=== PATIENT | male | born 1945 | race Caucasian/White ===

== ENCOUNTER 2016-10-22 13:29 | Inpatient (IN) | payer MEDICARE, OTHER ==
[~2016-10-22] VITALS: Ht 185.4 cm; Wt 80.1 kg
[~2016-10-22 13:29] MED LIST: ACETAMINOPHEN325 M1 PO; ADULT LOW DOSE81 MG PO; ADVAIR 250-501 EACH INH; ALBUTEROL2.5 MG/3 M INH; BENADRYL25 MG; BENADRYL25 MG PO; CEPHALEXIN500 MG PO; CHLORHEXIDINE473 ML MM; CLINDAMYCIN HC150 MG PO; DIPHENHYDRAMINE50 M1 PO; DOCUSATE SODIU100 MG PO; DUONEB 0.5 MG-33 ML INH; ERYTHROMYCIN3.5 GM OU; FERROUS SULFAT325 M1 PO; FLOVENT HFA10.6 GM; FLOVENT HFA12 G1 INH; HYDROCODON-ACE1 EA14 PO; INCRUSE ELLI62.5 MCG IH; IPRAT-ALBUT 0.5-3 ML; IPRAT-ALBUT 0.5-3 ML INH; IPRATROPIU0.2 MG/1 M INH; LEVAQUIN500 MG PO; LEVAQUIN750 MG PO; LEVOTHYROXINE150 MCG; LEVOTHYROXINE200 MCG PO; MAG-AL LIQUID30 ML PO; MAG-OXIDE400 MG PO; MILK OF MA400 MG/5 M; MILK OF MA400 MG/5 M PO; MIRALAX17 GM; MULTI-VITAMIN1 EACH PO; NIACIN500 M1 PO; NIACIN500 M2 PO; PREDNISONE20 MG PO; RISPERDAL1 MG; RISPERDAL3 MG PO; SEROQUEL200 MG PO; SEROQUEL400 MG PO; SODIUM CHLORIDE1 GM PO; SPIRIVA18 MCG INH; TAMSULOSIN HCL0.4 MG PO; TYLENOL ARTHRI650 MG PO; ULTRAM50 MG PO; ZOCOR40 MG PO; ZOLOFT100 MG PO; [UNRECOGNIZED DRUG - OTHER]
--- NOTE | 2016-10-22 17:00 | NUR ---
PT ARRIVED TO FLOOR FROM ED. PT FULL ASSIST TRANSFER TO HOSPITAL BED. PT ORIENTED TO SELF ONLY. PT DROWSY BUT RESPONDS TO VOICE. BED ALARM ON. PT ATTENDS HAD BM UPON ARRIVIAL, PT CLEANED THOROUGHLY. TELE #9 SINUS RHTHYM, HR IN 80'S. PT DENIES PAIN, NAUSEA, OR OTHER CONCERNS. MOIST COUGH NOTED. PT SATTING MID 90'S ON 2L NC. SKIN IN GOOD CONDITION, NO BREAKDOWN, BRUISING, OR ABRASIONS NOTED. BED ALARM ON FOR SAFETY.
--- NOTE | 2016-10-22 18:50 | NUR ---
PT IS SITTING IN BED EATING DINNER, VITASL TAKEN. PT DID NOT NEED ANYTHING AT THE MOMENT.
--- NOTE | 2016-10-22 18:50 | NUR ---
PT SITTING UP IN BED EATING DINNER INDEPENDENTLY.
--- NOTE | 2016-10-22 20:44 | NUR ---
PT ASSESSMENT COMPLETE. PT HAS HX MRDD, ORIENTED TO SELF/PLACE/RECOGNIZES PEOPLE AND STAFF HE KNOWS. PT VERY PLEASANT AND COOPERATIVE. IV FLUIDS INFUSING WITHOUT DIFFICULTY. PT DENIES ANY PAIN. PT TOLERATING PO WELL, ATE MOST OF DINNER. PT DROWSY, FALLS ASLEEP EASILY AND AWAKES EASILY. PT ON TELEMETRY, SV RHYTHM, HR 69. CALL LIGHT WITHIN REACH. PT DENIES ANY FURTHER NEEDS AT THIS TIME. CURTAINS OPEN FOR CLOSE MONITORING.
--- NOTE | 2016-10-22 21:16 | NUR ---
CHANGED PT GOWN, PILLOW CASE, DAMP FROM HIS BODY-SWEATY. PT MOSTLY SLEEPY WITH MOIST COUGH, NON-PRODUCTIVE. RETURNED TO SLEEP ONCE TASK COMPLETE.
--- NOTE | 2016-10-23 00:05 | NUR ---
PT SLEEPING, RR EVEN AND UNLABORED. PT APPEARS COMFORTABLE AT THIS TIME. PT ON TELEMETRY, SINUS RHYTHM, HR 65. IV FLUIDS INFUSING WITHOUT DIFFICULTY. PT ON 2 LPM O2 VIA NASAL CANNULA, SATS IN HIGH 90'S. CALL LIGHT WITHIN REACH.
--- NOTE | 2016-10-23 01:30 | NUR ---
PT INCONTINENT OF STOOL AND URINE. GUIAC TEST DONE, WHICH WAS NEGATIVE. NEED 2 MORE STOOLS TESTED. VS COMPLETE. IV FLUIDS INFUSING WITHOUT DIFFICULTY. PT EASILY FALLING BACK TO SLEEP. PT APPEARS COMFORTABLE. CALL LIGHT WITHIN REACH.
--- NOTE | 2016-10-23 04:49 | NUR ---
PT SLEEPING, RR EVEN AND UNLABORED. PT APPEARS COMFORTABLE. IV FLUIDS INFUSING WITHOUT DIFFICULTY. PT ON TELEMETRY, SINUS RHYTHM, HR 71. PT ON 2 LPM O2 VIA NASAL CANNULA. CALL LIGHT WITHIN REACH.
--- NOTE | 2016-10-23 06:10 | NUR ---
UP TO BATHROOM, VOIDED WITHOUT DIFFICULTIES. INCONT MED BLACK/GREEN PASTY THICK CONSISTENCY. REQUIRES CUEING WITH TASKS. MOIST NON PRODUCTIVE COUGH
--- NOTE | 2016-10-23 06:14 | NUR ---
PT UP TO BATHROOM, HAD A BM. GUIAC TEST DONE, NEGATIVE. STILL NEED ONE MORE STOOL TESTED. PT BACK IN BED. IV FLUIDS INFUSING WITHOUT DIFFICULTY. PT A x1 ASSIST WITH FWW. PT NEEDS FREQUENT DIRECTING/REMINDING OF CURRENT TASK. CALL LIGHT WITHIN REACH. BED ALARM IN PLACE FOR SAFETY.
--- NOTE | 2016-10-23 07:11 | EKG ---
[facility] [address] [facility] [place] [address] Signed Sinus tachycardia with 2nd degree AV block with 2:1 AV conduction Right bundle branch block Left anterior fascicular block Bifascicular block Cannot rule out Inferior infarct (masked by fascicular block?) , age undetermined Anteroseptal infarct (cited on or before 04-MAR-2016) T wave abnormality, consider lateral ischemia Abnormal ECG When compared with ECG of 30-MAR-2016 21:45, Sinus rhythm is now with 2nd degree AV block (RBBB and left anterior fascicular block) is now present Questionable change in initial forces of Anterior leads Confirmed by LUZ SABILLON MD ([id number]) on 10/23/2016 7:11:05 AM Electronically Signed By: LUZ SABILLON MD 10/23/16 0711 PATIENT NAME: SAI BASILIO Electrocardiogram DATE OF : 43 PHYSICIAN: LUZ SABILLON MD REPORT #: [id number] REPORT IS CONFIDENTIAL AND NOT TO BE RELEASED WITHOUT AUTHORIZATION
--- NOTE | 2016-10-23 08:28 | NUR ---
PT AWAKE AND TALKATIVE. EATING BREAKFAST. GAVE MILK FOR OATMEAL. PT TOOK MORNING PILL. DENIES CONCERNS.
[2016-10-23] MEDS ORDERED: IPRAT-ALBUT 0.5-3 ML INH (09:45)
--- NOTE | 2016-10-23 09:45 | NUR ---
ASSISTED CUSTOMS HOUSE BROKER WITH GETTING PT READY FOR SHOWER. REMOVED 1\2 IV WNL. COVERED OTHER IV. SL. PLACED TELE UNIT IN BAG. CUSTOMS HOUSE BROKER NOW ASSISTING.
[2016-10-23] MEDS ORDERED: CARVEDILOL3.125 MG PO (09:51)
[2016-10-23] MEDS ORDERED: FINASTERIDE5 MG PO (09:52)
--- NOTE | 2016-10-23 09:55 | NUR ---
MED REC COMPLETE WITH JAJA IDETRICH
--- NOTE | 2016-10-23 10:09 | NUR ---
HELPED PT SHOWER WELL SHAMPOO, MIMA CARE, ORAL CARE, AM CARE, AND LINENS CHANGED. PT IS NOW SITTING UP IN CHAIR WITH CALL LIGHT IN REACH WATCHING TV.
--- NOTE | 2016-10-23 11:29 | NUR ---
PT SITTING UP IN CHAIR. EXPLAINED THAT HE WOULD HAVE TO HAVE SOME MORE AB DUE TO INFECTION, HE VERBALIZED UNDERSTANDING.
--- NOTE | 2016-10-23 12:05 | NUR ---
PT IS LYING IN BED GETTING AN ECHO DONE. DOES NOT NEED ANYTHING AT THIS TIME.
--- NOTE | 2016-10-23 12:17 | NUR ---
PT BACK TO BED AFTER LUNCH. DENIES CONCERNS.
--- NOTE | 2016-10-23 14:00 | NUR ---
HELPED PT TO BATHROOM, PT THEN WALKED TO CHAIR AND IS NOW SITTING WITH FEET UP WATCHING TV. PT ASKED FOR KLEENEXS
--- NOTE | 2016-10-23 14:28 | NUR ---
PT BACK IN CHAIR AFTER GETTING UP TO RESTROOM FOR BM. PT DENIES DIZZINESS OR ANY CONCERNS.
--- NOTE | 2016-10-23 17:01 | NUR ---
PT THREW UP ALL OVER. LUNGS NOW SOUND WHEEZY. CALLED DR TO ALERT, SHE ORDERED AN ALBUTERAL NEB PRN.
--- NOTE | 2016-10-23 17:09 | NUR ---
PT SHOWERED AND SAT IN CHAIR TODAY. HAD ONE BOUT OF EMESIS THIS EVENING. GIVEN PRN NEB. SBA TO THE RESTROOM. LUNGS WERE CLEAR MOST OF DAY, NOW COARSE WITH EXP WHEEZE.
--- NOTE | 2016-10-23 18:22 | NUR ---
PT PULLED OUT IV. AFTER SEVERAL TRIES ASSISTANT CHILD CARE TEACHER GOT ONE IN THE LEFT FOREARM. PT TOLERATED WELL.
--- NOTE | 2016-10-23 18:38 | NUR ---
PT CLEANED UP AND BACK TO BED. STATES HE IS GETTING TIRED. DENIES SOB EVEN THOUGH HE HAS AUDILBE LUNG SOUNDS. 2LNC
--- NOTE | 2016-10-23 20:15 | NUR ---
PT ASSESSMENT COMPLETE. PT DENIES ANY PAIN, N/V, SOB AT THIS TIME. LUNG SOUNDS ARE CLEAR AT THIS TIME. PT ON 2 LPM O2 VIA NASAL CANNULA. PT RESTING IN BED, CRACKERS GIVEN PER PT REQUEST PT DID NOT EAT DINNER. IV SITE SALINE LOCKED, FLUSHES WELL, PATENT AND INTACT. BED ALARM IN PLACE FOR SAFETY. CALL LIGHT WITHIN REACH. PT DENIES ANY FURTHER NEEDS AT THIS TIME.
--- NOTE | 2016-10-23 21:32 | NUR ---
PT ON TELEMTERY, SINUS RHYTHM, HR 76. PT RESTING QUIETLY IN BED WATCHING TV. CALL LIGHT WITHIN REACH.
--- NOTE | 2016-10-23 23:02 | NUR ---
PT UP TO BATHROOM WITH x1 ASSIST USING FWW. PT HAD BM, DID GUAIAC TEST IT WAS ORDERED FOR x3 AND UNKNOWN IF 3RD TEST DONE, TEST IS NEGATIVE. PT BACK IN BED. CALL LIGHT WITHIN REACH. BED ALARM IN PLACE.
--- NOTE | 2016-10-24 04:36 | NUR ---
PT SLEEPING, RR EVEN AND UNLABORED. PT APPEARS COMFORTABLE. IV FLUIDS INFUSING WITHOUT DIFFICULTY. PT ON TELEMETRY, SINUS RHYTHM, HR 82. PT ON 2 LPM O2 VIA NASAL CANNULA. CALL LIGHT WITHIN REACH.
--- NOTE | 2016-10-24 05:41 | NUR ---
PT HAD AN UNEVENTFUL NIGHT. PT UP TO BATHROOM WITH x1 ASSIST USING FWW, INCONTINENT AND ALSO USES URINAL. PT ON 2 LPM O2 VIA NASAL CANNULA, RECEIVED x1 PRN NEB TX THIS SHIFT FOR SOB AFTER EXERTION. PT HAD NO N/V THIS SHIFT. IV SALINE LOCKED. BLOOD CULTURES CAME BACK POSITIVE, RECEIVING IV ROCEPHIN. BED ALARM IN PLACE, PT FORGETFUL WITH CALL LIGHT. PT HAS HX MRDD, NEEDS SIMPLE CUES. PT COOPERATIVE AND PLEASANT. PT ON TELEMETRY #9, SINUS RHYTHM, HR 70'S MOST OF SHIFT.
--- NOTE | 2016-10-24 07:24 | NUR ---
RECIEVED BEDSIDE REPORT FROM RUSLAN WALKER. PT SLEEPING IN BED, BREATHING EVEN AND UNLABORED. O2 ON.
--- NOTE | 2016-10-24 09:59 | NUR ---
PT RESTING IN BED, EASILY WAKES TO VOICE. FACE WASHED, MORING CARES DONE.
--- NOTE | 2016-10-24 10:02 | NUR ---
PT RESTING IN BED, ADJUSTED TELE MONITOR. HR REGULAR, HR 77.
--- NOTE | 2016-10-24 11:50 | NUR ---
PT SITTING UP IN BED. HE WAS STILL EATING BREAKFAST, DECLINED LUNCH AT THIS TIME.
--- NOTE | 2016-10-24 13:58 | NUR ---
PT HAD A SMALL, BLACK AND TARRY, BOWEL MOVEMENT. MD AWARE HE TAKES IRON AT HOME. PT VOIDED FOR 400ML.
--- NOTE | 2016-10-24 15:38 | NUR ---
PT UP TO SHOWER WITH DIRECTOR OF SEARCH ENGINE MARKETING.
--- NOTE | 2016-10-24 16:15 | NUR ---
Patient up in chair after shower.
--- NOTE | 2016-10-24 16:35 | NUR ---
PT UP IN CHAIR AFTER SHOWER. NEW WRISTBAND PLACED. NO PAIN, NAUSEA, OR DISCOMFORT AT THIS TIME.
--- NOTE | 2016-10-24 16:46 | NUR ---
VOLUNTEER IN TO TALK TO PT FOR A FEW MINUTES. PT WAS RECEPTIVE TO TALKING TO HIM. TV ON. RAILS UP. CALL LIGHT WITHIN REACH.
--- NOTE | 2016-10-24 17:03 | NUR ---
PT FINISHED BREAKFAST AT 1200. HE DECLINED LUNCH. PT WAS ABLE TO STAND AT BEDSIDE TO VOID. PT TOLERATED 2L O2, SATS IN MID-90S. ON TELE 9, SINUS RHYTHM AT 79. PT UP TO SHOWER WITH LOCK OPERATOR. ONE SMALL, TARRY, BLACK BM. AWARE, PT TAKES IRON AT HOME. PT UP TO CHAIR. PRN NEB TREATMENTS X1, WHEEZY, COARSE LUNGS SOUNDS.
--- NOTE | 2016-10-24 20:07 | NUR ---
PT ASSESSMENT COMPLETE. PT DENIES ANY PAIN, N/V. PT SITTING IN CHAIR DRINKING HOT CHOCOLATE, IN GOOD SPIRITS THIS EVENING. PT ON 2 LPM O2 VIA NASAL CANNULA, PT DENIES ANY SOB ALTHOUGH VERY COARSE LUNG SOUNDS. IV SALINE LOCKED. PT ON TELEMETRY, SINUS RHYTHM, HR 89. CALL LIGHT WITHIN REACH. CURTAINS OPEN FOR CLOSE MONITORING. PT DENIES ANY FURTHER NEEDS AT THIS TIME.
--- NOTE | 2016-10-25 00:05 | NUR ---
PT SLEEPING, RR EVEN AND UNLABORED. PT APPEARS COMFORTABLE. IV SALINE LOCKED. PT ON TELEMETRY, SINUS RHYTHM, HR 86. PT ON 2 LPM O2 VIA NASAL CANNULA. CALL LIGHT WITHIN REACH.
--- NOTE | 2016-10-25 04:09 | NUR ---
PT UP TO BATHROOM WITH x1 ASSIST USING FWW, VOIDING WELL. PT BACK IN BED. ON 2 LPM O2 N/C. TELEMETRY, SINUS RHYTHM, HR 95. BED ALARM IN PLACE. CALL LIGHT WITHIN REACH.
--- NOTE | 2016-10-25 06:12 | NUR ---
PT HAD AN UNEVENTFUL NIGHT, SLEPT MOST OF NIGHT. PT x1 ASSIST WITH FWW FOR AMBULATION. PT USES URINAL AND IS ALSO INCONTINENT AT TIMES. PT ON 2 LPM O2 VIA NASAL CANNULA, PT DENIED ANY SOB THIS SHIFT. PT TOLERATING PO. PT ON TELEMETRY, SINUS RHYTHM. RECEIVING IV ROCEPHIN, OTHERWISE SALINE LOCKED.
--- NOTE | 2016-10-25 07:51 | NUR ---
BEDSIDE REPORT RECEIVED FROM RUSLAN GIRALDO. PATIENT SITTING UP IN BED. DENIES PAIN. PATIENT ON 2L O2 VIA NC. NO APPARENT DISTRESS NOTED. PATIENT AMBULATES TO CHAIR WITH FWW WITH ONE PERSON ASSIST. WARM BLANKET PROVIDED. IV SITE WNL AND SL.
--- NOTE | 2016-10-25 08:48 | NUR ---
PT SITTING IN CHAIR, WITH BREAKFAST
--- NOTE | 2016-10-25 10:52 | NUR ---
PT UP TO TOILET, VOID 300ML. ATTEND CHANGED. AT SINK FOR AM CARES WITH TELEGRAPH EQUIPMENT MAINTAINER.
--- NOTE | 2016-10-25 11:39 | NUR ---
PT SITTING IN CHAIR, SOMEWHAT ALERT. HE INVITED ME IN, HAD ME SIT DOWN. HE POINTED OUTSIDE AND SAID IT WAS DIFFERENT-MEANING THE FIELD OUTSIDE THE [facility]. "IT IS NOW A LANDFILL" HE STATED. I INQUIRED IF HE HAD SEEN ANY DEER OR [employer]S. HE SAID NO THE LANDFILL TOOK THEM AWAY. HE SAID HE WAS NOT IN PAIN, BUT DID COUGH SEVERAL TIMES WHILE I WAS WITH HIM. HE WOULD ANSWER WHEN SPOKEN TO, SOMETIMES SLOWER TO RESPOND THAN AT OTHER TIMES. EXTENDED A BLESSING, WILL CONTINUE TO FOLLOW
--- NOTE | 2016-10-25 12:40 | NUR ---
RUSLAN WYATT WAS IN TO ROOM FOR PICC LINE PLACEMENT.
--- NOTE | 2016-10-25 13:02 | NUR ---
PICC INSERTION NOTE. ORDERS RECIEVED FROM DR SABILLON TO EVALUATE MR BASILIO FOR POSSIBLE PICC INSERTION. AFTER REVIEWING THE CHART AND INTERVIEWING THE PT, NO ABSOLUTE CONTRAINDICATIONS WERE FOUND. I ALSO DISCUSSED THE PT WITH DR SABILLON AND HAD DR SABILLON SIGN THE CONSENT FOR PICC THE PT CANNOT SIGN FOR HIMSELF AND HAS NO FAMILY HERE TODAY. RISKS AND COMPLICATIONS OF PICC LINES WERE DISCUSSED WITH THE PT AND HE GAVE VERBAL CONSENT PRIOR TO THE START OF THE PROCEDURE. THE RIGHT ARM WAS EVALUATED AND THE RIGHT BASILIC VEIN WAS SEEN TO BE LARGER THAN 8 FR PER SITE RIGHT U/S. THE VESSEL WAS ACCESSED AND THERE WERE NO PROBLEMS ADVANCING THE GUIDE WIRE, INTRODUCER, OR LINE. A CXR WAS TAKEN AND SHOWED THE LINE DEEPER THAN OPTIMAL IN A CENTRAL LOCATION. NO ECTOPY WAS NOTED DURING INSERTION AND THE MAGNET TRACKER WAS USED. THE LINE WAS WITHDRAWN 5 CM AND ANOTHER CXR WAS TAKEN AND A STERILE DRESSING WAS APPLIED. REPORT WAS GIVEN TO THE RN TAKING CARE OF MR BASILIO AND EDUCATION MATERILAS REGARDING THE CARE OF PICC LINES WERE ALSO GIVEN TO THE PT.
--- NOTE | 2016-10-25 13:19 | NUR ---
ASSISTED PT TO TOILET, VOID 500ML. PT RETURNED TO CHAIR WITH CHAIR ALARM ON FOR SAFETY.
== END 2016-10-25 13:14 | disposition swing bed (61) | DRG 871 ==
LOC: ED 13:29 → MS 16:22
PROVIDERS: ADMIT Internal Medicine
PROC: 02HV33Z Insertion of Infusion Device into Superior Vena Cava, Percutaneous Approach (ICD-10-PCS; principal; 2016-10-25 12:30)
DX: A40.9 Streptococcal sepsis, unspecified (principal); J18.9 Pneumonia, unspecified organism; J44.1 Chronic obstructive pulmonary disease with (acute) exacerbation; J44.0 Chronic obstructive pulmonary disease with (acute) lower respiratory infection; E03.9 Hypothyroidism, unspecified; F20.9 Schizophrenia, unspecified; R42 Dizziness and giddiness; E78.5 Hyperlipidemia, unspecified; R53.1 Weakness; F03.90 Unspecified dementia, unspecified severity, without behavioral disturbance, psychotic disturbance, mood disturbance, and anxiety; Z86.14 Personal history of Methicillin resistant Staphylococcus aureus infection; Z87.891 Personal history of nicotine dependence; Z88.8 Allergy status to other drugs, medicaments and biological substances; Z79.82 Long term (current) use of aspirin; Z79.2 Long term (current) use of antibiotics; Z79.51 Long term (current) use of inhaled steroids; Z79.891 Long term (current) use of opiate analgesic; Z79.899 Other long term (current) drug therapy
CPT/HCPCS: 36415; 36556; 71010; 80048; 80053; 81001; 83605; 84132; 85025; 85651; 87040; 87077; 87088; 87186; 93005; 93010; 93306; 94640; 94760; 94762; C1751; J0696; J2930; J7030

== ENCOUNTER 2016-10-25 13:20 | Inpatient (IN) | payer MEDICARE, OTHER ==
[~2016-10-25] VITALS: Ht 185.4 cm; Wt 83.5 kg
[~2016-10-25 13:20] MED LIST changes: +CARVEDILOL3.125 MG PO; +FINASTERIDE5 MG PO
--- NOTE | 2016-10-25 13:43 | NUR ---
MED REC COMPLETE-SWING BED
--- NOTE | 2016-10-25 14:32 | NUR ---
PT TRANSFERED TO SWING BED STATUS. PICC LINE PLACED IN RIGHT ARM. PT UP TO TOILET, VOIDING WELL. PT SITTING IN BED WITH CHAIR ALARM ON, IS CALLING APROPRIATELY.
--- NOTE | 2016-10-25 17:51 | NUR ---
PATIENT SITTING IN THE CHAIR, EATING DINNER. NO COMPLAINTS AT THIS TIME.
--- NOTE | 2016-10-25 18:26 | NUR ---
PT TRANSITIONED TO SWING BED. PICC LINE PLACED IN UPPER RIGHT ARM. PT TOLERATED WELL. PT UP AMBULATING WITH PHYSICAL THERAPY. PT UP WITH ONE PERSON ASSIST TO TOILET, VOIDING WELL. NO BM THIS SHIFT. PT ORIENTATED TO SELF, PLACE, SITUATION. PT UP IN CHAIR MOST OF SHIFT.
--- NOTE | 2016-10-25 21:03 | NUR ---
PT ASSESSMENT COMPLETE. PT SITTING IN CHAIR. ALERT AND ORIENTED. PT ON ROOM AIR, WHEEZING, DENIES NEED FOR PRN NEB. HS MEDS GIVEN. PICC LINE PATENT AND INTACT. CALL LIGHT WITHIN REACH. PT DENIES ANY FURTHER NEEDS AT THIS TIME.
--- NOTE | 2016-10-26 00:05 | NUR ---
PT UP OUT OF CHAIR WITH FWW, REDIRECTED TO BED. PT DROSWY AND CONFUSED, BUT COOPERATIVE. PT IN BED WITH BED ALARM. CALL LIGHT WITHIN REACH. CURTAINS OPEN FOR CLOSE MONITORING.
--- NOTE | 2016-10-26 03:42 | NUR ---
PT SLEEPING, RR EVEN AND UNLABORED. PT APPEARS COMFORTABLE AT THIS TIME. CALL LIGHT WITHIN REACH. BED ALARM IN PLACE.
--- NOTE | 2016-10-26 05:50 | NUR ---
PT INCONTINENT OF STOOL AND URINE, PT SATURATED BED. CHANGED ATTENDS, GOWN, LINENS. PT UP TO CHAIR WITH x1 ASSIST USING FWW. PT NOW RESTING COMFORTABLY IN CHAIR. CALL LIGHT WITHIN REACH. PT DENIES ANY FURTHER NEEDS AT THIS TIME.
--- NOTE | 2016-10-26 08:18 | NUR ---
PT UP IN THE CHAIR DOZING AT SHIFT CHANGE. AWAKENED FOR ASSESSMENT PT NOT PARTICULALRLY RESPONSIVE, ANDWERS QUESTIONS THEN RETURNS TO DOZING. STATES HE DID NOT SLEEP WELL LAST NIGHT. BREAKFAST ORDERED, CALL LIGHT IN HAND. PT AGREES HE IS COMFORTABLE DENIES NEEDS OF
--- NOTE | 2016-10-26 10:14 | NUR ---
PT UP AMBULATING THE DAY WITH P/T WELL TOLERATED
--- NOTE | 2016-10-26 11:12 | NUR ---
PT UP WALKING-WORKING HARD WITH Pedro HARTMAN'S ASSISTANCE. FRIENDLY, CONCENTRATING, AND FEELING GOOD ABOUT BEING UP. WILL CONTINUE TO FOLLOW
--- NOTE | 2016-10-26 11:55 | NUR ---
PT UP IN THE CHAIR TALKING WITH O/T AT THIS TIME. REFUSES LUNCH STATING HE NEVER EATS NOON MEAL BECAUSE IT UPSETS HIS STOMACHE. AGREES TO DRINK ENSURE PROVIDED AT CHAIRSIDE. CALL LIGHT IN HAND PT DENIES FURTHER NEEDS OF
--- NOTE | 2016-10-26 13:21 | NUR ---
PT CONTINUES IN THE CHAIR, MORE ALERT AND INTERACTIVE THAN THIS MORNING. PT IS TALKATIVE ASKING AND ANSWERING QUESTIONS. UP WITH P/T AGAIN APPEARS TO AMBULATE WELL, NO SOB OR C/O.
--- NOTE | 2016-10-26 14:46 | NUR ---
PT CONTINUES UP IN THE CHAIR, REFUSES OFFER TO REST IN BED FOR A TIME. DENIES DISCOMFORTS OR NEEDS.
--- NOTE | 2016-10-26 15:32 | NUR ---
PT UP TO THE SHOWER STAFF STANDBY/PARTIAL ASSIST. ACTIVITY WELL TOLERATED BY PT RETURNS TO SITTING IN CHAIR
--- NOTE | 2016-10-26 18:14 | NUR ---
PT EATS 100% OF EVENING MEAL, SELF FEEDS. DENIES NEEDS OF CONTINUES UP IN THE CHAIR, NEEDED ITEMS AT BEDSIDE
--- NOTE | 2016-10-26 19:00 | NUR ---
BEDSIDE SHIFT REPORT RECEIVED FROM RUSLAN SELBY. PT IS CURRENTLY SITTING UP IN HIS CHAIR. DENIES NEEDS AT THIS TIME, WILL CONTINUE TO MONITOR.
--- NOTE | 2016-10-26 21:15 | NUR ---
ASSESSMENT COMPLETED. PT IS ALERT, SITTING UP IN CHAIR. DENIES PAIN. LUNGS HAVE INSPIRATORY AND EXPIRATORY WHEEZES THROUGHOUT, MOIST COUGHT, RA. HR REGULAR. BOWEL TONES ACTIVE. SKIN INTACT, GENERALIZED EDEMA NOTED IN LEFT HAND. PICC TO RIGHT UPPER ARM H/L. DENIES FURTHER REQUESTS AT THIS TIME, CALL LIGHT IS WITHIN REACH.
--- NOTE | 2016-10-26 22:00 | NUR ---
PT CONTINUES TO SIT UP IN CHAIR, ASKED HIM IF HE'D LIKE TO RETURN TO BED AND AND STATED HE IS NOT READY. PT REQUESTED A SNACK, PUDDING PROVIDED. DENIES FURTHER REQUESTS.
--- NOTE | 2016-10-26 23:03 | NUR ---
PT REQUESTED TO GO TO BED AT THIS TIME. 2-PA AND FWW TRANSFER TO BED. WARM BLANKET PROVIDED, DENIES FURTHER REQUESTS AT THIS TIME.
--- NOTE | 2016-10-27 | NUR ---
PT APPEARS TO BE SLEEPING, NO APPARENT DISTRESS. RESPIRATIONS EVEN AND UNLABORED. BED ALARM IS ON FOR SAFETY. WILL CONTINUE TO MONITOR.
--- NOTE | 2016-10-27 03:37 | NUR ---
PT SLEEPING, NO APPARENT DISTRESS. RESPIRATIONS EVEN AND UNLABORED. WILL CONTINUE TO MONITOR.
--- NOTE | 2016-10-27 05:08 | NUR ---
SWING BED. PT HAD UNEVENTFUL NIGHT, SLEPT MAJORITY OF SHIFT. LUNGS HAD INSPIRATORY AND EXPIRATORY WHEEZES THROUGHOUT, RA, SCHEDULED NEBS. SOFT DIET, TOLERATING WELL, NO NAUSEA. NO PAIN. SBA WITH FWW. VOIDING WELL, BM LAST NIGHT. PICC IN RIGHT UPPER ARM, HEP LOCKED. EDEMA IN LEFT HAND. PO CIPRO AND IV ROCEPHIN.
--- NOTE | 2016-10-27 06:00 | NUR ---
PT WOKE UP AND WAS INCONTINENT OF URINE. NEW LINENS AND GOWN PROVIDED, SKIN CLEANSED. PT SAT ON TOILET FOR A WHILE AND HAD BM. UPON STANDING PT WAS INCONTINENT OF URINE ONE MORE TIME, NEW ATTENDS IN PLACE. PT NOW SITTING UP IN CHAIR, DENIES FURTHER REQUESTS.
--- NOTE | 2016-10-27 07:22 | NUR ---
PT SLEEPING IN THE CHAIR AT SHIFT CHANGE
--- NOTE | 2016-10-27 08:21 | NUR ---
PT UP TO TOILET THEN TO CHAIR TOLERATING BREAKFAST WELL. DENIES DISCOMFORTS, PAIN, OR FURTHER NEEDS OF
--- NOTE | 2016-10-27 13:34 | NUR ---
PT CONTINUES UP IN THE CHAIR NOTIFIES STAFF OF NEEDS NOT ATTEMPTING TO GET UP INATTENDED. PT TOLERATES 100% OF NOON MEAL SITS WATCHING TV AT THIS TIME
[2016-10-27] MEDS ORDERED: LEVOFLOXACIN500 MG PO (13:53)
--- NOTE | 2016-10-27 18:36 | NUR ---
PT UP TO THE TOILET IS ABLE TO MOVE BOWELS
--- NOTE | 2016-10-27 19:00 | NUR ---
BEDSIDE SHIFT REPORT RECEIVED FROM RUSLAN SELBY. PT IS CURRENTLY SITTING UP IN CHAIR. DENIES NEEDS AT THIS TIME.
--- NOTE | 2016-10-27 21:40 | NUR ---
ASSESSMENT COMPLETED. PT IS SITTING UP IN CHAIR. DENIES PAIN. LUNGS HAVE INSPIRATORY AND EXPIRATORY WHEEZES THROUGHOUT, RA. HR REGULAR. BOWEL TONES ACTIVE. SKIN INTACT, GENERALIZED EDEMA NOTED IN LEFT HAND. PICC IN RIGHT UPPER ARM HAS GOOD BLOOD RETURN AND FLUSHES EASILY, HEPARIN LOCKED. PT DENIES NEEDS, STATES HE WANT TO GO TO BED AT 2200.
--- NOTE | 2016-10-27 22:15 | NUR ---
PT TO BED FROM CHAIR WITH SBA AND FWW. DENIES NEEDS, WILL CONTINUE TO MONITOR.
--- NOTE | 2016-10-28 01:03 | NUR ---
PT CURRENTLY SLEEPING, NO APPARENT DISTRESS. RESPIRATIONS ARE EVEN AND UNLABORED. WILL CONTINUE TO MONITOR.
--- NOTE | 2016-10-28 03:08 | NUR ---
PT SLEEPING, NO APPARENT DISTRESS. RESPIRATIONS EVEN AND UNLABORED. WILL CONTINUE TO MONITOR.
--- NOTE | 2016-10-28 05:06 | NUR ---
PT HAD UNEVENTFUL SHIFT, SLEPT MAJORITY OF NIGHT. NO PAIN. NO NAUSEA. INSPIRATORY AND EXPIRATORY WHEEZES THROUGHOUT, RA. SBA WITH FWW. VOIDING QS, USES URINAL, INCONTINENT AT TIMES. PICC IN [facility], HEPARIN LOCKED. EDEMA IN LEFT HAND. IV ROCEPHIN AND PO LEVAQUIN.
--- NOTE | 2016-10-28 10:39 | NUR ---
PT ALERT AND INTERACTIVE AT SHIFT CHANGE UP IN CHAIR. EATS 100% OF BREAKFAST AGREES HE FEELS WELL AND READY TO GO HOME. DC INSTRUCTION GIVEN PT VERBLAIZES UNDERSTANDING. PICC LINE DC'D CATH INTACT SITE UNREMARKABLE. CALLED FACILITY WENT OVER DC INSTRUCTIONS UNDERSTANDING VERBALIZED, WRITTEN MATERIALS SENT WITH PT. FACILITY INFORMED OF PICC LINE DC AND SITE TO MONITOR UNDERSTANDING VERBALIZED.
== END 2016-10-28 10:10 | DRG 871 ==
LOC: MS 13:20
PROVIDERS: ADMIT Internal Medicine
PROC: 02HV33Z Insertion of Infusion Device into Superior Vena Cava, Percutaneous Approach (ICD-10-PCS; principal; 2016-10-25)
DX: A40.8 Other streptococcal sepsis (principal); J18.9 Pneumonia, unspecified organism; J44.1 Chronic obstructive pulmonary disease with (acute) exacerbation; E87.1 Hypo-osmolality and hyponatremia; F20.89 Other schizophrenia; B95.4 Other streptococcus as the cause of diseases classified elsewhere; I10 Essential (primary) hypertension; N40.0 Benign prostatic hyperplasia without lower urinary tract symptoms; E03.9 Hypothyroidism, unspecified; F03.90 Unspecified dementia, unspecified severity, without behavioral disturbance, psychotic disturbance, mood disturbance, and anxiety; E78.5 Hyperlipidemia, unspecified; Z55.0 Illiteracy and low-level literacy
CPT/HCPCS: 80048; 83735; 85025; 94640; 97110; 97116; 97163; 97165; J0696; Q0163

== ENCOUNTER 2017-02-17 03:23 | Inpatient (IN) | payer MEDICARE, OTHER ==
[~2017-02-17] VITALS: Ht 185.4 cm; Wt 81.4 kg
[~2017-02-17 03:23] MED LIST changes: +LEVOFLOXACIN500 MG PO
--- NOTE | 2017-02-17 10:50 | NUR ---
02/17/17 1050 Elizabeth Bullock 1050 - PT ARRIVED TO PACU. MAINTAING OWN AIRWAY. NEBULIZER GIVEN PER NOTE KEEPER ORDER. PT UNRESPONSIVE AT THIS TIME.
--- NOTE | 2017-02-17 11:42 | EKG ---
[facility] [address] [place] [address] Signed Sinus rhythm with 1st degree AV block Left axis deviation Right bundle branch block Inferior infarct , age undetermined Anteroseptal infarct , age undetermined Abnormal ECG No previous ECGs available Confirmed by SUSAN BEST MD ([id number]) on 02/17/2017 11:42:18 AM Electronically Signed By: SUSAN BEST MD 02/17/17 1142 PATIENT NAME: SAI BASILIO Electrocardiogram DATE OF : 43 PHYSICIAN: SUSAN BEST MD REPORT #: [id number] REPORT IS CONFIDENTIAL AND NOT TO BE RELEASED WITHOUT AUTHORIZATION
--- NOTE | 2017-02-17 12:00 | NUR ---
PATIENT ARRIVES TO CCU FROM PACU AROUND 1150 ON STRETCHER. PT MOVED OVER TO CCU BED WITH 3 PERSON ASSIST. PT IS VERY DROWSY AND SLEEPING. PATIENT NOT ABLE TO HELP MOVING SELF OVER TO NEW BED AT ALL. PT'S OVERALL SKIN TONE IS PALE AND EXT. ARE COOL. IVF STARTED AT 125 ML/HR. PT HAD A REPORTED INTAKE OF 3 L IN THE ER WITH AN ADDITIONAL 1800 ML IN THE OR. PT HAD 400 ML OF CONCENTRATED URINE EMPTIED WHILE PT WAS IN PACU, WHICH IS THE TOTAL AMOUNT OF URINE HE HAS HAD SINCE ADMISSION INTO THE HOSPITAL. PT HAS A 20 G IN THE RIGHT AC AT THIS TIME WHICH FLUSHES WELL. HANDWRITTEN ORDERS REC'D FROM DR. FONTAINE. DR. BEST NOW IN ROOM EXAMINING PATIENT. PATIENT REMAINS SOMNOLENT. FIRST BP WAS 110/92 AND THEN 82/49 (58). PT IS ON 4 L NC WITH AN SP02 OF 96% CURRENTLY. VERY COARSE LUNG SOUNDS ARE NOTED AND EXP WHEEZING AUSCULTATED. PT'S ABDOMEN IS SOFT, DISTENDED. NO BOWEL SOUNDS HEARD AT THIS TIME. BP NOW 89/52 (57). ABG DRAWN PER RT. CONTINUE TO MONTIOR.
--- NOTE | 2017-02-17 12:23 | NUR ---
MANUAL SYSTOLIC BLOOD PRESSURE OF PATIENT IS 78-82 MMHG. ANOTHER L BOLUS OF LR HUNG AND STARTED AT THIS TIME.
--- NOTE | 2017-02-17 12:58 | NUR ---
PATIENT HAD A LARGE LIQUID BLACK STOOL AT THIS TIME. PT'S ATTENDS AND CHUX CHANGED. PT FINISHED 500 ML OF AN LR BOLUS AND THEN A MANUAL BP CHECKED, WHICH WAS 94/60. DR. BEST NOTIFIED AND THE REMAINDER OF THE LR BOLUS HELD. PT NOW ON BIPAP WITH 12/5 AND 30% FI02 SETTINGS, AFTER REVIEWING ABG RESULTS. PT IS MORE AWAKE AND FOLLOWS COMMANDS AT THIS TIME, BUT IS STILL DROWSY AND WITHDRAWN. URINE OUTPUT FOR THIS HOUR IS 85 ML OF CONCENTRATED, ALTA LOOKING URINE. CONTINUE TO MONIOTR. IVF CHANGED TO D5 NS AT 125 ML/HR.
--- NOTE | 2017-02-17 15:10 | NUR ---
PATIENT GIVEN MINERAL OIL ENEMA, FOLLOWED BY WARM SOAPY WATER. PATIENT TOLERATED WELL. PT CONTINUES ON BIPAP. ABG DRAWN BY RT PRIOR TO ENEMA. RESULTS DISCUSSED WITH DR. BEST. INSTRUCTIONS TO TURN UP FI02 TO 40% REC'D AND RT NOTIFIED. LAB NOW DRAWING BMP AND LACITC. PT MEETING THE GOAL OF 40 ML/HR OF URINE, AND LAST HOUR PUT OUT 65 ML CONCENTRATED URINE. HEART RATE REMAINS IN THE 90s. BLOOD PRESSURES REMAIN SOFT, WITH THE LAST BEING 88/49 (56). CONTINUE TO MONITOR CLOSELY.
--- NOTE | 2017-02-17 15:31 | NUR ---
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 AMADOR WILL BE BRINGING IN HIS WALKER AND HIS GLASSES.
--- NOTE | 2017-02-17 15:55 | NUR ---
DR. FONTAINE CALLED TO UPDATE ON PATIENT'S BLOOD PRESSURES AND HEART RATE. ORDER REC'D TO INCREASE IVF TO 175 ML/HR. ORDER ALSO REC'D TO PLACE A PICC IN PATIENT AND TPN WILL LIKELY START TOMORROW. LAST BP 81/50 (58), AND MANUAL BP WAS 74/46. CONTINUE TO MONITOR CLOSELY.
--- NOTE | 2017-02-17 17:30 | NUR ---
PICC LINE INSERTION NOTE: ASKED BY DR. FONTAINE TO EVALUATE PATIENT FOR A POTENTIAL PICC LINE. PATIENT HISTORICALLY PER HIS MEDICAL RECORDS, HAD A PICC PLACED ON OCTOBER 25, 2016 AT [facility]. PATIENT WAS ADMITTED TODAY THROUGH THE ER AFTER GOING TO THE ENDOSCOPY SUITE TO HAVE A RECTAL DISIMPACTION. PATIENT IS VERY SOMNOLENT AFTER HIS PROCEDURE, AND AT HIS BASELINE IS NOTED TO HAVE MRDD AND LIVE AT A LOCAL CARE FACILITY. PATIENT'S CAREGIVER AMADOR WAS IN TO SEE PATIENT AND SHE IS THE ONE WHO SIGNED HIS CONSENT FORM FOR THE SCOPE. AMADOR WAS CALLED ON THE PHONE AND CONSENT OBTAINED VERBALLY OVER THE PHONE TO PLACE THE PICC LINE. PATIENT NOT AWAKE ENOUGH TO SIGN CONSENT FORM HIMSELF. PATIENT IS STRUGGLING WITH LOW BLOOD PRESSURES AND WILL NEED TO BE STARTED ON VASOPRESSOR MEDICATIONS. RISK AND BENEFITS THOUROUGHLY DISCUSSED WITH AMADOR QUEVEDO ON THE PHONE. PATIENT'S RIGHT ARM WAS EVALUATED FIRST WITH THE SITE RITE U/S. PATIENT'S BASILIC VEIN WAS NOTED TO BE GREATER THAN 8 FR BY THE SITE RITE U/S. PATIENT WAS ALSO NOTED TO HAVE A SIMILAR SIZED BRACHIAL VEIN THAT WAS ANOTHER POTENTIAL OPTION. PATIENT WAS PREPPED AND STERILY DRAPED AND ALL CDC RECOMMENDATIONS FOR INFECTION PREVENTION WERE FOLLOWED. IV ACCESS WAS OBTAINED IN THE RIGHT BASILIC VEIN ON THE FIRST ATTEMPT, WITH DARK NON PULSATILE BLOOD RETURN. GUIDEWIRE, INTRODUCER, AND PICC LINE ALL ADVANCED EASILY AND WITHOUT DIFFICULTY INTO THE VEIN. SHERLOCK U/S GUIDED MAGNET WAS ALSO USED TO CORRELATE WITH THE PLACEMENT OF THE PICC. PATIENT TOLERATED PROCEDURE VERY WELL. 2 CHEST XRAYS WERE OBTAINED AND DR. FONTAINE AND DR. SABILLON BOTH OKAY THE PICC LINE FOR USE. PICC LINE WAS LEFT WITH 3 CM EXPOSED, COVERED IN A STERILE DRESSING WITH A SECUREMENT DEVICE AND A BIO PATCH. BOTH LUMENS PULL BLOOD BACK WITHOUT DIFFICULTY.
--- NOTE | 2017-02-17 18:15 | NUR ---
DR. FONTAINE AND DR. SABILLON IN ROOM EVALUATING PATIENT OVER THE LAST HOUR OR SO. NEW IVF ORDER TO INFUSE AT 250 ML/HR. PICC LINE PLACED BY THIS RN IN RIGHT BASILIC VEIN WITHOUT DIFFICULTY. PATIENT TOLERATED PROCEDURE WELL. PT HAS BEEN ON BIPAP SINCE RETURNING FROM PACU. PATIENT NOTED AT THIS TIME TO HAVE HAD ANOTHER LIQUID LARGE BLACK BM WITH A FOUL SMELL. NO FORMED STOOL NOTED. SCDs ARE ON. PT GIVEN A BREAK FROM BIPAP FOR A FEW MOMENTS. MONITORING SKIN ON NOSE AND CHIN FROM THE WEAR OF THE BIPAP. CONTINUE TO MONITOR URINE OUTPUT HOURLY. CVP MEASURED ADN NOTED TO BE 14-15. WITH BP CONTINUING TO BE LOW, LEVOPHED ORDERED PER DR. SABILLON. CONTINUE TO MONITOR CLOSELY.
--- NOTE | 2017-02-17 19:15 | NUR ---
GETTING BEDSIDE REPORT FROM DAY SHIFT.
--- NOTE | 2017-02-17 20:00 | NUR ---
PT SHIFT REPORT RECIVED FROM DAY SHIFT RN. THIS RN WILL BE ORIENTING AND ASSESSING OTHER RN WITH THIS PT THROUGHOUT THE NIGHT. PT RESTING IN BED AT THIS TIME ON BIPAP. PT DOES APPEAR LETHARGIC BUT OPENS EYES TO NAME AT TIME. WILL CONTINUE TO CLOSELY MONITOR PT.
--- NOTE | 2017-02-17 20:30 | NUR ---
PLACED HEEL PROTECTORS ON PT TO HELP WITH SKIN INTEGRITY.
--- NOTE | 2017-02-17 21:30 | NUR ---
PT RESTING IN BED. LABS DRAWN AND SENT WITH NO ISSUES. WILL AWAIT RESULTS TO UPDATED MD.
--- NOTE | 2017-02-17 22:00 | NUR ---
PT HAS HAD HIS PM MEDS GIVEN AND GIVEN A FLEETS MINERAL OIL ENEMA AND 1500ml SOAP AMAN ENEMA WITH BLACK MUCUS LIKE RETURN.
--- NOTE | 2017-02-17 22:30 | NUR ---
CALLED LAB FOR PENDING LAB RESULTS. MD ON FLOOR AWAITING RESULTS. MD UPDATED ON NEW LABS AND CRITICAL CALCIUM LAB. NEW ORDERS FOR POTASSIUM AT THIS TIME. PER MD TURN FLUIDS BACK TO CURRENT ORDER OF D5 NS AT 175. UPDATED MD ON PT LOC. MD IS AWARE. WILL CONTINUE TO CLOSELY MONITOR AT THIS TIME.
--- NOTE | 2017-02-18 00:30 | NUR ---
pt bp and map < order parameters. increased levaphed gtt up to 9mcg/min. will continue to closely monitor.
--- NOTE | 2017-02-18 00:40 | NUR ---
PT TURNED FROM RIGHT SIDE TO SUPINE. INSPIRATORY AND EXPIRATORY WHEEZES HEARD THROUGHOUT ALL LUNG MORTON. RT WAS CALLED FOR A BREATHING TREATMENT. PATIENT NOW HAS SOME VERY HYPOACTIVE BOWEL TONES IN THE LRQ, BUT OTHERWISE BOWEL TINES STILL ABSENT. PATIENT HAD ANOTHER MODERATE BOWEL MOVEMENT OF BLACK MUCUS LIKE STOOL PATIENT'S LINENS WERE CHANGED AND CATH AND MIMA CARE WERE PERFORMED. ALL IV FLUIDS HAVE BEEN CHECKED SINCE THE BEGINING OF THE SHIFT FOR COMPATIBILITY THROUGH THE CLINICAL PHARMACOLOGY SYSTEM. PATIENT DID OPEN HIS EYES WHEN I ASKED HIM AND THEY WERE PERRLA. PATIENT COULD ALSO LIGHTLY SQUEEZE MY HAND WITH HIS RT HAND, BUT UNABLE TO FOLLOW ANY OTHER COMMANDS.
--- NOTE | 2017-02-18 02:00 | NUR ---
PT STATUS IS BASICALLY UNCHANGED SINCE LAST ASSESSMENT.
--- NOTE | 2017-02-18 04:00 | NUR ---
PT ASSESSMENT COMPLETED. PT RESTING IN BED ON BIPAP. PT BOWEL TONES ARE ABSENT AT THIS ASSESSMENT. CHECKED PT AND NO BM PRESENT. URINE OUTPUT ABOVE >40 ML/HR THROUGHOUT THE NIGHT. PT IS NOTED TO HAVE SOME DEPENDENT HAND SWELLING. NO EDEMA NOTED ANYWHERE ELSE AT THIS TIME.
--- NOTE | 2017-02-18 04:45 | NUR ---
LAST HOUR PT MAP HAS BEEN 70. TURNED LEVAPHED DOWN TO 7.5MCG/MIN WILL CONTINUE TO MONITOR AND TITRATE NECESSARY.
--- NOTE | 2017-02-18 04:50 | NUR ---
PATIENT'S STATUS REMAINS THE SAME EXCEPT I DO NOT HEAR ANY BOWEL TONES AT THIS TIME, NO MORE STOOL AT THIS TIME AND PATIENT IS STARTING TO HAVE SOME DEPENDENT EDEMA IN BOTH HIS HANDS.
--- NOTE | 2017-02-18 04:57 | NUR ---
TURNED PATIENT NEEDED AND Q2 HOURS TO HELP WITH SKIN INTEGRITY. PT TOLERATES WELL. WILL CONTINUE TO CLOSELY MONITOR.
--- NOTE | 2017-02-18 06:03 | NUR ---
Patient continues to be obtunded and on on CPAP tolerating it well. Am labs drawn and sent to lab.
--- NOTE | 2017-02-18 06:51 | NUR ---
RT IN TO DO CPT PER MOM'S REQUEST.
--- NOTE | 2017-02-18 07:19 | NUR ---
CALLED MD TO UPDATE ON CRITICAL LAB VALUES. UPDATED MD THAT PT HAD LEVAPHED IN OTHER PORT. PT GLUCOSE ELEVATED ON CHEM LABS THIS AM. CHECKED A FINGER STICK WITH RESULT OF 194. UPDATED MD. PER MD GET A REDRAW OF GLUCOSE.
--- NOTE | 2017-02-18 07:48 | NUR ---
BEDSIDE REPORT RECEIVED FROM CLINICAL TEAM MANAGER. PATIENT HAVE IVF INFUSING AT 175 ML/HR, LEVOPHED INFUSING AT 7.5 MCG/MIN. PATIENT REMAINS ON BIPAP AT THIS TIME WITH SETTINGS OF 12/5 AND 40%. PATIENT'S CURRENT VITAL SIGNS ARE HR 98 WITH A 1ST DEGREE AV BLOCK, BP 116/59 (73), SP02 99% ON BIPAP, AND RR 17. PATIENT DOES NOT APPEAR IN ANY DISTRESS. BRUSH DRAINING YELLOW URINE, HOWEVER IT DOES APPEAR SLIGHLTY LESS CONCENTRATED THAN YESTERDAY. ABG TO BE DRAWN THIS AM. DR. FONTAINE AND DR. SABILLON HAVE BOTH SEEN PATIENT AT THIS AM ALREADY. NEW ORDERS REC'D.
--- NOTE | 2017-02-18 08:50 | NUR ---
RT IN ROOM GIVING NEB TX. PATIENT REMAINS SOMNOLENT, BUT WILL OPEN EYES. PT IS NOT VERY VIGOROUS AND ALLOWS ANYTHING TO BE DONE TO HIM. PATIENT TO HAVE A MINERAL OIL FLEET ENEMA SOON WITH A WARMED WATER AND SOAP ENEMA TO FOLLOW. PT OFF BIPAP NOW AT THIS TIME.
[2017-02-18] MEDS ORDERED: LEVOTHYROXINE150 MCG PO (09:20)
--- NOTE | 2017-02-18 09:31 | NUR ---
LEVOPHED INFUSING AT 5 MCG/MIN. BLOOD PRESSURE AT THIS TIME IS 100/60 (67). PATIENT GIVEN MINERAL OIL ENEMA AND WARM TAP WATER ENEMA TO FOLLOW. PT OFF BIPAP AND SP02 IS 99% ON 4 L. PT TO BE TURNED DOWN ON OXYGEN. PT NOTED TO BE COUGHING SOME. ORAL CARE PROVIDED. CONTINUE JAMSHID ONITOR.
--- NOTE | 2017-02-18 12:12 | NUR ---
Medications reconciled by pharmacist using MARS from [facility]
--- NOTE | 2017-02-18 13:13 | NUR ---
PATIENT GIVEN FULL BED BATH AND LINEN CHANGED. PATIENT REMAINS ON 7.5 MCG/MIN OF LEVOPHED. PT IS STILL VERY DROWSY AND DOES NOT RESPOND APPROPRIATELY. PT OPENS EYES BRIEFLY TO HIS NAME BEING CALLED BUT DOENS'T INTERACT MEANINGFULLY AT ALL. PATIENT'S NAILS CLEANED THEY HAD DARK STOOL UNDER ALL OF THEM. D5 LR INFUSING AT 175 ML/HR. SCDs AND HEEL PROTECTORS ON. PT HAS VERY COARSE SOUNDING LUNGS. PATIENT IS COUGHING SOME BUT IT IS A VERY WEAK COUGH OVERALL. PT NOT ABLE TO FOLLOW COMMANDS. DR. SABILLON NOW AT BEDSIDE EVALUATING PATIENT AGAIN WITH MEDICAL STUDENT. PATIENT HAD ANOTHER SEMI LIQUID SOFT BM IN ATTENDS THAT WAS STILL BLACK, WITH SOME SEDIMENT NOTED.
--- NOTE | 2017-02-18 13:39 | NUR ---
PATIENT'S CAREGIVER AISHWARYA AT BEDSIDE AND TRYING TO TALK WITH PATIENT. DR. SABILLON NOTIFIED AND NOW BACK IN ROOM DISCUSSING PATIENT'S CONDITION WITH HER. PATIENT IS SLIGHTLY MORE INTERACTIVE WITH AISHWARYA, BUT STILL NOT AWAKE ENOUGH TO HAVE A CONVERSATION. CONTINUE TO MONITOR.
--- NOTE | 2017-02-18 14:22 | NUR ---
PLACED NGT, PATIENT TOLERATES WELL. IMMEDIATE RETURN OF GREEN LIQUID. PCXR ORDERED PER POLICY WHICH IS READ BY DR SABILLON AT THE BEDSIDE AND CONFIRMS PLACEMENT OF NGT IN STOMACH. PLACED NG TO LIWS. 100 MLS GREENISH FLUID IN CANISTER. DR SABILLON IN ROOM TO EVALUATE PATIENT. NO FURTHER ORDERS.
--- NOTE | 2017-02-18 14:56 | NUR ---
PATIENT'S FRIEND SAMIA AT BEDSIDE.
--- NOTE | 2017-02-18 16:10 | NUR ---
PATIENT'S BROTHER OMAR, WAS CALLED BY AISHWARYA FROM [facility]. OMAR NOW HERE AND VISITING PATIENT. PATIENT REMAINS DROWSY BUT MORE AWAKE THAN HE HAS BEEN. LEVOPHED HAS BEEN INFUSING AT 5 MCG/MIN. LEVOPHED NOW TURNED DOWN TO 2 MCG/MIN. DR. FONTAINE UPDATED ON STATUS. NG TUBE PUTTING OUT MINIMAL AMOUNT OF GREEN BILE LIKE FLUID. PATIENT NOW GETTING CPT TREATMENT WITH THE VEST. PT REMAINS ON 1 L NC. CONTINUE TO MONITOR.
--- NOTE | 2017-02-18 16:20 | OR ---
[facility] [address] [place], [place] [address] Signed DATE OF PROCEDURE: 02/17/17 PREOPERATIVE DIAGNOSIS: Rectal fecal impaction. POSTOPERATIVE DIAGNOSIS: Rectal fecal impaction. PROCEDURE Digital rectal disimpaction (greater than or equal to a volleyball size of stool). ESTIMATED BLOOD LOSS: None. 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 He also has schizophrenia and dementia. Consequently, he resides at a local extended care facility. For reasons I do not know currently he was scheduled to undergo a colonoscopy with one of gastroenterologists in [place], [place]. As expected, his bowel prep was poor at least twice and so his colonoscopies were canceled. He was then asked to undergo a more extensive bowel prep at his extended care facility. He was in the process of doing that yesterday when he was having voluminous amounts of black liquid stool in his bed and apparently one caregiver thought he vomited some stool. He was brought to our local Emergency Room for evaluation. In the Emergency Room, he really does not complain of any pain. He does not appear to be systemically ill or toxic. In fact, he was watching TV in the Emergency Room and he had a couple episodes where his blood pressure was low so he did receive some fluid boluses, which he responded to quite nicely. His abdomen was moderately protuberant with diffuse tympany, but no obvious peritoneal signs or symptoms and again no complaints of pain. On digital rectal exam, he had a large amount of liquid black stool in his bed and he had soft moist joe-like stool in the rectum. Much of that I was able to remove with my fingers in the Emergency Room almost the size of a softball. In addition, his white count was up at 14.9, his lactic acid was little high at 2.9. His creatinine was up a little bit at 1.7. His creatinine was a little low at 129. BNP was a little up at 458. Chest x-ray was unremarkable. A CT scan of the abdomen and pelvis showed a tremendous rectal impaction extending up out of the pelvis. Down in the rectum itself seemed to be more 1 large piece of stool and above it seemed to be more smaller circular pieces of stool in the behind that he had lots of air and some liquid stool in the colon. He had a little pneumatosis in the cecum, in his right colon as well as a little bit air in the liver; consequently, he did receive some Zosyn and Flagyl. In the meantime, I had called the [facility]. I did talk to their acute care surgeon, Dr. Molly Aquino, who gave me some direction. I will also talk to the network support on-call that day who refer me back to surgery. I was then able to contact the colorectal surgeon manager occupational, Dr. Yadi Gomez, you who gave me a very detailed extensive directions. Of course, we would like to avoid surgery at all cost for this patient. It was felt best to Electronically Signed By: BETI FONTAINE MD 02/18/17 8073 PATIENT NAME: SAI BASILIO OPERATIVE REPORT DATE OF : 43 PHYSICIAN: BETI FONTAINE MD REPORT #: [id number] REPORT IS CONFIDENTIAL AND NOT TO BE RELEASED WITHOUT AUTHORIZATION [facility] [address] [place] [id number] him under IV sedation and do a digital disimpaction knowing that he has been through quite a bit of polyethylene glycol and he has obviously gotten air and liquid stool around his impaction, so it was not completely obstructing. Hopefully, we will be able to remove most of that stool and we will use warm saline and warm mineral oil enemas and help clean out the rest of that rectum over the next 2 or 3 days. Of course, if his condition would decline, he would need emergent surgery. In the meantime, one of the caregivers [facility] was able to come in on this Saturday to the Emergency Room. Her name is Latricia, and we were able to discuss the above findings in great detail. I explained to her our plan and we decided to go ahead and take Sai down to our endoscopy suite with our anesthesia provider and nursing crew so we could perform his digital disimpaction. Of course, there is always the possibility of a laparotomy with the possible need for partial bowel resection with an ileostomy and/or a mucous fistula, and again we are trying to avoid that for Sai. Sai talked with Latricia and he felt that he wanted to proceed as above. Latricia was able to sign for him knowing the expected intraop and postop course. DESCRIPTION OF PROCEDURE Sai was taken down to our endoscopy suite. We actually moved to one of our OR beds so we could place him in the lithotomy position. He was given IV sedation with Versed and Fentanyl per our nurse orthotic practitioner. We noticed that Sai has a prolonged expiratory phase consistent with his COPD. Also, he had been wheezing in the ER, and he had received an albuterol nebulizer treatment. We gave him some subcutaneous heparin and we also gave him the Zosyn and Flagyl. Once we had him in position, I was able to fully gown and glove and I spent quite a bit of time removing stool from his rectum. I was able to push down on the upper abdomen bring down some of the stool as well. Initially, it was 1 large formed ball of joe-like stool. Finally, I started to get lumps of stool an inch or so long and inch or so wide. By the time I was done, more than a volleyball size volume of stool had been removed and was in our bag on the floor. We irrigated the rectum with warm saline and cleaned out as much of the liquid stool as possible. We did get liquid stool during the procedure and also some air as well. I could still feel a little stool slightly above my finger. We spent some extra time trying to get that to come down without much success. At that point, we felt we had done enough for today and so we ended this procedure. We transferred him over to his hospital bed and took him into over to recovery room in stable condition. He will be going to our ICU shortly, and with the help of our ICU nurses, we are going to proceed with saline and mineral oil enemas and see if we can get this to come down over the next 2 or 3 days. Beti Fontaine MD Electronically Signed By: BETI FONTAINE MD 02/18/17 1620 PATIENT NAME: SAI BASILIO OPERATIVE REPORT DATE OF : 43 PHYSICIAN: BETI FONTAINE MD REPORT #: [id number] REPORT IS CONFIDENTIAL AND NOT TO BE RELEASED WITHOUT AUTHORIZATION [facility] [address] [place] [address] Signed /Katarina /[id number] cc: MD Dragan Huitron MD Kim Lu, MD [facility] Electronically Signed By: BETI FONTAINE MD 02/18/17 1620 PATIENT NAME: SAI BASILIO OPERATIVE REPORT DATE OF : 43 PHYSICIAN: BETI FONTAINE MD REPORT #: [id number] REPORT IS CONFIDENTIAL AND NOT TO BE RELEASED WITHOUT AUTHORIZATION
--- NOTE | 2017-02-18 16:20 | CONS ---
[facility] [address] [place], [place] [address] Signed DATE OF ADMISSION: 02/17/17 REFERRING PHYSICIAN: Dr. Maria D Dubon. CHIEF COMPLAINT: Rectal impaction with black liquid stool. HISTORY OF PRESENT ILLNESS Sai is a 71-year-old gentleman born with mental retardation and developmental delay. He is known to have schizophrenia and dementia as well. He resides at our local [facility]. He has been seeing his relaster, Dr. Topete, for an upcoming colonoscopy. Apparently, he has been dirty at least a couple of times and they have had to cancel the colonoscopy. Consequently, he has gone through several days a bowel prep to try to clean him out for his upcoming colonoscopy this week. The staff said he started to vomit stool basically and also he had a lot of black liquid foul-smelling stool in his bed, was said to be copious amounts. He was then brought to our local Emergency Room for evaluation. In the Emergency Room, he has abdominal distention with diffuse tympany but no peritoneal signs or symptoms. He does not seem to complain of any pain. He is resting nicely, watching TV. His white count was elevated at 14.9 with a bandemia. His lactic acid was up a little bit at 2.9. His blood pressure has been down, but responded nicely to some IV fluids. He had a chest x-ray, which was unremarkable. The CT scan of abdomen and pelvis showed enormous amount of stool in the rectum with a dilated colon all the way back to the cecum with pneumatosis in the cecum and ascending colon and some air in the liver. Consequently, I was as ked to see him as a general surgeon identification technician. In the meantime, I met with his friend, Latricia, from [facility], and we have been able to review the above findings. I also spoke with Dr. Aquino with [facility] regarding our current situation. At this point, Sai would like to proceed with treatment. In the meantime, he has received Zosyn and Flagyl. PAST MEDICAL HISTORY Schizophrenia, COPD, BPH, hypothyroidism, hypercholesterolemia, umbilical incisional hernia, chronic bronchitis, esophageal stricture, dementia, history of MRSA, mental retardation, developmental delay. PAST SURGICAL HISTORY He had a traumatic diaphragmatic rupture repaired. He had a tracheostomy in 2010 and had 3 fistula repairs. He has had a tonsillectomy and adenoidectomy. SOCIAL HISTORY He has quit smoking and drinking. He resides at [facility]. His primary care provider is Dr. Terrence Browning. His relaster is Dr. Topete. Dr. Jorge repaired his diaphragm. Shreya Quarles is his friend at [phone], and Latricia is one of the employees at [facility] at [phone]. He is a full code. Electronically Signed By: BETI FONTAINE MD 02/18/17 8344 PATIENT NAME: SAI BASILIO CONSULTATION DATE OF : 43 PHYSICIAN: BETI FONTAINE MD REPORT #: [id number] REPORT IS CONFIDENTIAL AND NOT TO BE RELEASED WITHOUT AUTHORIZATION [address] [address] Signed FAMILY HISTORY: He has a brother in town but no contact. REVIEW OF SYSTEMS: Unable to obtain. ALLERGIES: Lipitor. MEDICATIONS Aspirin, Carvedilol, Chlorhexidine, Multivitamin, Benadryl, Iron, Finasteride, Incruse inhaler, Tramadol, Loperamide, Levothyroxine, Magnesium Oxide, Niacin, Seroquel, Risperidone, Levofloxacin, and Polyethylene Glycol. PHYSICAL EXAMINATION VITAL SIGNS: Blood pressure is 98/51, heart rate 95, respiratory rate 22, temperature is 98.6. He is 100% on room air. He is 6 feet 1 inch, 81 kg. GENERAL: Sai is a 71-year-old gentleman lying supine semi-recumbent in his ER bed watching TV. He answers very briefly. He is obviously extremely poor historian. LUNGS: Clear, but he has some mild wheezing even after breathing treatment. HEART: Appears to be regular rate and rhythm. ABDOMEN: Distended with diffuse tympany, but he does not seem to have any peritoneal signs or symptoms. He does not complain of any pain with our nurse in the room. I was able to disimpact very moist joe-like from his distal rectum. He also has some liquid stool in the bed. LABORATORY DATA His white blood count 14.9, hemoglobin 16, bands 44, neutrophils 43. Sodium is 129, BUN 22, creatinine is 1.7. Urinalysis is negative. His lactic acid is 2.9. His liver function test is negative. Troponin was negative. BNP was up a little at 458. Albumin is 4.2. Blood cultures are pending. Urine cultures are pending. His pH is 7.28, pCO2 49, bicarb 2 2, O2 sats 96%. RADIOGRAPHIC STUDIES Chest x-ray shows some scarring in the lungs, otherwise clear. CT scan of abdomen and pelvis was also reviewed and shows the large amount of stool in the rectum, clear up out of the pelvis. He has pneumatosis in the cecum, right colon, and liver. ASSESSMENT AND PLAN Sai is a 71-year-old gentleman who presents with rectal fecal impaction resulting in his obstruction. I spoke with Dr. Aquino at the [facility] and his caregiver, Latricia. Our goal is to relieve his obstruction. We would like to leave his colon in place if we could. 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 He may need surgery either today or in the future to correct this permanently. We would like not to give him colostomy or ileostomy if possible. He is in a very serious situation. I made this aware to his caregiver, Latricia. At this point, we are going to take him down to the operating room and we will paralyze his muscle to see if Electronically Signed By: BETI FONTAINE MD 02/18/17 1620 PATIENT NAME: SAI BASILIO CONSULTATION DATE OF : 43 PHYSICIAN: BETI FONTAINE MD REPORT #: [id number] REPORT IS CONFIDENTIAL AND NOT TO BE RELEASED WITHOUT AUTHORIZATION [facility] [address] [place], [place] [address] Signed we can disimpact him manually, and if that is not successful, we could perform a laparotomy and manually disimpact the rectum starting from the top and work our way down toward the anus with the hope that we would not have to resect any bowel at least today. Latircia expressed understanding. Sai seems to agree and wants to proceed. We will go ahead and call our crew and work in that direction. MD BETHANIE Ellis/Katarina /[id number] cc: Terrence Browning MD Electronically Signed By: BETI FONTAINE MD 02/18/17 1620 PATIENT NAME: SAI BASILIO CONSULTATION DATE OF : 43 PHYSICIAN: BETI FONTAINE MD REPORT #: [id number] REPORT IS CONFIDENTIAL AND NOT TO BE RELEASED WITHOUT AUTHORIZATION
--- NOTE | 2017-02-18 17:34 | NUR ---
LEVOPHED TURNED OFF AROUND 1700. PATIENT NOW ON BIPAP. BP AT THIS TIME IS 101/54 (66). DR. FONTAINE CONTINUES TO DISCUSS PATIENT'S CONDITION WITH HIS BROTHER AND HIS CAREGIVER AISHWARYA. PATIENT WAS IN RESP DISTRESS AFTER HIS 1600 NEB AND AFTER USING THE CPT VEST. PATIENT BECAME STRIDOROUS AND DR. FONTAINE NOTIFIED. RACEMIC EPI GIVEN WITH SOME IMPROVMENT. ULTIMATELY PATIENT WAS PLACED ON BIPAP AND THIS DID HELP WITH HIS WORK OF BREATHING. PATIENT'S ATTENDS CHANGED AFTER HIS LAST ENEMA AND THERE WAS LIQUID BLACK STOOL, VERY WATERY, ON ATTENDS. CONTINUE TO MONITOR.
--- NOTE | 2017-02-18 17:38 | NUR ---
TPN AND LIPIDS STARTED IN PICC LINE. IV CEFEPIME STILL INFUSING AT 25 ML/HR, AND LR INFUSING AT 33 ML/HR, TO TOTAL 150 ML/HR. SCDs AND HEEL PROTECTORS ON.
--- NOTE | 2017-02-18 19:15 | NUR ---
GETTING REPORT FROM DAY SHIFT. PATIENT HAS HAD A BETTER DAY. OFF LEVOPHED. PT WITH VISITOR AT BEDSIDE.
--- NOTE | 2017-02-18 20:00 | NUR ---
PT SHIFT REPORT RECIVED FROM DAY SHIFT RN. ALL QUESTIONS ANSWERED. THIS RN WILL BE FOLLOWING PT CARE THROUGHOUT THE NIGHT WHILE PEDRITO RN IS ORIENTING. PT ASSESSMENT COMPLETED. PT LUNGS ARE COARSE AND WHEEZY AT TIMES. PT BACK ON BIPAP DUE TO INCREASED WORK OF BREATHING. BOWEL TONES ABSENT AT THIS TIME. PT ABD DISTENED. BILATERAL ARMS AND RIGHT LOWER LEG ARE EDEMOUTOUS. FACIAL AND SCLERAL EDEMA NOTED. HEEL PROTECTORS IN PLACE AND SCD'S ON. WILL CONTINUE TO CLOSELY MONITOR.
--- NOTE | 2017-02-18 20:30 | NUR ---
1ST PATIENT ASSESSMENT DONE. PATIENT HAS EDEMA NOW IN BILAT SCLERAS, BILAT ARMS, AND LOWER RT LEG. NO PITTING. ALL IV'S HAVE BEEN CHECKED AND VERIFIED FOR COMPATIBILITY I THE LINES THEY ARE RUNING IN ALL IV LINES PATENT. LUNGS SOUND REAL JUNKY. LOTS OF INSPIRATORY AND EXPIRATORY WHEEZES. PM MEDS GIVEN. SCD'S IN PLACE. CPAP PLACED ON PATIENT AFTER BREATHING TREATMENT AND NG TUBE DRAINING SMALL AMOUNT OF GREEN BILE.
--- NOTE | 2017-02-18 22:00 | NUR ---
PT WAS GIVEN HIS ENEMAS AND WE HAD MINOR BLACK LIQUID STOOL RETURN. PATIENT CLEANED, LINEN CHANGED, AND PATIENT POSITIONED ON HIS RIGHT SIDE FOR COMFORT.
--- NOTE | 2017-02-18 23:10 | NUR ---
CALLED ABOUT THE PATIENT. PATIENT HAD BEEN IN A SINUS RHYTHM WITH A BBB, BUT JUST WENT INTO A-FIB IN THE 120'S-130'S HE HAD A RATE MAINLY IN THE 80'-90'S BEFORE. DR. SABILLON ORDERED A 5MG CARDIZEM IV PUSH, FOLOWED BY A CARDIZEM DRIP TO START AT 5MG AND HOUR AND TITRATE NEEDED UP TO 20MG AN HOUR. ORDER REPEATED BACK TO THE MD AND THEN THE ORDERS WERE CARRIED OUT.
--- NOTE | 2017-02-19 01:00 | NUR ---
SINCE PATIENT'S ARMS ARE BECOMING FAIRLY PUFFY, IT WAS DECIDED TO TRY AND FIND ANOTHER IV SITE BEFORE HIS ARMS GET MORE SWOLLEN. THREE ATTEMPTS WERE MADE ON THE RT ARM WITHOUT SUCCESS. FINALLY A 20g WAS PLACED IN THE RIGHT ANKLE AREA. PATIENT WAS THEN ALSO, INCONTINENT BLACK PASTY STOOL AND YELLOWISH LIQUID. LINENS WERE CHANGED, CATH AND MIMA CARE WERE DONE, AND PATIENT PLACED ON HIS LEFT SIDE FOR COMFORT AND POSITION CHANGE.
--- NOTE | 2017-02-19 01:10 | NUR ---
PT ARMS ARE EDEMOTOUS MORE SO ON THE LEFT ARM. PT HAS A IV SITE IN THE LEFT FOREARM. ARM IS SWOLLEN AND IV SITE IS SLUGGISH WITH NO BLOOD RETURN AT THIS ITME. DECISION TO STOP FLUIDS AT THAT SITE AND GIVE THE ARM A BREAK. NEW IV SITE WARRENTED DUE CURRENT MEDICATIONS AND INCOMPATABILITIES. AFTER MULTIPLE ATTEMPS BY MULTIPLE RNS, OTHER RN PLACED IV SITE IN RIGHT ANKLE AREA. WILL MONITOR SITE. ELEVATED ARMS TO HELP WITH EDEMA. DILMA CHRISTY TO CLOSELY MONITOR.
--- NOTE | 2017-02-19 01:33 | NUR ---
PATIENT'S CARDIZEM INCREASED TO 15mg/hr HR IS 108 AND B/P 105/60.
--- NOTE | 2017-02-19 02:00 | NUR ---
NO CHANGE FROM LAST ASSESSMENT, OTHER THAN HR HAS COME DOWN WITH THE IV CARDIZEM. PREPING 0200 MEDS.
--- NOTE | 2017-02-19 04:00 | NUR ---
4 AM ASSESSMENT DONE. PATIENT'S LUNG SOUNDS STILL COURSE AND WHEEZY THROUGHOUT ALL LUNG FIELS. PATIENT STILL HAS NO BOWEL TONES. NO MORE STOOL LEAKING OUT AT THIS POINT PATIENT STILL MINIMALLY RESPONSIVE TO VOICE AND TOUCH, MAINLY WILL JUST OPEN HIS EYES FOR A FEW SECONDS.
--- NOTE | 2017-02-19 06:00 | NUR ---
PATIENT STATUS CONTINUES TO REMAIN ABOUT THE SAME. HE IS 30% ON HIS CPAP AND ALL HIS IV'S AND PICC LINE ARE PATENT. LUNGS STILL SOUND VERY COARSE AND NO BOWEL TONES. STILL ON 15MG OF CARDIZEM AN HOUR AND HEART RATE MAINLY IN THE 80'S AND 90'S.
--- NOTE | 2017-02-19 07:30 | NUR ---
BEDSIDE REPORT RECIEVED.
--- NOTE | 2017-02-19 08:30 | NUR ---
PORTABLE CHEST XRAY DONE.
--- NOTE | 2017-02-19 08:47 | NUR ---
ASSESSMENT DONE. REMIANS ON BIPAP. DR. SABILLON HERE, ORDERS RECIEVED. ABGS DRAWN. TPN INFUSING AT 75 ML/HR. ACCUCHECK DONE. NG PATENT WITH GREEN CONTENTS NOTED. LASIX 20 MG IV GIVEN.
--- NOTE | 2017-02-19 09:00 | NUR ---
EMEMAS GIVEN ORDERED, WITH RETURN OF DARK LIQUID. TOLERATED WELL.
--- NOTE | 2017-02-19 10:28 | NUR ---
DR. SABILLON UPDATED ON PATIENT, ORDERS RECIEVED TO GIVE K 20 MEQ.
--- NOTE | 2017-02-19 12:00 | NUR ---
ASSESSMENT DONE. INC OF BLACK LIQ STOOL. HEMATEST NEG.
--- NOTE | 2017-02-19 14:11 | NUR ---
ACCUCHECK 208. RESTFUL ON BIBAP.
--- NOTE | 2017-02-19 14:18 | NUR ---
STAFF FROM [facility] HAVE BEEN BY REGULAR[facility] TO CHECK ON PT, WELL MEMBEERS OF HIS ROMAN CATHOLIC. PT ON CPAP, UNRESPONSIVE. VOICED A SHORT PRAYER OF BLESSING. WILL FOLLOW NEEDED
--- NOTE | 2017-02-19 14:20 | NUR ---
FRIENDS HERE TO SEE PATIENT. PATIENT OPENS EYES VERY BRIEFLY, FEW WORD SAID BY PATIENT.
--- NOTE | 2017-02-19 14:40 | NUR ---
ENEMAS REPEATED FOR RETURN OF LIQ BLACK FLUID. HAS SAID ONLY COUPLE OF WORDS ALL DAY.
--- NOTE | 2017-02-19 14:55 | NUR ---
TPN INFUSING DAY 2. PATIENT REMAINS NPO. POC GLUCOSE TODAY 219, 208. PREALBUMIN 10.2 (LOW). PHOSPHORUS REMAINS LOW. NO NUTRITION INTERVENTION AT THIS TIME. WILL CONTINUE TO MONITOR.
--- NOTE | 2017-02-19 18:00 | NUR ---
REPOSITIONED. ATTENDS CHANGED.
--- NOTE | 2017-02-19 19:17 | NUR ---
REPORT TO NEXT SHIFT.
--- NOTE | 2017-02-19 19:32 | NUR ---
PT SHIFT REPORT RECIVED FROM DAY SHIFT RN. ALL QUESTIONS ANSWERED. PT RESTING WELL IN BED. PT IS CURRENTLY ON BIPAP. WILL CONTINUE TO CLOSELY MONITOR.
--- NOTE | 2017-02-19 20:00 | NUR ---
PT SHIFT ASSESSMENT COMPLETED. PT CURRENTLY ON BIPAP. LUNG ARE COARSE THROUGHOUT AND DIMINISHED IN BASES WITH OCCASIONAL WHEEZES NOTED. PT NOTED TO HAVE NO BOWEL TONES AT THIS TIME AND GOOD OUTPUT FROM GI TUBE. EDEMA MNOTED IN ARMS AND FACIAL AREA. HEEL PROTECTORS IN PLACE. SCD ON LEFT LEG AND FOOT PUMP ON RIGHT LEG. ASKED PT QUESTIONS PT WAS NOT ABLE TO RESPOND WITH YES OR NO ANSWERES. PT OPENED EYES BRIEFLY. PT DOES APPEAR TO BE MORE RESTLESS AND MOVING LEGS AROUND IN BED OCCASIONALLY. BED IN LOWEST POSITION. WILL CONTINUE TO CLOSELY MONITOR.
--- NOTE | 2017-02-19 21:45 | NUR ---
PT ENEAMA COMPLETED. PT LAVELL PADS CHANGED, NEW ATTENDS PLACED. MIMA AREA CLEANED. BRUSH CATH CARE PROVIDED. READJUSTED PT IN BED WITH PILLOW SUPPORT. PT TOLERATED WELL. BED IN LOWEST POSITION. WILL CONTINUE TO CLOSELY MONITOR.
--- NOTE | 2017-02-20 00:04 | NUR ---
PT NOTED TO BE MOVING AROUND MORE IN BED. ENTERED ROOM TO COMPLETE ASSESSMENT. PT ASSESSMENT UNCHANGED FROM PREVIOUS ASSESSMENT. CHANGED PT ATTENDS, PLACED NEW DRAWSHEET AND LAVELL PADS. REPOSITIONED PT TO BACK AT THIS TIME. PT WOKE TO HIS NAME AND WHEN ASKED IF HAVING PAIN PT STATED "NO". ASKED IF HE WANTED TO LAY ON HIS BACK AND HE STATED "YES". PT STILL LETHARGIC, BUT IS RESPONDING MORE THAN PRIOR IN THE SHIFT. BED IN LOWEST POSITION. WILL CONTINUE TO CLOSELY MONITOR.
--- NOTE | 2017-02-20 00:39 | NUR ---
PER SHIFT REPORT. MD DOES NOT WANT CARDIZEM GTT ON UNLESS PT HR MORE CONSITENTLY 120. SINCE THE START OF SHIFT PT HR HAS SLOWLY INCREASED UP TO 115 TO 125 MORE CONSITENTLY. PER MD RESTART CARDIZEM GTT AND TITRATE TO KEEP HR LESS THAN 120 AND MONITOR BP CLOSELY. WILL CONTINUE TO MONITOR.
--- NOTE | 2017-02-20 01:45 | NUR ---
PT CARDIZEM GTT INCREASED D/T HR REMAINING IN 120'S. PT BP IS TOLERATING WELL BETWEEN 100-135 SYSTOLIC. WILL CONTINUE TO CLOSELY MONITOR HR AND CARDIZEM GTT.
--- NOTE | 2017-02-20 03:11 | NUR ---
pt becoming more retless in bed. pt not answering questions will open eyes for a few seconds. changed pt attends. cleaned place new chucks. repositioned onto pt side. pt tolerated well. will changing pt hr and restlessness improved.
--- NOTE | 2017-02-20 04:45 | NUR ---
PT STARTING TO MOVE AROUND MORE IN BED. NO BM PRESENT. REPOSITIONED PT TO OTHER SIDE WITH PILLOW SUPPORT. PT TOLERATED WELL. CHANGED SUCTION CANISTER. PT HAD 950 OUTPUT SINCE 1800 LAST NIGHT. WILL CONTINUE TO MONITOR.
--- NOTE | 2017-02-20 05:34 | NUR ---
LABS DRAWN FROM PICC LINE PICC LINE DRAWS BLOOD, BUT IS POSITIONAL AT THIS TIME. WILL CONTINUE TO MONITOR.
--- NOTE | 2017-02-20 07:30 | NUR ---
BEDSIDE REPORT RECIEVED. PATIENT IS MORE ALERT AND FOLLOWING SOME COMMANDS, ANSWERING FEW QUESTIONS.
--- NOTE | 2017-02-20 08:00 | NUR ---
ASSESSMENT DONE, TALKED WITH PATIENT ABOUT PLAN OF CARE. UNSURE IF PATIENT IS UNDERSTANDING OF THIS OR NOT. IV SITE STARTED TO LEFT WRIST. IV ANTIBOTICS WELL KPHOS AND MG RIDER HUNG. DR. SABILLON HERE TO SEE PATIENT, PATIENT IS RESPONSIVE TO DR. SABILLON. PATIENT HAS LOOSE NON-PRODUCTIVE COUGH. BRUSH CATH PATENT.WILL HOLD LASIX IV UNTIL K RIDER INFUSING.
--- NOTE | 2017-02-20 09:00 | NUR ---
ENEMAS GIVEN ORDERED WITH RETURN OF LIQUID BLACK SOLUTION. SPONGE BATH GIVEN. UP TO CHAIR VIA OVERHEAD LIFT. TOLERATED TRANSER WELL. SAYING ONLY FEW WORDS. ON O2 AT 2L PER NC.
--- NOTE | 2017-02-20 09:10 | NUR ---
flat palte of abd done in room.
--- NOTE | 2017-02-20 10:35 | NUR ---
CARDIZEM GTT DECREASED TO 5 MG/HR. BP-100/62, HR-83. CONTINUE TO SIT IN CHAIR.
--- NOTE | 2017-02-20 11:23 | NUR ---
DNS BETTY ROACH IN TO VISIT PT. VISITOR ASKED PT IF IT WAS OKAY TO PHOTOGRATH HIM, BOTH NURSES ON SHIFT HEARD VERBAL CONSENT FOR PHOTOGRAPHY.
--- NOTE | 2017-02-20 11:53 | NUR ---
REMAINS IN CHAIR. ASSESSMENT DONE. RT WORKING WITH PATIENT.
--- NOTE | 2017-02-20 12:45 | NUR ---
BACK TO BED VIA OVERHEAD LIFT. BIPAP REAPPLIED. NO FUTHER CHANGES.
--- NOTE | 2017-02-20 14:47 | NUR ---
ENEMAS REPEATED WITH RETURN OF BLACK LIQUID.
--- NOTE | 2017-02-20 16:00 | NUR ---
ASSESSMENT DONE. NO CHANGES. BIPAP ON NOW. DR. SABILLON HERE TO SEE PATIENT. NO FUTHER ORDERS RECIEVED. K RASHAWN CONTINUES TO INFUSE.
--- NOTE | 2017-02-20 17:05 | NUR ---
INCONT OF SMALL AMOUNT OF STOOL. ATTENDS CHANGED. TRANSFERRED TO CHAIR WITH ASSIST, ABLE TO STAND AND TAKE FEW STEPS TO CHAIR. BED LINEN CHANGED WHILE UP. SAT IN CHAIR APPROX 10 MIN THEN STOOD WITH ASSIST, TOOK FEW STEPS TO BED, SAT AT BEDSIDE FOR ANOTHER 10 MIN THEN TRANSFERRED BACK TO BED. O2 AT [address] HAS BEEN MORE ALERT AND TALKING MORE TODAY. WHEN ASKED IF HAVING ABD PAIN, RESPONSE WAS ALITTLE.
--- NOTE | 2017-02-20 18:17 | NUR ---
RESTFUL AT THIS TIME. IVF PATENT. REMAINS ON TPN/LIPIDS/CARDIZEM GTT/IV ANTIBOTICS. K RIDER INFUSING. NG TO LIS PATENT, HAS BEEN HAVING LARGE GASTRIC OUTPUT OF GREENISH BILE LIKE CONTENTS.
--- NOTE | 2017-02-21 00:02 | NUR ---
PT GIVEN MINERAL ENEMA FOLLOWED BY SOAP SUDS ENEMA. PT HAD MINIMAL RESULTS. MOSTLY BLACK LIQUID, WATERY. NO SOLID STOOL. PERICARE PROVIDED WITH DESITIN CREAM. PT REPOSIONED IN BED AND REMAINS ON BIPAP SINCE 2029 DURING WHICH TIME PT HAD DESATURATIONS TO 84% ON 2L NC WHEN ASLEEP.
--- NOTE | 2017-02-21 02:22 | NUR ---
PT ASLEEP, COUGHING INTERMITTENTLY, CONGESTED. PT REMOVED NC. 92-93% ON RA. DENIES NEEDS.
--- NOTE | 2017-02-21 07:30 | NUR ---
DR SABILLON INTO SEE PT THIS AM. NEW ORDERS RECEIVED AT THIS TIME, PT AWAKENS WHEN STAFF AND DR SABILLON TALKED WITH HIM. HE DENIES PAIN AT THIS TIME, SCD INPLACE, BRUSH DRAINING ALTA IN COLOR URINE, AND CARDIZEM DRIP REMAINS AT 5MG/HR.
--- NOTE | 2017-02-21 08:45 | NUR ---
ORAL CONTRAST GIVEN AT THIS TIME AND THEN AN ADDITIONAL DOSE WILL BE GIVEN IN ONE HOUR. PLACED VIA NG TUB AND CLAMPED AT THIS TIME.
--- NOTE | 2017-02-21 10:00 | NUR ---
SECOND DOSE OF CONTRAST GIVEN AT THIS TIME VIA NG TUBE AND IT REMAINS CLAMPED AND IT APPEARS THAT PT IS RADHA THIS ACTIVITY.
--- NOTE | 2017-02-21 10:47 | NUR ---
BED BATH COMPLETED AT THIS TIME, PT GROIN AREA IS NO LONGER RED AT THIS TIME, PT DID WELL WITH THIS TASK, FOLLOWED DIRECTIONS. WHEN ASKED IF HIS STOMACH WAS SORE HE SAID "YES".
--- NOTE | 2017-02-21 12:00 | NUR ---
PT TO CT AT THIS TIME.SCAM COMPLETED AND LAB SAMPLE OBTAINED 5MLS WASTED AND 3MLS SENT VIA GREEN TOP. PT BACK TO ROOM VIA BED. DURING THIS TIME LINE CHANGED WHILE PT WAS ON CT TABLE.
--- NOTE | 2017-02-21 13:05 | NUR ---
NG TUBE PULLED BACK APPROX 3-4CM PER DR FONTAINE.
--- NOTE | 2017-02-21 13:29 | NUR ---
TPN DAY 4. PATIENT REMAINS NPO WITH NGT WITH BILIOUS OUTPUT. PHOSPHORUS STILL LOW AT 1.3. POC GLUCOSE 164 THIS MORNING. BLOOD SUGAR BEING CHECKED EVERY 12 HOURS NOW. TPN REMAINS THE SAME ORDERED FROM DAY 1. CT OF THE ABDOMEN ORDERED FOR TODAY. NO NUTRITION INTERVENTION NEEDED AT THIS TIME. WILL CONTINUE TO MONITOR.
--- NOTE | 2017-02-21 13:34 | NUR ---
ADDENDUM TO NUTRITION NOTE: TPN IS ONLY RUNNING AT 75 ML/HR INFUSING ONLY 1.8 LITERS INSTEAD OF 2 FULL LITERS. AVERAGE CALORIES PER 24 HOURS ARE ACTUALLY 2,052 INSTEAD OF 2,188. IT IS STILL APPROPRIATE FOR THE PATIENT. HIS CALORIE NEEDS ARE ESTIMATED AT [phone] PER DAY.
--- NOTE | 2017-02-21 14:00 | NUR ---
HELPED PT GET PT UP TO THE CHAIR AT THIS TIME. PT DID FAIR WITH THE PROCESS.
--- NOTE | 2017-02-21 14:30 | NUR ---
PT GERMAN INTO VISIT PT AT THIS TIME. GERMAN WANTING TO KNOW IF WE WILL HAVE PT UP AT THE SAME TIME ON SATURDAY. EXPALINED THAT IF SHE WAS COMING WE COULD HAVE HIM UP. SHE IS GOING TO BRING PT GRILFREIND INTO SEE HIM.
--- NOTE | 2017-02-21 15:56 | NUR ---
I & O'S COMPLETED AT THIS TIME, AND PT REMAINS UP I THE CHAIR AT THIS TIME.
--- NOTE | 2017-02-21 16:18 | NUR ---
PT C/O PAIN MEDICATED WITH DILAUDID 0.3MG IVP GIVEN AT THIS TIME, PT WAS RESTLESS IN BED MOVING ABOUT IN BED.
--- NOTE | 2017-02-21 18:26 | NUR ---
PT INCONTENT OF STOOL, PT CLEANED UP AND NEW PATIENT GOWN PLACED AT THIS TIME. PT ALSO IT IS NOTED TO HAVE EXWHEEZING, PRN NEB TX GIVEN AT THIS TIME.
--- NOTE | 2017-02-21 18:37 | NUR ---
NEB TX COMPLETED AT THIS TIME. NAPHOS IV STARTED AT THIS TIME.
--- NOTE | 2017-02-21 18:44 | NUR ---
PT APPEARS TO BE COMFORTABLE AT [facility]. LESS WHEEZING NOTED AT THIS TIME. STAFF TURNED ON THE TV FOR THE PT ALSO AT THIS TIME.
--- NOTE | 2017-02-21 22:57 | NUR ---
REPORT RECEIVED FROM MIESHA MERCER AT 190. IN TO ASSESS PT AT 1944. PT GIVEN 6MG RISPERIDONE AND 400MG SEROQUEL CRUSHED VIA NGT. REGLAN 10MG GIVEN IV. NGT CLAMPED. AT 2099 PT NOTED TO HAVE LOWER BP AND INCREASED HR. BP 83/49 HR 105. VERIFIED WITH MANUAL CUFF. PT LOC DECREASED AND NOT RESPONDING TO NOXIOUS STIMULI. PUPILS EQUAL AND REACTIVE TO LIGHT. PT HEART RYTHMN MORE JUNCTIONAL IN NATURE AND 110'S. DR SABILLON NOTIFIED AT 1912. LABS DRAWN FROM PICC LINE. FLUSHED NGT AND CONNECTED TO SUCTION, NO OUTPUT AFTER PREVIOUSLY HAVING BROWN/GREEN LIQUID OUT. DR FONTAINE ADDITIONALLY NOTIFIED. PT BBP IMPROVING AROUND [phone] AND PT MORE RESPONSIVE. MOVED EXTREMITIES AND COUGHING. OPENED EYES BRIEFLY TO STIMULI. INC LARGE LIQUID BLACK STOOL. LINENS CHANGED AND PERICARE DONE WITH DESITIN TO BUTTOCKS. PT FLOATED ON PILLOWS. RT IN ROOM AND PT PLACED ON BIPAP AT 2200. PT NOW ASLEEP. MOVING INTERMITTENTLY. NO S/S OF DISTRESS. BP IMPROVING, 92/53. HEART RYTHYM A-FIB WITH RATE 90'S.
--- NOTE | 2017-02-22 01:27 | NUR ---
PT REPOSIONED R SIDE WITH PILLOWS. HEEL PROTECTORS ON. BIPAP ON. HR 87, BP 82/46, SPO2 98% @ 30% FIO2. RR 14. NO S/S OF DISTRESS.
--- NOTE | 2017-02-22 04:29 | NUR ---
PT REPOSITIONED AND ATTENDS CHANGE. HAD MED-LARGE BLACK LIQUID STOOL. BACK TO GRIMACING ONLY WITH NOXIOUS STIMULATION. NGT DRAINING GREEN LIQUID.
--- NOTE | 2017-02-22 08:28 | NUR ---
GAVE PT LEVOTHYROXINE MED THROUGH HIS NG TUBE AND FLUSHED WITH 20 ML WATER. FLUSHED PT PIC LINE WITH NS AND HEPARIN, NO BLOOD RETURN ON ASPIRATION.
--- NOTE | 2017-02-22 08:53 | NUR ---
IV SITES ARE INTACT AND WNL. ANTIBIOTICS INFUSING WELL ON LEFT WRIST.
--- NOTE | 2017-02-22 08:57 | NUR ---
PIC LINE FLUSHED WELL WITH HEPARIN AND NORMAL SALINE, NO BLOOD RETURN ON ASPIRATION.
--- NOTE | 2017-02-22 09:36 | NUR ---
DR FONTAINE INTO SEE PT AT THIS TIME, NEW ORDERS AT THIS TIME.
--- NOTE | 2017-02-22 10:57 | NUR ---
GAVE PT BOWEL PREP THROUGH NG TUBE. GAVE PT ZOFRAN THROUGH IV SITE, IT INFUSED WELL. EMPTIED BRUSH CATH. PT WAS SLEEPING AND TOLERATED ACTIVITY.
--- NOTE | 2017-02-22 11:44 | NUR ---
PT HAD AN INCONTINENT BM, CLEANED UP AND GAVE QUICK BED BATH AND CHANGED GOWN. RT IN TO DO TREATMENT. PT TOLERATING WELL.
--- NOTE | 2017-02-22 12:08 | NUR ---
PT PLACED ON BIPAP THIS MID MORNING. PT APPEARS TO BE DOING WELL WITH THIS PROCESS AT THIS TIME.
--- NOTE | 2017-02-22 12:42 | NUR ---
DID FULL ASSESSMENT ON PT. HE IS STILL ON BI-PAP. EDEMA ON LEFT HAND AND ARM, EDEMA LOOKS WORSE THAN EARLIER TODAY. IV LINE ON LEFT WRIST FLUSHED WELL AND GOT BLOOD ON DRAW BACK. RN NOTIFIED.
--- NOTE | 2017-02-22 13:24 | NUR ---
PT REMOVED FROM CIPAP AT THIS TIME, HOB ELEVATED AND 180MLS OF BOWEL PREP GIVEN VIA NG AT THIS TIME. PT CONTIOUES TO HAVE EYES CLOSED AND DOES NOT INTEACTE WITH STAFF.
--- NOTE | 2017-02-22 13:25 | NUR ---
THIS ADMIN ASSISTANT AGREES WITH [facility] [employer] CHARTING FOR ALL ASSESSMENTS, VS, I & O'S.
--- NOTE | 2017-02-22 13:35 | NUR ---
PT INTO WORK WITH PT AT THIS TIME.
--- NOTE | 2017-02-22 14:13 | NUR ---
PT UP INTO THE CHAIR AT THIS TIME, PT AND TWO STAFF NURSE TO GET PT UP. PT UNWILLING TO HELP STAFF THEREFORE CEILING LIFT USED TO GET PT TO CHAIR.
--- NOTE | 2017-02-22 15:43 | NUR ---
PT REMAINS UP IN THE CHAIR AT THIS TIME. RT PROVIDING NEB TX AT THIS TIME. PT HAS HAD NO C/O'S NAUSEA WITH NG TUBE CLAMPED.
--- NOTE | 2017-02-22 16:39 | NUR ---
PT BACK TO BED, PT FREIND INTO SEE HIM AT THIS TIME.
--- NOTE | 2017-02-22 17:25 | NUR ---
CATHFLO GIVEN INTO THE PURPLE/BLUE PORT THAT NO BLOOD WOULD RETURN FROM.
--- NOTE | 2017-02-22 17:54 | NUR ---
ATTENDS CHANGED TWO PERSON TO COMPLETE TASK AT THIS TIME. PT DOES NOT HELP WITH TURNING AND PUSHES AGAINTS STAFF WHEN TRYING TO CLEAN HIM UP FROM AN INCONTENT STOOL.
--- NOTE | 2017-02-22 18:06 | NUR ---
CONTIOUNING TO HAVE NG TUBE CLAMPED AND ADDING BOWEL PREP VIA NG TUBE. PT SONTIOUES TO RADHA WELL AT THIS TIME, HOB REMAINS ELEVATED. PT IS HAVING BLACK IN COLOR, FOUL ORDOR STOOL, LIQUID INCONTENET. PT NANDA IN BED WITH EYES CLOSED. SCD'S ON AND INPLACE AND SIDE [id number]
--- NOTE | 2017-02-22 18:53 | NUR ---
PT CHANGED AND CLEAN ATTENDS INPLACE. WHEN PT COUGHS HE HAS STOOL LEAK OUT.
--- NOTE | 2017-02-22 18:54 | NUR ---
THE PURPLE/BLUE PORT CONTIOUES TO NOT HAVE BLOOD RETURN AT THIS TIME. FLUSHED WITH 10MLS NS AND THE 50 UNITS OF HEPARIN AT THIS TIME. THE OTHER PORT THAT HAS THE TPN AND LIPIDS RUNNING ALSO DOSE NOT HAVE BLOOD RETURN. DR FONTAINE IS AWARE OF THIS AND HAS GIVEN ORDERS TO USE BOTH PORTS.
--- NOTE | 2017-02-22 21:00 | NUR ---
REPORT RECIEVED FROM MIESHA MERCER AT 1900. PT MORE ALERT AND RESPONSIVE TODAY. ANSWERS YES OR NO TO QUESTIONS. PT INC LARGE LIQUID BLACK STOOL. ATTENDS CHANGED AND PERICARE PROVIDED, DESITIN TO GROIN. PT GIVEN 220ML MIRALAX VIA NGT, FLUSHES WELL.
--- NOTE | 2017-02-22 22:02 | NUR ---
PT GIVEN ADDITIONAL [address] FONTAINE CALLED AND UPDATED BY RN RE PT HAVING LIQUID BLACK STOOL. PT REFUSING ORAL CARE, NOT OPENING MOUTH.
--- NOTE | 2017-02-22 22:45 | NUR ---
Last amount of bowel prep administered via ngt.
--- NOTE | 2017-02-23 00:56 | NUR ---
PT INC THICK LIQUID STOOL. BLACK IN COLOR. ATTENDS CHANGED, PERICARE PROVIDED WITH DESITIN TO GROIN AND BUTTOCKS. PILLOWS UNDER PT FOR POSITIONING.
--- NOTE | 2017-02-23 02:30 | NUR ---
PT INC MED BLACK LIQUID STOOL. ATTENDS CHANGED AND PERICARE DONE. PT REMAINS DROWSY, BUT AWAKABLE.
--- NOTE | 2017-02-23 05:49 | NUR ---
BLOOD DRAWN FROM PICC LINE (RED PORT) 7ML WASTED. FLUSHED WITH 20ML N.S. AND 50U HEPARIN. BLOOD SENT TO LAB.
--- NOTE | 2017-02-23 06:16 | NUR ---
PT NGT RE-ATTACHED TO INTERMITTENT WALL SUCTION. CLEAR BROWN LIQUID RETURNED.
--- NOTE | 2017-02-23 06:59 | NUR ---
PT INC LARGE BLACK LIQUID STOOL. ATTENDS CHANGED AND PERICARE PROVIDED. PILLOWS PLACED UNDER PT HIPS AND LE.
--- NOTE | 2017-02-23 09:04 | NUR ---
PT AWKEMS WHEN SPOKEN TOO, NG CLAMPED AFTER MEDS AND FLUSHES GIVEN. TPN INFUSING, BLOOD RETURN VIA PICK LINE THIS AM. PT CONTIOUES TO APPEAR TO SLEEP, DENIES PAIN WHEN ASKED. HAS BOWEL TONES THIS AM. NEB TX COMPLETED. SCD'S AND HEEL PROCTORS ARE IN PLACE & ON.
--- NOTE | 2017-02-23 10:13 | NUR ---
DR FONTAINE INTO SEE PT. PT ATTENDS CHANGED AT THIS TIME, NEW ORDERS RECEIVED AT THIS TIME, FRESH LINE ALSO PLACED AT THIS TIME.
--- NOTE | 2017-02-23 11:10 | NUR ---
PT CHANGED AT THIS TIME, CONTIOUES TO HAVE BALCK LIQUID STOOLS, BOWEL PREP STARTED AT THIS TIME. PLACED VIA NG TUBE. BRUSH DRAINING YELLOW IN COLOR URINE, PT IS RADHA-WELL NG TO BE CLAMPED AT THIS TIME.
--- NOTE | 2017-02-23 12:02 | NUR ---
PT RADHA THE BOWEL PRPE VIA NG AT THIS TIME.
--- NOTE | 2017-02-23 12:58 | NUR ---
PT CONTIOUES TO BE SLEEPING, BUT WILL OPEN HIS EYES WHEN SPOKEN TOO. CONTIOUES TO HAVE A WEAK COUGH AT TIMES, SO FAR RADHA-WELL THE BOWEL PREP WITH NO N/V NOTED AT THIS TIME.
--- NOTE | 2017-02-23 14:01 | NUR ---
NG DC'D PER DR. CASANOVA ORDERS. ALL OF THE BOWEL PREP HAS BEEN INSTILLED VIA THE NG. PT IS NOW ALLOWED TO HAVE CLEAR LIQUIDS. ALSO COMPLETE LINE CHAGED WAS COMPLETED AT THIS TIME.
--- NOTE | 2017-02-23 17:21 | NUR ---
PHONE CALL TO DR FONTAINE AT THIS TIME, WE ARE ABLE TO TRANSFER PT TO THE M/S UNIT IF BED IS NEED. OTHERWISE PT IS TO REMAIN IN THE CCU.
--- NOTE | 2017-02-23 17:59 | NUR ---
PT HAS TAKEN SIPS OF JUICE AT TIMES,
--- NOTE | 2017-02-23 22:33 | NUR ---
Pt spo2 decreased to 79%-89% unsustained on ra when asleep. Placed on 2L, spo2 now 98% on 2L.
--- NOTE | 2017-02-24 06:39 | NUR ---
PT PICC LINE DRESSING CHANGED WITH STERILE TECHNIQUE AND CAPS. SLIGHT REDNESS AT INSERTION SITE ONLY. CATHFLO 2MG USED IN RED PORT AT 0545. ONLY ABLE TO WITHDRAW 3ML BLOOD FROM PORT. AT 0615 BLOOD ASPIRATED FROM PICC. WASTED 7ML AND BLOOD SENT TO LAB. FLUSHED PICC WITH 20ML NS FOLLOWED BY 50U HEPARIN. PT INC MEDIUM BROWN/MUCOUSY STOOL. ATTENDS CHANGED AND PERICARE PROVIDED.
--- NOTE | 2017-02-24 08:33 | NUR ---
PT TO THE OR AT THIS TIME
--- NOTE | 2017-02-24 09:51 | NUR ---
PT RETURNED TO HIS ROOM AT THIS TIME. HE IS BEING RECOVERED IN HIS ROOM WITH A PACU NURSE AT THIS TIME.
--- NOTE | 2017-02-24 09:53 | NUR ---
02/24/17 0953 Teresita Zhao 0938: PT ARRIVES TO HIS ROOM IN CCU FOR RECOVERY. HE DOES NOT RESPOND TO STIMULI AT THIS TIME. HE IS SLEEPING. HE HAS A NASAL AIRWAY IN PLACE. IT IS RECOMMENDED BY THE TRANSCRIPTION MANAGER TO LEAVE IT IN PLACE UNTIL IT BECOMES A PROBLEM FOR THE PT AND TO LET THE CCU NURSE KNOW IT IS IN PLACE.
--- NOTE | 2017-02-24 10:30 | NUR ---
TOOK PT OVER FROM PACU NURSE, NASEAL AIR WAY REMOVED AT HIS TIME AND PT ABLE TO [place] IS SPO2 SAT'S AT 97% AT 2L'S/NC.
--- NOTE | 2017-02-24 11:17 | NUR ---
CALLED REPORT TO M/S UNIT AND GAVE IT TO JORGE MERCER. ALL QUESTIONS ANSWERED AT THIS TIME. ALL PERSONAL BELONGINGS SENT WITH PT ALSO AT THIS TIME.
--- NOTE | 2017-02-24 11:30 | NUR ---
PT RECEIVED FROM CCU. REPORT OBTAINED FROM [facility]. PT WITH FLAT AFFECT. PT ALERT. PT DENIES PAIN. PT ON 2L NC, O2 SATS 96%, LUNG SOUNDS WITH EXPIRATORY HWEEZE TO LEFT SIDE, COARSE RIGHT. PULSES PALPABLE, CMS INTACT. PT ASSISTED WITH MEAL SET UP. BRUSH CATH IN PLACE, DRAINING FREELY. TPN INFUSING AT 43 ML/HR. IV ABX INFUSING. PT DENIES OTHER NEEDS AT THIS TIME. BED ALARM ON.
--- NOTE | 2017-02-24 12:19 | NUR ---
PT RESTING IN BED. IV SODIUM PHOS INFUSING. PT ASSISTED WITH TAKING A FEW BITES OF PUDDING. VSS, WEANED TO 1L NC. PT DENIES OTHER NEEDS AT THIS TIME.
--- NOTE | 2017-02-24 13:34 | NUR ---
PT RESTING IN BED. PT ON ROOM AIR. PT DENIES PAIN. BRUSH CATH REMOVED PER ORDER. PT TOLERATIGN FULL LIQUID, ADVANCED TO REGULAR DIET.
--- NOTE | 2017-02-24 13:48 | NUR ---
PATIENT WAS SLEEPING, HE HAD POST OP VITAL SIGNS I CHECKD HIM AND WILL RE CHECK IN ABOUT AN HOUR.
--- NOTE | 2017-02-24 15:30 | NUR ---
PT RESTING IN BED. PT ASSISTED TO ATTEMPT TO VOID, UNABLE TO VOID AT THIS TIME. IV ABX INFUSING. PT DENIES NEEDS AT THIS TIME.
--- NOTE | 2017-02-24 16:25 | OR ---
[facility] [address], [place] [address] Signed DATE OF OPERATION: 02/24/2017 SURGEON: Beti Zaragoza MD PREOPERATIVE DIAGNOSES: 1. Rectal fecal impaction. 2. Ischemic bowel. POSTOPERATIVE DIAGNOSES: 1. Multiple areas recovering ischemic colon (minimal). 2. 4 mm polyp mid transverse colon. 3. Stercoral rectal ulcer. 4. Long and wide redundant colon. PROCEDURE: Colonoscopy with hot biopsy and cold biopsies. ESTIMATED BLOOD LOSS: None. INDICATIONS: Sai is a 71-year-old gentleman born with mental retardation and developmental delay. He also suffers with schizophrenia and dementia. He lives with one of our assisted living institutions here in [place], [place]. The last couple of years, he has been having trouble with significant abdominal distension with overflow incontinence. He had been taken to his bicycle repair technician. The efforts made to clean him out with polyethylene glycol without success. Over the weekend, he was found in his room with voluminous amounts of black liquid stool in his bed and black stool around his mouth. He was therefore brought to our emergency room for evaluation. In the emergency room, clinically he did not appear systemically ill or toxic. He had moderate abdominal distension with diffuse tympany, but he was nontender, and he had no peritoneal signs or symptoms. His white count was a little up along with a lactic acid. On exam, he had black joe-like stool in his rectum. We ended up taking him down to our endoscopy suite that day with some sedation and we spent over an hour cleaning out black joe-like stool. The volume of stool was at least the size if not more than a volleyball. We finally got back through the solid joe stool into the more pellet-like stool, the size of a small egg. He was then taken to his ICU room with IV antibiotics and hydration. We put in a PICC line and gave him TPN. Subsequently, we found out that he does have COPD and he does have systolic congestive heart failure with a left ventricular ejection fraction around 40% to 45% measured in March 2016. However, he did handle the fluids well and we were able to wash out his acute renal failure. His white count came down to normal as well, but he has maintained a left shift with a borderline white count this whole week while on antibiotics. There are 6 siblings; however, only 1 sibling is involved in his care, that would be his brother, Darius. Darius told us that his father had a permanent colostomy bag from rectal cancer, also Darius himself has had colonic polyps as well. We Electronically Signed By: BETI ZARAGOZA MD 02/24/17 1625 PATIENT NAME: SAI BASILIO OPERATIVE REPORT DATE OF : 43 PHYSICIAN: BETI ZARAGOZA MD REPORT #: [id number] REPORT IS CONFIDENTIAL AND NOT TO BE RELEASED WITHOUT AUTHORIZATION [address] [address] Signed did send off a CEA level and his CEA level was high at 5.6. Sai continued to make slow improvements. We repeated an interval CT scan and it looked like his colon had recovered pretty nicely except for the cecum. It was edematous with a little pneumatosis and some pneumatosis in the right lower quadrant, and the stool had moved down to his sigmoid colon into the rectum once again. At that point, we decided to go ahead and gave him a bowel prep. It took actually 2 days to clean him out. Initially, it was black liquid stool, but eventually it was brown mucousy stool, but no bright red blood. We decided today we are going to take him down to our endoscopy suite for a colonoscopy. Our nursing staff was able to track down his brother, Darius, who was in agreement. Of course, there was risk to that procedure including, but not limited to gas bloating, crampy abdominal pain, bleeding, perforation requiring surgery, and missed diagnosis. PROCEDURE NOTE: Sai was taken into our endoscopy suite and placed in the left lateral decubitus position. Given his advanced medical issues, we did have an anesthesia provider to help us with increased monitoring of sedation. A digital rectal exam was performed and he had brown liquid mucousy stool. Probably 300 or so mL were evacuated from the rectum. Fortunately, we then were able to pass the scope slowly, but surely up the colon, and we went through a couple of areas of liquid particulate stool matter most of which we could irrigate and suction out. We slowly, but surely made our way into the cecum. We did have to use abdominal compression in order to advance the scope. His prep was moderate. He has a long wide redundant colon. We could easily see the appendiceal orifice and the [employer] foot. The scope was then slowly withdrawn. The cecum appeared actually pretty healthy. We did see some areas in the left colon that were healing from ischemia and it looks like he has a stercoral ulcer at the top of the rectum/distal sigmoid colon. It was also healing quite nicely. We took a couple of biopsies; one of the ischemic area and one of the stercoral ulcer area. The scope had been retroflexed in his rectum. We did not see any pathology above the anal canal. After this, the gas was suctioned out and the colonoscope removed. Sai tolerated the procedure quite well. RECOMMENDATIONS: Sai will be returned to his room and we will start him back on diet. We will add Benefiber and MiraLAX on a daily basis. Hopefully, we will be able to keep his stool soft enough that he would not end up needing surgery. Beti Zaragoza MD Electronically Signed By: BETI ZARAGOZA MD 02/24/17 1625 PATIENT NAME: SAI BASILIO OPERATIVE REPORT DATE OF : 43 PHYSICIAN: BETI ZARAGOZA MD REPORT #: [id number] REPORT IS CONFIDENTIAL AND NOT TO BE RELEASED WITHOUT AUTHORIZATION [address] [place], [place] [address] Signed ALB/MODL /[id number] cc: MD Beti Curry MD Kevin R Andrews, MD Electronically Signed By: BETI ZARAGOZA MD 02/24/17 1625 PATIENT NAME: SAI BASILIO OPERATIVE REPORT DATE OF : 43 PHYSICIAN: BETI ZARAGOZA MD REPORT #: [id number] REPORT IS CONFIDENTIAL AND NOT TO BE RELEASED WITHOUT AUTHORIZATION
--- NOTE | 2017-02-24 16:27 | NUR ---
TPN INFUSION COMPLETED. PICC LINE FLUSHED. D5LR BEGAN AT 50 ML/HR. IV ABD AND PHOSPHATES INFUSING. PT RESTIGN IN BED. PT DENIES OTHER NEEDS AT THIS TIME.
--- NOTE | 2017-02-24 18:24 | NUR ---
PT RECEIVED FROM CCU THIS AM. PT HAD COLONOSCOPY AND DISEMPACTION TODAY. PT WEANED TO ROOM AIR, LUNG SOUNDS COARSE WITH CRACKLES TO BASES, CHEST XRAY SHOWS MILD PULMONARY EDEMA. PT ADVANCED TO REGULAR DIET, TOLERATING WELL, REQUIRES ASSISTANCE AND ENCOURAGEMENT TO EAT. TPN DISCONTINUED AT 1640, D5LR INFUSING AT 50 ML/HR, RECEIVEING IV FLAGYL AND CEFEPIME, PICC LINE TO R ARM. BRUSH CATH REMOVED, PT VOIDED, INCONTINENT, DESITIN APPLIED TO MIMA-AREA. BOWEL TONES ACTIVE, SMALL SMEARS. PT JULIO LIFT TO GET OOB, ABLE TO SHIFT WEIGHT IN BED, Q2H TURNS.
--- NOTE | 2017-02-24 18:29 | NUR ---
PT RESTING IN BED. PT INCONTINENT OF URINE, PERICARE PERFORMED, BRIEFS AND INCONTINENT PAD REPLACED, DESITIN CREMA APPLIED TO PERIAREA. PT ENCOURAGED TO EAT DINNER, REQUIRES FREQUENT REMINDERS. PT DENIES PAIN, DENIES NAUSEA.
--- NOTE | 2017-02-25 00:57 | NUR ---
NURSE AND I CHANGED PATIENT'S ATTENDS. HAD SMEAR OF BOWEL MOVEMENT AND VOIDED IN LARGE AMOUNT.
--- NOTE | 2017-02-25 01:13 | NUR ---
PT'S ATTENDS CHANGED AND PT REPOSITIONED IN BED. CPAP PLACED. PT TOLERATED WELL. PT RESTING IN BED, CALL LIGHT WITHIN REACH.
--- NOTE | 2017-02-25 03:02 | NUR ---
PT LYING IN BED WITH EYES OPEN. PT STATES "NO" WHEN ASKED IF HE IS TIRED. IV ABX ADMINISTERED ORDERED. PT ASSESSMENT COMPLETED. SMALL AMT OF BLOOD PRESENT TO R NARES AND PT'S R INDEX FINGER AND THUMB. BOTH AREAS CLEANSED. LUNG SOUNDS COARSE AND DIM, NO COUGH NOTED. ATTENDS IN PLACE FOR INCONTINENCE. BT'S ACTIVE, PT DOES NO SHOW S/SX OF ABD TENDERNESS UPON PALPATION. UNABLE TO STATE WHETHER TENDERNESS IS PRESENT OR NOT. PT'S AFFECT REMAINS FLAT AND PT CONTINUES TO ONLY RESPOND AT TIME WITH YES OR NO. PT CALL LIGHT WITHIN REACH.
--- NOTE | 2017-02-25 05:28 | NUR ---
PT AWAKE OFF AND THROUGHOUT SHIFT. DID NOT TOLERATE BIPAP, PT REMOVED. PT ON RA. PT HAVING SM AMOUNTS OF MUCOUS STOOL, INCONTINENT. APPLY BARRIER CREAM. PICC LINE TO R ARM. FLAGYL AND CEFEPIME. D5LR @ 50. JULIO LIFT AND 2 PERSON REPOSITIONING AND ATTENDS CHANGES. TURN Q 2. FLAT AFFECT, ANSWERS WITH YES AND NO OCASSIONALLY.
--- NOTE | 2017-02-25 08:06 | NUR ---
Patient alert and talking this am. Patient gets up out of bed and ambulates with walker into bathroom. Patient answers yes/no questions. Follows basic commands. Patient now is a high fall risk and is moved to room 111 for safety. Patient up in chair. This RN cleans and sets denutures in place. Patient sitting up in chair with breakfast tray. Placed tab alarm on for safety.
--- NOTE | 2017-02-25 10:20 | NUR ---
Straight cath for 400 mls, UA sent to lab.
--- NOTE | 2017-02-25 12:00 | NUR ---
Patient pulls PICC line penitentiary out as he is confused. This RN removes PICC and covers inserion site with occlusive dressing.Patient agitated. Continously getting up and attempting to stand. Jordan HANNA. Attempted to re-orient patient.
--- NOTE | 2017-02-25 13:26 | NUR ---
Patient continues to be agitated, however denies pain. This RN attempts to re-orient patient. Patient has been toileted. Refuses food. Patient given sips of ensure.
--- NOTE | 2017-02-25 14:02 | NUR ---
PATIENT UP TO WORK WITH PT. TOLERATING WELL.
--- NOTE | 2017-02-25 14:19 | NUR ---
patient ambulates with pt. back to room, sitting up in chair.
--- NOTE | 2017-02-25 16:12 | NUR ---
THIS RN HAS BEEN IN PATIENTS ROOM FOR THE LAST HOUR. PATIENT RESTLESS, UP AND DOWN TO BATHROOM. PATIENT HAS SMALL BM. THEN TO BED WITH BED ALARM ON. PATENT HAVING SMALL FORMED BM'S. ABDOMEN FIRM AND DISTENDED. BOWEL TONES SONNY.
--- NOTE | 2017-02-25 18:56 | NUR ---
PATIENT HAS BEEN VERY BUSY TODAY UP AND DOWN TO BATHROOM MANY TIMES ALSO AMBULATING IN HALLWAY. PATIENT ONLY ANSWERS YES/NO QUESTIONS. PATIENT IS HIGH FALL RISK. ABDOMEN REMAINS DISTENDED. PATIENT HAVING SMALL FORMED BOWEL MOVEMENTS.
--- NOTE | 2017-02-25 19:22 | NUR ---
BEDSIDE REPORT RECEIVED FROM OFFGOING RN. PT USING BATHROOM, CONTINUES TO STAND WITHOUT ASSISTANCE DESPITE REORIENTATION. PT ASSISTED BACK TO BED WITH 1 PA, PT TOLERATED WELL. BED ALARM IN PLACE. PT HAS VISITOR AT BEDSIDE. DENIES NEEDS AT THIS TIME. CALL LIGHT WITHIN REACH.
--- NOTE | 2017-02-25 21:10 | NUR ---
REPLACED IV FLUIDS, LOWERED PT HOB BED TO 45%. PT IS MOSTLY SLEEPY.
--- NOTE | 2017-02-25 22:00 | NUR ---
PT ASSESSMENT COMPLETE. PT RESTLESS IN BED. MOVING LEGS TOWARDS EDGE OF BED, SITTING UP AT 90 DEGREE ANGLE. PT REORIENTS BRIEFLY WITH INSTRUCTION. PT STATING "I THINK I BETTER GO HOME". ATTEMPTED TO FLUSH IV TO L WRIST PRIOR TO STARTING ANTIBIOTICS, IV NOTED TO BE PULLED OUT, WILL NOT FLUSH. IV SITE DC'D PT TOLERATED WELL. PT DENIES OTHER NEEDS. BED ALARM ACTIVATED. CALL LIGHT WITHIN PT'S REACH
--- NOTE | 2017-02-26 00:41 | NUR ---
PT RESTING WITH EYES CLOSED. RESPIRATIONS ARE EVEN AND UNLABORED, APPEARS TO BE SLEEPING. ROOM IN VIEW OF THE NURSES STATION WITH CURTAIN OPEN, BED ALARM ACTIVATED, CALL LIGHT WITHIN REACH.
--- NOTE | 2017-02-26 02:45 | NUR ---
MEDICATIONS ADMINISTERED SCHEDULED. PT RESTING WITH EYES CLOSED. APPEARS TO BE SLEEPING. PT REPOSITIONING HIMSELF APPROPRIATELY. ROOM IN VIEW OF NURSES STATION WITH CURTAIN OPEN. BED ALARM IN PLACE. CALL LIGHT WITHIN REACH.
--- NOTE | 2017-02-26 04:56 | NUR ---
PT RESTING IN BED WITH EYES CLOSED. RESPIRATIONS EVEN AND UNLABORED. PT APPEARS TO BE SLEEPING. CALL LIGHT WITHIN REACH. BED ALARM IN PLACE. ROOM IN VIEW OF NURSES STATION WITH CURTAIN OPEN.
--- NOTE | 2017-02-26 06:56 | NUR ---
PT LYING IN BED AWAKE. STATES "NO" WHEN ASKED IF HE WAS HAVING PAIN. PT ASSESSMENT COMPLETE. PT REQUESTS HOT TEA. PT DENIES OTHER NEEDS. CALL LIGHT WITHIN REACH.
--- NOTE | 2017-02-26 07:37 | NUR ---
REPORT RECIEVED FROM RUSLAN LIU. PT COMPLAINING OF PAIN IN THE IV AREA. UNWRAPPED COBAN, PLACED COTTON PAD UNDER HUB AND WRAPPED MORE LOOSELY. PT STATED IT FELT A LITTLE BETTER.
[2017-02-26] MEDS ORDERED: METOPROLOL TART25 MG PO (09:30)
[2017-02-26] MEDS ORDERED: MIRALAX17 GM PO (09:31)
[2017-02-26] MEDS ORDERED: BENEFIBER236 GM PO (09:32)
--- NOTE | 2017-02-26 10:50 | NUR ---
EMAILED DC INSTRUCTIONS TO [facility] FOR [facility]. ALSO TALKED WITH [facility]AO PRIOR TO THIS WHEN SHE WAS HERE TO SEE PT. SHE STATED THEY WOULD TAKE HIM BACK TO [facility] WITH THE BUS.
--- NOTE | 2017-03-05 10:22 | DS ---
[facility] [address], [place] [address] Signed ADMISSION DATE: 02/17/2017 DISCHARGE DATE: 02/26/2017 FINAL DIAGNOSES: 1. Rectal fecal impaction. 2. Ischemic colon. PROCEDURES: 1. Digital disimpaction. 2. Colonoscopy with biopsy. 3. PICC line placement. 4. CT scan x2. HISTORY OF PRESENT ILLNESS: Sai is a 71-year-old gentleman, who was born with mental retardation and developmental delay. He is known to have schizophrenia with some dementia as well. He stayed with his family until age 16 when he was institutionalized. He currently lives in an assisted living facility here in [place], [place]. He has had trouble last two years with abdominal distention and bloating and then lots of liquid stool on an intermittent basis. He had been to his preschool assistant. There were plans to do a colonoscopy. Unfortunately, he was unable to bowel prep well on at least two occasions. The staff had been in his room and he was found in his bed with large amount of black liquid stool and black liquid stool around his mouth. He was therefore brought to our emergency room for evaluation. In the emergency room, he did not appear systemically ill or toxic, but he did have moderate distention with diffuse tympany, but no evidence of any peritonitis. His white count was elevated and his lactic acid was slightly elevated, and so I have been called to see him as a General Surgeon on-call. On physical exam, he had black moist joe like stool in the rectum. HOSPITAL COURSE: Sai was taken from the ER down to our endoscopy suite under some mild sedation and we performed digital disimpaction of black joe-like stool. All the solid stool came out and finally we got into large pellets of stool, the size of a small egg. More than a volley ball size amount of stool was removed. He was then admitted to our ICU on antibiotics. We had placed the PICC line and we started his TPN. We were able to acquire some of his previous records and we found that he does have mild systolic congestive heart failure with a left ventricular ejection fraction in March 2016 around 40% to 45%. He was in high output renal failure when he came and with IV hydration, that resolved over a few days. In the meantime, we met with one of the staffs from his assisted living setting and his brother, Darius, was able to come and give us some insight. Their dad had a permanent colostomy after having a low sigmoid or high Electronically Signed By: BETI ZARAGOZA MD 03/05/17 1022 PATIENT NAME: SAI BASILIO DISCHARGE SUMMARY DATE OF : 43 PHYSICIAN: BETI ZARAGOZA MD REPORT #: [id number] REPORT IS CONFIDENTIAL AND NOT TO BE RELEASED WITHOUT AUTHORIZATION [address] [address] Signed rectal cancer removed. His brother, Darius, has also had colonic polyps removed. Sai apparently has not had a previous colonoscopy. We did check a CEA level and it was a little high at 5.62. In the meantime, he was making slow progress. Abdominal x-ray showed probably with some pneumatosis remaining in the cecum. The pneumatosis in the right colon and the liver had resolved. We went ahead and repeated the CT scan and found the same results. We continued him on TPN and we replaced electrolytes on a daily basis. We were able to give him a bowel prep about a week into it, and it took two days to clear out his colon and we took him for a colonoscopy on 02/24/2017. He had several areas of recovering ischemic colon as well as a small polyp in the distal transverse colon and he had a stercoral ulcer at the top of the rectum at the rectosigmoid junction. He also has a long wide redundant colon. He tolerated that well, but he did have a left shift and a bump in his white count. We kept him in the hospital a couple of extra days on his IV antibiotics. He is much more alert and awake now. He is active. He is walking in the hallways. He has been eating and passing flatus and several bowel movements. We did send off the urine and blood cultures and repeat chest x-ray; and all that has been negative. His white count and his bandemia are now starting to resolve. He has had eight full days of antibiotics. At this point, it appears that he has reached discharge status. DISCHARGE PLANS AND MEDICATIONS: Sai is going to be discharged to home with all his chronic medications. We are going to withhold any additional antibiotics. We are going to ask that he take Benefiber 1 tablespoon in 8 to 12 ounces of liquid p.o. b.i.d. along with MiraLAX 17 g p.o. in 8 to 12 ounces of liquid p.o. b.i.d. I am going to see him back in my office in a week or so for followup. Hopefully, this will keep him out of trouble in the future. Currently, his abdominal exam is benign. It is soft, flat, and nontender. We are going to allow him regular diet as we have here in the hospital, and he can perform activities of daily living as tolerated. He has expressed understanding and agrees with above plan. Beti Zaragoza MD ALB/MODL /[id number] Electronically Signed By: BETI ZARAGOZA MD 03/05/17 1022 PATIENT NAME: SAI BASILIO DISCHARGE SUMMARY DATE OF : 43 PHYSICIAN: BETI ZARAGOZA MD REPORT #: [id number] REPORT IS CONFIDENTIAL AND NOT TO BE RELEASED WITHOUT AUTHORIZATION [address] [address] Signed cc: MD Terrence Curry MD Andrew L Bower, MD Electronically Signed By: BETI ZARAGOZA MD 03/05/17 1022 PATIENT NAME: SAI BASILIO DISCHARGE SUMMARY DATE OF : 43 PHYSICIAN: BETI ZARAGOZA MD REPORT #: [id number] REPORT IS CONFIDENTIAL AND NOT TO BE RELEASED WITHOUT AUTHORIZATION
== END 2017-02-26 11:13 | disposition home or self-care (01) | DRG 871 ==
LOC: ED 03:23 → CCU 08:42 → MS 02-24 11:15
PROVIDERS: ADMIT Colon & Rectal Surgery
PROC: 0DCP7ZZ Extirpation of Matter from Rectum, Via Natural or Artificial Opening (ICD-10-PCS; principal; 2017-02-17 10:00)
PROC: 0DBG8ZX Excision of Left Large Intestine, Via Natural or Artificial Opening Endoscopic, Diagnostic (ICD-10-PCS; 2017-02-24)
DX: A41.9 Sepsis, unspecified organism (principal); J96.01 Acute respiratory failure with hypoxia; J96.02 Acute respiratory failure with hypercapnia; K56.609 Unspecified intestinal obstruction, unspecified as to partial versus complete obstruction; K55.8 Other vascular disorders of intestine; I50.22 Chronic systolic (congestive) heart failure; E87.1 Hypo-osmolality and hyponatremia; N17.9 Acute kidney failure, unspecified; I13.0 Hypertensive heart and chronic kidney disease with heart failure and stage 1 through stage 4 chronic kidney disease, or unspecified chronic kidney disease; R65.10 Systemic inflammatory response syndrome (SIRS) of non-infectious origin without acute organ dysfunction; R62.50 Unspecified lack of expected normal physiological development in childhood; F78 Other intellectual disabilities; F20.9 Schizophrenia, unspecified; I25.10 Atherosclerotic heart disease of native coronary artery without angina pectoris; N40.0 Benign prostatic hyperplasia without lower urinary tract symptoms; J44.9 Chronic obstructive pulmonary disease, unspecified; N18.2 Chronic kidney disease, stage 2 (mild); E03.9 Hypothyroidism, unspecified; I48.0 Paroxysmal atrial fibrillation; K63.5 Polyp of colon
CPT/HCPCS: 00810; 00902; 36415; 36569; 36600; 71010; 74000; 74177; 80048; 80053; 80061; 81001; 82378; 82570; 82803; 82947; 83605; 83735; 83880; 83930; 83935; 84100; 84133; 84134; 84300; 84484; 84550; 85025; 85610; 85730; 86850; 86900; 86901; 87040; 87088; 88305; 93005; 93010; 94640; 94660; 94668; 97110; 97116; 97162; 97530; J0692; J1170; J1644; J2250; J2405; J2543; J2704; J2765; J2997; J3010; J3430; J3475; J3480; J7030; J7042; J7060; J7120; Q9967

== ENCOUNTER 2017-03-08 03:08 | Emergency (ER) | payer MEDICARE, OTHER ==
[~2017-03-08] VITALS: Ht 185.4 cm; Wt 81.7 kg
[~2017-03-08 03:08] MED LIST changes: +BENEFIBER236 GM PO; +LEVOTHYROXINE150 MCG PO; +METOPROLOL TART25 MG PO; +MIRALAX17 GM PO
[2017-03-08] MEDS ORDERED: COREG3.125 MG PO (03:23)
[2017-03-08] MEDS ORDERED: PERIDEX473 M1 MM (03:25)
== END 2017-03-08 05:40 | disposition home or self-care (01) ==
LOC: ED 03:08
DX: R10.9 Unspecified abdominal pain (principal); J44.9 Chronic obstructive pulmonary disease, unspecified; E78.5 Hyperlipidemia, unspecified; E03.9 Hypothyroidism, unspecified; Z87.891 Personal history of nicotine dependence; Z88.8 Allergy status to other drugs, medicaments and biological substances; Z79.899 Other long term (current) drug therapy; Z79.82 Long term (current) use of aspirin; Z86.14 Personal history of Methicillin resistant Staphylococcus aureus infection; Z79.51 Long term (current) use of inhaled steroids; W07.XXXA Fall from chair, initial encounter
CPT/HCPCS: 36415; 80053; 81001; 85025; 96360; 99284; J7030

== ENCOUNTER 2017-03-08 19:04 | Inpatient (IN) | payer MEDICARE, OTHER ==
[~2017-03-08] VITALS: Ht 185.4 cm; Wt 79.4 kg
[~2017-03-08 19:04] MED LIST changes: +COREG3.125 MG PO; +PERIDEX473 M1 MM
--- NOTE | 2017-03-08 22:40 | NUR ---
PT ARRIVED TO ROOM 128 AT 2145. ALERT AND ORIENTED. PT REPORTS HAVING BRIGHT RED BLOOD WITH STOOL EARLIER TODAY. PT DENIES DIZZINESS. CAREGIVER AT [facility] REPORTS PT HAD BRIGHT RED BLOOD SOAK THROUGH PANTS AFTER PT FELL OUT OF CHAIR YESTERDAY. SPOKE WITH ON THE PHONE TO REQUEST PT MAR PT DOES NOT KNOW HOME MEDS. PT DENIES PAIN, HOWEVER PAIN NOTED WITH PALPATION ON RUQ. ADMISSION ASSESSMENT COMPLETE. PT UP TO BSC ON ADMISSION TO ATTEMPT TO VOID OR HAVE BM, UNSUCCESSFUL. REPORTS VOIDING IN THE ED.
--- NOTE | 2017-03-08 23:25 | NUR ---
DR SABILLON UPDATED RE: PT BP AND HEMOGLOBIN AT 2300. PT TYPED AND CROSSMATCHED FOR 2UNITS TO HOLD. PT DROWSY, BUT AWAKENS.
--- NOTE | 2017-03-09 01:27 | NUR ---
PT NOTED TO BE RESTLESS IN BED. ASKED IF NEEDED ASSISTANCE. UP TO BSC TO VOID AND PASS 5-6 QUARTER SIZED BLACK CLOTS. STOOL FOUL-SMELLING. ASKED PT IF DIZZY WHEN HE IMMEDIATELY STOOD UP, STATED 'A LITTLE BIT'. BACK TO BED WITH STANDBY ASSIST.
--- NOTE | 2017-03-09 01:49 | NUR ---
PT REMAINED RESTLESS, ASKED TO TRY TO USE COMMODE AGAIN, UNSUCCESSFUL. STANDS UP AND SITS DOWN REPEATEDLY, PT EXPLAINED THAT SOMETIMES THAT HELPS. NO DIZZINESS THIS TIME PER PT. HR UP TO 90'S WITH MOVEMENT.
--- NOTE | 2017-03-09 04:18 | NUR ---
LAB IN TO DRAW PT BLOOD. PT UP TO BS TO VOID 400ML. DENIES DIZZINESS, OR PAIN.
--- NOTE | 2017-03-09 08:31 | NUR ---
DR SABILLON INTO SEE PT THIS AM, PT WAS SLEEPING SOUNDLY. PT ASSESSMENT COMPLETED AND PT TALKING WITH STAFF. TOOK ORAL MEDS WELL WITH SIPS OF WATER.
--- NOTE | 2017-03-09 08:39 | NUR ---
PT WATCHING TV AT THIS TIME SITTING UP IN BED.
--- NOTE | 2017-03-09 08:52 | NUR ---
DR FONTAINE INTO SEE PT THIS AM. NEW ORDERS.
--- NOTE | 2017-03-09 09:34 | NUR ---
PT UP IN THE CAHIR AT THIS TIME, EATTING A CLEAR LIQUID TRAY AT THIS TIME, WATCHING TV.
--- NOTE | 2017-03-09 10:40 | NUR ---
Patient starting bowel prep for am uper and lower endoscopy. Patient watching tv in no distress, call light in reach. Patient sipping on gatoraide/miralax.
--- NOTE | 2017-03-09 11:10 | NUR ---
PT STARTED BOWEL PREP AT THIS TIME, SO FAR HE IS TILERATING IT WELL.
--- NOTE | 2017-03-09 11:52 | NUR ---
pt finished bottle 1 of 4 at this time. pt in bed watching tv at this time.
--- NOTE | 2017-03-09 12:34 | NUR ---
PT UP TO THE BEDSIDE COMMODE VOID AND BALCK SMELLY STOOL. BACK TO BED DRINKING BOWEL PREP AND CLEAR LIQUID TRAY.
--- NOTE | 2017-03-09 14:33 | NUR ---
PT CONTIOUES TO DRINK HIS LUNCH TRAY AT THIS TIME ALONG WITH THE BOWEL PREP. PT UP TO BS COMMODE VOIDED AND HAD BLACK IN COLOR STOOL. PT THEN UP TO THE CHAIR.
--- NOTE | 2017-03-09 15:43 | NUR ---
PT REMAINS UP IN THE CHAIR DRINKING HIS BOWEL PREP AT THIS TIME. ASSESSMENT COMPLETED ALSO AT THIS TIME.
--- NOTE | 2017-03-09 15:50 | NUR ---
LAB HERE TO OBTAIN A SAMPLE AT THIS TIME. PT IS COOPERATIVE WITH HOSIPTAL ROUTINE. REMAINS UP IN THE CHAIR AFTER USING BS COMMODE. VOIDED AND BM.
--- NOTE | 2017-03-09 16:44 | NUR ---
PT UP TO THE BS COMMODE HAD ADDITIONAL BLACK IN COLOR STOOL. FRESH ATTENDS INPLACE AND PT BACK TO BED, SIDE RAILS UP AND CALL LIGHT WITHIN REACH. PT ROOM IS ACROSS FROM NURSES STATION.
--- NOTE | 2017-03-09 17:49 | NUR ---
PT FINISHED BOTTLE 2 OF 4 OF THE BOWEL PREP.
--- NOTE | 2017-03-09 19:23 | NUR ---
REPORT RECEIVED FROM MIESHA MERCER. IN TO ASSESS PT. ASSISTED PT UP TO BSC. NO VOID OR STOOL. STANDS UP AND SITS DOWN FREQUENTLY AND REPEATEDLY. PT DEMONOSTRATED USE OF CALL LIGHT.
--- NOTE | 2017-03-09 20:25 | NUR ---
PT UP TO BSC TO HAVE LARGE WATER STOOL. BLACK IN COLOR. BACK TO BED.
--- NOTE | 2017-03-09 22:14 | NUR ---
PT UP TO BSC WITH BLACK WATER STOOL.
--- NOTE | 2017-03-10 02:58 | NUR ---
PT REQUESTING WARM WASH CLOTH TO WASH FACE, ASKING TO TAKE 02 OFF IT IS BURNING NOSE. 02 OFF WHILE FACE WASHED AND SATS DEC TO 82%. 02 CHANGED TO OXYMASK FOR COMFORT. SATS BACK UP TO 90'S WITH O2 IN PLACE. T 101.6. DR BEST CALLED ORDER FOR BLOOD CULTURES RECIEVED. LAB NOTIFIED.
--- NOTE | 2017-03-10 04:36 | NUR ---
LAB IN TO DRAW BLOOD. PT UP TO BSC AFTER. PASSED 1000ML WATERY BLACK COLORED STOOL. NO FORM, COMPLETE LIQUID. PT REQUESTED TO SIT UP TO CHAIR.
--- NOTE | 2017-03-10 07:25 | CONS ---
[facility] [address], [place] [address] Signed DATE OF CONSULTATION: 03/09/2017 REFERRING PHYSICIAN: Dr. Meagan Moses. CHIEF COMPLAINT: Blood per rectum. HISTORY OF PRESENT ILLNESS: Sai is a 71-year-old gentleman born with mental retardation and developmental delay. He is known to have schizophrenia and dementia. He resides at our local resides at [facility]. We just had him in the hospital for rectal fecal impaction. He underwent digital disimpaction followed by aggressive enemas and laxatives, and he was completely cleaned out. He did have some ischemia to his cecum and right colon that all seemed to resolve. He was taken for colonoscopy and really no major issues in the colon. He had been discharged back to his assisted living. He seems to be doing fine. He actually came in my office either yesterday or the day before, and I could tell he is feeling much better. His energy is much better. On exam, he really did not seem to have any pain particularly in the right lower quadrant. However, he has been on aspirin and apparently he passed some dark blood if not melena from his rectum. He was brought back to the emergency room for evaluation. He has been admitted to our internal medicine service once again. He has been here overnight and seems to be doing fine. He always runs with low blood pressures in the 80s and 90s. It seems his hemoglobin was 13 on admission, with hydration it is down to 9. Although his BUN is only 27 and he has not had any additional blood per rectum. He is in his ICU bed, watching TV, and seems to be quite comfortable. I was asked to see him again for consideration of an upper endoscopy. PAST MEDICAL HISTORY: Schizophrenia, COPD, BPH, hypothyroidism, hypercholesterolemia, umbilical incisional hernia, chronic bronchitis, esophageal stricture, dementia, history of MRSA, mental retardation, and developmental delay. 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 He then had 3 fistula repairs to close the tracheostomy site. He has had a tonsillectomy and adenoidectomy, and a colonoscopy just a couple of weeks ago. SOCIAL HISTORY: He has quit smoking and drinking. He resides at [facility]. His primary care provider is Dr. Terrence Browning. His hogshead hooper is Dr. Dragan Baird. Dr. Del Tejada is his thoracic surgeon. His friend's last name is Willam at [phone] and Akua is one of the employees at [facility] at [phone]. I did meet his Electronically Signed By: BETI FONTAINE MD 03/10/17 0725 PATIENT NAME: SAI BASILIO CONSULTATION DATE OF : 43 PHYSICIAN: BETI FONTAINE MD REPORT #: [id number] REPORT IS CONFIDENTIAL AND NOT TO BE RELEASED WITHOUT AUTHORIZATION [address] [address] Signed brother, Darius, but he is estranged from the rest of his siblings. When he came to the office, he brought his POLST form and he is a DNR/DNI with limited additional interventions. FAMILY HISTORY: His brother, Darius, lives here in [place] and does participate in his care. His other siblings live out of town and do not participate in his care. REVIEW OF SYSTEMS: I talked to Sai for a few minutes, he seems to be doing fine. He really has no complaints. He said the pain in his right lower quadrant is completely gone. ALLERGIES: Lipitor. MEDICATIONS: Aspirin, carvedilol, chlorhexidine, multivitamin, Benadryl, iron, finasteride, Incruse inhaler, tramadol, loperamide, levothyroxine, magnesium oxide, niacin, Seroquel, risperidone, levofloxacin, polyethylene glycol, and metoprolol. PHYSICAL EXAMINATION: VITAL SIGNS: His blood pressure is 83/46, which is chronic, heart rate is 78, respiratory rate 18, and temperature is 99.2. He is 98% on room air. He is 6 feet and 1 inches and 79 kg. GENERAL: Sai is a 71-year-old gentleman, lying supine in semi-erect in his ICU bed. He is watching TV as always. He is very alert and awake. He recognizes me on this occasion, although he does not have much memory of his hospital stay. LUNGS: Sound clear to auscultation bilaterally. HEART: Regular rate and rhythm. ABDOMEN: Soft and flat. Minimal distention at his baseline. He has no tenderness whatsoever particularly in the right lower quadrant. LABORATORY DATA: His white blood cell count 7.4, his hemoglobin was 13, is now 9; neutrophils are 67 and platelets 343. His BUN is 27, creatinine 0.87, and glucose 111. Liver function tests negative. Albumin is 3.2. RADIOGRAPHIC STUDIES: None. ASSESSMENT AND PLAN: Sai is a 71-year-old gentleman, who presents as above. He certainly is on aspirin. He has had either some melena or some dark blood clots per rectum. We just did his colonoscopy a couple of weeks ago that seemed to go fine. His POLST calls for DNR/DNI Electronically Signed By: BETI FONTAINE MD 03/10/17 0725 PATIENT NAME: SAI BASILIO CONSULTATION DATE OF : 43 PHYSICIAN: BETI FONTAINE MD REPORT #: [id number] REPORT IS CONFIDENTIAL AND NOT TO BE RELEASED WITHOUT AUTHORIZATION [address] [address] Signed with limited interventions. I spoke with Sai about that and we spoke about upper endoscopy. He thought upper endoscopy would be fine. I think, we will let him continue his clear liquids today and then we will bring our crew in the morning and we will check his stomach to make sure he does not have a bleeding ulcer or gastritis. He has expressed understanding and agrees with above plan. Beti Fontaine MD ALB/MODL /[id number] cc: MD Terrence Ordonez MD Charles Hames, MD Electronically Signed By: BETI FONTAINE MD 03/10/17 0725 PATIENT NAME: SAI BAISLIO CONSULTATION DATE OF : 43 PHYSICIAN: BETI FONTAINE MD REPORT #: [id number] REPORT IS CONFIDENTIAL AND NOT TO BE RELEASED WITHOUT AUTHORIZATION
--- NOTE | 2017-03-10 07:32 | NUR ---
PT SLEEPING SOUNDLY AT THIS TIME. HAS BEEN NPO SINCE MIDNIGHT. RESP RATE REG AT THIS TIME. ON ROOM AIR.
--- NOTE | 2017-03-10 07:48 | NUR ---
PT AWAKEN FOR ASSESSMENT AND ASKED PT HOW HE WAS DOING "I DONT FEEL VERY GOOD" "I DONT WANT TO EAT TODAY". EXPLAINED THAT HE IS GOING TO SURGERY TODAY AND HE WILL GET TO EAT AFTER. PT OKAY WITH THIS AT THIS TIME.
--- NOTE | 2017-03-10 08:09 | NUR ---
PT UP TO BEDSIDE COMMODE HAD LIQUID BM, NEGRA WATER IN COLOR. PT C/O NAUSEA AND DR BEST IN DEPARTMENT ALSO AT THIS TIME. NEW ORDERS RECEIVED.
--- NOTE | 2017-03-10 08:15 | NUR ---
ALL PO MEDICATIONS ON HOLD TILL AFTER HIS EDG AND COLOSCOPY THIS AM.
--- NOTE | 2017-03-10 08:22 | NUR ---
PT MEDICATED WITH 4MG ZOFRAN AT THIS TIME FOR NAUSEA.
--- NOTE | 2017-03-10 08:45 | NUR ---
PT TO OR AT THIS TIME VIA ANIKA. TARYN Woods CRNA ORDER CXR BEFORE PT LEFT THE UNIT. CXR COMPLETED. PT WAS ABLE TO MOVE SELF FROM [facility] TO [facility].
--- NOTE | 2017-03-10 09:25 | NUR ---
03/10/17 0925 Constanza Hawkins PT ARRIVED TO CCU AWAKE AND ALERT. RESP EVEN AND UNLABORED.
--- NOTE | 2017-03-10 10:20 | NUR ---
RECEIVED PT BACK FROM PACU AT 0930 AND THEN PT UP TO CHAIR TO EAT BKF.
--- NOTE | 2017-03-10 10:39 | NUR ---
PT UP TO THE BEDSIDE COMMODE HAD SOME LIQUID STOOL RED/BROWN IN COLOR. BACK TO BED CALL LIGHT WITHIN REACH.
--- NOTE | 2017-03-10 11:53 | NUR ---
TALKED WITH AMADOR QUEVEDO FROM THE HOME WHERE PT LIVES AND PT HAS HAD FLU INJUCTION THIS YEAR/SEASON
--- NOTE | 2017-03-10 12:53 | NUR ---
DR. BEST HERE TO SEE PATIENT. ORDERS RECIEVED TO TRANSFER TO MED-SURG. IVF DC'D. MONITOR DC'D.
--- NOTE | 2017-03-10 13:10 | NUR ---
PT APPEARS TO BY SLEEPING AT THIS TIME, DENIES THE NEED TO EAT AT THIS TIME. HE DID EAT A LARGE LATE BKF. PT IS BEING TRANSFER TO THE M/S UNIT THIS AFTERNOON TO ROOM 111.
--- NOTE | 2017-03-10 14:10 | NUR ---
REPORT RECIEVED FROM RUSLAN LAUREANO FROM CCU. PT TO ROOM 111. BED ALARM ON, RUSLAN LAUREANO REPORTED THAT PT DOES NOT USE CALL BUTTON. PT DENIED PAIN, DENIED NEEDS.
--- NOTE | 2017-03-10 14:19 | NUR ---
REPORT CALLED TO M/S NURSE ALL QUESTIONS ANSWERED AT THIS TIME. PT TRANSPORTED VIA BED TO ROOM 111 AT THIS TIME.
--- NOTE | 2017-03-10 15:24 | NUR ---
PT SITTING UP IN RECLINER, CHAIR ALARM ON. PROVIDED WITH FRESH WATER. PT DENIED OTHER NEEDS.
--- NOTE | 2017-03-10 17:40 | NUR ---
PT SITTING UP IN RECLINER. ATE 100% OF CARDIAC DIET DINNER. PROVIEDED WITH FRESH ICE WATER. PT ATE SALMON FILET, GREEN BEANS, ICE CREAM, AND PUDDING. IS DRINKING MILK. DENIED NEEDS.
--- NOTE | 2017-03-10 18:13 | NUR ---
PT INCONTINENT OF URINE AND NEVILLE RED BLOOD FROM RECTUM, MODERATE AMOUNT. DUE TO THESE BEING MIXED, UNABLE TO TELL HOW MUCH WAS PER RECTUM, AND HOW MUCH WAS URINE. NOTIFIED DR. BEST VIA TELEPHONE. OBTAINED MANUAL BP: 94/46, APICAL PULSE 86. NOTIFIED DR. BEST OF THESE VALUES. DR. BEST ASKED THAT PT CONTINUES TO BE MONITORED.
--- NOTE | 2017-03-10 18:27 | NUR ---
PT IN BED, BED ALARM ON. PT DENIED NEEDS. RIGHT HAND IV WAS LEAKING, SO D/C'D THIS IV. PT TOLERATED WELL. IV HAD BEEN SALINE LOCKED, AND NO S/S INFILTRATION PRESENT.
--- NOTE | 2017-03-10 18:31 | NUR ---
PT TRANSFERED FROM CCU TO FLOOR THIS AFTERNOON. PT IMPULSIVE, AND HAS ATTEMPTED TO GET UP WITHOUT CALLING OR WAITING FOR NURSING STAFF ASSISTANCE. PT IS UNSTEADY ON FEET, REQUIRES 1 PERSON ASSIST WITH TRANSFERS. USED BED ALARM AND CHAIR ALARM, AND VERBAL REDIRECTION, AND PT HAS A CLOSE ROOM WITH DOOR AND CURTAIN OPEN. PT WAS ON FULL LIQUIDS, AND ADVANCED TO CARDIAC DIET, BUT HAD BLOODY INCONTINENT STOOL, SO PT NOW ON CLEAR LIQUIDS. NO C/O PAIN OR NAUSEA.
--- NOTE | 2017-03-10 22:36 | NUR ---
PT ASSESSMENT COMPLETE. PT LYING IN BED WITH EYES CLOSED. WAKES EASILY. DENIES PAIN. PT ORIENTED TO SELF ONLY, UNABLE TO ACCURATELY STATE TIME, PLACE, OR EVENT. EXPIRATORY WHEEZES NOTED TO ALL LUNG MORTON. RT TO ROOM TO ADMINISTER NEB TX'S. BT'S ACTIVE, NO DISTENSION OR ABD TENDERNESS NOTED. INCONTINENCE BRIEF IN PLACE. BP NOTED TO BE LOW. MD CALLED AND NOTIFIED. METOPROLOL TO BE HELD AND FLUIDS TO BE ADMINISTERED PER MD ORDER. PT SITTING IN BED RECEIVING NEB TX. RT IN ROOM.
--- NOTE | 2017-03-10 23:00 | NUR ---
PT'S ATTENDS CHANGED AND PT REPOSITIONED. STOOL WITH NEVILLE RED BLOOD NOTED IN ATTENDS. PT UNAWARE THAT HE HAD AN INCONTINENT EPISODE. PT DENIES PAIN, DENIES NEEDS AT THIS TIME. CALL LIGHT WITHIN REACH.
--- NOTE | 2017-03-11 01:27 | NUR ---
CALL TO MD PLACED DUE TO NEVILLE BLOOD NOTED IN STOOL EARLIER. ORDER FOR 500 ML BOLUS RECEIVED, TO BE ADMINISTERED.
--- NOTE | 2017-03-11 02:46 | NUR ---
PT UP TO USE BSC PER REQUEST. PT HAD NEVILLE RED LIQUID BM, APPROXIMATELY 1100 ML PRESENT. BP 112/54, HR 91. LAB PRESSENT IN ROOM DRAWING ORDERED CBC.
--- NOTE | 2017-03-11 02:49 | NUR ---
2 PERSON ASSISTED PATIENT TO USE COMMODE. PATIENT IS UP IN THE CHAIR. LAB PERSON IS IN THE ROOM WITH PATIENT.
--- NOTE | 2017-03-11 04:00 | NUR ---
PT ASSESSMENT COMPLETE. PT DENIES PAIN OR NAUSEA. PT SITTING UP IN RECLINER. IV SITE TO R AC NOTED TO BE LEAKING AT END OF BOLUS INFUSION. IV SITE DC'D AND NEW SITE TO PLACED. BT'S ACTIVE. PT REPORTS TENDERNESS UPON ABD PALPATION. PT REMAINS PALE AND ASHEN. PT REQUESTS TO RETURN TO BED, DENIES OTHER NEEDS. PT RESTING IN BED WITH BED ALARM IN PLACE. ROOM WITHIN VIEW OF NURSES STATION, CURTAIN OPEN.
--- NOTE | 2017-03-11 04:11 | NUR ---
2 PERSON ASSISTED FROM CHAIR TO BED. NURSE THIRD STEEL POURER IS IN THE ROOM TO START IV. CALL LIGHT WITHIN REACH.
--- NOTE | 2017-03-11 04:25 | NUR ---
PT ORIENTED TO SELF ONLY. BED ALARM AND CHAIR ALARM IN PLACE. BLOODY STOOL X 2 THIS SHIFT, LOW BP'S. 500 ML LR BOLUS X2, D5LR @ 100. FULL LIQ DIET. 1-2 PA. LUNG SOUNDS WITH EXPIRATORY WHEEZE/COARSE. ABD TENDER, SLIGHT DISTENSION. PT DENIES PAIN.
--- NOTE | 2017-03-11 07:48 | NUR ---
PATIENT WAS IN BED ASLEEP. WHITEBOARD UPDATED, ROOM TIDIED. PATIENT'S FAMILY AND PATIENT DID NOT NEED ANYTHING ELSE AT THIS TIME.
--- NOTE | 2017-03-11 08:04 | NUR ---
PT IN BED, RECIEVING NEB TX FROM KB, RESPIRATORY THERAPIST. NO S/S DISTRESS OR DISCOMFORT.
--- NOTE | 2017-03-11 09:20 | NUR ---
PT IN BED, WAS UP FOR BREAKFAST, BUT TRANSFERED BACK TO BED FOLLOWING BREAKFAST. PT AWAKE, ALERT, ORIENTED TO EVENTS, PLACE, SELF, DISORIENTED TO DATE. DENIES LIGHTHEADEDNESS OR DIZZINES, STATED "I FEEL FINE". ASSESSED PT'S BP, 94/52, PULSE 91. DENIES PAIN OR NAUSEA.
--- NOTE | 2017-03-11 09:44 | NUR ---
NOTIFIED DR. BEST OF PT'S CURRENT LOW BP, AND THAT HIS SCHEDULED METOPROLOL WAS HELD. DR. BEST ACKNOWLEDGED ABOVE NOTED.
--- NOTE | 2017-03-11 10:35 | NUR ---
PT IN BED. DENIED NAUSEA, DENIED PAIN. GAVE PT ORAL CONTRAST, GASTROGAFIN ORDERED.
--- NOTE | 2017-03-11 11:31 | NUR ---
PT IN BED, ASSISTED TO SIT UPRIGHT IN BED. PT NOW EATING CLEAR LIQUID TRAY.
--- NOTE | 2017-03-11 11:40 | NUR ---
PATIENT IS IN BED, SITTING UP EATING HIS LUNCH. DOES NOT NEED ANYTHING AT THIS TIME.
--- NOTE | 2017-03-11 11:44 | NUR ---
PATIENT ADMITTED AT HIGH RISK FOR MALNUTRITION DUE TO DECREASED APPETITE AND UNSURE OF RECENT WEIGHT LOSS. CURRENT DIET IS CLEAR LIQUID. PATIENT ADMITTED FOR GI BLEED. HIS BMI IS 23.08 WHICH IS ADEQUATE. WHEN IT IS OK TO ADVANCE HIS DIET, A CARDIAC DIET IS RECOMMENDED. WILL CONTINUE TO MONITOR WHILE HERE.
--- NOTE | 2017-03-11 12:30 | NUR ---
PT SITTING UP IN BED, AWAKE, ALERT. NO S/S DISTRESS OR DISCOMFORT. BED ALARM ON. HOB ELEVATED.
--- NOTE | 2017-03-11 13:11 | NUR ---
PT TRANSFERED TO DIAGNOSTIC IMAGING VIA W/C ACCOMPANIED BY [facility] AT 1310.
--- NOTE | 2017-03-11 13:28 | NUR ---
PT RETURNED FROM CT, NOW BACK IN BED. DENIED NEEDS.
--- NOTE | 2017-03-11 15:54 | NUR ---
PATIENT IN BED. DOING WELL. DOES NOT NEED ANYTHING AT THIS TIME.
[2017-03-11] MEDS ORDERED: LOPERAMIDE2 MG PO (16:48)
[2017-03-11] MEDS ORDERED: ACETAMINOPHEN500 MG PO (16:48)
--- NOTE | 2017-03-11 17:24 | NUR ---
PT ATE 100% OF CLEAR LIQUID DINNER. DR. BEST CALLED THIS RN, STATED THAT HE IS ADVANCING PT'S DIET TO FULL LIQUID. OFFERED PT FURTHER FOOD, FULL LIQUID OR CLEAR, AND PT RESPONDED THAT HE IS NOT HUNGRY AT ALL AT THIS TIME. EDUCATED PT TO CALL IF HE CHANGES HIS MIND, PT VERBALIZED AGREEMENT.
--- NOTE | 2017-03-11 18:00 | NUR ---
PT'S TEMP ELEVATED, 100.2. NOTIFIED DR. BEST, WHO HAS ORDERED IV ZOSYN. DR. BEST STATED THAT HE WILL PLACE ORDER FOR PRN ACETAMINOPHEN FOR ELEVATED TEMP.
--- NOTE | 2017-03-11 18:08 | NUR ---
GAVE PT ACETAMINOPHEN 500 MG PO PRN TEMPURATURE OF 100.2. PT DENIED PAIN, DENIED FEELING CHILLED OR FEVERISH. ENCOURAGED PT TO DEEP BREATH AND COUGH. PT DEMONSTRATED THIS.
--- NOTE | 2017-03-11 18:41 | NUR ---
PT HAD 2 SMALL BLOODY STOOLS TODAY. WAS ON CLEAR LIQUIDS UP THROUGH DINNER, THEN ADVANCED TO FULL LIQUIDS, BUT PT DID NOT WANT TO ATTEMPT FULL LIQUIDS THIS EVENING. PT HAD LOW BP THIS AM, METOPROLOL WAS D/C'D. PT'S TEMP WAS 100.2 THIS EVENING, PT RECIEVED ACETAMINOPHEN 500 MG PO PRN. PT RECIEVING D5LR @ 100 CC/HR.
--- NOTE | 2017-03-11 19:30 | NUR ---
BEDSIDE REPORT RECEIVED FROM OFFGOING RN. PT LYING IN BED. DENIES PAIN, DENIES NEEDS AT THIS TIME. CALL LIGHT WITHIN REACH.
--- NOTE | 2017-03-11 22:30 | NUR ---
PT ASSESSMENT COMPLETE. PT DENIES PAIN. BT'S ACTIVE, ABD MILDLY DISTENDED, PT DENIES ABD TENDERNESS. ATTEND IN PLACE, CLEAN AND DRY. PT ORIENTED TO SELF ONLY. LUNGS DIM/COARSE. PT DENIES NEEDS AT THIS TIME. CALL LIGHT WITHIN REACH. ROOM IN VIEW OF NURSES STATION WITH CURTAIN OPEN. BED ALARM ACTIVATED.
--- NOTE | 2017-03-12 00:22 | NUR ---
PT RESTING IN BED WITH EYES CLOSED. RESPIRATIONS EVEN AND UNLABORED. CALL LIGHT WITHIN REACH.
--- NOTE | 2017-03-12 02:01 | NUR ---
PT UP TO USE BSC WITH 2 PA. PT DENIES PAIN. ASSESSMENT COMPLETE. LUNGS CONTINUE TO BE COARSE/DIM. BT'S ACTIVE, ABD DISTENDED. PT REPORTS "STOMACH ACHE" UPON ABD PALPATION. PT CONTINUES TO BE ORIENTED TO SELF ONLY. PT DENIES NEEDS AT THIS TIME. CALL LIGHT WITHIN REACH. ROOM IN VIEW OF NURSES STATION WITH CURTAIN OPEN. BED ALARM ACTIVE.
--- NOTE | 2017-03-12 04:10 | NUR ---
PT RESTING IN BED WITH EYES CLOSED. RESPIRATIONS EVEN AND UNLABORED. PT APPEARS TO BE SLEEPING. PT HAS CHANGED POSITIONS IN BED INDEPENDENTLY. CALL LIGHT WITHIN PT'S REACH.
--- NOTE | 2017-03-12 04:36 | NUR ---
PT RESTED WELL THIS SHIFT.NO C/O PAIN, NAUSEA, SOB. AFEBRILE. 0 EPISODES OF BM THIS SHIFT. BED/CHAIR ALARM. FULL LIQ DIET. D5LR @ 100. 1-[address]
--- NOTE | 2017-03-12 06:49 | OR ---
[facility] [address], [place] [address] Signed DATE OF OPERATION: 03/10/2017 SURGEON: Beti Fontaine MD UPPER ENDOSCOPY REPORT PREOPERATIVE DIAGNOSES: 1. Anemia. 2. Melena. POSTOPERATIVE DIAGNOSES: 1. Jzis-xk-lbfzuzgi patchy distal hemorrhagic gastritis. 2. Moderate-sized antral ulcer. PROCEDURE: Esophagogastroduodenoscopy with CLOtest and biopsies of the antrum. ESTIMATED BLOOD LOSS: None. INDICATIONS: Sai is a 71-year-old gentleman with mental retardation and developmental delay. He is also known to have some schizophrenia and dementia. He resides at our local [facility]. He usually does well with assistance at his [facility]. We just had him here a couple of weeks ago with rectal fecal impaction. He had ischemic cecum in the right colon. We were able to disimpact him and get him through the enemas and a bowel prep and perform a colonoscopy at that time. No major concerns at that time. I actually saw him in the office just a day or two ago. He seemed to be doing well. He certainly was at his baseline with respect to his personality and said that his abdominal pain was gone. He then came back to our emergency room with recurrent melena. He was admitted to the internal medicine service. He has been hydrated and stabilized. We did give him a bowel prep yesterday, but he took about half of it. I talked with Sai about his POLST form. Nevertheless, he wanted to proceed with limited interventions and so he was in agreement with an upper endoscopy. If that were negative, we are going to repeat the colonoscopy as well. In the meantime, he has been on aspirin as an outpatient. He understood endoscopy quite well. There is risk including but not limited to gas bloating, crampy abdominal pain, bleeding, perforation requiring surgery, and misdiagnosis, in addition, because of his mental health issues as well as his medical health issues including his lungs. We are asked that an anesthesia provider help us once again with increased monitoring and sedation. He had expressed understanding and wished Electronically Signed By: BETI FONTAINE MD 03/12/17 0649 PATIENT NAME: SAI BASILIO OPERATIVE REPORT DATE OF : 43 PHYSICIAN: BETI FONTAINE MD REPORT #: [id number] REPORT IS CONFIDENTIAL AND NOT TO BE RELEASED WITHOUT AUTHORIZATION [facility] [address] [place] [id number] Signed to proceed. PROCEDURE NOTE: Sai was taken into our endoscopy suite and placed in the supine semi-recumbent position. He was placed on IV propofol per our nurse form block maker. A bite block was utilized for the case. The adult gastroscope was introduced and advanced all the way out into the third portion of the duodenum under direct visualization of camera without difficulty. There was no black or red blood anywhere in the duodenum or stomach. The duodenum and pyloric channel were unremarkable. Once back in the antrum we could see he had patchy distal hemorrhagic gastritis. In the antrum, he had a moderate-sized fairly deep ulcer. Fortunately, he is not bleeding at this time. We went and took biopsies from the antrum for pathologic review as well as CLOtest. The incisura, body and fundus of the stomach were unremarkable. We did not see any evidence of a hiatal hernia. There were no gastric or esophageal varices. The scope was withdrawn up to the GE junction, which was compliant without stricture. The Z-line remains intact. No Soares mucosa, no distal esophagitis. After this, the gas was suctioned out the gastroscope removed. Sai tolerated procedure quite well. RECOMMENDATIONS: Sai will be returned to his room and started on full liquid diet. We could advance that as tolerated. He will stay on Protonix 40 mg p.o. b.i.d. He has not had any aspirin or NSAIDs for the next 12 weeks. I will see him in my office in a week or two for followup. Beti Fontaine MD [facility]/MODL /[id number] cc: Terrence Browning MD Electronically Signed By: BETI FONTAINE MD 03/12/17 0649 PATIENT NAME: SAI BASILIO OPERATIVE REPORT DATE OF : 43 PHYSICIAN: BETI FONTAINE MD REPORT #: [id number] REPORT IS CONFIDENTIAL AND NOT TO BE RELEASED WITHOUT AUTHORIZATION [facility] [address], [place] [address] Dragan Martínez MD Electronically Signed By: BETI FONTAINE MD 03/12/17 0649 PATIENT NAME: SAI BASILIO [place] OPERATIVE REPORT DATE OF : 43 PHYSICIAN: BETI FONTAINE MD REPORT #: [id number] REPORT IS CONFIDENTIAL AND NOT TO BE RELEASED WITHOUT AUTHORIZATION
--- NOTE | 2017-03-12 07:15 | NUR ---
PT IN BED, SLEEPING SOUNDLY. IV PUMP PROGRAMED, WHITE BOARD UPDATED. RECIEVED REPORT FROM RUSLAN LIU AT DOORWAY OF PT'S ROOM IN ORDER TO NOT AWAKE PT, BUT THIS RN ENTERED ROOM, AND ASSESED IV LINES AND PUMP. PT NOT ON O2.
--- NOTE | 2017-03-12 07:54 | NUR ---
PATIENT ASLEEP IN BED. WHITEBOARD UPDATED, ROOM TIDIED.
--- NOTE | 2017-03-12 08:22 | NUR ---
PT RECIEVING PULMICORT AND DUONEB NEB TX. CONNOR, RT IN WITH PT.
--- NOTE | 2017-03-12 10:30 | NUR ---
NOTIFIED DR. BEST VIA TELEPHONE THAT PT'S BP WAS 93/52 MANUAL, AND PULSE 66. ALSO NOTIFIED DR. BEST THAT PT HAD A MIXED VOID, URINE AND STOOL, TOTAL VOLUME OUT 1350, AND THAT DARK RED BLOOD WAS NOTED IN STOOL. DR. BEST INSTRUCTED TO CONTINUE TO MONITOR PT. NO NEW ORDERS.
--- NOTE | 2017-03-12 10:41 | NUR ---
PT SITTING UP IN RECLINER, CHAIR ALARM ON. PT DENIES NEEDS. CALL LIGHT AT SIDE, PERSONAL SUPPLIES AND WATER AT SIDE.
--- NOTE | 2017-03-12 12:13 | NUR ---
PATIENT IN BED EATING LUNCH, SITTING UP. RECIEVING BREATHING TREATMENT. DOES NOT NEED ANYTHING AT THIS TIME.
--- NOTE | 2017-03-12 14:00 | NUR ---
PT UP TO BEDSIDE COMMODE, HAD SMALL BM WITH DARK RED BLOOD PRESENT PER REPORT FROM VIKI Grewal RN. PT NOW SALINE LOCKED, PER ORDERS.
--- NOTE | 2017-03-12 14:40 | NUR ---
PT SITTING UP IN RECLINER. DENEIES PAIN, DENIES NAUSEA. PROVIDED WITH FRESH WATER. PT DENIED OTHER NEEDS. PT REPORTED THAT HE AMBULATED WITH STANDBY ASSIST WITH FWW, AND DENIED ANY DIZZINESS OR LIGHTHEADEDNESS ASSOCIATED WITH AMBULATION.
--- NOTE | 2017-03-12 15:18 | NUR ---
PT SITING IN CHAIR, JUST FINISHED BREAKFAST. SAID HE WAS FEELING MUCH BETTER, AND THAT HIS MEAL WAS GOOD! GOOD TO SEE HIM SMILING, GOD BLESS HIM
--- NOTE | 2017-03-12 15:26 | NUR ---
ENCORAGED PT TO DEEP BREATH AND COUGH, WHICH PT DID X 4. NON PRODUCTIVE COUGH. ATTEMPTED TO HAVE PT USE INSENTIVE SPIROMETER, PT ONLY TOOK QUICK, SHALLOW BREATHS USING I.S. ECUCATED REGARDING APROPRIATE USE VERBALLY, WELL WITH DEMONSTRATION, WITH NO IMPROVEMENT IN TECHNIQUE FROM PT.
--- NOTE | 2017-03-12 16:00 | NUR ---
SPOKE WITH STAFF AT [facility]. RN HAS LEFT ALREADY. UPDATED THEM THAT PATIENT MAY BE DISCHARGE TOMORROW. THEY WILL HAVE RN CALL TOMORROW AFTER SHE IS BACK.
--- NOTE | 2017-03-12 16:30 | NUR ---
PATIENT INCONTINAT. MIMA CARE DONE. CLEAN GOWN ON. SHAVED PATIENT AND WASHED FACE. PATIENT BACK TO BED CALL BUTTON IN REACH. SIDE RAILS UP CALL BUTTON IN HAND. NO OTHER NEEDS AT THIS TIME.
--- NOTE | 2017-03-12 16:33 | NUR ---
PT INCONTINENT IN ATTENDS, THEN INCONTINENT WHEN HE STOOD. LARGE AMOUNTS OF URINE OUT. PT ASSISTED TO CLEAN UP, CHANGE ATTENDS, GOWN, SCDs, AND SOCKS, THEN TO BED PER PT REQUEST.
--- NOTE | 2017-03-12 16:37 | NUR ---
PT ENCOURAGED TO TAKE A SHOWER. PT REFUSED. DID ALLOW MATT MELGAR TO SHAVE HIS FACIAL HAIR.
--- NOTE | 2017-03-12 16:38 | NUR ---
PT CONTINUES TO HAVE LOW BPs TODAY, DR. BEST AWARE. PT HAS HAD 3 DARK RED COLORED BLOODY STOOLS THIS SHIFT, DR. BEST AWARE. PT NOW SALINE LOCKED, DRINKING PO FLUIDS WELL. NO REPORTS OF DIZZINESS OR LIGHTHEADEDNESS. UP, AMBULATED IN HALLS WITH FWW WITH 1 PERSON MINIMAL ASSIST. PT STILL SLIGHTLY UNSTEADY ON FEET, BUT THIS IS IMPROVED FROM YESTERDAY. LUNGS COARSE, PT DID DEEP BREATH AND COUGHING SEVERAL TIMES THIS SHIFT. NON PRODUCTIVE COUGH. PT ON RA. INCONTINENT OF STOOL AND URINE AT TIMES. BED AND CHAIR ALARM USED, PT CAN BE IMPULSIVE AT TIMES. NO ATTEMPTS TO TRANSFER WITHOUT WAITING FOR STAFF ASSISTANCE THUS FAR THIS SHIFT.
--- NOTE | 2017-03-12 17:39 | NUR ---
PATIENT SITTING STRAIGHT UP IN BED. FINISHED DINNER. CALL BUTTON IN REACH.
--- NOTE | 2017-03-12 19:00 | NUR ---
RECEIVED REPORT FROM RN. PATIENT IS RESTING IN BED COMFORTABLY, BREATHING IS EVEN AND UNLABORED. DENIES NEEDS AT THIS TIME. CALL LIGHT WITHIN REACH.
--- NOTE | 2017-03-12 21:13 | NUR ---
PATIENT RESTING IN CHAIR COMFORTABLY. DENIES NEEDS AT THIS TIME. ASSESSMENT DONE, MEDICATIONS GIVEN. DENIES PAIN AND DIZZINESS. CALL LIGHT WITHIN REACH.
--- NOTE | 2017-03-12 23:34 | NUR ---
PATIENT MOVED TO BED FROM CHAIR TO ALLOW HIM TO SLEEP. ATTENDS WERE SATURATED, WELL CHUCKS AND BLANKET UNDERNEATH HIM. NEW DEPENDS IN PLACE, MIMA CARE PERFORMED. DENIES FURTHER NEEDS AT THIS TIME. CALL LIGHT WITHIN REACH, BED ALARM ON.
--- NOTE | 2017-03-13 01:16 | NUR ---
PATIENT RESTING COMFORTABLY IN BED, BREATHING IS EVEN AND UNLABORED. CALL LIGHT WITHIN REACH, BED ALARM ON.
--- NOTE | 2017-03-13 04:45 | NUR ---
PATIENT IS RESTING COMFORTABLY IN BED, BREATHING IS EVEN AND UNLABORED. DENIES NEEDS AT THIS TIME. NEW ATTENDS PUT ON, MIMA CARE PERFORMED. NO NEEDS AT THIS TIME. ASSESSMENT DONE. CALL LIGHT WITHIN REACH, BED ALARM ON.
--- NOTE | 2017-03-13 05:32 | NUR ---
PATIENT RESTING COMFORTABLY IN BED, BREATHING IS EVEN AND UNLABORED. DENIES NEEDS AT THIS TIME. CALL LIGHT WITHIN REACH.
--- NOTE | 2017-03-13 05:35 | NUR ---
PATIENT'S NIGHT WAS UNEVENTFUL. HE HAS BEEN RESTING COMFORTABLY IN BED THROUGHOUT SHIFT. VSS, NO COMPLAINTS OF PAIN. PATIENT HAS NOT HAD ANY EPISODES OF MELENA THIS SHIFT. HE IS A 1PA/FWW AND IS SALINE LOCKED. NO ACUTE CHANGES FROM BEGINNING OF SHIFT ASSESSMENT.
--- NOTE | 2017-03-13 07:20 | NUR ---
BEDSIDE REPORT RECEIVED FROM RUSLAN SHEA. PT IS AWAKE, SITTING UP IN BED, EATING BREAKFAST. PT IV SALINE LOCKED. BED ALARM IS SET. PT HAS NO ADDITIONAL REQUESTS AT THIS TIME.
--- NOTE | 2017-03-13 07:50 | NUR ---
ASSISTED PT BACK FROM RESTROOM TO CHAIR. PT HAD BM. CHANGED PT GOWN URINE ON GOWN. PT BM DIARRHEA, BROWN, NO BLOOD NOTICED IN STOOL. PT IN CHAIR, CALL LIGHT GIVEN TO PT. BREAKFAST IN FRONT OF PT.
--- NOTE | 2017-03-13 09:30 | NUR ---
MESSAGE ON PHONE FROM JUANITO MADDEN [facility]. REQUESTING H&P, PROG NOTES X 3 DAYS. RECORDS FAXED TO [phone] PER REQUEST. FAX CONFIRMATION RECEIVED.
--- NOTE | 2017-03-13 09:30 | NUR ---
PT ASSESSMENT COMPLETE. PT SITTING UP IN CHAIR. PT ORIENTED TO PERSON, PLACE, NOT TO DATE. PT'S LUNGS CLEAR. BOWEL TONES ACTIVE X 4. PT STATES HE HAS SOME PAIN IN LEFT QUADRANT WITH PALPATION, PT STATES NORMAL. DEPENDS ON PT, PT DENIES NEED TO USE RESTROOM AT THIS TIME. PT HAS CALL LIGHT IN REACH, WILL CONTINUE TO MONITOR. CHAIR ALARM IN PLACE. PLAN TO WALK WITH PT TODAY.
--- NOTE | 2017-03-13 10:15 | NUR ---
PT CALLING OUT, SAYING "HELLO". WENT IN PT ROOM. PT REQUESTING TO GET BACK TO BED. ASSISTED PT BACK TO BED WITH FWW AND SBA. BED ALARM IN PLACE. CALL LIGHT, PERSONAL SUPPLIES IN REACH. PT HAS NO ADDITIONAL REQUESTS.
--- NOTE | 2017-03-13 10:35 | NUR ---
pt resting in bed at this time. Dr. Mcrae in to see pt at this time. Vitals taken. I&O's charted as well. pt is going to take a shower today. No other requests at this time.
[2017-03-13] MEDS ORDERED: DIPHENHYDRAMINE50 M1 PO (10:42)
[2017-03-13] MEDS ORDERED: OMEPRAZOLE20 MG PO (10:44)
--- NOTE | 2017-03-13 11:40 | NUR ---
ASSISTED PT TO CHAIR FROM BED FOR LUNCH. CHAIR ALARM IN PLACE. CALL LIGHT IN REACH. PT HAS NO ADDITIONAL REQUESTS AT THIS TIME.
--- NOTE | 2017-03-13 12:06 | NUR ---
RESPIRATORY THERAPY IN PT'S ROOM FOR BREATHING TREATMENT.
--- NOTE | 2017-03-13 13:01 | NUR ---
Shower given to pt and pt assisted back to chair. No other requests at this time.
--- NOTE | 2017-03-13 13:18 | NUR ---
IN PT'S ROOM TO DC IV. STUDENT NURSE CONNOR D/C'Renny IV, WNL, PT RADHA WELL. PT SITTING UP IN CHAIR, CHAIR ALARM IN PLACE. BROUGHT PT FRESH ICE WATER, ENCOURAGED PT TO DRINK FLUIDS. CALL LIGHT IN REACH.
--- NOTE | 2017-03-13 13:32 | NUR ---
PT VERY FRIENDLY, TOLD ME HE WAS GOING HOME TODAY. HE SEEMED EXCITED, WE HAD A BRIEF VISIT. HE SMILED AND THANKED ME FOR COMING BY. WE SHOOK HANDS
--- NOTE | 2017-03-13 14:00 | NUR ---
CALL FROM JUANITO AT [facility]. SHE STATES THEY REQUEST THIS PATIENT GO TO SNF FOR REHAB BEFORE RETURNING TO FACILITY. SHE STATES THAT HE HAS HAD 2 ADMISSIONS IN 30 DAYS AND PER THEIR GUIDELINES, THIS REQUIRES REHAB. SHE STATES HE FELL WHILE AMBULATING BEFORE THE SECOND ADMISION. DISCUSSED WITH PATIENT. HE IS OK WITH GOING TO [facility]. STATES HE'S "BEEN THERE BEFORE". DISCUSSED WITH DR BEST. CALLED KAZ AT [facility]. THEY HAVE BED SPACE. CLINICALS FAXED, CONFIRMATION RECEIVED.
--- NOTE | 2017-03-13 14:23 | NUR ---
pt resting in bed watching TV. No requests at this time.
--- NOTE | 2017-03-13 15:00 | NUR ---
PT RESTING IN BED, NO REQUESTS AT THIS TIME. CALL LIGHT IN REACH.
[2017-03-13] MEDS ORDERED: RISPERDAL3 MG PO (15:22)
[2017-03-13] MEDS ORDERED: SEROQUEL400 MG PO (15:22)
--- NOTE | 2017-03-13 15:43 | NUR ---
ORDERS AND PASSR FAXED TO [facility]. CONFIRMATION RECEIVED.
--- NOTE | 2017-03-13 16:02 | NUR ---
[facility] HAS ACCEPTED PATIENT. IS SENDING TRANSPORT. CHART PACK WITH CLINICALS, ORDERS, RX X2 AND PASSR AT NURSES STATION WITH STAFF.
--- NOTE | 2017-03-13 16:10 | NUR ---
REPORT GIVEN TO CARL DANIELS VIA TELEPHONE.
== END 2017-03-13 16:10 | disposition home or self-care (01) | DRG 378 ==
LOC: ED 19:04 → CCU 21:17 → MS 21:17
PROVIDERS: Colon & Rectal Surgery; ADMIT Internal Medicine
PROC: 0DB78ZX Excision of Stomach, Pylorus, Via Natural or Artificial Opening Endoscopic, Diagnostic (ICD-10-PCS; principal; 2017-03-10 09:00)
DX: K25.4 Chronic or unspecified gastric ulcer with hemorrhage (principal); D62 Acute posthemorrhagic anemia; K55.9 Vascular disorder of intestine, unspecified; I50.22 Chronic systolic (congestive) heart failure; E87.1 Hypo-osmolality and hyponatremia; J44.9 Chronic obstructive pulmonary disease, unspecified; F20.9 Schizophrenia, unspecified; E03.9 Hypothyroidism, unspecified; N40.0 Benign prostatic hyperplasia without lower urinary tract symptoms; I48.0 Paroxysmal atrial fibrillation; Z66 Do not resuscitate; K29.71 Gastritis, unspecified, with bleeding; I11.0 Hypertensive heart disease with heart failure; R62.50 Unspecified lack of expected normal physiological development in childhood
CPT/HCPCS: 00740; 36415; 71010; 74177; 80048; 80053; 82607; 82728; 82746; 83540; 83735; 84100; 84466; 85018; 85025; 85045; 85610; 85730; 86677; 86850; 86900; 86901; 86920; 88305; 94640; 94760; J2370; J2405; J2543; J2704; J3475; J7030; J7040; J7042; J7120; Q9967

== ENCOUNTER 2017-05-29 07:12 | Day surgery (SDC) | payer MEDICARE, OTHER ==
[~2017-05-29] VITALS: Ht 185.4 cm; Wt 83.5 kg
[~2017-05-29 07:12] MED LIST changes: +ACETAMINOPHEN500 MG PO; +LOPERAMIDE2 MG PO; +OMEPRAZOLE20 MG PO
[2017-05-29] MEDS ORDERED: ADULT ASPIRIN R81 MG PO (07:26)
[2017-05-29] MEDS ORDERED: FEROSUL325 MG PO (07:28)
[2017-05-29] MEDS ORDERED: INCRUSE ELLI62.5 MCG INH (07:29)
== END 2017-05-29 09:03 | disposition home or self-care (01) ==
LOC: DS 07:12 → OPS 07:12 → DS 08:30 → OPS 09:03
PROVIDERS: Ophthalmology
PROC: 08RK3JZ Replacement of Left Lens with Synthetic Substitute, Percutaneous Approach (ICD-10-PCS; principal; 2017-05-29 08:30)
DX: H25.812 Combined forms of age-related cataract, left eye (principal); D64.9 Anemia, unspecified; I25.10 Atherosclerotic heart disease of native coronary artery without angina pectoris; E78.00 Pure hypercholesterolemia, unspecified; E07.9 Disorder of thyroid, unspecified; J43.9 Emphysema, unspecified; F03.90 Unspecified dementia, unspecified severity, without behavioral disturbance, psychotic disturbance, mood disturbance, and anxiety; I10 Essential (primary) hypertension; Z87.891 Personal history of nicotine dependence; Z98.890 Other specified postprocedural states; Z88.8 Allergy status to other drugs, medicaments and biological substances; Z79.899 Other long term (current) drug therapy
CPT/HCPCS: J2250

== ENCOUNTER 2017-06-12 07:25 | Day surgery (SDC) | payer MEDICARE, OTHER ==
[~2017-06-12] VITALS: Ht 185.4 cm; Wt 83.5 kg
[~2017-06-12 07:25] MED LIST changes: +ADULT ASPIRIN R81 MG PO; +FEROSUL325 MG PO; +INCRUSE ELLI62.5 MCG INH
== END 2017-06-12 09:15 | disposition home or self-care (01) ==
LOC: DS 07:25 → OPS 07:25 → DS 08:30 → OPS 09:15
PROVIDERS: Ophthalmology
PROC: 08RJ3JZ Replacement of Right Lens with Synthetic Substitute, Percutaneous Approach (ICD-10-PCS; principal; 2017-06-12 08:30)
DX: H25.89 Other age-related cataract (principal); Z79.82 Long term (current) use of aspirin; Z79.899 Other long term (current) drug therapy; Z87.891 Personal history of nicotine dependence
CPT/HCPCS: J2250

== ENCOUNTER 2017-08-15 23:51 | Inpatient (IN) | payer MEDICARE, OTHER ==
[~2017-08-15] VITALS: Ht 185.4 cm; Wt 186.0 kg
--- OUTSIDE RECORDS SUMMARY | ~2017-08-15 | XMS | Encounter Summary ---
Demographics + + + | Address | [address] | | | [place] [address] | + + + | Home Phone | | + + + | Preferred Language | Unknown | + + + | Marital Status | Single | + + + | Anglican Affiliation | Unknown | + + + | Race | Unknown | + + + | Ethnic Group | Unknown | + + + Author + + + | Author | [facility] [employer] | + + + | Organization | [facility] [employer] | + + + | Address | Unknown | + + + | Phone | Unavailable | + + + Support + + +---------+ + | Name | Relationship | Address | Phone | + + +---------+ + | Latricia Nicolas | ECON | Unknown | | + + +---------+ + Care Team Providers + +------+ + | Care Drivers' Cash Clerk Name | Role | Phone | + [...] Closed | | Radiology | Diagnoses | [place], | [facility] [address] | | | | | Thoracic | MD Del | [address] | | | | | aortic | [address] | | | | | aneurysm | [address] | [place], [place] | | | | | without | Drive | [address] Phone: | | | | | rupture | [place], [place] | [phone] | | | | | ([facility]) | [address] | | | | | | Procedures | Phone: | | | | | | CTA chest | [phone] | | | | | | aorta W IV | Fax: | | | | | | contrast | [phone] | | +--------+--------+ + + + + MRI/CAT Scan (Routine) +--------+--------+ + + + + | Status | Reason | Specialty | Diagnoses / | Referred By | Referred To | | | | | Procedures | Contact | Contact | +--------+--------+ + + + + | Closed | | Radiology | Diagnoses | [place], | [facility] [address] | | | | | Thoracic | MD Del | [address] | | | | | aortic | [address] | | | | | aneurysm | [address] | [place], [place] | | | | | without | Drive | [address] Phone: | | | | | rupture | [place], [place] | [phone] | | | | | ([facility]) | [address] | | | | | | Procedures | Phone: | | | | | | CTA chest | [phone] | | | | | | aorta W IV | Fax: | | | | | | contrast | [phone] | | +--------+--------+ + + + + Reason for Visit MRI/CAT Scan (Routine) +--------+--------+ + + + + | Status | Reason | Specialty | Diagnoses / | Referred By | Referred To | | | | | Procedures | Contact | Contact | +--------+--------+ + + + + | Closed | | Radiology | Diagnoses | [place] | [facility] [address] | | | | | Thoracic | MD Del | [address] | | | | | aortic | [address] | | | | | aneurysm | [address] | [place], [place] | | | | | without | Drive | [address] Phone: | | | | | rupture | [place], [place] | [phone] | | | | | ([facility]) | [address] | | | | | | Procedures | Phone: | | | | | | CTA chest | [phone] | | | | | | aorta W IV | Fax: | | | | | | contrast | [phone] | | +--------+--------+ + + + + Encounter Details +--------+ + + + + | Date | Type | Department | Care Team | Description | +--------+ + + + + | 06/20/ | Hospital | [facility] | Del [place] MD | 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 | [place] [address] | rupture (HCC) | | | | [address] | [phone] | | | | | [place] [address] | | | | | | [phone] | | | +--------+ + + + [...] | Clinical | Vascular Surgery | Suraj MedranoOndina, | | | 2017 | Support | | RN | | +--------+ + + + + | 02/07/ | Appointment | Radiology | Jose Land DNP | | | 2017 | | | [address] | | | | | | [place] | | | | | | [address] | | | | | | | | +--------+ + + + + as of this encounter Results CTA chest aorta W IV contrast (06/20/2017 9:11 AM) + + + | Specimen | Performing Laboratory | + + + | | [facility] [address] [facility] [place] [address] | + + + + + | [...] set. 3-D reconstructions were performed using the Cortus SAa 3-D | | software and sent to [...] POC CREATININE | 0.9Comment: Testing performed at [facility] [place] [place];888 | 0.7 - 1.5 mg/dL | | | [place] [facility];[place] [address] | | + + + + + + + | Specimen | Performing Laboratory | + + + | | [facility] [address] [place] [address] | + + + in this encounter [...] 100 mL 100 mL, | | 8 09:11 | | | | | Intravenous, Img Once PRN, Other, | | PST | | | | | Starting [facility] 06/20/17 at 0842, | | | | | | | For 1 dose | | | | | | + +--------+ +---------+------+------+ +---+---+ | | | +---+---+ in this encounter"
--- OUTSIDE RECORDS SUMMARY | ~2017-08-15 | XMS | Encounter Summary ---
Demographics + + + | Address | [address] | | | [place] [address] | + + + | Home Phone | | + + + | Preferred Language | Unknown | + + + | Marital Status | Single | + + + | Mormonism Affiliation | Unknown | + + + | Race | Unknown | + + + | Ethnic Group | Unknown | + + + Author + + + | Author | [facility] [employer] | + + + | Organization | [facility] [employer] | + + + | Address | Unknown | + + + | Phone | Unavailable | + + + Support + + +---------+ + | Name | Relationship | Address | Phone | + + +---------+ + | Latricia Nicolas | ECON | Unknown | | + + +---------+ + Care Team Providers + +------+ + | Care Java Software Developer Name | Role | Phone | + +------+ + | Jaquelin Browning MD | PCP | Unavailable | + +------+ + Encounter Details +--------+---------+ + + + | Date | Type | Department | Care Team | Description | +--------+---------+ + + + | 08/08/ | Office | [facility] | Jose Land, CYDNEY | 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 [place] [address] Office: [phone] DATE OF VISIT: 08/08/2017 PATIENT NAME: Jerry Freeman : 1945; AGE: 72 y.o.; Sex:M PHONE NUMBER: ; PROVIDER: Jose Land DNP PRIMARY CARE / REFERRING PHYSICIAN: Jaquelin Browning MD / JAQUELIN BROWNING / [place] W [facility] [address] The patient presents today for a Vascular [...] [place] | | | | | | [address] | | | | | | | [...]
--- OUTSIDE RECORDS SUMMARY | ~2017-08-15 | XMS | Encounter Summary ---
Demographics + + + | Address | [address] [place] [address] | | | [place] [address] | + + + | Home Phone | | + + + | Preferred Language | Unknown | + + + | Marital Status | Single | + + + | Christianity Affiliation | Unknown | + + + | Race | Unknown | + + + | Ethnic Group | Unknown | + + + Author + + + | Author | [facility] [employer] | + + + | Organization | [facility] [employer] | + + + | Address | Unknown | + + + | Phone | Unavailable | + + + Support + + +---------+ + | Name | Relationship | Address | Phone | + + +---------+ + | Latricia Nicolas | ECON | Unknown | | + + +---------+ + Care Team Providers + +------+ + | Care Metal Leaf Layer Name | Role | Phone | + [...] + + | 07/24/ | Hospital | [facility] | Huy Child MD | Thoracic aortic | | 2018 | [facility] | [facility] | Reji de dios MD | aneurysm without | | | | Interventional | [address] | rupture (HCC) | | | | Radiology [address] | [place], [place] | | | | | Bl[place], [place] | [address] | | | | | [address] | | | | | | | 3, [facility] Sales Representative Health Insurance | | +--------+ + + + + [...] [place] | | | | | | [address] | | | | | | | | +--------+ + + + + as of this encounter Results IR endo repair thoracic aorta not including subclavian (07/24/2017 1:34 PM) + + + | Specimen | Performing Laboratory | + + + | | [facility] [address] [place] [address] | + + + + + | [...] MD and Reji Anglin MD | | AVIONICS TEST TECHNICIAN: None ANESTHESIA: General endotracheal anesthesia ESTIMATED BLOOD [...] The patient was placed supine on the Principal Law Clerk table and the patient underwent | | [...] was upsized to a 5 | | Kyrgyz sheath. A pigtail catheter was then placed through the right sheath into the | | aortic arch. Next, a micropuncture needle was used to access the left common femoral | | artery. A micropuncture sheath was then inserted over wire and this was upsized to a 7 | | [place]yrgyz sheath. Again, a perclose device was deployed at the 10:00 and 2:00 position in | | the left common femoral artery. A Lunderquist wire was then placed to the left 7 Kyr[place]z | | sheath with the tip of the wire in the aortic arch. Once the wire was in place, the | | 7-Kyrgyz sheath was removed from the left common [...] was properly identified and brought to the Principal Law Clerk. The patient was placed | | supine on the Principal Law Clerk table and the patient underwent general endotracheal [...] and this was upsized to a 5 Kyrgyz sheath. A pigtail catheter was | | then placed through the right sheath into the aortic arch. Next, a micropuncture needle | | was used to access the left common femoral artery. A micropuncture sheath was then | | inserted over wire and this was upsized to a 7 [place]yrgyz sheath. Again, a perclose device | | was deployed at the 10:00 and 2:00 position in the left common femoral artery. A | | Lunderquist wire was then placed to the left 7 Kyrgyz sheath with the tip of the wire in | | the aortic arch.Once the wire was in place, the 7-Kyrgyz sheath was removed from the | | [...] 74 - 137 seconds | | | [facility];[address] [facility];[place] [address] | | + + + + + + + | Specimen | Performing Laboratory | + + + | | [address] [place] [address] | + + + Basic metabolic panel [...] | | | | 1.210.Testing performed at [facility], [address] | | | | [place] [address] | | | | | | + + + + + + + | Specimen | Performing Laboratory | + + + | Blood | [facility] [address] [facility] [place], | | | [place] [address] | + + + Type and Crossmatch (Blood Bank) (07/24/2017 9:31 AM) + + + + | Component | Value | Ref Range | + + + + | ARM BAND NUMBER | [id number] | | + + + + | ABO/RH(D) | O POSITIVE | | + + + + | ANTIBODY SCREEN | NEGATIVE | | + + + + | UNIT NUMBER | [id number] | | + + + + | [...] | CROSSMATCH RESULT | COMPATIBLETesting performed at [facility];[address] | | | | [address];[place] [address] | | | | | | + + + + | UNIT NUMBER | [id number] | | + + + + | [...] + + + | UNIT NUMBER | [id number] | | + + + + | [...] + + + | UNIT NUMBER | [id number] | | + + + + | [...] | + + + | Blood | [address] [facility] [address] | + + + CBC W/Auto Diff [...] BASOPHILS ABS | 0.08Comment: Testing performed at [facility] | 0.00 - 0.10 K/uL | | | [facility];[place] [address] | | + + + + + + + | Specimen | Performing Laboratory | + + + | Blood | [facility] [address] [facility] [place] [address] | + + + MRSA by PCR (07/24/2017 8:55 AM) + + + + | Component | Value | Ref Range | + + + + | SOURCE | NARES(NOSE) | | + + + + | MRSA PCR | NEGATIVEComment: Testing performed at | NEGATIVE | | | [facility];[address] [place] [address];[place] [address] | | + + + + + + + | Specimen | Performing Laboratory | + + + | Nasopharyngeal - | [facility] [address] [place] [address] | | Nares(Nose) | | + + [...] | | | | First dose on [facility] 07/25/17 at 0630 | | | | [...] | | | | First dose on [facility] 07/25/17 at 2200 | | PDT | | | | + +-------+ +--------+---+---+ +---+---+ | | | +---+---+ + +-------+ +------+---+---+ | risperiDONE (RisperDAL) tablet | Given | | 2 mg | | | | 2 mg 2 mg, Oral, Nightly, First | | 8 20:46 | | | | | dose on [facility] 07/25/17 at 2200 | | PDT | [...]
--- OUTSIDE RECORDS SUMMARY | ~2017-08-15 | XMS | Encounter Summary ---
Demographics + + + | Address | [address] | | | [place] [address] | + + + | Home Phone | | + + + | Preferred Language | Unknown | + + + | Marital Status | Single | + + + | Methodist Affiliation | Unknown | + + + | Race | Unknown | + + + | Ethnic Group | Unknown | + + + Author + + + | Author | [facility] | + + + | Organization | [facility] [employer] | + + + | Address | Unknown | + + + | Phone | Unavailable | + + + Support + + +---------+ + | Name | Relationship | Address | Phone | + + +---------+ + | Latricia Nicolas | ECON | Unknown | | + + +---------+ + Care Team Providers + +------+ + | Care Associate Professor Of Radiology Name | Role | Phone | + [...] + + | 07/24/ | Hospital | [facility] | Huy Child MD | Thoracic aortic | | 2018 | [facility] | [facility] | [address] | aneurysm without | | | | Interventional | [place] [address] | rupture (HCC) | | | | Radiology [address] | [phone] | | | | | Blvd [place], [place] | | | | | | [id number] | | | +--------+ + + + [...] [place] | | | | | | [address] | | | | | | | | +--------+ + + + + as of this encounter Results IR guidance vascular access US (07/24/2017 12:35 PM) + + + | Specimen | Performing Laboratory | + + + | | [facility] [address] [place] [address] | + + + + + | [...]
--- OUTSIDE RECORDS SUMMARY | ~2017-08-15 | XMS | Encounter Summary ---
Demographics + + + | Address | [address] | | | [place] [address] | + + + | Home Phone | | + + + | Preferred Language | Unknown | + + + | Marital Status | Single | + + + | Buddhist Affiliation | Unknown | + + + | Race | Unknown | + + + | Ethnic Group | Unknown | + + + Author + + + | Author | [facility] [employer] | + + + | Organization | [facility] [employer] | + + + | Address | Unknown | + + + | Phone | Unavailable | + + + Support + + +---------+ + | Name | Relationship | Address | Phone | + + +---------+ + | Latricia Nicolas | ECON | Unknown | | + + +---------+ + Care Team Providers + +------+ + | Care X Ray Equipment Servicer Name | Role | Phone | + +------+ + | Terrence Browning MD | PCP | Unavailable | + +------+ + Encounter Details +--------+ + + + + | Date | Type | Department | Care Team | Description | +--------+ + + + + | 07/11/ | Orders Only | [facility] | Cyril Ruelas, | Thoracic aortic | | 2018 | | Vascular Surgery | RN | aneurysm without | | | | [address] | | rupture (HCC) | | | | [place] | | (Primary Dx) | | | | [address] | | | | | | [phone] | | | +--------+ + + + [...] [place] | | | | | | [address] | | | | | | | | +--------+ + + + + as of this encounter Results IR endo repair thoracic aorta not including subclavian (07/24/2017 1:34 PM) + + + | Specimen | Performing Laboratory | + + + | | [facility] [address] [facility] [address] | + + + + + | [...] MD and Reji Anglin MD | | RADAR SYSTEMS ENGINEER: None ANESTHESIA: General endotracheal anesthesia ESTIMATED BLOOD [...] The patient was placed supine on the Acoustical Tile Carpenters Supervisor table and the patient underwent | | [...] was upsized to a 5 | | [place] sheath. A pigtail catheter was then placed through the right sheath into the | | aortic arch. Next, a micropuncture needle was used to access the left common femoral | | artery. A micropuncture sheath was then inserted over wire and this was upsized to a 7 | | [place] sheath. Again, a perclose device was deployed at the 10:00 and 2:00 position in | | the left common femoral artery. A Lunderquist wire was then placed to the left 7 [place] | | sheath with the tip of the wire in the aortic arch. Once the wire was in place, the | | 7-[place]ian sheath was removed from the left common [...] was properly identified and brought to the Acoustical Tile Carpenters Supervisor. The patient was placed | | supine on the Acoustical Tile Carpenters Supervisor table and the patient underwent general endotracheal [...] and this was upsized to a 5 [place] sheath. A pigtail catheter was | | then placed through the right sheath into the aortic arch. Next, a micropuncture needle | | was used to access the left common femoral artery. A micropuncture sheath was then | | inserted over wire and this was upsized to a 7 [place] sheath. Again, a perclose device | | was deployed at the 10:00 and 2:00 position in the left common femoral artery. A | | Lunderquist wire was then placed to the left 7 [place] sheath with the tip of the wire in | | the aortic arch.Once the wire was in place, the 7-[place]ian sheath was removed from the | | [...]
--- OUTSIDE RECORDS SUMMARY | ~2017-08-15 | XMS | Encounter Summary ---
Demographics + + + | Address | [address] | | | [place] [address] | + + + | Home Phone | | + + + | Preferred Language | Unknown | + + + | Marital Status | Single | + + + | Taoism Affiliation | Unknown | + + + | Race | Unknown | + + + | Ethnic Group | Unknown | + + + Author + + + | Author | [facility] | + + + | Organization | [facility] [employer] | + + + | Address | Unknown | + + + | Phone | Unavailable | + + + Support + + +---------+ + | Name | Relationship | Address | Phone | + + +---------+ + | Latricia Nicolas | ECON | Unknown | | + + +---------+ + Care Team Providers + +------+ + | Care Cloth Grader Supervisor Name | Role | Phone | + +------+ + | Terrence Browning MD | PCP | Unavailable | + +------+ + Encounter Details +--------+ + + + + | Date | Type | Department | Care Team | Description | +--------+ + + + + | 07/24/ | Procedure | [facility] | | | | 2018 | Pass | [facility] | | | | | | Lab [address] [place] [address] | | | | | | [place] [address] | | | | | | [phone] | | | +--------+ + + + [...] | | | | | | [place] | | | | | | [address] | | | | | | | | +--------+ + + + + as of this encounter Visit Diagnoses Not on filein this encounter"
--- OUTSIDE RECORDS SUMMARY | ~2017-08-15 | XMS | Encounter Summary ---
Demographics + + + | Address | [address] | | | [place] [address] | + + + | Home Phone | | + + + | Preferred Language | Unknown | + + + | Marital Status | Single | + + + | Yazidi Affiliation | Unknown | + + + | Race | Unknown | + + + | Ethnic Group | Unknown | + + + Author + + + | Author | [facility] | + + + | Organization | [facility] [employer] | + + + | Address | Unknown | + + + | Phone | Unavailable | + + + Support + + +---------+ + | Name | Relationship | Address | Phone | + + +---------+ + | Latricia Nicolas | ECON | Unknown | | + + +---------+ + Care Team Providers + +------+ + | Care Skip Tender Name | Role | Phone | [...] Radiology | Diagnoses | Huy Child | [facility] | | | | | Thoracic | MD [address] | | | | | aortic | Aurelia | [address] | | | | | aneurysm | Drive | [address] | | | | | without | [place], [place] | [place], [place] | | | | | rupture | [address] | [address] Phone: | | | | | ([facility]) | Phone: | [phone] | | | | | Procedures | [phone] | Fax: | | | | | CTA chest | Fax: | [phone] | | | | | abdomen | [phone] | | | | | | pelvis with | | | | | | | IV contrast | | | +--------+--------+ + + + + Encounter Details +--------+ + + + + | Date | Type | Department | Care Team | Description | +--------+ + + + + | 07/18/ | Orders Only | [facility] | Cyril Ruelas, | 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
--- OUTSIDE RECORDS SUMMARY | ~2017-08-15 | XMS | Encounter Summary ---
Demographics + + + | Address | [address] | | | [place] [address] | + + + | Home Phone | | + + + | Preferred Language | Unknown | + + + | Marital Status | Single | + + + | Nondenominational Affiliation | Unknown | + + + | Race | Unknown | + + + | Ethnic Group | Unknown | + + + Author + + + | Author | [facility] [employer] | + + + | Organization | [facility] [employer] | + + + | Address | Unknown | + + + | Phone | Unavailable | + + + Support + + +---------+ + | Name | Relationship | Address | Phone | + + +---------+ + | Latricia Nicolas | ECON | Unknown | | + + +---------+ + Care Team Providers + +------+ + | Care Dermatologist Name | Role | Phone | + +------+ + | Terrence Browning MD | PCP | Unavailable | + +------+ + Encounter Details +--------+ + + + + | Date | Type | Department | Care Team | Description | +--------+ + + + + | 07/24/ | Anesthesia | [facility] | Damon Arroyo, | | | 2018 | Event | [facility] | MD Darrick LAW | | | | | Neyda Law | [place] [address] | | | | | [place] [address] | [phone] | | | | | [phone] | | | +--------+ + + + [...] eral | Placement Time: 911; Removal | oRsy Lala RN | César Vargas RN | [...] [place] | | | | | | [address] | | | | | | | [...]
--- OUTSIDE RECORDS SUMMARY | ~2017-08-15 | XMS | Encounter Summary ---
Demographics + + + | Address | [address] | | | [place] [address] | + + + | Home Phone | | + + + | Preferred Language | Unknown | + + + | Marital Status | Single | + + + | Rastafari Affiliation | Unknown | + + + | Race | Unknown | + + + | Ethnic Group | Unknown | + + + Author + + + | Author | [facility] [employer] | + + + | Organization | [facility] [employer] | + + + | Address | Unknown | + + + | Phone | Unavailable | + + + Support + + +---------+ + | Name | Relationship | Address | Phone | + + +---------+ + | Latricia Nicolas | ECON | Unknown | | + + +---------+ + Care Team Providers + +------+ + | Care Electroslag Welding Machine Operator Name | Role | Phone | [...] Radiology | Diagnoses | Huy Child | [facility] | | | | | Thoracic | MD [address] | [address] | | | | | aortic | Aurelia | [address] | | | | | aneurysm | Drive | [address] | | | | | without | [place], [place] | [place], [place] | | | | | rupture | [address] | [address] Phone: | | | | | ([facility]) | Phone: | [phone] | | | | | Procedures | [phone] | Fax: | | | | | CTA chest | Fax: | [phone] | | | | | abdomen | [phone] | | | | | | pelvis with | | | | | | | IV contrast | | | +--------+--------+ + + + + Encounter Details +--------+ + + + + | Date | Type | Department | Care Team | Description | +--------+ + + + + | 07/18/ | Orders Only | [facility] | Cyril Ruelas, | 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
--- OUTSIDE RECORDS SUMMARY | ~2017-08-15 | XMS | Encounter Summary ---
Demographics + + + | Address | [address] | | | [place] [address] | + + + | Home Phone | | + + + | Preferred Language | Unknown | + + + | Marital Status | Single | + + + | Islam Affiliation | Unknown | + + + | Race | Unknown | + + + | Ethnic Group | Unknown | + + + Author + + + | Author | [facility] [employer] | + + + | Organization | [facility] [employer] | + + + | Address | Unknown | + + + | Phone | Unavailable | + + + Support + + +---------+ + | Name | Relationship | Address | Phone | + + +---------+ + | Latricia Nicolas | ECON | Unknown | | + + +---------+ + Care Team Providers + +------+ + | Care Cylinder Sander Operator Name | Role | Phone | + +------+ + | Terrence Browning MD | PCP | Unavailable | + +------+ + Encounter Details +--------+ + + + + | Date | Type | Department | Care Team | Description | +--------+ + + + + | 07/11/ | Orders Only | [facility] | Cyril Ruelas, | 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.] patient was placed supine on the Lead Process Engineer table and the patient underwent | | [...] was upsized to a 5 | | Marshallese sheath. A pigtail catheter was then placed through the right sheath into the | | aortic arch. Next, a micropuncture needle was used to access the left common femoral | | artery. A micropuncture sheath was then inserted over wire and this was upsized to a 7 | | Marshallese sheath. Again, a perclose device was deployed at the 10:00 and 2:00 position in | | the left common femoral artery. A Lunderquist wire was then placed to the left 7 Marshallese | | sheath with the tip of the wire in the aortic arch. Once the wire was in place, the | | 7-Marshallese sheath was removed from the left common [...] properly identified and brought to the Lead Process Engineer. The patient was placed | | supine on the Lead Process Engineer table and the patient underwent general endotracheal [...] and this was upsized to a 5 Marshallese sheath. A pigtail catheter was | | then placed through the right sheath into the aortic arch. Next, a micropuncture needle | | was used to access the left common femoral artery. A micropuncture sheath was then | | inserted over wire and this was upsized to a 7 Marshallese sheath. Again, a perclose device | | was deployed at the 10:00 and 2:00 position in the left common femoral artery. A | | Lunderquist wire was then placed to the left 7 Marshallese sheath with the tip of the wire in | | the aortic arch.Once the wire was in place, the 7-Marshallese sheath was removed from the | | [...]
--- OUTSIDE RECORDS SUMMARY | ~2017-08-15 | XMS | Encounter Summary ---
Demographics + + + | Address | [address] | | | [place] [address] | + + + | Home Phone [...] + + + | Author | [facility] [employer] | + + + | Organization | [facility] [employer] | + + + | Address | Unknown | + + + | Phone | Unavailable | + + + Support + + +---------+ + | Name | Relationship | Address | Phone | + + +---------+ + | Latricia Nicolas | ECON | Unknown | | + + +---------+ + Care Team Providers + +------+ + | Care Office Helper Clerical Name | Role | Phone | + [...] | Radiology | Diagnoses | [place], | [facility] [address] | | | | | Thoracic | MD Del | [address] | | | | | aortic | [address] | | | | | aneurysm | [address] | [place], [place] | | | | | without | Drive | [address] Phone: | | | | | rupture | [place], [place] | [phone] | | | | | ([facility]) | [address] | | | | | | Procedures | Phone: | | | | | | CTA chest | [phone] | | | | | | aorta W IV | Fax: | | | | | | contrast | [phone] | | +--------+--------+ + + + + Encounter Details +--------+ + + + + | Date | Type | Department | Care Team | Description | +--------+ + + + + | 06/12/ | Telephone | [facility] | Olimpia Miranda CMA | | | 2018 | | Cardiothoracic | | | | | | Surgery [address] | | | | | | [address] | | | | | | [place] | | | | | | [address] | | | | | | [phone] | | | +--------+ + + + [...] [place] | | | | | | [address] | | | | | | | | +--------+ + + + + + +--------+ + + | Name | Priori | Associated Diagnoses | Order Schedule | | | ty | | | + +--------+ + + | BUN | Routin | Thoracic aortic | Expected: | | | e | aneurysm without | 06/12/2017, Expires: | | | | rupture (HCC) | 06/12/2018 | + +--------+ + + | Creatinine, serum | Routin | Thoracic aortic | Expected: | | | e | aneurysm without | 06/12/2017, Expires: | | | | rupture (HCC) | 06/12/2018 | + +--------+ + + as of this encounter Results CTA chest aorta W IV contrast (06/20/2017 9:11 AM) + + + | Specimen | Performing Laboratory | + + + | | [facility] [address] [place] [address] | + + + + + | [...] Narrative | + + | SAI FREEMAN CTA CHEST 06/20/2017 9:11 AM HISTORY: 72 [...] set. 3-D reconstructions were performed using the [employer] 3-D | | software and sent to [...] + | Jayson, Rad Results In - 06/20/2017 10:59 AM PST SAI [...] set. 3-D reconstructions were performed using the [employer] 3-D software and sent to | | [...]
--- OUTSIDE RECORDS SUMMARY | ~2017-08-15 | XMS | Encounter Summary ---
Demographics + + + | Address | [address] | | | [place] [address] | + + + | Home Phone | | + + + | Preferred Language | Unknown | + + + | Marital Status | Single | + + + | Anabaptism Affiliation | Unknown | + + + | Race | Unknown | + + + | Ethnic Group | Unknown | + + + Author + + + | Author | [facility] | + + + | Organization | [facility] [employer] | + + + | Address | Unknown | + + + | Phone | Unavailable | + + + Support + + +---------+ + | Name | Relationship | Address | Phone | + + +---------+ + | Latricia Nicolas | ECON | Unknown | | + + +---------+ + Care Team Providers + +------+ + | Care Dental Technician Instructor Name | Role | Phone | + +------+ + | Terrence Browning MD | PCP | Unavailable | + +------+ + Encounter Details +--------+ + + + + | Date | Type | Department | Care Team | Description | +--------+ + + + + | 07/23/ | Telephone | [facility] | Teresita Wright RN | | | 2017 | | [facility] | | | | | | [place] [address] | | | | | | [place] [address] | | | | | | [phone] | | | +--------+ + + + [...] [place] | | | | | | [address] | | | | | | | | +--------+ + + + + as of this encounter Visit Diagnoses Not on filein this encounter"
--- OUTSIDE RECORDS SUMMARY | ~2017-08-15 | XMS | Encounter Summary ---
Demographics + + + | Address | [address] | | | [place] [address] | + + + | Home Phone | | + + + | Preferred Language | Unknown | + + + | Marital Status | Single | + + + | Tenriism Affiliation | Unknown | + + + | Race | Unknown | + + + | Ethnic Group | Unknown | + + + Author + + + | Author | [facility] [employer] | + + + | Organization | [facility] [employer] [facility] | + + + | Address | Unknown | + + + | Phone | Unavailable | + + + Support + + +---------+ + | Name | Relationship | Address | Phone | + + +---------+ + | Latricia Nicolas | ECON | Unknown | | + + +---------+ + Care Team Providers + +------+ + | Care Bottle Assembler Name | Role | Phone | + +------+ + | Terrence Browning MD | PCP | Unavailable | + +------+ + Encounter Details +--------+ + + + + | Date | Type | Department | Care Team | Description | +--------+ + + + + | 07/24/ | Procedure | [facility] | | | | 2018 | Pass | [facility] | | | | | | Lab [address] [place] [address] | | | | | | [place] [address] | | | | | | [phone] | | | +--------+ + + + [...] | | | | | | [place] | | | | | | [address] | | | | | | | | +--------+ + + + + as of this encounter Visit Diagnoses Not on filein this encounter"
--- OUTSIDE RECORDS SUMMARY | ~2017-08-15 | XMS | Encounter Summary ---
Demographics + + + | Address | [address] | | | [place] [address] | + + + | Home Phone | | + + + | Preferred Language | Unknown | + + + | Marital Status | Single | + + + | Rastafari Affiliation | Unknown | + + + | Race | Unknown | + + + | Ethnic Group | Unknown | + + + Author + + + | Author | [facility] | + + + | Organization | [facility] [email or web address] | + + + | Address | Unknown | + + + | Phone | Unavailable | + + + Support + + +---------+ + | Name | Relationship | Address | Phone | + + +---------+ + | Latricia Nicolas | ECON | Unknown | | + + +---------+ + Care Team Providers + +------+ + | Care Bobbin Winder Tender Name | Role | Phone | + +------+ + | Terrence Browning MD | PCP | Unavailable | + +------+ + Encounter Details +--------+ + + + + | Date | Type | Department | Care Team | Description | +--------+ + + + + | 07/24/ | Procedure | [facility] | | | | 2018 | [facility] | | | | | | Interventional | | | | | | Radiology [address] | | | | | | [place], [place] | | | | | | [address] | | | +--------+ + + + [...] [place] | | | | | | [address] | | | | | | | | +--------+ + + + + as of this encounter Visit Diagnoses Not on filein this encounter"
--- OUTSIDE RECORDS SUMMARY | ~2017-08-15 | XMS | Encounter Summary ---
Demographics + + + | Address | [address] | | | [place] [address] | + + + | Home Phone | | + + + | Preferred Language | Unknown | + + + | Marital Status | Single | + + + | Scientologist Affiliation | Unknown | + + + | Race | Unknown | + + + | Ethnic Group | Unknown | + + + Author + + + | Author | [facility] [employer] | + + + | Organization | [facility] [employer] | + + + | Address | Unknown | + + + | Phone | Unavailable | + + + Support + + +---------+ + | Name | Relationship | Address | Phone | + + +---------+ + | Latricia Nicolas | ECON | Unknown | | + + +---------+ + Care Team Providers + +------+ + | Care Patent Attorney Name | Role | Phone | + [...] + + | 07/24/ | Surgery | [facility] | PoiReji MD | AORTIC - ENDOGRAFT | | 2018 | | [facility] | [address] | | | | | Lab [address] | [place], [place] | | | | | [place] [address] | [address] | | | | | [phone] | | | +--------+---------+ + + + [...] note may be different from the original. [facility] Service: Vascular Surgery Discharge Summary Date of [...] due to trauma CHF (congestive heart failure) ([facility]) 2010 secondary to trauma fall at home COPD (chronic obstructive pulmonary disease) ([facility]) Dementia Dementia Hyperlipidemia Hypothyroidism Mental retardation MRSA (methicillin resistant Staphylococcus aureus) 03/08/2012 abdomen, states healed up MRSA (methicillin resistant Staphylococcus aureus) respiratory MRSA infection Other and unspecified coagulation defects "bleeding stitch on my neck" Personality disorder Respiratory failure (HCC) due to trauma Schizophrenia ([facility]) Past Surgical History Procedure Laterality Date ABDOMINAL [...] CV: No peripheral edema, rate regular SKIN: [place], warm, dry without rash/lesion MS: ROM not [...] Follow up: Terrence Browning MD [address] [facility] [id number] In 3 days follow up after surgery, review medications, vitals signs, labs [facility] [address] [place] [id number] In 2 weeks post op appointment and [...] prior to post operative appointment. Our office arbne l arrange this for you. You will [...] Anexsia, Lorcet, Lorcet HD, Lorcet Plus, Lortab, Ackley, Verdrocet, Vicodin, Vi codin ES, Vicodin HP, [...] information carefully each time. Talk to your loom winder tender regarding the use of this medicine in children. Special care may be needed. What side effects may I notice from receiving this medicine? Side effects that you should report to your doctor or health lawn care technician as soon as p ossible: allergic reactions [...] attention (report to your doctor or health lawn care technician if they continue or are bothersome): constipation [...] this medicine? Tell your doctor or health lawn care technician if your pain does not go away, [...] pharmacist, or health care provider. Copyright 2017 [employer] in this encounter Medications at Time of [...] note may be different from the original. [facility] Service: Hospitalist Progress Note Pt: Jerry Freeman [...] hours. No results for input(s): PHART, PO2ART, BCH9ENQ, [id number], BEART in the last 168 hours. No [...] and managing patient and counseling/coordination. Dictation software, [employer], used which may contain error for similar [...] | | | | | | [place] | | | | | | [address] | | | | | | | [...] | MPV | 7.4Comment: Testing performed at [facility] | fl | | | [place] [place] [address] | | + + + + + + + | Specimen | Performing Laboratory | + + + | | [address] [place], | | | [place] [address] | + + + Basic metabolic panel [...] | | | | 1.210.Testing performed at [facility], [address] | | | | [place] [address] | | | | | | + + + + + + + | Specimen | Performing Laboratory | + + + | Blood | [facility] [address] [place], | | | [place] [address] | + + + in this encounter [...] | | | | First dose on [facility] 07/25/17 at 0630 | | | [...] | | | | | dose on [facility] 07/25/17 at 0630 | | | [...] | | | | First dose on [facility] 07/25/17 at 2200 | | PDT | | | | + +-------+ +--------+---+---+ +---+---+ | | | +---+---+ + +-------+ +------+---+---+ | risperiDONE (RisperDAL) tablet | Given | | 2 mg | | | | 2 mg 2 mg, Oral, Nightly, First | | 8 20:46 | | | | | dose on [facility] 07/25/17 at 2200 | | PDT | | | | + +-------+ +------+---+---+ +---+---+ | | | +---+---+ + +-------+ +-----+---+---+ | sodium chloride tablet 1 g 1 | Given | | 1 g | | | | g, Oral, 2 Times Daily, First | | 8 08:40 | | | | | dose on [facility] 07/24/17 at 2100 | | PDT | [...]
--- OUTSIDE RECORDS SUMMARY | ~2017-08-15 | XMS | Encounter Summary ---
Demographics + + + | Address | [address] | | | [place] [address] | + + + | Home Phone [...] Author + + + | Author | [facility] | + + + | Organization | [facility] [employer] | + + + | Address | Unknown | + + + | Phone | Unavailable | + + + Support + + +---------+ + | Name | Relationship | Address | Phone | + + +---------+ + | Latricia Nicolas | ECON | Unknown | | + + +---------+ + Care Team Providers + +------+ + | Care Metal Work Duct Installer Name | Role | Phone | + [...] Radiology | Diagnoses | Huy Child | [facility] | | | | | Thoracic | YMD [address] | [address] | | | | | ascending | [address] | [address] | | | | | aortic | Drive | [place], [place] | | | | | aneurysm | [place], [place] | [address] Phone: | | | | | ([facility]) | [address] | [phone] | | | | | Procedures | Phone: | | | | | | CTA chest | [phone] | | | | | | abdomen | Fax: | | | | | | pelvis with | [phone] | | | | | | IV [...] Radiology | Diagnoses | Huy Child | [facility] [address] | | | | | Thoracic | YMD [address] | [address] | | | | | ascending | [address] | [address] | | | | | aortic | Drive | [place], [place] | | | | | aneurysm | [place], [place] | [address] Phone: | | | | | ([facility]) | [address] | [phone] | | | | | Procedures | Phone: | | | | | | CTA chest | [phone] | | | | | | abdomen | Fax: | | | | | | pelvis with | [phone] | | | | | | IV [...] Radiology | Diagnoses | Huy Child | [facility] [address] | | | | | Thoracic | MD [address] | [address] | | | | | ascending | [address] | Bl[address] | | | | | aortic | Drive | [place], [place] | | | | | aneurysm | [place] | [address] Phone: | | | | | ([facility]) | [address] | [phone] | | | | | Procedures | Phone: | | | | | | CTA chest | [phone] | | | | | | abdomen | Fax: | | | | | | pelvis with | [phone] | | | | | | IV contrast | | | +--------+--------+ + + + + Encounter Details +--------+ + + + + | Date | Type | Department | Care Team | Description | +--------+ + + + + | 08/06/ | Hospital | [facility] | Huy Child MD | 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 | [place] [address] | ([facility]) | | | | [address] | [phone] | | | | | [place] [address] | | | | | | [phone] | | | +--------+ + + + [...] [place] | | | | | | [id number] | | | | | | | | +--------+ + + + + as of this encounter Results CTA chest abdomen pelvis with IV contrast (08/06/2017 3:54 PM) + + + | Specimen | Performing Laboratory | + + + | | [facility] [address] [place] [address] | + + + + + | [...] | | reconstructions were performed using the Happy Inspector 3-D software and sent to PACS. | [...] set. 3-D reconstructions were performed using the Happy Inspector 3-D | | software and sent to [...]
--- OUTSIDE RECORDS SUMMARY | ~2017-08-15 | XMS | Encounter Summary ---
Demographics + + + | Address | [address] | | | [place] [address] | + + + | Home Phone [...] + + + | Author | [facility] [employer] | + + + | Organization | [facility] [employer] | + + + | Address | Unknown | + + + | Phone | Unavailable | + + + Support + + +---------+ + | Name | Relationship | Address | Phone | + + +---------+ + | Latricia Nicolas | ECON | Unknown | | + + +---------+ + Care Team Providers + +------+ + | Care Distribution Clerk Name | Role | Phone | [...] + + | 07/24/ | Hospital | [facility] | Huy Child MD | Thoracic aortic | | 2018 | [facility] | [facility] | [address] | aneurysm without | | | | Interventional | [place] [address] | rupture (HCC) | | | | Radiology [address] | [phone] | | | | | [address] [place], [place] | | | | | | [id number] | | | +--------+ + + + [...] [place] | | | | | | [address] | | | | | | | | +--------+ + + + + as of this encounter Results IR guidance vascular access US (07/24/2017 12:35 PM) + + + | Specimen | Performing Laboratory | + + + | | [facility] [address] [place] [address] | + + + + + | [...]
--- OUTSIDE RECORDS SUMMARY | ~2017-08-15 | XMS | Clinical Summary ---
Demographics + + + | Address | [address] [place] [address] RD | | | [place] [address] | + + + | Home Phone | | + + + | Preferred Language | Unknown | + + + | Marital Status | Single | + + + | Zoroastrian Affiliation | Unknown | + + + | Race | Unknown | + + + | Ethnic Group | Unknown | + + + Author + + + | Author | [facility] [employer] | + + + | Organization | [facility] [employer] | + + + | Address | Unknown | + + + | Phone | Unavailable | + + + Support + + +---------+ + | Name | Relationship | Address | Phone | + + +---------+ + | Latricia Nicolas | ECON | Unknown | | + + +---------+ + Care Team Providers + +------+ + | Care Leather Roller Name | Role | Phone | + [...] 2018 | Visit | | | aorta ([facility]) | | | | | | (Primary Dx); | | | | | | 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, | | | | | | without rupture | | | | | | ([facility]); S/P thoracic | | | | | | aortic aneurysm | | | | | | repair | +--------+ + + + + | 08/08/ | Orders Only | | Chela Clements, | Ruptured aneurysm of | | 2017 | | | STATOR WINDER | thoracic aorta | | | | | | ([facility]) (Primary Dx) | +--------+ + + + + | 08/06/ | Hospital | | Huy Child MD | Thoracic ascending | | 2018 | Encounter | | | aortic aneurysm | | | | | | ([facility]) | +--------+ + + + + | [...] | | | Kerry, | | | RUBBER BLOCK LAYER - | | | 07/25/2017 | | [...] | | regularSKIN | | | : [place], | | | warm, dry | | [...] | | Kerry | | | Sloot, RUBBER BLOCK LAYER | | | in 2 | | [...] | | [place] | | | [address] | | | [phone] | | | In 3 | | | daysfollow | | | up after | | | surgery, | | | review | | | medications | | | , vitals | | | signs, | | | labsKADLEC | | | CLINIC | | | VASCULAR | | | [id number] | | | [address] | | | Dr Behzad | | | [place] | | | [place] | | | [address] | | | [phone] | | | In 2 | | [...] without | | | | | Kr Cleaner | rupture (HCC) | +--------+ +---+ + [...] [place] | | | | | | [address] | | | | | | | [...] | | | | | 2020 | [id number] | | Qty: 1 on 07/24/2017 by [...] Laboratory | + + + | | [address] [place] [address] | + + + + + | [...] | | reconstructions were performed using the Rebyoo 3-D software and sent to PACS. | [...] set. 3-D reconstructions were performed using the Rebyoo 3-D | | software and sent to [...] | MPV | 7.4Comment: Testing performed at [facility], [address] | | | [place] [address] | | + + + + + + + | Specimen | Performing Laboratory | + + + | | [facility] [address] [place] [address] Blvd[address] [place], | | | [place] [address] | + + + Basic metabolic panel [...] | | | | 1.210.Testing performed at [facility], [address] | | | | [facility] ([place], [place] [address] | | | | | | + + + + + + + | Specimen | Performing Laboratory | + + + | Blood | [facility] [address] [place], [place] [address]jacqui. [place], | | | [place] [address] | + + + IR endo repair thoracic aorta not including subclavian (07/24/2017 1:34 PM) + + + | Specimen | Performing Laboratory | + + + | | [address] [address] | + + + + + | [...] MD and Reji Anglin MD | | RIPENING ROOM HAND: None ANESTHESIA: General endotracheal anesthesia ESTIMATED BLOOD [...] The patient was placed supine on the Lithographic Press Operator table and the patient underwent | | [...] was upsized to a 5 | | Egyptian sheath. A pigtail catheter was then placed through the right sheath into the | | aortic arch. Next, a micropuncture needle was used to access the left common femoral | | artery. A micropuncture sheath was then inserted over wire and this was upsized to a 7 | | Egyptian sheath. Again, a perclose device was deployed at the 10:00 and 2:00 position in | | the left common femoral artery. A Lunderquist wire was then placed to the left 7 Egyptian | | sheath with the tip of the wire in the aortic arch. Once the wire was in place, the | | 7-Egyptian sheath was removed from the left common [...] was properly identified and brought to the Lithographic Press Operator. The patient was placed | | supine on the Lithographic Press Operator table and the patient underwent general endotracheal [...] and this was upsized to a 5 Egyptian sheath. A pigtail catheter was | | then placed through the right sheath into the aortic arch. Next, a micropuncture needle | | was used to access the left common femoral artery. A micropuncture sheath was then | | inserted over wire and this was upsized to a 7 Egyptian sheath. Again, a perclose device | | was deployed at the 10:00 and 2:00 position in the left common femoral artery. A | | Lunderquist wire was then placed to the left 7 Egyptian sheath with the tip of the wire in | | the aortic arch.Once the wire was in place, the 7-Egyptian sheath was removed from the | | [...] Laboratory | + + + | | [facility] [address] [place] [address] | + + + + + | [...] 74 - 137 seconds | | | [facility];[address] [place] [address];[place] [address] | | + + + + + + + | Specimen | Performing Laboratory | + + + | | [facility] [address] [place] [address] | + + + CBC W/Auto Diff [...] BASOPHILS ABS | 0.08Comment: Testing performed at [facility];[address] | 0.00 - 0.10 K/uL | | | [address] [facility];[place] [address] | | + + + + + + + | Specimen | Performing Laboratory | + + + | Blood | [facility] [address] [place] [address] | + + + Type and Crossmatch (Blood Bank) (07/24/2017 9:31 AM) + + + + | Component | Value | Ref Range | + + + + | ARM BAND NUMBER | [id number] | | + + + + | ABO/RH(D) | O POSITIVE | | + + + + | ANTIBODY SCREEN | NEGATIVE | | + + + + | UNIT NUMBER | [id number] | | + + + + | [...] | CROSSMATCH RESULT | COMPATIBLETesting performed at [facility];[address] | | | | [address];[place] [address] | | | | | | + + + + | UNIT NUMBER | [id number] | | + + + + | [...] + + + | UNIT NUMBER | [id number] | | + + + + | [...] + + + | UNIT NUMBER | [id number] | | + + + + | [...] | + + + | Blood | [facility] [address] [facility] [place] [address] | + + + MRSA by PCR (07/24/2017 8:55 AM) + + + + | Component | Value | Ref Range | + + + + | SOURCE | NARES(NOSE) | | + + + + | MRSA PCR | NEGATIVEComment: Testing performed at | NEGATIVE | | | [facility];[address];[place] [address] | | + + + + + + + | Specimen | Performing Laboratory | + + + | Nasopharyngeal - | [facility] [address] [place] [address] | | Nares(Nose) | | + + + CTA chest aorta W IV contrast (06/20/2017 9:11 AM) + + + | Specimen | Performing Laboratory | + + + | | [facility] [address] [place] [address] | + + + + + | [...] set. 3-D reconstructions were performed using the WaveMaker Labsa 3-D | | software and sent to [...] POC CREATININE | 0.9Comment: Testing performed at [facility];[address] | 0.7 - 1.5 mg/dL | | | [address] [facility];[place] [address] | | + + + + + + + | Specimen | Performing Laboratory | + + + | | [place] [address] [place] [address] | + + + from Last 3 [...] RE | | | | [place] [address] | | | IP-OP | | | | | + +--------+ +--------+-------+ + | MEDICAID | MEDICA | xxxxxxxx | | | [address] | | | ID | | | | [place], [place] | | | [place] | | | | [address] | + +--------+ +--------+-------+ + + +--------+ +--------+ + + | Guarantor Name | Accoun | Relation to | Date | Phone | Billing Address | | | t Type | Patient | of | | | | | | | | | | + +--------+ +--------+ + + | SAI BASILIO | Person | Self [birth year] | Home: | [address] | | | al/Fam | | 1946 | [phone] [place] | | | [place]ant | | | [phone] | [address] | + +--------+ +--------+ + +
--- OUTSIDE RECORDS SUMMARY | ~2017-08-15 | XMS | Encounter Summary ---
Demographics + + + | Address | [address] | | | [place] [address] | + + + | Home Phone | | + + + | Preferred Language | Unknown | + + + | Marital Status | Single | + + + | Uatsdin Affiliation | Unknown | + + + | Race | Unknown | + + + | Ethnic Group | Unknown | + + + Author + + + | Author | [facility] [employer] | + + + | Organization | [facility] [employer] | + + + | Address | Unknown | + + + | Phone | Unavailable | + + + Support + + +---------+ + | Name | Relationship | Address | Phone | + + +---------+ + | Latricia Nicolas | ECON | Unknown | | + + +---------+ + Care Team Providers + +------+ + | Care Gis Application Developer Name | Role | Phone | [...] Radiology | Diagnoses | Huy Child | [facility] | | | | | Thoracic | YMD [address] | [address] | | | | | ascending | [address] | Bl[address] | | | | | aortic | Drive | [place], [place] | | | | | aneurysm | [place], [place] | [address] Phone: | | | | | ([facility]) | [address] | [phone] | | | | | Procedures | Phone: | | | | | | CTA chest | [phone] | | | | | | abdomen | Fax: | | | | | | pelvis with | [phone] | | | | | | IV [...] Radiology | Diagnoses | Huy Child | [facility] | | | | | Thoracic | YMD [address] | [address] | | | | | ascending | [address] | Blvd | | | | | aortic | Drive | [place], [place] | | | | | aneurysm | [place], [place] | [address] Phone: | | | | | ([facility]) | [address] | [phone] | | | | | Procedures | Phone: | | | | | | CTA chest | [phone] | | | | | | abdomen | Fax: | | | | | | pelvis with | [phone] | | | | | | IV [...] Radiology | Diagnoses | Huy Child | [facility] | | | | | Thoracic | MD [address] | [address] | | | | | ascending | [address] | Blvd | | | | | aortic | Drive | [place], [place] | | | | | aneurysm | [place], [place] | [address] Phone: | | | | | ([facility]) | [address] | [phone] | | | | | Procedures | Phone: | | | | | | CTA chest | [phone] | | | | | | abdomen | Fax: | | | | | | pelvis with | [phone] | | | | | | IV contrast | | | +--------+--------+ + + + + Encounter Details +--------+ + + + + | Date | Type | Department | Care Team | Description | +--------+ + + + + | 08/06/ | Hospital | [facility] | Huy Child MD | Thoracic ascending | | 2018 | Encounter | [facility] | [address] | aortic aneurysm | | | | CT [address] | [place] [address] | ([facility]) | | | | [address] | [phone] | | | | | [place] [address] | | | | | | [phone] | | | +--------+ + + + [...] [place] | | | | | | [address] | | | | | | | | +--------+ + + + + as of this encounter Results CTA chest abdomen pelvis with IV contrast (08/06/2017 3:54 PM) + + + | Specimen | Performing Laboratory | + + + | | [facility] [address] [place] [address] | + + + + + | [...] | | reconstructions were performed using the Marketbright 3-D software and sent to PACS. | [...] set. 3-D reconstructions were performed using the Market[employer] 3-D | | software and sent to [...]
--- OUTSIDE RECORDS SUMMARY | ~2017-08-15 | XMS | Encounter Summary ---
Demographics + + + | Address | [address] | | | [place] [address] | + + + | Home Phone | | + + + | Preferred Language | Unknown | + + + | Marital Status | Single | + + + | Nondenominational Affiliation | Unknown | + + + | Race | Unknown | + + + | Ethnic Group | Unknown | + + + Author + + + | Author | [facility] [email or web address] | + + + | Organization | [facility] [employer] | + + + | Address | Unknown | + + + | Phone | Unavailable | + + + Support + + +---------+ + | Name | Relationship | Address | Phone | + + +---------+ + | Latricia Nicolas | ECON | Unknown | | + + +---------+ + Care Team Providers + +------+ + | Care Land Lease Information Clerk Name | Role | Phone | + +------+ + | Terrence Browning MD | PCP | Unavailable | + +------+ + Encounter Details +--------+ + + + + | Date | Type | Department | Care Team | Description | +--------+ + + + + | 07/11/ | Procedure | [facility] | | | | 2018 | [facility] | | | | | | Interventional | | | | | | Radiology [address] | | | | | | [place], [place] | | | | | | [address] | | | +--------+ + + + [...] [place] | | | | | | [address] | | | | | | | | +--------+ + + + + as of this encounter Visit Diagnoses Not on filein this encounter"
--- OUTSIDE RECORDS SUMMARY | ~2017-08-15 | XMS | Encounter Summary ---
Demographics + + + | Address | [address] | | | [place] [address] | + + + | Home Phone | | + + + | Preferred Language | Unknown | + + + | Marital Status | Single | + + + | Pentecostalism Affiliation | Unknown | + + + | Race | Unknown | + + + | Ethnic Group | Unknown | + + + Author + + + | Author | [facility] [employer] | + + + | Organization | [facility] [employer] [facility] | + + + | Address | Unknown | + + + | Phone | Unavailable | + + + Support + + +---------+ + | Name | Relationship | Address | Phone | + + +---------+ + | Latricia Nicolas | ECON | Unknown | | + + +---------+ + Care Team Providers + +------+ + | Care Disability Services Coordinator Name | Role | Phone | + +------+ + | Terrence Browning MD | PCP | Unavailable | + +------+ + Encounter Details +--------+ + + + + | Date | Type | Department | Care Team | Description | +--------+ + + + + | 07/23/ | Telephone | [facility] | Teresita Wright RN | | | 2017 | | [facility] | | | | | | [place] [address] | | | | | | [place] [address] | | | | | | [phone] | | | +--------+ + + + [...] [place] | | | | | | [address] | | | | | | | | +--------+ + + + + as of this encounter Visit Diagnoses Not on filein this encounter"
--- OUTSIDE RECORDS SUMMARY | ~2017-08-15 | XMS | Encounter Summary ---
Demographics + + + | Address | [address] | | | [place] [address] | + + + | Home Phone [...] + + + | Author | [facility] [employer] | + + + | Organization | [facility] [email or web address] | + + + | Address | Unknown | + + + | Phone | Unavailable | + + + Support + + +---------+ + | Name | Relationship | Address | Phone | + + +---------+ + | Latricia Nicolas | ECON | Unknown | | + + +---------+ + Care Team Providers + +------+ + | Care Corncob Pipes Assembler Name | Role | Phone | + +------+ + | Terrence Browning MD | PCP | Unavailable | + +------+ + Encounter Details +--------+ + + + + | Date | Type | Department | Care Team | Description | +--------+ + + + + | 06/25/ | Initial | [facility] | Del Tejada MD | Thoracic aortic | | 2018 | consult | Cardiothoracic | [address] | aneurysm without | | | | Surgery [address] | [place] [address] | rupture (HCC) | | | | AURELIA HERRERA | [phone] | (Primary Dx) | | | | [place], [place] | | | | | | [address] | | | | | | [phone] | | | +--------+ + + + [...] CM diameter. He continues to reside at [facility]. CTA wa s performed on 06/20/17. [...] [place] | | | | | | [address] | | | | | | | | +--------+ + + + + as of this encounter Visit Diagnoses + + | Diagnosis | + + | Thoracic aortic aneurysm without rupture (HCC) - Primary | + + | Thoracic aneurysm without mention of rupture | + +
--- OUTSIDE RECORDS SUMMARY | ~2017-08-15 | XMS | Encounter Summary ---
Demographics + + + | Address | [address] | | | [place] [address] | + + + | Home Phone [...] + + + | Author | [facility] | + + + | Organization | [facility] [employer] | + + + | Address | Unknown | + + + | Phone | Unavailable | + + + Support + + +---------+ + | Name | Relationship | Address | Phone | + + +---------+ + | Latricia Nicolas | ECON | Unknown | | + + +---------+ + Care Team Providers + +------+ + | Care Tobacco Weigher Name | Role | Phone | + [...] + | 07/24/ | Hospital | [facility] | Huy Child MD | Thoracic ascending | | 2018 - | Encounter | [address] | [address] | aortic aneurysm | | | | Floor [facility] | [place] [address] | ([facility]) (Primary Dx) | | 07/26/ | | [address] | [phone] | | | 2017 | | [place] [address] | | | | | | [phone] | | | +--------+ + + + [...] note may be different from the original. [facility]: Vascular Surgery Discharge Summary Date [...] CV: No peripheral edema, rate regular SKIN: [place], warm, dry without rash/lesion MS: ROM not [...] Follow up: Terrence Browning MD [address] [facility] [address] In 3 days follow up after surgery, review medications, vitals signs, labs [facility] [address] [place] [id number] In 2 weeks post op appointment and [...] Anexsia, Lorcet, Lorcet HD, Lorcet Plus, Lortab, Otwell, Verdrocet, Vicodin, Vi codin ES, Vicodin HP, [...] information carefully each time. Talk to your director trade regarding the use of this medicine in children. Special care may be needed. What side effects may I notice from receiving this medicine? Side effects that you should report to your doctor or health housekeeper caregiver as soon as p ossible: allergic reactions [...] attention (report to your doctor or health housekeeper caregiver if they continue or are bothersome): constipation [...] this medicine? Tell your doctor or health housekeeper caregiver if your pain does not go away, [...] note may be different from the original. [facility]: Hospitalist Progress Note Pt: Jerry [...] hours. No results for input(s): PHART, PO2ART, KIS8XHP, V4OLTYXI, BEART in the last 168 hours. No [...] and managing patient and counseling/coordination. Dictation software, [employer], used which may contain error for similar [...] [place] | | | | | | [address] | | | | | | | [...] | MPV | 7.4Comment: Testing performed at [facility], [address] | | | [place] [address] | | + + + + + + + | Specimen | Performing Laboratory | + + + | | [facility] [address] [place], | | | [place] [address] | + + + Basic metabolic panel [...] | | | | 1.210.Testing performed at [facility], [address] | | | | [place] [address] | | | | | | + + + + + + + | Specimen | Performing Laboratory | + + + | Blood | [facility] [address] [facility] [address] [place], | | | [place] [address] | + + + in this encounter [...] | | | | First dose on [facility] 07/25/17 at 0630 | | | | [...] | | | | | dose on [facility] 07/25/17 at 0630 | | | | [...] | | | | First dose on [facility] 07/25/17 at 2200 | | PDT | [...]
--- OUTSIDE RECORDS SUMMARY | ~2017-08-15 | XMS | Encounter Summary ---
Demographics + + + | Address | [address] | | | [place] [address] | + + + | Home Phone | | + + + | Preferred Language | Unknown | + + + | Marital Status | Single | + + + | Amish Affiliation | Unknown | + + + | Race | Unknown | + + + | Ethnic Group | Unknown | + + + Author + + + | Author | [facility] | + + + | Organization | [facility] [employer] | + + + | Address | Unknown | + + + | Phone | Unavailable | + + + Support + + +---------+ + | Name | Relationship | Address | Phone | + + +---------+ + | Latricia Nicolas | ECON | Unknown | | + + +---------+ + Care Team Providers + +------+ + | Care Oceanographer Geological Name | Role | Phone | + [...] Radiology | Diagnoses | Jose Land, | [facility] [address] | | | | | Ruptured | DNP [address] | [address] | | | | | aneurysm of | [address] | Blvd | | | | | thoracic | [address] | [place], [place] | | | | | aorta (HCC) | [place], [place] | [address] Phone: | | | | | Procedures | [address] | [phone] | | | | | CTA abd | Phone: | | | | | | aorta & | [phone] | | | | | | bilat ilio | Fax: | | | | | | runoff w IV | [phone] | | | | | | con | | | + +--------+ + + + + Encounter Details +--------+ + + + + | Date | Type | Department | Care Team | Description | +--------+ + + + + | 08/08/ | Orders Only | [facility] | Chela Clements, | Ruptured aneurysm of | | 2017 | | Vascular Surgery | BEEF SKINNER | thoracic aorta | | | | [address] | | (HCC) (Primary Dx) | | | | E [place] | | | | | | [address] | | | | | | [phone] | | | +--------+ + + + [...] [place] | | | | | | [address] | | | | | | | [...]
--- OUTSIDE RECORDS SUMMARY | ~2017-08-15 | XMS | Encounter Summary ---
Demographics + + + | Address | [address] | | | [place] [address] | + + + | Home Phone | | + + + | Preferred Language | Unknown | + + + | Marital Status | Single | + + + | Latter Day Affiliation | Unknown | + + + | Race | Unknown | + + + | Ethnic Group | Unknown | + + + Author + + + | Author | [facility] [employer] | + + + | Organization | [facility] [employer] | + + + | Address | Unknown | + + + | Phone | Unavailable | + + + Support + + +---------+ + | Name | Relationship | Address | Phone | + + +---------+ + | Latricia Nicolas | ECON | Unknown | | + + +---------+ + Care Team Providers + +------+ + | Care Equip Tech Name | Role | Phone | + [...] + + | 07/24/ | Hospital | [facility] | Huy Child MD | 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 | | | | Interventional | [address] | rupture (HCC) | | | | Radiology [address] | E [place], [place] | | | | | Blvd [place], [place] | [address] | | | | | [address] | | | | | | | 3, [facility] Logistics Associate | | +--------+ + + + + [...] [place] | | | | | | [address] | | | | | | | | +--------+ + + + + as of this encounter Results IR endo repair thoracic aorta not including subclavian (07/24/2017 1:34 PM) + + + | Specimen | Performing Laboratory | + + + | | [facility] [address] [place] [address] | + + + + + | [...] MD and Reji Anglin MD | | PRETZEL TWISTING MACHINE OPERATOR: None ANESTHESIA: General endotracheal anesthesia ESTIMATED BLOOD [...] The patient was placed supine on the Fixed Income Portfolio Manager table and the patient underwent | | [...] was upsized to a 5 | | Taiwanese sheath. A pigtail catheter was then placed through the right sheath into the | | aortic arch. Next, a micropuncture needle was used to access the left common femoral | | artery. A micropuncture sheath was then inserted over wire and this was upsized to a 7 | | Taiwanese sheath. Again, a perclose device was deployed at the 10:00 and 2:00 position in | | the left common femoral artery. A Lunderquist wire was then placed to the left 7 Taiwanese | | sheath with the tip of the wire in the aortic arch. Once the wire was in place, the | | 7-Taiwanese sheath was removed from the left common [...] was properly identified and brought to the Fixed Income Portfolio Manager. The patient was placed | | supine on the Fixed Income Portfolio Manager table and the patient underwent general endotracheal [...] and this was upsized to a 5 Taiwanese sheath. A pigtail catheter was | | then placed through the right sheath into the aortic arch. Next, a micropuncture needle | | was used to access the left common femoral artery. A micropuncture sheath was then | | inserted over wire and this was upsized to a 7 Taiwanese sheath. Again, a perclose device | | was deployed at the 10:00 and 2:00 position in the left common femoral artery. A | | Lunderquist wire was then placed to the left 7 Taiwanese sheath with the tip of the wire in | | the aortic arch.Once the wire was in place, the 7-Taiwanese sheath was removed from the | | [...] 74 - 137 seconds | | | [facility];[address] [facility];[place] [address] | | + + + + + + + | Specimen | Performing Laboratory | + + + | | [address] [place] [address] | + + + Basic metabolic panel [...] | | | | 1.210.Testing performed at [facility], [address] | | | | [place] [address] | | | | | | + + + + + + + | Specimen | Performing Laboratory | + + + | Blood | [facility] [address] [facility] [place], | | | [place] [address] | + + + Type and Crossmatch (Blood Bank) (07/24/2017 9:31 AM) + + + + | Component | Value | Ref Range | + + + + | ARM BAND NUMBER | [id number] | | + + + + | ABO/RH(D) | O POSITIVE | | + + + + | ANTIBODY SCREEN | NEGATIVE | | + + + + | UNIT NUMBER | [id number] | | + + + + | [...] | CROSSMATCH RESULT | COMPATIBLETesting performed at [facility];[address] | | | | [address];[place] [address] | | | | | | + + + + | UNIT NUMBER | [id number] | | + + + + | [...] + + + | UNIT NUMBER | [id number] | | + + + + | [...] + + + | UNIT NUMBER | [id number] | | + + + + | [...] | + + + | Blood | [address] [facility] [address] | + + + CBC W/Auto Diff [...] BASOPHILS ABS | 0.08Comment: Testing performed at [facility] | 0.00 - 0.10 K/uL | | | [facility];[place] [address] | | + + + + + + + | Specimen | Performing Laboratory | + + + | Blood | [facility] [address] [facility] [place] [address] | + + + MRSA by PCR (07/24/2017 8:55 AM) + + + + | Component | Value | Ref Range | + + + + | SOURCE | NARES(NOSE) | | + + + + | MRSA PCR | NEGATIVEComment: Testing performed at | NEGATIVE | | | [facility];[address] [place] [address];[place] [address] | | + + + + + + + | Specimen | Performing Laboratory | + + + | Nasopharyngeal - | [facility] [address] [place] [address] | | Nares(Nose) | | + + [...] | | | | First dose on [facility] 07/25/17 at 0630 | | | [...] | | | | First dose on [facility] 07/25/17 at 2200 | | PDT | | | | + +-------+ +--------+---+---+ +---+---+ | | | +---+---+ + +-------+ +------+---+---+ | risperiDONE (RisperDAL) tablet | Given | | 2 mg | | | | 2 mg 2 mg, Oral, Nightly, First | | 8 20:46 | | | | | dose on [facility] 07/25/17 at 2200 | | PDT [...]
--- OUTSIDE RECORDS SUMMARY | ~2017-08-15 | XMS | Encounter Summary ---
Demographics + + + | Address | [address] | | | [place] [address] | + + + | Home Phone | | + + + | Preferred Language | Unknown | + + + | Marital Status | Single | + + + | Jewish Affiliation | Unknown | + + + | Race | Unknown | + + + | Ethnic Group | Unknown | + + + Author + + + | Author | [facility] | + + + | Organization | [facility] | + + + | Address | Unknown | + + + | Phone | Unavailable | + + + Support + + +---------+ + | Name | Relationship | Address | Phone | + + +---------+ + | Latricia Nicolas | ECON | Unknown | | + + +---------+ + Care Team Providers + +------+ + | Care Road Hogger Operator Name | Role | Phone | [...] | Radiology | Diagnoses | [place], | [facility] [address] | | | | | Thoracic | MD Del | [address] | | | | | aortic | [address] | | | | | aneurysm | [address] | [place], [place] | | | | | without | Drive | [address] Phone: | | | | | rupture | [place], [place] | [phone] | | | | | ([facility]) | [address] | | | | | | Procedures | Phone: | | | | | | CTA chest | [phone] | | | | | | aorta W IV | Fax: | | | | | | contrast | [phone] | | +--------+--------+ + + + + Encounter Details +--------+ + + + + | Date | Type | Department | Care Team | Description | +--------+ + + + + | 06/12/ | Telephone | [facility] | Olimpia Miranda CMA | | | 2018 | | Cardiothoracic | | | | | | Surgery [address] | | | | | | [address] | | | | | | [place] | | | | | | [address] | | | | | | [phone] | | | +--------+ + + + [...] [place] | | | | | | [address] | | | | | | | [...] Laboratory | + + + | | [facility] [address] [place] [address] | + + + + + | [...] set. 3-D reconstructions were performed using the ZE[employer]a 3-D | | software and sent to [...] | Procedure Note | + + | Ajyson, Rad Results In - 06/20/2017 10:59 AM [...] set. 3-D reconstructions were performed using the ZEFRa 3-D software and sent to | | [...]
--- OUTSIDE RECORDS SUMMARY | ~2017-08-15 | XMS | Encounter Summary ---
Demographics + + + | Address | [address] | | | [place] [address] | + + + | Home Phone | | + + + | Preferred Language | Unknown | + + + | Marital Status | Single | + + + | Restorationism Affiliation | Unknown | + + + | Race | Unknown | + + + | Ethnic Group | Unknown | + + + Author + + + | Author | [facility] [employer] | + + + | Organization | [facility] [employer] | + + + | Address | Unknown | + + + | Phone | Unavailable | + + + Support + + +---------+ + | Name | Relationship | Address | Phone | + + +---------+ + | Latricia Nicolas | ECON | Unknown | | + + +---------+ + Care Team Providers + +------+ + | Care Rotary Driller Prospecting Name | Role | Phone | + [...] | Radiology | Diagnoses | [place], | [facility] [address] | | | | | Thoracic | MD Del | [address] | | | | | aortic | [address] | | | | | aneurysm | [address] | [place], [place] | | | | | without | Drive | [address] Phone: | | | | | rupture | [place], [place] | [phone] | | | | | ([facility]LY [facility]) | [address] | | | | | | Procedures | Phone: | | | | | | CTA chest | [phone] | | | | | | aorta W IV | Fax: | | | | | | contrast | [phone] | | +--------+--------+ + + + + MRI/CAT Scan (Routine) +--------+--------+ + + + + | Status | Reason | Specialty | Diagnoses / | Referred By | Referred To | | | | | Procedures | Contact | Contact | +--------+--------+ + + + + | Closed | | Radiology | Diagnoses | [place], | [facility] [address] | | | | | Thoracic | MD Del | [address] | | | | | aortic | [address] | | | | | aneurysm | [address] | [place], [place] | | | | | without | Drive | [address] Phone: | | | | | rupture | [place], [place] | [phone] | | | | | ([facility]) | [address] | | | | | | Procedures | Phone: | | | | | | CTA chest | [phone] | | | | | | aorta W IV | Fax: | | | | | | contrast | [phone] | | +--------+--------+ + + + + Reason for Visit MRI/CAT Scan (Routine) +--------+--------+ + + + + | Status | Reason | Specialty | Diagnoses / | Referred By | Referred To | | | | | Procedures | Contact | Contact | +--------+--------+ + + + + | Closed | | Radiology | Diagnoses | Terrell | [facility] | | | | | Thoracic | MD Del | [address] | | | | | aortic | [address] | | | | | aneurysm | [address] | [place], [place] | | | | | without | Drive | [address] Phone: | | | | | rupture | [place], [place] | [phone] | | | | | ([facility]) | [address] | | | | | | Procedures | Phone: | | | | | | CTA chest | [phone] | | | | | | aorta W IV | Fax: | | | | | | contrast | [phone] | | +--------+--------+ + + + + Encounter Details +--------+ + + + + | Date | Type | Department | Care Team | Description | +--------+ + + + + | 06/20/ | Hospital | [facility] | Del Tejada MD | Thoracic 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 | [facility] | [address] | aneurysm without | | | | CT [address] | [place] [address] | rupture (HCC) | | | | [address] | [phone] | | | | | [place] [address] | | | | | | [phone] | | | +--------+ + + + [...] [place] | | | | | | [address] | | | | | | | | +--------+ + + + + as of this encounter Results CTA chest aorta W IV contrast (06/20/2017 9:11 AM) + + + | Specimen | Performing Laboratory | + + + | | [facility] [address] [facility] [place] [address] | + + + + + | [...] set. 3-D reconstructions were performed using the Clustrixa 3-D | | software and sent to [...] POC CREATININE | 0.9Comment: Testing performed at [facility];[address] | 0.7 - 1.5 mg/dL | | | [address] [facility];[place] [address] | | + + + + + + + | Specimen | Performing Laboratory | + + + | | [facility] [address] [place] [address] | + + + in this encounter [...] PST | | | | | Starting [facility] 06/20/17 at 0842, | | | | | | | For 1 dose | | | | | | + +--------+ +---------+------+------+ +---+---+ | | | +---+---+ in this encounter"
--- OUTSIDE RECORDS SUMMARY | ~2017-08-15 | XMS | Encounter Summary ---
Demographics + + + | Address | [address] | | | [place] [address] | + + + | Home Phone [...] + + | Author | [facility] | + + + | Organization | [facility] [employer] [facility] | + + + | Address | Unknown | + + + | Phone | Unavailable | + + + Support + + +---------+ + | Name | Relationship | Address | Phone | + + +---------+ + | Latricia Nicolas | ECON | Unknown | | + + +---------+ + Care Team Providers + +------+ + | Care Dishcloth Folder Name | Role | Phone | + [...] Radiology | Diagnoses | Huy Child | [facility] | | | | | Thoracic | MD [address] | [address] | | | | | aortic | [address] | [address] | | | | | aneurysm | Drive | [address] | | | | | without | [place], [place] | [place], [place] | | | | | rupture | [address] | [address] Phone: | | | | | ([facility]) | Phone: | [phone] | | | | | Procedures | [phone] | Fax: | | | | | CTA chest | Fax: | [phone] | | | | | abdomen | [phone] | | | | | | pelvis [...] Radiology | Diagnoses | Huy Child | [facility] | | | | | Thoracic | MD [address] | [address] | | | | | aortic | [address] | [address] | | | | | aneurysm | Drive | [address] | | | | | without | [place], [place] | [place], [place] | | | | | rupture | [address] | [address] Phone: | | | | | ([facility]) | Phone: | [phone] | | | | | Procedures | [phone] | Fax: | | | | | CTA chest | Fax: | [phone] | | | | | abdomen | [phone] | | | | | | pelvis [...] | | Radiology | Diagnoses | Huy Cihld | [facility] | | | | | Thoracic | MD [address] | [address] | | | | | aortic | [address] | [address] | | | | | aneurysm | Drive | [address] | | | | | without | [place], [place] | [place], [place] | | | | | rupture | [address] | [address] Phone: | | | | | ([facility]) | Phone: | [phone] | | | | | Procedures | [phone] | Fax: | | | | | CTA chest | Fax: | [phone] | | | | | abdomen | [phone] | | | | | | pelvis with | | | | | | | IV contrast | | | +--------+--------+ + + + + Encounter Details +--------+ + + + + | Date | Type | Department | Care Team | Description | +--------+ + + + + | 07/19/ | Hospital | [facility] | Huy Child MD | Thoracic aortic | | 2018 | Encounter | [facility] | [address] | aneurysm without | | | | [address] | [place] [address] | rupture (HCC) | | | | [place] [address] | [phone] | | | | | [phone] | | | +--------+ + + + [...] [place] | | | | | | [address] | | | | | | | | +--------+ + + + + as of this encounter Results CTA chest abdomen pelvis with IV contrast (07/19/2017 9:38 AM) + + + | Specimen | Performing Laboratory | + + + | | [facility] [address] [place] [address] | + + + + + | [...] | | reconstructions were performed using the [employer] 3-D software and sent to | | [...] In - 07/19/2017 11:22 AM PDT SAI FREEMAN//[id number] years MaleCTA | | CHEST ABDOMEN PELVIS [...] set. 3-D reconstructions were performed using the [employer] 3-D software and sent to | | [...]
--- OUTSIDE RECORDS SUMMARY | ~2017-08-15 | XMS | Encounter Summary ---
Demographics + + + | Address | [address] | | | [place] [address] | + + + | Home Phone | | + + + | Preferred Language | Unknown | + + + | Marital Status | Single | + + + | Rastafarian Affiliation | Unknown | + + + | Race | Unknown | + + + | Ethnic Group | Unknown | + + + Author + + + | Author | [facility] [employer] | + + + | Organization | [facility] [employer] | + + + | Address | Unknown | + + + | Phone | Unavailable | + + + Support + + +---------+ + | Name | Relationship | Address | Phone | + + +---------+ + | Latricia Nicolas | ECON | Unknown | | + + +---------+ + Care Team Providers + +------+ + | Care Supervisor Film Processing Name | Role | Phone | + [...] | | | [address] | Drive | [place], [place] | | | | | PENETRATING | [place], [place] | [address] Phone: | | | | | [place] | [address] | [phone] | | | | | | Phone: | Fax: | | | | | | [phone] | [phone] | | | | | | Fax: | | | | | | | [phone] | | +--------+ + + + + + Encounter Details +--------+ + + + + | Date | Type | Department | Care Team | Description | +--------+ + + + + | 07/11/ | Initial | 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
--- OUTSIDE RECORDS SUMMARY | ~2017-08-15 | XMS | Encounter Summary ---
Demographics + + + | Address | [address] | | | [place] [address] | + + + | Home Phone | | + + + | Preferred Language | Unknown | + + + | Marital Status | Single | + + + | Alevism Affiliation | Unknown | + + + | Race | Unknown | + + + | Ethnic Group | Unknown | + + + Author + + + | Author | [facility] [email or web address] | + + + | Organization | [facility] [employer] | + + + | Address | Unknown | + + + | Phone | Unavailable | + + + Support + + +---------+ + | Name | Relationship | Address | Phone | + + +---------+ + | Latricia Nicolas | ECON | Unknown | | + + +---------+ + Care Team Providers + +------+ + | Care Director Of Special Services Name | Role | Phone | + [...] + + | 07/24/ | Hospital | [facility] | Huy Child MD | 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 [facility] Service: Vascular Surgery Discharge Summary Date [...] CV: No peripheral edema, rate regular SKIN: [place], warm, dry without rash/lesion MS: ROM not [...] Follow up: Terrence Browning MD [address] [facility] [address] In 3 days follow up after surgery, review medications, vitals signs, labs [facility] VASCULAR [facility] [address] [place] [id number] In 2 weeks post op appointment and [...] Anexsia, Lorcet, Lorcet HD, Lorcet Plus, Lortab, [place], Verdrocet, Vicodin, Vi codin ES, Vicodin HP, [...] information carefully each time. Talk to your regulatory coordinator regarding the use of this medicine in children. Special care may be needed. What side effects may I notice from receiving this medicine? Side effects that you should report to your doctor or health senior caregiver as soon as p ossible: allergic [...] attention (report to your doctor or health senior caregiver if they continue or are bothersome): [...] this medicine? Tell your doctor or health senior caregiver if your pain does not go [...] note may be different from the original. [facility] Service: Hospitalist Progress Note Pt: Jerry [...] hours. No results for input(s): PHART, PO2ART, FUI3CKP, T7IDERAK, BEART in the last 168 hours. No [...] and managing patient and counseling/coordination. Dictation software, [employer]en [employer] System, used which may contain error for similar [...] [place] | | | | | | [address] | | | | | | | [...] | MPV | 7.4Comment: Testing performed at [facility], [address] | | | [place] [address] | | + + + + + + + | Specimen | Performing Laboratory | + + + | | [facility] [address] [place], | | | [place] [address] | + + + Basic metabolic panel [...] | | | | 1.210.Testing performed at [facility], [address] | | | | [place] [address] | | | | | | + + + + + + + | Specimen | Performing Laboratory | + + + | Blood | [facility] [address] [facility] [address] [place], | | | [place] [address] | + + + in this encounter [...] | | | | | dose on [facility] 07/25/17 at 0630 | | [...] | | | | First dose on [facility] 07/25/17 at 2200 | | [...]
--- OUTSIDE RECORDS SUMMARY | ~2017-08-15 | XMS | Clinical Summary ---
Demographics + + + | Address | [address] | | | [place] [address] | + + + | Home Phone | | + + + | Preferred Language | Unknown | + + + | Marital Status | Single | + + + | Moravian Affiliation | 1027 | + + + | Race | Unknown | + + + | Ethnic Group | Unknown | + + + Author + + + | Author | [facility] [place] | | | and [place] | + + + | Organization | [facility] [place] | | | and [place] | + + + | Address | Unknown | + + + | Phone | Unavailable | + + + Support + + +---------+ + | Name | Relationship | Address | Phone | + + +---------+ + | Latricia Nicolas | ECON | Unknown | | + + +---------+ + Care Team Providers + +------+ + | Care Home Service Technician Name | Role | Phone | + +------+ + | Terrence Browning MD | PP | Unavailable | + +------+ + Allergies + + + + + + | Active Allergy | Reactions | Severity | Noted | Comments | | | | | Date | | + + + + + + | Atorvastatin | Other (See Comments) | | 02/29/20 | Unknown reaction | | | | | 15 | | + + + + + + Current Medications + + + +---------+------+------+-------+ | Prescription | Sig. | Disp. | Refills | Star | End | Statu | | | | | | t | Date | s | | | | | | Date | | | + + + +---------+------+------+-------+ | aspirin 81 mg EC | Take 81 mg by mouth | | | 12/28 | | Activ | | tablet | Daily. | | | 420 | | e | | | | | | 12 | | | + + + +---------+------+------+-------+ | multivitamin | Take 1 tablet by | | | 12/28 | | Activ | | (THERAGRAN) per | mouth once daily | | | 420 | | e | | tablet | | | | 12 | | | + + + +---------+------+------+-------+ | QUEtiapine | Take 200 mg by mouth | | | 12/28 | | Activ | | (SEROQUEL) 200 MG | 2 times daily. | | | 08/16 | | e | | tablet | | | | 12 | | | + + + +---------+------+------+-------+ | sodium chloride 1 | Take 1 g by mouth 2 | | | 12/28 | | Activ | | g tablet | times daily. | | | 08/16 | | e | | | | | | 12 | | | + + + +---------+------+------+-------+ | risperiDONE | Take 6 mg by mouth | | | 12/28 | | Activ | | (RISPERDAL) 3 MG | nightly. | | | 08/16 | | e | | tablet | | | | 12 | | | + + + +---------+------+------+-------+ | Respiratory | Acapella Valve Green | 1 each | 1 | 07/28 | | Activ | | Therapy Supplies | Dx: [id number] [address]: | | | 12/16 | | e | | MISCIndications: | lifetimeUse for 10 | | | 13 | | | | COPD with chronic | breaths 2 times a | | | | | | | bronchitis (HCC) | day | | | | | | + + + +---------+------+------+-------+ | chlorhexidine | Take 15 mLs by mouth | 960 mL | 5 | 12/3 | | Activ | | (PERIDEX) 0.12% | 2 times daily. | | | 05/18 | | e | | solution | Swish and spit | | | 15 | | | + + + +---------+------+------+-------+ | ADVAIR DISKUS | Inhale 1 puff into | | | / | | Activ | | 250-50 MCG/DOSE | the lungs 2 times | | | 11/15 | | e | | diskus inhaler | daily. | | | 17 | | | + + + +---------+------+------+-------+ | carvedilol (COREG) | Take 1 tablet by | | | 07/0 | | Activ | | 3.125 mg tablet | mouth 2 times daily | | | 3 | | e | | | (with breakfast & | | | 17 | | | | | dinner). | | | | | | + + + +---------+------+------+-------+ | niacin (NIASPAN) | Take 1 tablet by | | | 07/0 | | Activ | | 500 mg CR tablet | mouth Daily. | | | 3/20 | | e | | | | | | 17 | | | + + + +---------+------+------+-------+ | sodium fluoride | Place onto teeth 2 | | | | | Activ | | (PREVIDENT) 1.1% | times daily. | | | | | e | | dental gel | | | | | | | + + + +---------+------+------+-------+ | IPRATROPIUM | Take 1 each by | | | | | Activ | | BROMIDE HFA IN | nebulization as | | | | | e | | | needed. | | | | | | + + + +---------+------+------+-------+ | loperamide | Take 4 mg by mouth | | | 05/0 | | Activ | | (IMODIUM) 2 mg | as needed. | | | 20 | | e | | capsule | | | | 17 | | | + + + +---------+------+------+-------+ | diphenhydrAMINE | Take 50 mg by mouth | | | | | Activ | | (BENADRYL) 50 mg | nightly. | | | | | e | | capsule | | | | | | | + + + +---------+------+------+-------+ | sodium | Take 177 mLs by | 2 | 0 | 07/2 | | Activ | | sulfate-potassium | mouth See Admin | Bottle | | 12/16 | | e | | sulfate-magnesium | Instructions. Take | | | 17 | | | | sulfate (SUPREP | one kit, first dose | | | | | | | BOWEL PREP KIT) oral | at 4pm December 27, | | | | | | | solution | second dose at 9pm | | | | | | | | December 27. | | | | | | + + + +---------+------+------+-------+ | ondansetron | Take 1 tablet by | 2 | 0 | 07/2 | | Activ | | (ZOFRAN) 4 mg tablet | mouth See Admin | tablet | | 12/16 | | e | | | Instructions. If | | | 17 | | | | | nausea with prep. | | | | | | | | Stop prep, take 1 | | | | | | | | tab by mouth,wait 30 | | | | | | | | min, restart prep | | | | | | | | may repeat | | | | | | + + + +---------+------+------+-------+ | magnesium oxide | Take 400 mg by mouth | | | | | Activ | | (MAG-OX) 400 mg | 2 times daily. | | | | | e | | tablet | | | | | | | + + + +---------+------+------+-------+ | tamsulosin | Take 0.4 mg by mouth | | | | | Activ | | (FLOMAX) 0.4 mg CAPS | daily (after | | | | | e | | | breakfast). | | | | | | + + + +---------+------+------+-------+ | traMADol (ULTRAM) | Take 50 mg by mouth | | | | | Activ | | 50 mg tablet | every 6 hours as | | | | | e | | | needed for Pain. | | | | | | + + + +---------+------+------+-------+ | ferrous sulfate | Take 325 mg by mouth | | | | | Activ | | 325 mg tablet | 3 times daily (with | | | | | e | | | meals). | | | | | | + + + +---------+------+------+-------+ | finasteride | Take 5 mg by mouth | | | | | Activ | | (PROSCAR) 5 mg | Daily. | | | | | e | | tablet | | | | | | | + + + +---------+------+------+-------+ | umeclidinium | Inhale 1 puff into | | | | | Activ | | (INCRUSE ELLIPTA) | the lungs Daily. | | | | | e | | 62.5 mcg/puff | | | | | | | | inhaler | | | | | | | + + + +---------+------+------+-------+ | levothyroxine | Take 150 mcg by | | | | | Activ | | (SYNTHROID) 150 mcg | mouth every morning | | | | | e | | tablet | (before breakfast). | | | | | | + + + +---------+------+------+-------+ | acetaminophen | Take 500 mg by mouth | | | | | Activ | | (TYLENOL) 500 mg | every 4 hours as | | | | | e | | tablet | needed for Pain. | | | | | | + + + +---------+------+------+-------+ Active Problems + + + | Problem | Noted Date | + + + | Beta Blockers - Daily Use | 02/19/2017 | + + + | H/O Electrolyte imbalance - HypoNA, HypoCL | 11/21/2016 | + + + + + | Overview: See labs for current status | + + + + + | Special screening for malignant neoplasms, colon | 11/20/2016 | + + + | H/O DVT (deep vein thrombosis) | 11/20/2016 | + + + | Former Smoker - Quit 2011 (96 pack years) | 11/20/2016 | + + + | Home Oxygen (2LPM) at NOC | 11/20/2016 | + + + | COPD (chronic obstructive pulmonary disease) - INHALER Used | 11/20/2016 | | umeclidinium | | + + + | 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% | 07/29/2012 | + + + | H/O MRSA infection | 07/29/2012 | + + + + + | Overview: Abdominal wound | + + + + + | Alternating exotropia with V pattern | 07/29/2012 | + + + | Panlobular emphysema (HCC) | 07/29/2012 | + + + | Dyslipidemia | | + + + | Hypothyroidism - on replacement therapy | | + + + | Schizophrenia (HCC) | | + + + | Aneurysm of thoracic aorta (HCC) | | + + + + + | Overview: Ascending thoracic aortic aneurysm without rupture | + + + +---+ | Dysphagia | | + +---+ | Strabismus | | + +---+ Resolved Problems + + + + | Problem | Noted | Resolved | | | Date | Date | + + + + | Cough | 07/30/19 | | | | 13 | 4 | + + + + | Cardiac arrest (HCC) | 07/30/19 | | | | 13 | 3 | + + + + | DVT (deep venous thrombosis) (HCC) | 07/30/19 | | | | 13 | 3 | + + + + | Constipation | | | | | | 3 | + + + + | Tracheocutaneous fistula following tracheostomy (HCC) | | | | | | 4 | + + + + + + | Overview: s/p repair x 2 | + + Immunizations + + + + | Name | Dates Previously Given | Next Due | + + + + | INFLUENZA PF 18 Y OR | 04/24/2013, 02/17/2012 | | | >,TRIVALENT | | | | RECOMBINANT | | | + + + + | INFLUENZA PF | 02/28/2015 | | | QUAD(PED/ADOL/ADULT) | | | | ,PSKT or VIAL | | | + + + + | INFLUENZA, | 01/11/2014 | | | UNSPECIFIED | | | | FORMULATION | | | + + + + | PNEUMOCOCCAL | 08/27/2014 | | | CONJUGATE 13-VALENT | | | | (PCV13) | | | + + + + | PNEUMOCOCCAL | 04/24/2013 | | | POLYSACCHARIDE | | | | 23-VALENT (PPSV23) | | | + + + + Family History + + +------+ + | Medical History | Relation | Name | Comments | + + +------+ + | Allergies | Brother | | | + + +------+ + | Cancer | Brother | | | + + +------+ + | Colon cancer | Father | | | + + +------+ + | Uterine cancer | Sister | | | + + +------+ + + +------+ + + | Relation | Name | Status | Comments | + +------+ + + | Brother | | Alive | | + +------+ + + | Brother | | Alive | | + +------+ + + | Brother | | | cancer, unknown type | + +------+ + + | Father | | | colon cancer | | | | (Age | | | | | 80) | | + +------+ + + | Mother | | | old age | | | | (Age | | | | | 90) | | + +------+ + + | Sister | | | uterine cancer | + +------+ + + Social History + +-------+ +--------+ + | Tobacco Use | Types | Packs/Day | Years | Date | | | | | Used | | + +-------+ +--------+ + | Former Smoker | | 2 | 48 | Quit: 04/27/2011 | + +-------+ +--------+ + + +---+---+---+ | Smokeless Tobacco: | | | | | Never Used | | | | + +---+---+---+ + + | Tobacco Cessation: Counseling Given: No | + + + + +---------+ + | Alcohol Use | Drinks/We | oz/Week | Comments | | | ek | | | + + +---------+ + | No | 0 | 0.0 | | | | Standard | | | | | drinks or | | | | | | | | | | equivalen | | | | | t | | | + + +---------+ + + + + | Sex Assigned at | Date Recorded | | | | + + + | Not on file | | + + + Last Filed Vital Signs + + + + | Vital Sign | Reading | Time Taken | + + + + | Blood Pressure | 111/61 | 12/28/2016816 PDT | + + + + | Pulse | 78 | 12/28/2016816 PDT | + + + + | Temperature | 36 C (96.8 F) | 12/28/2016816 PDT | + + + + | Respiratory Rate | 20 | 12/28/2016816 PDT | + + + + | Oxygen Saturation | 91% | 12/28/2016816 PDT | + + + + | Inhaled Oxygen | - | - | | Concentration | | | + + + + | Weight | 82.6 kg (182 lb) | 12/28/2016816 PDT | + + + + | Height | 185.4 cm (6' 1") | 12/28/2016816 PDT | + + + + | Body Mass Index | 24.01 | 12/28/2016816 PDT | + + + + Plan of Treatment + + + + + | Health Maintenance | Due Date | Last Done | Comments | + + + + + | Hepatitis C | | | | | Screening | 5 | | | + + + + + | Vaccine: | | | | | Dtap/Tdap/Td (1 - | 4 | | | | Tdap) | | | | + + + + + | Vaccine: Influenza | | 02/28/2015, 01/11/2014, | | | (Season Ended) | 8 | 04/24/2013, Additional history | | | | | exists | | + + + + + | COLON CANCER | | 11/21/2016, 10/19/2011 | | | SCREENING | 7 | | | | (COLONOSCOPY EVERY | | | | | 10 YEARS 50-75) | | | | + + + + + | Vaccine: | Completed | 08/27/2014, 04/24/2013, | | | Pneumococcal 65+ | | 03/09/2012 | | | Low/Medium Risk | | | | + + + + + Results Not on filefrom Last 3 Months Insurance + +--------+ +--------+ +---------+ | Payer | Benefi | Subscriber | Type | Phone | Address | | | t Plan | ID | | | | | | / | | | | | | | Group | | | | | + +--------+ +--------+ +---------+ | MEDICARE | MEDICA | xxxxxxxxxx | Medica | [phone] | | | RE | | re | [phone] | | | | PART A | | | | | | | AND B | | | | | + +--------+ +--------+ +---------+ | MEDICAID [place] | MEDICA | xxxxxxxx | Med[place] | [phone] | | | [place] | | id | [phone] | | | | PLUS | | | | | + +--------+ +--------+ +---------+ + +--------+ +--------+ + + | Guarantor Name | Accoun | Relation to | Date | Phone | Billing Address | | | t Type | Patient | of | | | | | | | | | | + +--------+ +--------+ + + | SAI BASILIO | Person | Self | [birth year] | Home: | [address] | | | al/Fam | | 1946 | [phone] | [place] [address] | | | chandrakant | | | [phone] | | + +--------+ +--------+ + +
--- OUTSIDE RECORDS SUMMARY | ~2017-08-15 | XMS | Clinical Summary ---
Demographics + + + | Address | [address] | | | [place] [address] | + + + | Home Phone | | + + + | Preferred Language | Unknown | + + + | Marital Status | Single | + + + | Samaritan Affiliation | 1027 | + + + | Race | Unknown | + + + | Ethnic Group | Unknown | + + + Author + + + | Author | [facility] [place] | | | and [place] | + + + | Organization | [facility] | | | and [place] [...] Team Providers + +------+ + | Care Diesel Mechanic Farm Name | Role | Phone | + [...] | Self | [birth year] | Home: | [address] | | | al/Fam | | 1946 | [phone] | [place] [address] | | | chandrakant | | | [address] | | + +--------+ +--------+ + +
--- OUTSIDE RECORDS SUMMARY | ~2017-08-15 | XMS | Clinical Summary ---
Demographics + + + | Address | [address] [place] [address] RD | | | [place] [address] | + + + | Home Phone | | + + + | Preferred Language | Unknown | + + + | Marital Status | Single | + + + | Sikh Affiliation | Unknown | + + + | Race | Unknown | + + + | Ethnic Group | Unknown | + + + Author + + + | Author | [facility] | + + + | Organization | [facility] | + + + | Address | Unknown | + + + | Phone | Unavailable | + + + Support + + +---------+ + | Name | Relationship | Address | Phone | + + +---------+ + | Latricia Nicolas | ECON | Unknown | | + + +---------+ + Care Team Providers + +------+ + | Care Conference Center Manager Name | Role | Phone | [...] 2018 | Visit | | | aorta ([facility]) | | | | | | (Primary Dx); | | | | | | 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, | | | | | | without rupture | | | | | | ([facility]); S/P thoracic | | | | | | aortic aneurysm | | | | | | repair | +--------+ + + + + | 08/08/ | Orders Only | | Chela Clements, | Ruptured aneurysm of | | 2017 | | | BRICKMASON APPRENTICE | thoracic aorta | | | | | | ([facility]) (Primary Dx) | +--------+ + + + + | 08/06/ | Hospital | | Huy Child MD | Thoracic ascending | | 2018 | Encounter | | | aortic aneurysm | | | | | | ([facility]) | +--------+ + + + [...] | | | Kerry, | | | SPORTS PSYCHOLOGIST - | | | 07/25/2017 | | [...] | | regularSKIN | | | : [place], | | | warm, dry | | [...] | | Kerry | | | Sloot, SPORTS PSYCHOLOGIST | | | in 2 | | [...] | | [place] | | | [address] | | | [phone] | | | In 3 | | | daysfollow | | | up after | | | surgery, | | | review | | | medications | | | , vitals | | | signs, | | | labsKADLEC | | | CLINIC | | | VASCULAR | | | [id number] | | | [facility]als | | | Dr Behzad | | | [place] | | | [place] | | | [address] | | | [phone] | | | In 2 | | [...] without | | | | | Kr Piper Installer | rupture (HCC) | +--------+ +---+ + [...] [place] | | | | | | [address] | | | | | | | [...] | | | | | 2020 | [id number] | | Qty: 1 on 07/24/2017 by [...] Laboratory | + + + | | [address] [place] [address] | + + + + + | [...] | | reconstructions were performed using the [employer] 3-D software and sent to PACS. | [...] set. 3-D reconstructions were performed using the [employer] 3-D | | software and sent to [...] | MPV | 7.4Comment: Testing performed at [facility], [address] | | | [place] [address] | | + + + + + + + | Specimen | Performing Laboratory | + + + | | [facility] [address] [place] [address] Bl[address]. [address], | | | [place] [address] | + + + Basic metabolic panel [...] | | | | 1.210.Testing performed at [facility], [address] | | | | [place] [address] | | | | | | + + + + + + + | Specimen | Performing Laboratory | + + + | Blood | [facility] [address] [place], [place] [address]jac[place]. [place], | | | [place] [address] | + + + IR endo repair thoracic aorta not including subclavian (07/24/2017 1:34 PM) + + + | Specimen | Performing Laboratory | + + + | | [address] [address] | + + + + + | [...] MD and Reji Anglin MD | | SOCIAL INSURANCE ANALYST: None ANESTHESIA: General endotracheal anesthesia ESTIMATED BLOOD [...] The patient was placed supine on the Rubber Washer table and the patient underwent | | [...] was upsized to a 5 | | Tajik sheath. A pigtail catheter was then placed through the right sheath into the | | aortic arch. Next, a micropuncture needle was used to access the left common femoral | | artery. A micropuncture sheath was then inserted over wire and this was upsized to a 7 | | Tajik sheath. Again, a perclose device was deployed at the 10:00 and 2:00 position in | | the left common femoral artery. A Lunderquist wire was then placed to the left 7 Tajik | | sheath with the tip of the wire in the aortic arch. Once the wire was in place, the | | 7-Tajik sheath was removed from the left common [...] was properly identified and brought to the Rubber Washer. The patient was placed | | supine on the Rubber Washer table and the patient underwent general endotracheal [...] and this was upsized to a 5 Tajik sheath. A pigtail catheter was | | then placed through the right sheath into the aortic arch. Next, a micropuncture needle | | was used to access the left common femoral artery. A micropuncture sheath was then | | inserted over wire and this was upsized to a 7 Tajik sheath. Again, a perclose device | | was deployed at the 10:00 and 2:00 position in the left common femoral artery. A | | Lunderquist wire was then placed to the left 7 Tajik sheath with the tip of the wire in | | the aortic arch.Once the wire was in place, the 7-Tajik sheath was removed from the | | [...] Laboratory | + + + | | [facility] [address] [place] [address] | + + + + + | [...] 74 - 137 seconds | | | [facility];[address] [place] [address];[place] [address] | | + + + + + + + | Specimen | Performing Laboratory | + + + | | [facility] [address] [place] [address] | + + + CBC W/Auto Diff [...] BASOPHILS ABS | 0.08Comment: Testing performed at [facility];[address] | 0.00 - 0.10 K/uL | | | [facility];[place] [address] | | + + + + + + + | Specimen | Performing Laboratory | + + + | Blood | [facility] [address] [place] [address] | + + + Type and Crossmatch (Blood Bank) (07/24/2017 9:31 AM) + + + + | Component | Value | Ref Range | + + + + | ARM BAND NUMBER | [id number] | | + + + + | ABO/RH(D) | O POSITIVE | | + + + + | ANTIBODY SCREEN | NEGATIVE | | + + + + | UNIT NUMBER | [id number] | | + + + + | [...] | CROSSMATCH RESULT | COMPATIBLETesting performed at [facility];[address] | | | | [address];[place] [address] | | | | | | + + + + | UNIT NUMBER | [id number] | | + + + + | [...] + + + | UNIT NUMBER | [id number] | | + + + + | [...] + + + | UNIT NUMBER | [id number] | | + + + + | [...] | + + + | Blood | [facility] [address] [facility] [place] [address] | + + + MRSA by PCR (07/24/2017 8:55 AM) + + + + | Component | Value | Ref Range | + + + + | SOURCE | NARES(NOSE) | | + + + + | MRSA PCR | NEGATIVEComment: Testing performed at | NEGATIVE | | | [facility];[address];[place] [address] | | + + + + + + + | Specimen | Performing Laboratory | + + + | Nasopharyngeal - | [facility] [address] [place] [address] | | Nares(Nose) | | + + + CTA chest aorta W IV contrast (06/20/2017 9:11 AM) + + + | Specimen | Performing Laboratory | + + + | | [facility] [address] [place] [address] | + + + + + | [...] set. 3-D reconstructions were performed using the [employer] 3-D | | software and sent to [...] POC CREATININE | 0.9Comment: Testing performed at [facility];[address] | 0.7 - 1.5 mg/dL | | | [facility];[place] [address] | | + + + + + + + | Specimen | Performing Laboratory | + + + | | [address] [place] [address] | + + + from Last 3 [...] RE | | | | [place] [address] | | | IP-OP | | | | | + +--------+ +--------+-------+ + | MEDICAID | MEDICA | xxxxxxxx | | | [address] | | | ID | | | | [place], [place] | | | [place] | | | | [address] | + +--------+ +--------+-------+ + + +--------+ +--------+ + + | Guarantor Name | Accoun | Relation to | Date | Phone | Billing Address | | | t Type | Patient | of | | | | | | | | | | + +--------+ +--------+ + + | SAI BASILIO | Person | Self [birth year] | Home: | [address] | | | al/Fam | | 1946 | [phone] | [place] | | | [place] | | | [address] | [phone] | + +--------+ +--------+ + +
--- OUTSIDE RECORDS SUMMARY | ~2017-08-15 | XMS | Encounter Summary ---
Demographics + + + | Address | [address] | | | [place] [address] | + + + | Home Phone | | + + + | Preferred Language | Unknown | + + + | Marital Status | Single | + + + | Hindu Affiliation | Unknown | + + + | Race | Unknown | + + + | Ethnic Group | Unknown | + + + Author + + + | Author | [facility] | + + + | Organization | [facility] | + + + | Address | Unknown | + + + | Phone | Unavailable | + + + Support + + +---------+ + | Name | Relationship | Address | Phone | + + +---------+ + | Latricia Nicolas | ECON | Unknown | | + + +---------+ + Care Team Providers + +------+ + | Care Rabbit Dresser Name | Role | Phone | + [...] + + | 07/24/ | Surgery | [facility] | PoiReji MD | AORTIC - ENDOGRAFT | | 2018 | | [facility] | [address] | | | | | Lab [address] | [place], [place] | | | | | [place] [address] | [address] | | | | | [phone] | | | +--------+---------+ + + + [...] note may be different from the original. [facility] Service: Vascular Surgery Discharge Summary Date [...] due to trauma CHF (congestive heart failure) ([facility]) 2010 secondary to trauma fall at home COPD (chronic obstructive pulmonary disease) ([facility]) Dementia Dementia Hyperlipidemia Hypothyroidism Mental retardation MRSA (methicillin resistant Staphylococcus aureus) 03/08/2012 abdomen, states healed up MRSA (methicillin resistant Staphylococcus aureus) respiratory MRSA infection Other and unspecified coagulation defects "bleeding stitch on my neck" Personality disorder Respiratory failure (HCC) due to trauma Schizophrenia ([facility]) Past Surgical History Procedure Laterality Date ABDOMINAL [...] CV: No peripheral edema, rate regular SKIN: [place], warm, dry without rash/lesion MS: ROM not [...] up: Terrence Browning MD [address] [facility] [phone] In 3 days follow up after surgery, review medications, vitals signs, labs [facility] VASCULAR SURGERY [address] [place] [phone] In 2 weeks post op appointment and [...] Anexsia, Lorcet, Lorcet HD, Lorcet Plus, Lortab, Grover, Verdrocet, Vicodin, Vi codin ES, Vicodin HP, [...] information carefully each time. Talk to your electroplating technician regarding the use of this medicine in children. Special care may be needed. What side effects may I notice from receiving this medicine? Side effects that you should report to your doctor or health primary care pediatrician as soon as p ossible: allergic reactions [...] attention (report to your doctor or health primary care pediatrician if they continue or are bothersome): constipation [...] this medicine? Tell your doctor or health primary care pediatrician if your pain does not go away, [...] pharmacist, or health care provider. Copyright 2017 [employer] in this encounter Medications at Time of [...] note may be different from the original. [facility] Service: Hospitalist Progress Note Pt: Jerry [...] hours. No results for input(s): PHART, PO2ART, RWT1SYR, L0TYPOMW, BEART in the last 168 hours. No [...] and managing patient and counseling/coordination. Dictation software, Keclon, used which may contain error for similar [...] [place] | | | | | | [address] | | | | | | | [...] | MPV | 7.4Comment: Testing performed at [facility] | fl | | | [facility] [place] [address] | | + + + + + + + | Specimen | Performing Laboratory | + + + | | [address] [place], | | | [place] [address] | + + + Basic metabolic panel [...] | | | | 1.210.Testing performed at [facility], [address] | | | | [place] [address] | | | | | | + + + + + + + | Specimen | Performing Laboratory | + + + | Blood | [facility] [address] [place], | | | [place] [address] | + + + in this encounter [...] | | | | First dose on [facility] 07/25/17 at 0630 | | | [...] | | | | | dose on [facility] 07/25/17 at 0630 | | | [...] | | | | First dose on [facility] 07/25/17 at 2200 | | PDT | | | | + +-------+ +--------+---+---+ +---+---+ | | | +---+---+ + +-------+ +------+---+---+ | risperiDONE (RisperDAL) tablet | Given | | 2 mg | | | | 2 mg 2 mg, Oral, Nightly, First | | 8 20:46 | | | | | dose on [facility] 07/25/17 at 2200 | | PDT | | | | + +-------+ +------+---+---+ +---+---+ | | | +---+---+ + +-------+ +-----+---+---+ | sodium chloride tablet 1 g 1 | Given | | 1 g | | | | g, Oral, 2 Times Daily, First | | 8 08:40 | | | | | dose on [facility] 07/24/17 at 2100 | | PDT [...]
--- OUTSIDE RECORDS SUMMARY | ~2017-08-15 | XMS | Encounter Summary ---
Demographics + + + | Address | [address] | | | [place] [address] | + + + | Home Phone | | + + + | Preferred Language | Unknown | + + + | Marital Status | Single | + + + | Yarsanism Affiliation | Unknown | + + + | Race | Unknown | + + + | Ethnic Group | Unknown | + + + Author + + + | Author | [facility] | + + + | Organization | [facility] | + + + | Address | Unknown | + + + | Phone | Unavailable | + + + Support + + +---------+ + | Name | Relationship | Address | Phone | + + +---------+ + | Latricia Nicolas | ECON | Unknown | | + + +---------+ + Care Team Providers + +------+ + | Care Sprayer Machine Name | Role | Phone | + +------+ + | Terrence Browning MD | PCP | Unavailable | + +------+ + Encounter Details +--------+ + + + + | Date | Type | Department | Care Team | Description | +--------+ + + + + | 06/25/ | Initial | [facility] | Del Tejada MD | Thoracic aortic | | 2018 | consult | Cardiothoracic | [address] | aneurysm without | | | | Surgery [address] | [place] [address] | rupture (HCC) | | | | [address] [place] | [phone] | (Primary Dx) | | | | [place], [place] | | | | | | [address] | | | | | | [phone] | | | +--------+ + + + [...] CM diameter. He continues to reside at [facility]. CTA wa s performed on 06/20/17. [...] [place] | | | | | | [address] | | | | | | | | +--------+ + + + + as of this encounter Visit Diagnoses + + | Diagnosis | + + | Thoracic aortic aneurysm without rupture (HCC) - Primary | + + | Thoracic aneurysm without mention of rupture | + +
--- OUTSIDE RECORDS SUMMARY | ~2017-08-15 | XMS | Encounter Summary ---
Demographics + + + | Address | [address] | | | [place] [address] | + + + | Home Phone | | + + + | Preferred Language | Unknown | + + + | Marital Status | Single | + + + | Baptism Affiliation | Unknown | + + + | Race | Unknown | + + + | Ethnic Group | Unknown | + + + Author + + + | Author | [facility] | + + + | Organization | [facility] | + + + | Address | Unknown | + + + | Phone | Unavailable | + + + Support + + +---------+ + | Name | Relationship | Address | Phone | + + +---------+ + | Latricia Nicolas | ECON | Unknown | | + + +---------+ + Care Team Providers + +------+ + | Care Studio Technician Video Operator Name | Role | Phone | [...] Radiology | Diagnoses | Huy Child | [facility] [address] | | | | | Thoracic | YMD [address] | [address] | | | | | ascending | [address] | [address] | | | | | aortic | Drive | [place], [place] | | | | | aneurysm | [place], [place] | [address] Phone: | | | | | ([facility]) | [address] | [phone] | | | | | Procedures | Phone: | | | | | | CTA chest | [phone] | | | | | | abdomen | Fax: | | | | | | pelvis with | [phone] | | | | | | IV contrast | | | +--------+--------+ + + + + Encounter Details +--------+ + + + + | Date | Type | Department | Care Team | Description | +--------+ + + + + | 07/29/ | Orders Only | [facility] | Cyril Ruelas, | Thoracic ascending | | 2017 | | Vascular Surgery | RN | aortic aneurysm | | | | [address] | | ([facility]) (Primary Dx) | | | | [place] | | | | | | [address] | | | | | | [phone] | | | +--------+ + + + [...] [place] | | | | | | [address] | | | | | | | | +--------+ + + + + as of this encounter Results CTA chest abdomen pelvis with IV contrast (08/06/2017 3:54 PM) + + + | Specimen | Performing Laboratory | + + + | | [address] [address] | + + + + + | [...] | | reconstructions were performed using the ShopPad 3-D software and sent to PACS. | [...] set. 3-D reconstructions were performed using the ShopPad 3-D | | software and sent to [...]
--- OUTSIDE RECORDS SUMMARY | ~2017-08-15 | XMS | Encounter Summary ---
Demographics + + + | Address | [address] | | | [place] [address] | + + + | Home Phone | | + + + | Preferred Language | Unknown | + + + | Marital Status | Single | + + + | Spiritism Affiliation | Unknown | + + + | Race | Unknown | + + + | Ethnic Group | Unknown | + + + Author + + + | Author | [facility] | + + + | Organization | [facility] | + + + | Address | Unknown | + + + | Phone | Unavailable | + + + Support + + +---------+ + | Name | Relationship | Address | Phone | + + +---------+ + | Latricia Nicolas | ECON | Unknown | | + + +---------+ + Care Team Providers + +------+ + | Care Log Feeder Name | Role | Phone | + +------+ + | Terrence Browning MD | PCP | Unavailable | + +------+ + Encounter Details +--------+ + + + + | Date | Type | Department | Care Team | Description | +--------+ + + + + | 07/11/ | Procedure | [facility] | | | | 2018 | [facility] | | | | | | Interventional | | | | | | Radiology [address] | | | | | | [place], [place] | | | | | | [address] | | | +--------+ + + + [...] [place] | | | | | | [address] | | | | | | | | +--------+ + + + + as of this encounter Visit Diagnoses Not on filein this encounter"
--- OUTSIDE RECORDS SUMMARY | ~2017-08-15 | XMS | Encounter Summary ---
Demographics + + + | Address | [address] | | | [place] [address] | + + + | Home Phone | | + + + | Preferred Language | Unknown | + + + | Marital Status | Single | + + + | Yarsanism Affiliation | Unknown | + + + | Race | Unknown | + + + | Ethnic Group | Unknown | + + + Author + + + | Author | [facility] | + + + | Organization | [facility] | + + + | Address | Unknown | + + + | Phone | Unavailable | + + + Support + + +---------+ + | Name | Relationship | Address | Phone | + + +---------+ + | Latricia Nicolas | ECON | Unknown | | + + +---------+ + Care Team Providers + +------+ + | Care Print Traffic Manager Name | Role | Phone | + +------+ + | Jaquelin Browning MD | PCP | Unavailable | + +------+ + Encounter Details +--------+---------+ + + + | Date | Type | Department | Care Team | Description | +--------+---------+ + + + | 08/08/ | Office | [facility] | Jose Land, CYDNEY | 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 [place] [address] Office: [phone] DATE OF VISIT: 08/08/2017 PATIENT NAME: Jerry Freeman : 1945; AGE: 72 y.o.; Sex:M PHONE NUMBER: ; PROVIDER: Jose Land DNP PRIMARY CARE / REFERRING PHYSICIAN: Jaquelin Browning MD / JAQUELIN BROWNING / [facility] / [facility] [address] The patient presents today for a Vascular [...] [place] | | | | | | [address] | | | | | | | [...]
--- OUTSIDE RECORDS SUMMARY | ~2017-08-15 | XMS | Encounter Summary ---
Demographics + + + | Address | [address] | | | [place] [address] | + + + | Home Phone | | + + + | Preferred Language | Unknown | + + + | Marital Status | Single | + + + | Moravian Affiliation | Unknown | + + + | Race | Unknown | + + + | Ethnic Group | Unknown | + + + Author + + + | Author | [facility] | + + + | Organization | [facility] | + + + | Address | Unknown | + + + | Phone | Unavailable | + + + Support + + +---------+ + | Name | Relationship | Address | Phone | + + +---------+ + | Latricia Nicolas | ECON | Unknown | | + + +---------+ + Care Team Providers + +------+ + | Care Sales Marketing Name | Role | Phone | + [...] Radiology | Diagnoses | Tejada, | [facility] [address] | | | | | Thoracic | MD Del | [address] | | | | | aortic | [address] | | | | | aneurysm | [address] | [place], [place] | | | | | without | Drive | [address] Phone: | | | | | rupture | [place], [place] | [phone] | | | | | ([facility]) | [address] | | | | | | Procedures | Phone: | | | | | | CTA chest | [phone] | | | | | | aorta W IV | Fax: | | | | | | contrast | [phone] | | +--------+--------+ + + + + MRI/CAT Scan (Routine) +--------+--------+ + + + + | Status | Reason | Specialty | Diagnoses / | Referred By | Referred To | | | | | Procedures | Contact | Contact | +--------+--------+ + + + + | Closed | | Radiology | Diagnoses | Terrell, | [facility] [address] | | | | | Thoracic | MD Del | [address] | | | | | aortic | [address] | | | | | aneurysm | [address] | [place], [place] | | | | | without | Drive | [address] Phone: | | | | | rupture | [place], [place] | [phone] | | | | | ([facility]) | [address] | | | | | | Procedures | Phone: | | | | | | CTA chest | [phone] | | | | | | aorta W IV | Fax: | | | | | | contrast | [phone] | | +--------+--------+ + + + + Reason for Visit MRI/CAT Scan (Routine) +--------+--------+ + + + + | Status | Reason | Specialty | Diagnoses / | Referred By | Referred To | | | | | Procedures | Contact | Contact | +--------+--------+ + + + + | Closed | | Radiology | Diagnoses | Terrell | [facility] [address] | | | | | Thoracic | MD Del | [address] | | | | | aortic | [address] | | | | | aneurysm | [address] | [place], [place] | | | | | without | Drive | [address] Phone: | | | | | rupture | [place], [place] | [phone] | | | | | ([facility]) | [address] | | | | | | Procedures | Phone: | | | | | | CTA chest | [phone] | | | | | | aorta W IV | Fax: | | | | | | contrast | [phone] | | +--------+--------+ + + + + Encounter Details +--------+ + + + + | Date | Type | Department | Care Team | Description | +--------+ + + + + | 06/20/ | Hospital | [facility] | Del Tejada MD | Thoracic aortic | | 2018 | [facility] | [facility] | [address] | aneurysm without | | | | CT [address] | [place] [address] | rupture (HCC) | | | | [address] | [phone] | | | | | [place] [address] | | | | | | [phone] | | | +--------+ + + + [...] [place] | | | | | | [address] | | | | | | | | +--------+ + + + + as of this encounter Results CTA chest aorta W IV contrast (06/20/2017 9:11 AM) + + + | Specimen | Performing Laboratory | + + + | | [facility] RADIOLOGY [address] [facility] [place] [address] | + + + + + | [...] set. 3-D reconstructions were performed using the Tabl[employer] 3-D | | software and sent to [...] POC CREATININE | 0.9Comment: Testing performed at [facility];[address] | 0.7 - 1.5 mg/dL | | | [facility];[place] [address] | | + + + + + + + | Specimen | Performing Laboratory | + + + | | [facility] [address] [place] [address] | + + + in this encounter [...] PST | | | | | Starting [facility] 06/20/17 at 0842, | | | | | | | For 1 dose | | | | | | + +--------+ +---------+------+------+ +---+---+ | | | +---+---+ in this encounter"
--- OUTSIDE RECORDS SUMMARY | ~2017-08-15 | XMS | Encounter Summary ---
Demographics + + + | Address | [address] | | | [place] [address] | + + + | Home Phone | | + + + | Preferred Language | Unknown | + + + | Marital Status | Single | + + + | Sikh Affiliation | Unknown | + + + | Race | Unknown | + + + | Ethnic Group | Unknown | + + + Author + + + | Author | [facility] | + + + | Organization | [facility] | + + + | Address | Unknown | + + + | Phone | Unavailable | + + + Support + + +---------+ + | Name | Relationship | Address | Phone | + + +---------+ + | Latricia Nicolas | ECON | Unknown | | + + +---------+ + Care Team Providers + +------+ + | Care External Auditor Name | Role | Phone | + [...] Radiology | Diagnoses | Huy Child | [facility] | | | | | Thoracic | MD [address] | [address] | | | | | aortic | [address] | [address] | | | | | aneurysm | Drive | [address] | | | | | without | [place], [place] | [place], [place] | | | | | rupture | [address] | [address] Phone: | | | | | ([facility] | Phone: | [phone] | | | | | Procedures | [phone] | Fax: | | | | | CTA chest | Fax: | [phone] | | | | | abdomen | [phone] | | | | | | pelvis [...] Radiology | Diagnoses | Huy Child | [facility] | | | | | Thoracic | MD [address] | [address] | | | | | aortic | [address] | [address] | | | | | aneurysm | Drive | [address] | | | | | without | [place], [place] | [place], [place] | | | | | rupture | [address] | [address] Phone: | | | | | ([facility]) | Phone: | [phone] | | | | | Procedures | [phone] | Fax: | | | | | CTA chest | Fax: | [phone] | | | | | abdomen | [phone] | | | | | | pelvis [...] Radiology | Diagnoses | Huy Child | [facility] | | | | | Thoracic | MD [address] | [address] | | | | | aortic | [address] | [address] | | | | | aneurysm | Drive | [address] | | | | | without | [place], [place] | [place], [place] | | | | | rupture | [address] | [address] Phone: | | | | | ([facility]) | Phone: | [phone] | | | | | Procedures | [phone] | Fax: | | | | | CTA chest | Fax: | [phone] | | | | | abdomen | [phone] | | | | | | pelvis with | | | | | | | IV contrast | | | +--------+--------+ + + + + Encounter Details +--------+ + + + + | Date | Type | Department | Care Team | Description | +--------+ + + + + | 07/19/ | Hospital | [facility] | Huy Child MD | Thoracic aortic | | 2018 | Encounter | [facility] CT | [address] | aneurysm without | | | | [address] | [place] [address] | rupture (HCC) | | | | [place] [address] | [phone] | | | | | [phone] | | | +--------+ + + + [...] [place] | | | | | | [address] | | | | | | | | +--------+ + + + + as of this encounter Results CTA chest abdomen pelvis with IV contrast (07/19/2017 9:38 AM) + + + | Specimen | Performing Laboratory | + + + | | [facility] [address] [place] [address] | + + + + + | [...] | | reconstructions were performed using the [employer] 3-D software and sent to | | [...] In - 07/19/2017 11:22 AM PDT SAI FREEMAN//[id number] years MaleCTA | | CHEST ABDOMEN PELVIS [...] set. 3-D reconstructions were performed using the [employer] 3-D software and sent to | | [...]
--- OUTSIDE RECORDS SUMMARY | ~2017-08-15 | XMS | Encounter Summary ---
Demographics + + + | Address | [address] | | | [place] [address] | + + + | Home Phone | | + + + | Preferred Language | Unknown | + + + | Marital Status | Single | + + + | Restoration Affiliation | Unknown | + + + | Race | Unknown | + + + | Ethnic Group | Unknown | + + + Author + + + | Author | [facility] | + + + | Organization | [facility] | + + + | Address | Unknown | + + + | Phone | Unavailable | + + + Support + + +---------+ + | Name | Relationship | Address | Phone | + + +---------+ + | Latricia Nicolas | ECON | Unknown | | + + +---------+ + Care Team Providers + +------+ + | Care Painting Manager Name | Role | Phone | + +------+ + | Terrence Browning MD | PCP | Unavailable | + +------+ + Encounter Details +--------+ + + + + | Date | Type | Department | Care Team | Description | +--------+ + + + + | 07/24/ | Procedure | [facility] | | | | 2018 | [facility] | | | | | | Interventional | | | | | | Radiology [address] | | | | | | [place], [place] | | | | | | [address] | | | +--------+ + + + [...] [place] | | | | | | [address] | | | | | | | | +--------+ + + + + as of this encounter Visit Diagnoses Not on filein this encounter"
--- OUTSIDE RECORDS SUMMARY | ~2017-08-15 | XMS | Encounter Summary ---
Demographics + + + | Address | [address] | | | [place] [address] | + + + | Home Phone | | + + + | Preferred Language | Unknown | + + + | Marital Status | Single | + + + | Catholic Affiliation | Unknown | + + + | Race | Unknown | + + + | Ethnic Group | Unknown | + + + Author + + + | Author | [facility] | + + + | Organization | [facility] | + + + | Address | Unknown | + + + | Phone | Unavailable | + + + Support + + +---------+ + | Name | Relationship | Address | Phone | + + +---------+ + | Latricia Nicolas | ECON | Unknown | | + + +---------+ + Care Team Providers + +------+ + | Care Hide Or Skin Buffer Name | Role | Phone | + [...] | Radiology | Diagnoses | Tejada, | [facility] [address] | | | | | Thoracic | MD Del | [address] | | | | | aortic | [address] | | | | | aneurysm | [address] | [place], [place] | | | | | without | Drive | [address] Phone: | | | | | rupture | [place], [place] | [phone] | | | | | ([facility]) | [address] | | | | | | Procedures | Phone: | | | | | | CTA chest | [phone] | | | | | | aorta W IV | Fax: | | | | | | contrast | [phone] | | +--------+--------+ + + + + Encounter Details +--------+ + + + + | Date | Type | Department | Care Team | Description | +--------+ + + + + | 06/12/ | Telephone | [facility] | Olimpia Miranda CMA | | | 2018 | | Cardiothoracic | | | | | | Surgery [address] | | | | | | [address] [place] | | | | | | [place] | | | | | | [address] | | | | | | [phone] | | | +--------+ + + + [...] [place] | | | | | | [address] | | | | | | | [...] Laboratory | + + + | | [facility] [address] [place] [address] | + + + + + | [...] set. 3-D reconstructions were performed using the [employer] 3-D | | software and sent to [...] set. 3-D reconstructions were performed using the Inv[employer] 3-D software and sent to | | [...]
--- OUTSIDE RECORDS SUMMARY | ~2017-08-15 | XMS | Encounter Summary ---
Demographics + + + | Address | [address] | | | [place] [address] | + + + | Home Phone | | + + + | Preferred Language | Unknown | + + + | Marital Status | Single | + + + | Amish Affiliation | Unknown | + + + | Race | Unknown | + + + | Ethnic Group | Unknown | + + + Author + + + | Author | [facility] | + + + | Organization | [facility] [facility] | + + + | Address | Unknown | + + + | Phone | Unavailable | + + + Support + + +---------+ + | Name | Relationship | Address | Phone | + + +---------+ + | Latricia Nicolas | ECON | Unknown | | + + +---------+ + Care Team Providers + +------+ + | Care Document Manager Name | Role | Phone | [...] | | | [address] | Drive | [place], [place] | | | | | PENETRATING | [place], [place] | [address] Phone: | | | | | [place] | [address] | [phone] | | | | | | Phone: | Fax: | | | | | | [phone] | [phone] | | | | | | Fax: | | | | | | | [phone] | | +--------+ + + + + + Encounter Details +--------+ + + + + | Date | Type | Department | Care Team | Description | +--------+ + + + + | 07/04/ | Orders Only | [facility] | Daniela Da Silva RN | H/O tracheostomy | | 2017 | | Cardiothoracic | | (Primary Dx) | | | | Surgery [address] | | | | | | [address] | | | | | | [place] | | | | | | [address] | | | | | | [phone] | | | +--------+ + + + [...] [place] | | | | | | [id number] | | | | | | | [...]
--- OUTSIDE RECORDS SUMMARY | ~2017-08-15 | XMS | Encounter Summary ---
Demographics + + + | Address | [address] | | | [place] [address] | + + + | Home Phone | | + + + | Preferred Language | Unknown | + + + | Marital Status | Single | + + + | Evangelical Affiliation | Unknown | + + + | Race | Unknown | + + + | Ethnic Group | Unknown | + + + Author + + + | Author | [facility] [employer] | + + + | Organization | [facility] | + + + | Address | Unknown | + + + | Phone | Unavailable | + + + Support + + +---------+ + | Name | Relationship | Address | Phone | + + +---------+ + | Latricia Nicolas | ECON | Unknown | | + + +---------+ + Care Team Providers + +------+ + | Care Materials And Processes Manager Name | Role | Phone | [...] | | | [address] | Drive | [place], [place] | | | | | PENETRATING | [place], [place] | [address] Phone: | | | | | [place] | [address] | [phone] | | | | | | Phone: | Fax: | | | | | | [phone] | [phone] | | | | | | Fax: | | | | | | | [phone] | | +--------+ + + + + + Encounter Details +--------+ + + + + | Date | Type | Department | Care Team | Description | +--------+ + + + + | 07/11/ | Initial | [facility] | Huy Child MD | 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
--- OUTSIDE RECORDS SUMMARY | ~2017-08-15 | XMS | Encounter Summary ---
Demographics + + + | Address | [address] | | | [place] [address] | + + + | Home Phone [...] | Author | [facility] [employer] | + + + | Organization | [facility] [employer] [facility] | + + + | Address | Unknown | + + + | Phone | Unavailable | + + + Support + + +---------+ + | Name | Relationship | Address | Phone | + + +---------+ + | Latricia Nicolas | ECON | Unknown | | + + +---------+ + Care Team Providers + +------+ + | Care Cheesemaking Laborer Name | Role | Phone | + +------+ + | Terrence Browning MD | PCP | Unavailable | + +------+ + Encounter Details +--------+ + + + + | Date | Type | Department | Care Team | Description | +--------+ + + + + | 07/24/ | Anesthesia | [facility] | Damon Arroyo, | | | 2018 | Event | [facility] | MD Darrick LAW | | | | | Neyda Law | [place] [address] | | | | | [place] [address] | [phone] | | | | | [phone] | | | +--------+ + + + [...] [place] | | | | | | [id number] | | | | | | | [...]
--- OUTSIDE RECORDS SUMMARY | ~2017-08-15 | XMS | Encounter Summary ---
Demographics + + + | Address | [address] | | | [place] [address] | + + + | Home Phone [...] + | Author | [facility] | + + + | Organization | [facility] [employer] [facility] | + + + | Address | Unknown | + + + | Phone | Unavailable | + + + Support + + +---------+ + | Name | Relationship | Address | Phone | + + +---------+ + | Latricia Nicolas | ECON | Unknown | | + + +---------+ + Care Team Providers + +------+ + | Care Rn Teacher Name | Role | Phone | + +------+ + | Terrence Browning MD | PCP | Unavailable | + +------+ + Encounter Details +--------+ + + + + | Date | Type | Department | Care Team | Description | +--------+ + + + + | 07/24/ | Ancillary | [facility] | Huy Child MD | Thoracic aortic | | 2018 | Orders | Vascular Surgery | [address] | aneurysm without | | | | [address] | [place] [address] | rupture (HCC) | | | | E [place], [place] | [phone] | | | | | [address] | | | | | | [phone] | | | +--------+ + + + [...] [place] | | | | | | [id number] | | | | | | | | +--------+ + + + + as of this encounter Results IR guidance vascular access US (07/24/2017 12:35 PM) + + + | Specimen | Performing Laboratory | + + + | | [place] [address] [facility] [address] | + + + + + | [...]
--- OUTSIDE RECORDS SUMMARY | ~2017-08-15 | XMS | Encounter Summary ---
Demographics + + + | Address | [address] | | | [place] [address] | + + + | Home Phone [...] + | Author | [facility] | + + + | Organization | [facility] [facility] | + + + | Address | Unknown | + + + | Phone | Unavailable | + + + Support + + +---------+ + | Name | Relationship | Address | Phone | + + +---------+ + | Latricia Nicolas | ECON | Unknown | | + + +---------+ + Care Team Providers + +------+ + | Care Business Planning Manager Name | Role | Phone | [...] | | | [address] | Drive | [place], [place] | | | | | PENETRATING | [place], [place] | [address] Phone: | | | | | [place] | [address] | [phone] | | | | | | Phone: | Fax: | | | | | | [phone] | [phone] | | | | | | Fax: | | | | | | | [phone] | | +--------+ + + + + + Encounter Details +--------+ + + + + | Date | Type | Department | Care Team | Description | +--------+ + + + + | 07/04/ | Orders Only | [facility] | Daniela Da Silva RN | H/O tracheostomy | | 2017 | | Cardiothoracic | | (Primary Dx) | | | | Surgery [address] | | | | | | [address] | | | | | | [place] | | | | | | [address] | | | | | | [phone] | | | +--------+ + + + [...] [place] | | | | | | [id number] | | | | | | | [...]
--- OUTSIDE RECORDS SUMMARY | ~2017-08-15 | XMS | Clinical Summary ---
Demographics + + + | Address | [address] | | | [place] [address] | + + + | Home Phone | | + + + | Preferred Language | Unknown | + + + | Marital Status | Single | + + + | Spiritism Affiliation | [phone] | + + + | Race | Unknown | + + + | Ethnic Group | Unknown | + + + Author + + + | Author | [facility] | | | and [place] | + + + | Organization | [facility] | | | and [place] [...] Team Providers + +------+ + | Care Motor Block Mechanic Name | Role | Phone | [...] | Self | [birth year] | Home: | [address] | | | al/Fam | | 1946 | [phone] [place] [address] | | | chandrakant | | | [phone] | | + +--------+ +--------+ + +
--- OUTSIDE RECORDS SUMMARY | ~2017-08-15 | XMS | Encounter Summary ---
Demographics + + + | Address | [address] | | | [place] [address] | + + + | Home Phone | | + + + | Preferred Language | Unknown | + + + | Marital Status | Single | + + + | Jew Affiliation | Unknown | + + + | Race | Unknown | + + + | Ethnic Group | Unknown | + + + Author + + + | Author | [facility] | + + + | Organization | [facility] | + + + | Address | Unknown | + + + | Phone | Unavailable | + + + Support + + +---------+ + | Name | Relationship | Address | Phone | + + +---------+ + | Latricia Nicolas | ECON | Unknown | | + + +---------+ + Care Team Providers + +------+ + | Care Deck Lid Fitter Name | Role | Phone | + [...] | | Radiology | Diagnoses | Jose aLnd, | [facility] [address] | | | | | Ruptured | DNP [address] | [address] | | | | | aneurysm of | [address] | Blvd | | | | | thoracic | [address] | [place], [place] | | | | | aorta (HCC) | [place], [place] | [address] Phone: | | | | | Procedures | [address] | [phone] | | | | | CTA abd | Phone: | | | | | | aorta & | [phone] | | | | | | bilat ilio | Fax: | | | | | | runoff w IV | [phone] | | | | | | con | | | + +--------+ + + + + Encounter Details +--------+ + + + + | Date | Type | Department | Care Team | Description | +--------+ + + + + | 08/08/ | Orders Only | [facility] | Chela Clements, | Ruptured aneurysm of | | 2017 | | Vascular Surgery | [facility] | thoracic aorta | | | | [address] | | (HCC) (Primary Dx) | | | | [place] | | | | | | [address] | | | | | | [phone] | | | +--------+ + + + [...] [place] | | | | | | [address] | | | | | | | [...]
--- OUTSIDE RECORDS SUMMARY | ~2017-08-15 | XMS | Encounter Summary ---
Demographics + + + | Address | [address] | | | [place] [address] | + + + | Home Phone | | + + + | Preferred Language | Unknown | + + + | Marital Status | Single | + + + | Buddhist Affiliation | Unknown | + + + | Race | Unknown | + + + | Ethnic Group | Unknown | + + + Author + + + | Author | [facility] | + + + | Organization | [facility] [facility] | + + + | Address | Unknown | + + + | Phone | Unavailable | + + + Support + + +---------+ + | Name | Relationship | Address | Phone | + + +---------+ + | Latricia Nicolas | ECON | Unknown | | + + +---------+ + Care Team Providers + +------+ + | Care Pre Algebra Teacher Name | Role | Phone | [...] Radiology | Diagnoses | Huy Child | [facility] [address] | | | | | Thoracic | [address]MD [address] | [address] | | | | | ascending | [address] | [address] | | | | | aortic | Drive | [place], [place] | | | | | aneurysm | [place], [place] | [address] Phone: | | | | | ([facility]) | [address] | [phone] | | | | | Procedures | Phone: | | | | | | CTA chest | [phone] | | | | | | abdomen | Fax: | | | | | | pelvis with | [phone] | | | | | | IV contrast | | | +--------+--------+ + + + + Encounter Details +--------+ + + + + | Date | Type | Department | Care Team | Description | +--------+ + + + + | 07/29/ | Orders Only | [facility] | Cyril Ruelas, | Thoracic ascending | | 2017 | | Vascular Surgery | RN | aortic aneurysm | | | | [address] | | ([facility]) (Primary Dx) | | | | [place] | | | | | | [address] | | | | | | [phone] | | | +--------+ + + + [...] [place] | | | | | | [address] | | | | | | | | +--------+ + + + + as of this encounter Results CTA chest abdomen pelvis with IV contrast (08/06/2017 3:54 PM) + + + | Specimen | Performing Laboratory | + + + | | [address] [address] | + + + + + | [...] | | reconstructions were performed using the Bubbl 3-D software and sent to PACS. | [...] set. 3-D reconstructions were performed using the Bubbl 3-D | | software and sent to [...]
--- OUTSIDE RECORDS SUMMARY | ~2017-08-15 | XMS | Encounter Summary ---
Demographics + + + | Address | [address] | | | [place] [address] | + + + | Home Phone | | + + + | Preferred Language | Unknown | + + + | Marital Status | Single | + + + | Druze Affiliation | Unknown | + + + | Race | Unknown | + + + | Ethnic Group | Unknown | + + + Author + + + | Author | [facility] | + + + | Organization | [facility] [employer] [facility] | + + + | Address | Unknown | + + + | Phone | Unavailable | + + + Support + + +---------+ + | Name | Relationship | Address | Phone | + + +---------+ + | Latricia Nicolas | ECON | Unknown | | + + +---------+ + Care Team Providers + +------+ + | Care Intelligence Agent Name | Role | Phone | + +------+ + | Terrence Browning MD | PCP | Unavailable | + +------+ + Encounter Details +--------+ + + + + | Date | Type | Department | Care Team | Description | +--------+ + + + + | 07/24/ | Ancillary | [facility] | Huy Child MD | Thoracic aortic | | 2018 | Orders | Vascular Surgery | [address] | aneurysm without | | | | [address] | [place] [address] | rupture (HCC) | | | | [place], [place] | [phone] | | | | | [address] | | | | | | [phone] | | | +--------+ + + + [...] [place] | | | | | | [address] | | | | | | | | +--------+ + + + + as of this encounter Results IR guidance vascular access US (07/24/2017 12:35 PM) + + + | Specimen | Performing Laboratory | + + + | | [place] [address] [address] [facility] [address] | + + + + + | [...]
[2017-08-16] MEDS ORDERED: [UNRECOGNIZED DRUG - OTHER] (00:03)
--- OUTSIDE RECORDS SUMMARY | 2017-08-16 01:20 | XMS | Encounter Summary ---
Demographics + + + | Address | [address] | | | [place] [address] | + + + | Home Phone | | + + + | Preferred Language | Unknown | + + + | Marital Status | Single | + + + | Evangelical Affiliation | Unknown | + + + | Race | Unknown | + + + | Ethnic Group | Unknown | + + + Author + + + | Author | [facility] [email or web address] | + + + | Organization | [facility] [employer] | + + + | Address | Unknown | + + + | Phone | Unavailable | + + + Support + + +---------+ + | Name | Relationship | Address | Phone | + + +---------+ + | Latricia Nicolas | ECON | Unknown | | + + +---------+ + Care Team Providers + +------+ + | Care Digital Media Designer Name | Role | Phone | + +------+ + | Jaqueiln Browning MD | PCP | Unavailable | + +------+ + Encounter Details +--------+---------+ + + + | Date | Type | Department | Care Team | Description | +--------+---------+ + + + | 08/08/ | Office | [facility] | Jose Land, CYDNEY | Penetrating ulcer of | | 2018 | Visit | Vascular Surgery | [address] | aorta (HCC) | | | | [address] | [place], [place] | (Primary Dx); | | | | [place], [place] | [address] | Thoracoabdominal | | | | [address] | | aortic aneurysm, | | | | [phone] | | without rupture | | | | | | (HCC); S/P thoracic | | | | | | aortic aneurysm | | | | | | repair | +--------+---------+ + + + Social History + +-------+ +--------+------+ | Tobacco Use | Types | Packs/Day | Years | Date | | | | | Used | | + +-------+ +--------+------+ | Former Smoker | | 3 | 45 | | + +-------+ +--------+------+ + +---+---+---+ | Smokeless Tobacco: | | | | | Never Used | | | | + +---+---+---+ + + | Comments: quit 2011 | + + + + +---------+ + | Alcohol Use | Drinks/We | oz/Week | Comments | | | ek | | | + + +---------+ + | No | | | | + + +---------+ + + + + | Sex Assigned at | Date Recorded | | | | + + + | Not on file | | + + + as of this encounter Last Filed Vital Signs + + + + | Vital Sign | Reading | Time Taken | + + + + | Blood Pressure | 126/81 | 08/08/2017 2:50 PM PDT | + + + + | Pulse | 81 | 08/08/2017 2:50 PM PDT | + + + + | Temperature | 36.5 C (97.7 F) | 08/08/2017 2:50 PM PDT | + + + + | Respiratory Rate | 16 | 08/08/2017 2:50 PM PDT | + + + + | Oxygen Saturation | 95% | 08/08/2017 2:50 PM PDT | + + + + | Inhaled Oxygen | - | - | | Concentration | | | + + + + | Weight | 93 kg (205 lb) | 08/08/2017 2:50 PM PDT | + + + + | Height | 185.4 cm (6' 1") | 08/08/2017 2:50 PM PDT | + + + + | Body Mass Index | 27.05 | 08/08/2017 2:50 PM PDT | + + + + in this encounter Progress Notes Jose Land DNP - 08/08/2017 3:00 PM [facility] [address] [place] [address] [address] [place] [address] Office: [phone] DATE OF VISIT: 08/08/2017 PATIENT NAME: Jerry Freeman : 1945; AGE: 72 y.o.; Sex:M PHONE NUMBER: ; PROVIDER: Jose Land DNP PRIMARY CARE / REFERRING PHYSICIAN: Jaquelin Browning MD / JAQUELIN BROWNING / [place] [facility] [address] The patient presents today for a Vascular Surgery Postoperative Visit. 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 The patient is not having any pain. The patient denies fever, w ound drainage, increasing redness, pus, increasing pain, increasing swelling. Physical exami nation revealed right groin access site is mostly healed, left groin access has scant amount of serosanguinous drainage, no erythema noted. There was no abdominal pulsatile mass. He lerner s been able to ambulate without difficulty with walker. VITAL SIGNS: BP 126/81 (BP Location: Left upper arm, Patient Position: Sitting) | Pulse 81 | Temp 97.7 F (36.5 C) (Oral) | Resp 16 | Ht 1.854 m (6' 1") | Wt 93 kg (205 lb) | SpO2 95% | BMI 27.05 kg/m PHYSICAL EXAM: Constitutional: Well nourished, no signs of distress Cardiovascular: Normal rate, regular rhythm. Pulmonary/Chest: No respiratory distress. No adventitious sounds. Abdominal: No abdominal pulsatile mass noted. Musculoskeletal: Normal range of motion. Extremities: No cyanosis or clubbing. Mild erythema in bilateral ankle. Neurological: He is alert and oriented. VASCULAR: Palpable femoral pulses were present bilaterally. Dopplerable signals were prese nt in bilateral dorsalis pedis and posterior tibial arteries. Groin wounds are healing well without signs of infection. Imaging: Cta Chest Abdomen Pelvis With Iv Contrast Result Date: 08/06/2017 1. Interval placement of a noncovered proximal descending thoracic aortic stent, with near resolution of the penetrating posterior wall descending thoracic aortic ulceration. 2. Asc ending aortic fusiform aneurysm measuring up to 5.5 cm, compared with 5.4 cm on 03/08/12, es sentially unchanged. 3. 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 4. Diffuse atheromatous change of the arterial tree in the chest abdomen and pelvis, without evidence of significant stenosis. 5. Probable right lower lobe atelectasis, with small right and minimal left pleural effusions. 6. Probable pulmona ry arterial hypertension. 7. Cardiac enlargement without pericardial effusion. 8. Small am ount of ascites, with heterogeneous enhancement of the liver and spleen, nonspecific, perhap s due to timing of the injection. Correlate for hypoperfusion. 9. Thickening of the rectum with infiltration of the perirectal fat, consistent with proctitis, new. 10. Persistent karley dder wall thickening, probably due to chronic cystitis. Correlate clinically. 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 Discussed imaging results w ith patient and family. follow up with PCP regarding chronic disease management. No heavy li fting until bilateral groin wounds completely healed. Wound care instruction discussed with patient and caregiver, monitor for signs of infection. Continue aspirin daily. Exercise sylvie y with walking. Keep good hydration. I've explained to the patient that in the event he expe riences acute limb ischemia as evidenced by severe pain or coldness, new lower leg wounds or worsening of his current blister, the patient should contact me immediately to return to my clinic or go to nearby emergency room right away. Follow up in 2 weeks for RN for left groin wound check. Return to vascular clinic with in 6 months with CTA of abdomen. 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
--- OUTSIDE RECORDS SUMMARY | 2017-08-16 01:20 | XMS | Clinical Summary ---
Demographics + + + | Address | [address] [place] [address] [address] | | | [place] [address] | + + + | Home Phone | | + + + | Preferred Language | Unknown | + + + | Marital Status | Single | + + + | Congregational Affiliation | Unknown | + + + | Race | Unknown | + + + | Ethnic Group | Unknown | + + + Author + + + | Author | [facility] | + + + | Organization | [facility] | + + + | Address | Unknown | + + + | Phone | Unavailable | + + + Support + + +---------+ + | Name | Relationship | Address | Phone | + + +---------+ + | Latricia Nicolas | ECON | Unknown | | + + +---------+ + Care Team Providers + +------+ + | Care Housing Property Manager Name | Role | Phone | + +------+ + | Terrence Browning MD | PP | Unavailable | + +------+ + Allergies + + + + + + | Active Allergy | Reactions | Severity | Noted | Comments | | | | | Date | | + + + + + + | Atorvastatin | Other (See Comments) | Medium | 05/03/19 | UNABLE to remember | | | | | 16 | reaction | + + + + + + Current Medications + + +--------+---------+------+------+-------+ | Prescription | Sig. | Disp. | Refills | Star | End | Statu | | | | | | t | Date | s | | | | | | Date | | | + + +--------+---------+------+------+-------+ | aspirin 81 MG | Take 81 mg by mouth | | | | | Activ | | tablet | daily. | | | | | e | + + +--------+---------+------+------+-------+ | Multiple | Take 1 tablet by | | | | | Activ | | Vitamins-Minerals | mouth daily. | | | | | e | | (MULTIVITAL) tablet | | | | | | | + + +--------+---------+------+------+-------+ | polyethylene | Take 17 g by mouth | | | | | Activ | | glycol (GLYCOLAX) | daily. | | | | | e | | packet | | | | | | | + + +--------+---------+------+------+-------+ | levothyroxine | Take 300 mcg by | | | | | Activ | | (LEVOTHROID) 150 MCG | mouth. 1po M, W, F | | | | | e | | tablet | | | | | | | + + +--------+---------+------+------+-------+ | ferrous sulfate | Take 325 mg by mouth | | | | | Activ | | 325 (65 FE) MG | 2 (two) times | | | | | e | | tablet | daily. | | | | | | + + +--------+---------+------+------+-------+ | magnesium oxide | Take 400 mg by mouth | | | | | Activ | | (MAG-OX) 400 MG | 2 (two) times | | | | | e | | tablet | daily. | | | | | | + + +--------+---------+------+------+-------+ | quetiapine | Take 400 mg by mouth | | | | | Activ | | (SEROQUEL) 200 MG | nightly. | | | | | e | | tablet | | | | | | | + + +--------+---------+------+------+-------+ | sodium chloride 1 | Take 1 g by mouth 2 | | | | | Activ | | G tablet | (two) times daily. | | | | | e | + + +--------+---------+------+------+-------+ | tamsulosin | Take 0.4 mg by mouth | | | | | Activ | | (FLOMAX) 0.4 MG CAPS | After dinner After | | | | | e | | | dinner. | | | | | | + + +--------+---------+------+------+-------+ | risperidone | Take by mouth | | | | | Activ | | (RISPERDAL) 4 MG | nightly. 2po q hs | | | | | e | | tablet | | | | | | | + + +--------+---------+------+------+-------+ | diphenhydrAMINE | Take 50 mg by mouth | | | | | Activ | | (BENADRYL) 50 MG | nightly. | | | | | e | | capsule | | | | | | | + + +--------+---------+------+------+-------+ | acetaminophen | Take 650 mg by mouth | | | | | Activ | | (TYLENOL) 325 MG | every 6 (six) hours | | | | | e | | tablet | as needed. | | | | | | + + +--------+---------+------+------+-------+ | albuterol | Take 2.5 mg by | | | | | Activ | | (PROVENTIL) (2.5 | nebulization as | | | | | e | | MG/3ML) 0.083% | needed. | | | | | | | nebulizer solution | | | | | | | + + +--------+---------+------+------+-------+ | Magnesium | Take 400 mg by mouth | | | | | Activ | | Hydroxide (MILK OF | as needed. | | | | | e | | MAGNESIA PO) | | | | | | | + + +--------+---------+------+------+-------+ | sertraline | Take 100 mg by mouth | | | | | Activ | | (ZOLOFT) 100 MG | daily. | | | | | e | | tablet | | | | | | | + + +--------+---------+------+------+-------+ | chlorhexidine | Use as directed 15 | | | | | Activ | | (PERIDEX) 0.12 % | mLs in the mouth or | | | | | e | | solution | throat 2 (two) times | | | | | | | | daily. | | | | | | + + +--------+---------+------+------+-------+ | tiotropium | Inhale 18 mcg into | | | | | Activ | | (SPIRIVA) 18 MCG | the lungs daily. | | | | | e | | inhalation capsule | | | | | | | + + +--------+---------+------+------+-------+ | fluticasone | Inhale 2 puffs into | | | | | Activ | | (FLOVENT HFA) 220 | the lungs 2 (two) | | | | | e | | MCG/ACT inhaler | times daily. | | | | | | + + +--------+---------+------+------+-------+ | docusate sodium | Take 100 mg by mouth | | | | | Activ | | (COLACE) 100 MG | 2 (two) times | | | | | e | | capsule | daily. | | | | | | + + +--------+---------+------+------+-------+ | | Inhale 1 puff into | | | | | Activ | | fluticasone-salmeter | the lungs 2 (two) | | | | | e | | ol (ADVAIR DISKUS) | times daily. | | | | | | | 250-50 MCG/DOSE AEPB | | | | | | | + + +--------+---------+------+------+-------+ | LEVOTHYROXINE | Take 200 mcg by | | | | | Activ | | SODIUM PO | mouth. 1po q | | | | | e | | | S,T,TH,SA | | | | | | + + +--------+---------+------+------+-------+ | NIACIN ER PO | Take 500 mg by mouth | | | | | Activ | | | daily. | | | | | e | + + +--------+---------+------+------+-------+ | ciprofloxacin | Take 250 mg by mouth | | | | | Activ | | (CIPRO) 250 MG | 2 (two) times | | | | | e | | tablet | daily. | | | | | | + + +--------+---------+------+------+-------+ | umeclidinium | Inhale 1 puff into | | | | | Activ | | bromide (INCRUSE | the lungs daily. | | | | | e | | ELLIPTA) 62.5 | | | | | | | | MCG/INH inhaler | | | | | | | + + +--------+---------+------+------+-------+ | traMADol (ULTRAM) | Take 50 mg by mouth | | | | | Activ | | 50 MG tablet | every 6 (six) hours | | | | | e | | | as needed for Pain. | | | | | | + + +--------+---------+------+------+-------+ | finasteride | Take 5 mg by mouth | | | | | Activ | | (PROSCAR) 5 MG | daily. | | | | | e | | tablet | | | | | | | + + +--------+---------+------+------+-------+ | omeprazole | Take 20 mg by mouth | | | | | Activ | | (PRILOSEC) 20 MG | every morning before | | | | | e | | capsule | breakfast. | | | | | | + + +--------+---------+------+------+-------+ | prednisoLONE | 1 drop 4 (four) | | | | | Activ | | acetate (PRED FORTE) | times daily. | | | | | e | | 1 % ophthalmic | | | | | | | | suspension | | | | | | | + + +--------+---------+------+------+-------+ | | Take 3 mLs by | | | | | Activ | | ipratropium-albutero | nebulization. | | | | | e | | l (DUO-NEB) 0.5-2.5 | | | | | | | | mg/3mL | | | | | | | + + +--------+---------+------+------+-------+ | | Take 1-2 tablets by | 30 | 0 | 03/2 | 04/0 | Expir | | HYDROcodone-acetamin | mouth every 4 (four) | tablet | | / | 12/16 | ed | | ophen (NORCO) 5-325 | hours as needed for | | | 18 | 18 | | | MG per tablet | up to 10 days. | | | | | | + + +--------+---------+------+------+-------+ Active Problems + + + | Problem | Noted Date | + + + | S/P thoracic aortic aneurysm repair | 07/25/2017 | + + + | CKD (chronic kidney disease), stage III | 11/02/2013 | + + + | Iron deficiency anemia | 11/02/2013 | + + + | Hypothyroidism | 11/02/2013 | + + + | Schizophrenia (HCC) | 11/02/2013 | + + + | Constipation | 11/02/2013 | + + + | Tracheal hemorrhage (HCC) | 03/08/2012 | + + + | Thoracic ascending aortic aneurysm (HCC) | 03/08/2012 | + + + | COPD (chronic obstructive pulmonary disease) | 03/08/2012 | + + + | Personality disorder | 03/08/2012 | + + + + + | Overview: Unclear | + + + + + | MRSA infection | 03/08/2012 | + + + | H/O tracheostomy | 03/08/2012 | + + + + + | Overview: Now removed. 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 ([facility]) | | | | | | (Primary Dx); | | | | | | 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, | | | | | | without rupture | | | | | | ([facility]); S/P thoracic | | | | | | aortic aneurysm | | | | | | repair | +--------+ + + + + | 08/08/ | Orders Only | | Chela Clements, | Ruptured aneurysm of | | 2017 | | | CRIMINAL ATTORNEY | thoracic aorta | | | | | | ([facility]) (Primary Dx) | +--------+ + + + + | 08/06/ | Hospital | | Huy Child MD | Thoracic ascending | | 2018 | Encounter | | | aortic aneurysm | | | | | | ([facility]) | +--------+ + + + + | 07/29/ | Orders Only | | Cyril Ruelas, | Thoracic ascending | | 2018 | | | RN | aortic aneurysm | | | | | | (HCC) (Primary Dx) | +--------+ + + + + | 07/24/ | Hospital | | Huy Child MD | Thoracic ascending | | 2018 - | Encounter | | | aortic aneurysm | | | | | | (HCC) (Primary Dx) | | 07/26/ | | | | | | 2017 | | | | | +--------+ + + + + +---+ + | | Discharge | | | Summaries | | | - Gladis, | | | Kerry, | | | SHIPPING/RECEIVING CLERK - | | | 07/25/2017 | | | 11:44 AM | | | PDT | | | Formatting | | | of this | | | note may be | | | different | | | from the | | | original.[facility] | | | Service: | | | Vascular | | | SurgeryDisc | | | harge | | | SummaryDate | | | of | | | Admission: | | | / | | | 07/24/2017Da | | | te of | | | Discharge: | | | | | | 07/26/2017D | | | ischarge | | | Provider: | | | Kerry | | | Sloot, | | | ARNPTreatme | | | nt Team: | | | Admitting | | | Provider: | | | Huy Child, | | | MDDischarge | | | Diagnoses: | | | Principal | | | Problem: | | | Thoracic | | | ascending | | | aortic | | | aneurysm | | | (HCC)Active | | | Problems: | | | COPD | | | (chronic | | | obstructive | | | pulmonary | | | disease) | | | CKD | | | (chronic | | | kidney | | | disease), | | | stage III | | | Schizophren | | | ia (HCC) | | | S/P | | | thoracic | | | aortic | | | aneurysm | | | repairResol | | | eddy | | | Problems: | | | * No | | | resolved | | | hospital | | | problems. | | | *Final | | | Diagnoses: | | | S/P | | | thoracic | | | stent graft | | | placement | | | for | | | penetrating | | | thoracic | | | ulceration | | | Procedures: | | | | | | Procedure(s | | | ):AORTIC - | | | ENDOGRAFTSi | | | gnificant | | | Diagnostic | | | Studies: | | | BRIEF | | | HISTORY OF | | | PRESENTATIO | | | N: | | | HPI per | | | consultMr. | | | Pete is a | | | pleasant | | | 72 y.o. | | | male with | | | PMH | | | significant | | | for CHF, | | | COPD, | | | dementia, | | | hyperlipide | | | cornel, | | | hyperthyroi | | | dism, MRSA | | | and | | | schizophren | | | ia, who is | | | referred to | | | me for | | | ascending | | | thoracic | | | aneurysm | | | with | | | penetrating | | | | | | ulceration. | | | Patient | | | had CTA | | | chest/aorta | | | on 06/20/17 | | | that | | | showed | | | enlarging | | | penetrating | | | ulcer in | | | proximal | | | descending | | | thoracic | | | aorta | | | measuring | | | 2.5 x 1.2 | | | cm. Patient | | | was being | | | followed by | | | Dr. | | | Tejada who | | | referred | | | him to my | | | office for | | | concern | | | that this | | | ulceration | | | caused | | | increased | | | weakness in | | | the | | | aneurysm, | | | further | | | increasing | | | risk of | | | rupture. | | | Patient is | | | asymptomati | | | c. | | | Procedures: | | | Ultrasound | | | guided | | | access of | | | bilateral | | | common | | | femoral | | | arteries | | | | | | | | | Arch | | | aortogram | | | | | | | | | | | | Endovascula | | | r repair of | | | | | | penetrating | | | aortic | | | ulcer using | | | Valiant | | | thoracic | | | aortic | | | stent graft | | | | | | | | | | | | Perclose | | | closure of | | | bilateral | | | common | | | femoral | | | arteries H | | | OSPITAL | | | COURS/E: | | | POD 1 | | | VSS, Sp02 | | | at baseline | | | RA 92 | | | percent on | | | assessment. | | | | | | Ambulated, | | | voided, | | | tolerating | | | PO. | | | Discussed | | | discharge | | | plan of | | | care with | | | patient and | | | family and | | | they are | | | agreeable | | | to plan and | | | follow up. | | | Past | | | Medical | | | History | | | Diagnosis | | | Date | | | Cardiac | | | failure | | | (HCC) due | | | to trauma | | | | | | CHF | | | (congestive | | | heart | | | failure) | | | (HCC) 2010 | | | secondary | | | to trauma | | | fall at | | | home | | | COPD | | | (chronic | | | obstructive | | | pulmonary | | | disease) | | | (HCC) | | | Dementia | | | | | | Dementia | | | | | | | | | Hyperlipide | | | cornel | | | | | | Hypothyroid | | | ism | | | Mental | | | retardation | | | | | | MRSA | | | (methicilli | | | n resistant | | | | | | Staphylococ | | | cus aureus) | | | 03/08/2012 | | | abdomen, | | | states | | | healed up | | | | | | MRSA | | | (methicilli | | | n resistant | | | | | | Staphylococ | | | cus aureus) | | | | | | respiratory | | | | | | MRSA | | | infection | | | | | | Other and | | | | | | unspecified | | | | | | coagulation | | | defects | | | "bleeding | | | stitch on | | | my neck" | | | | | | Personality | | | disorder | | | | | | | | | Respiratory | | | failure | | | (HCC) due | | | to trauma | | | | | | | | | Schizophren | | | ia (HCC) | | | Past | | | Surgical | | | History | | | Procedure | | | Laterality | | | Date | | | ABDOMINAL | | | SURGERY | | | 2010 | | | | | | diaphragmat | | | ic rupture | | | repair | | | FISTULA | | | REPAIR 3 | | | surgeries | | | | | | | | | TONSILLECTO | | | MY as a | | | teenager | | | | | | TRACHEOSTOM | | | Y 2011 | | | fistula | | | repair Ivanna | | | 2012, | | | second | | | fistula | | | rapair Ivanna | | | two weeks | | | later | | | Allergies | | | Allergen | | | Reactions | | | | | | Lipitor | | | [Atorvastat | | | in] Other | | | (See | | | Comments) | | | UNABLE to | | | remember | | | reaction | | | Prescriptio | | | ns Prior to | | | Admission | | | Medication | | | Sig | | | Dispense | | | Refill Last | | | Dose | | | | | | acetaminoph | | | en | | | (TYLENOL) | | | 325 MG | | | tablet Take | | | 650 mg by | | | mouth every | | | 6 (six) | | | hours as | | | needed. | | | Taking at | | | Unknown | | | time | | | aspirin | | | 81 MG | | | tablet Take | | | 81 mg by | | | mouth | | | daily. | | | 07/23/2017 | | | at Unknown | | | time | | | | | | chlorhexidi | | | ne | | | (PERIDEX) | | | 0.12 % | | | solution | | | Use as | | | directed 15 | | | mLs in the | | | mouth or | | | throat 2 | | | (two) times | | | daily. | | | 07/23/2017 | | | at Unknown | | | time | | | | | | diphenhydrA | | | MINE | | | (BENADRYL) | | | 50 MG | | | capsule | | | Take 50 mg | | | by mouth | | | nightly. | | | 07/23/2017 | | | at Unknown | | | time | | | ferrous | | | sulfate 325 | | | (65 FE) MG | | | tablet | | | Take 325 mg | | | by mouth 2 | | | (two) | | | times | | | daily. | | | 07/23/2017 | | | at Unknown | | | time | | | | | | finasteride | | | (PROSCAR) | | | 5 MG tablet | | | Take 5 mg | | | by mouth | | | daily. | | | 07/23/2017 | | | at Unknown | | | time | | | | | | fluticasone | | | -salmeterol | | | (ADVAIR | | | DISKUS) | | | 250-50 | | | MCG/DOSE | | | AEPB Inhale | | | 1 puff | | | into the | | | lungs 2 | | | (two) times | | | daily. | | | 07/23/2017 | | | at Unknown | | | time | | | | | | ipratropium | | | -albuterol | | | (DUO-NEB) | | | 0.5-2.5 | | | mg/3mL Take | | | 3 mLs by | | | nebulizatio | | | n. Taking | | | at Unknown | | | time | | | | | | levothyroxi | | | ne | | | (LEVOTHROID | | | ) 150 MCG | | | tablet Take | | | 300 mcg by | | | mouth. 1po | | | M, W, F | | | 07/23/2017 | | | at Unknown | | | time | | | | | | LEVOTHYROXI | | | NE SODIUM | | | PO Take 200 | | | mcg by | | | mouth. 1po | | | q S,T,TH,SA | | | | | | 07/23/2017 | | | at Unknown | | | time | | | magnesium | | | oxide | | | (MAG-OX) | | | 400 MG | | | tablet Take | | | 400 mg by | | | mouth 2 | | | (two) times | | | daily. | | | 07/23/2017 | | | at Unknown | | | time | | | Multiple | | | Vitamins-Mi | | | nerals | | | (MULTIVITAL | | | ) tablet | | | Take 1 | | | tablet by | | | mouth | | | daily. | | | 07/23/2017 | | | at Unknown | | | time | | | NIACIN ER | | | PO Take | | | 500 mg by | | | mouth | | | daily. | | | 07/23/2017 | | | at Unknown | | | time | | | | | | omeprazole | | | (PRILOSEC) | | | 20 MG | | | capsule | | | Take 20 mg | | | by mouth | | | every | | | morning | | | before | | | breakfast. | | | 07/23/2017 | | | at Unknown | | | time | | | | | | polyethylen | | | e glycol | | | (GLYCOLAX) | | | packet Take | | | 17 g by | | | mouth | | | daily. | | | 07/23/2017 | | | at Unknown | | | time | | | | | | prednisoLON | | | E acetate | | | (PRED | | | FORTE) 1 % | | | ophthalmic | | | suspension | | | 1 drop 4 | | | (four) | | | times | | | daily. | | | | | | | | | quetiapine | | | (SEROQUEL) | | | 200 MG | | | tablet Take | | | 400 mg by | | | mouth | | | nightly. | | | 07/23/2017 | | | at Unknown | | | time | | | | | | risperidone | | | | | | (RISPERDAL) | | | 4 MG | | | tablet Take | | | by mouth | | | nightly. | | | 2po q hs | | | 07/23/2017 | | | at Unknown | | | time | | | sodium | | | chloride 1 | | | G tablet | | | Take 1 g by | | | mouth 2 | | | (two) times | | | daily. | | | 07/23/2017 | | | at Unknown | | | time | | | | | | tamsulosin | | | (FLOMAX) | | | 0.4 MG CAPS | | | Take 0.4 | | | mg by mouth | | | After | | | dinner | | | After | | | dinner. | | | 07/23/2017 | | | at Unknown | | | time | | | | | | umeclidiniu | | | m bromide | | | (INCRUSE | | | ELLIPTA) | | | 62.5 | | | MCG/INH | | | inhaler | | | Inhale 1 | | | puff into | | | the lungs | | | daily. | | | 07/23/2017 | | | at Unknown | | | time | | | albuterol | | | | | | (PROVENTIL) | | | (2.5 | | | MG/3ML) | | | 0.083% | | | nebulizer | | | solution | | | Take 2.5 mg | | | by | | | nebulizatio | | | n as | | | needed. | | | Taking at | | | Unknown | | | time | | | | | | ciprofloxac | | | in (CIPRO) | | | 250 MG | | | tablet Take | | | 250 mg by | | | mouth 2 | | | (two) times | | | daily. | | | Taking at | | | Unknown | | | time | | | docusate | | | sodium | | | (COLACE) | | | 100 MG | | | capsule | | | Take 100 mg | | | by mouth 2 | | | (two) | | | times | | | daily. | | | 07/23/2017 | | | at Unknown | | | time | | | | | | fluticasone | | | (FLOVENT | | | HFA) 220 | | | MCG/ACT | | | inhaler | | | Inhale 2 | | | puffs into | | | the lungs 2 | | | (two) | | | times | | | daily. | | | 07/23/2017 | | | at Unknown | | | time | | | Magnesium | | | Hydroxide | | | (MILK OF | | | MAGNESIA | | | PO) Take | | | 400 mg by | | | mouth as | | | needed. | | | Taking at | | | Unknown | | | time | | | | | | sertraline | | | (ZOLOFT) | | | 100 MG | | | tablet Take | | | 100 mg by | | | mouth | | | daily. | | | 07/23/2017 | | | at Unknown | | | time | | | | | | tiotropium | | | (SPIRIVA) | | | 18 MCG | | | inhalation | | | capsule | | | Inhale 18 | | | mcg into | | | the lungs | | | daily. | | | 07/23/2017 | | | at Unknown | | | time | | | traMADol | | | (ULTRAM) 50 | | | MG tablet | | | Take 50 mg | | | by mouth | | | every 6 | | | (six) hours | | | as needed | | | for Pain. | | | Taking at | | | Unknown | | | time | | | DISCHARGE | | | EXAMVital | | | Signs:BP | | | 110/62 (BP | | | Location: | | | Right upper | | | arm) | | | | Pulse 84 | | | | Temp 99 | | | F (37.2 | | | C) (Oral) | | | | Resp 16 | | | | SpO2 | | | 90% Temp: | | | [97.2 F | | | (36.2 | | | C)-99 F | | | (37.2 | | | C)] 99 | | | F (37.2 | | | C) (07/25 | | | 1107)BP: | | | (97-131)/(5 | | | 4-79) | | | 110/62 | | | (07/25 | | | 1107)Heart | | | Rate: | | | [73-102] 84 | | | (07/25 | | | 1107)Resp: | | | [16-30] 16 | | | (07/25 | | | 1107)SpO2: | | | [87 %-100 | | | %] 90 % | | | (07/25 | | | 1107)Physic | | | al | | | ExamVitals: | | | reviewedCON | | | STITUTIONAL | | | : | | | Conversant, | | | well | | | developed, | | | NADEYES: | | | Anicteric | | | sclerae, no | | | lid drag, | | | no | | | proptosisRE | | | SP: Normal | | | effort, | | | regular, | | | even, | | | unlabored | | | rateCV: No | | | peripheral | | | edema, rate | | | | | | regularSKIN | | | : [place], | | | warm, dry | | | without | | | rash/lesion | | | MS: ROM not | | | limited, | | | no digital | | | cyanosisNEU | | | RO: Cranial | | | nerves | | | II-XII | | | grossly | | | intact, A&O | | | times | | | 3PSYCH: | | | appropriate | | | affect, | | | speech and | | | tone, | | | judgement | | | and insight | | | | | | intactVascu | | | lar: palp | | | femoral | | | pulses. | | | Groin sites | | | soft | | | without | | | erythema, | | | swelling, | | | or | | | drainageDAT | | | ACBC: Lab | | | Results | | | Component | | | Value Date | | | WBC 7.10 | | | 07/25/2017 | | | RBC 4.19 | | | (L) | | | 07/25/2017 | | | HGB 11.3 | | | (L) | | | 07/25/2017 | | | HCT 33.3 | | | (L) | | | 07/25/2017 | | | MCV 79.5 | | | (L) | | | 07/25/2017 | | | MCH 26.9 | | | (L) | | | 07/25/2017 | | | MCHC 33.8 | | | 07/25/2017 | | | RDW 51.2 | | | 07/25/2017 | | | PLT 158 | | | 07/25/2017 | | | MPV 7.4 | | | 07/25/2017 | | | DIFFTYPE | | | AUTOMATED | | | 07/24/2017 | | | BMP: Lab | | | Results | | | Component | | | Value Date | | | NA 140 | | | 07/25/2017 | | | K 4.3 | | | 07/25/2017 | | | CL 108 | | | 07/25/2017 | | | CO2 25 | | | 07/25/2017 | | | ANIONGAP | | | 11 | | | 07/25/2017 | | | GLUF 90 | | | 07/25/2017 | | | BUN 14 | | | 07/25/2017 | | | CREATININE | | | 0.8 | | | 07/25/2017 | | | CREATININE | | | 0.9 | | | 06/20/2017 | | | BCR 18 | | | 07/25/2017 | | | CA 6.8 (L) | | | 07/25/2017 | | | CA 8.8 | | | 01/28/2014 | | | EGFR >60 | | | 07/25/2017 | | | PLANS/P | | | thoracic | | | stent graft | | | | | | placement-C | | | ontinue | | | home | | | meds-Hydroc | | | odone PRN | | | pain-Follow | | | up with Dr | | | Mateusz or | | | Kerry | | | Sloot, SHIPPING/RECEIVING CLERK | | | in 2 | | | weeks-[facility]leas | | | e call | | | clinic to | | | schedule | | | appointment | | | if we have | | | not | | | contacted | | | you within | | | 3 | | | days-Please | | | complete | | | any follow | | | up imaging | | | prior to | | | post | | | operative | | | appointment | | | . Our | | | office will | | | arrange | | | this for | | | you.-OK to | | | remove | | | dressing in | | | 2 days and | | | shower. | | | -No lifting | | | over 10 | | | lbs for 4 | | | weeks-Pleas | | | e call with | | | any | | | questions | | | or | | | concerns-Pl | | | ease follow | | | up with | | | your PCP in | | | 2-3 days | | | for | | | medication | | | management, | | | BP check | | | and lab | | | reviewDispo | | | sition: | | | Home with | | | familyCondi | | | tion: | | | StableCode | | | Status: | | | Full | | | CodeDischar | | | ge | | | Instruction | | | sDiet | | | Cardiac | | | Activity as | | | Tolerated | | | Up with | | | Assistance | | | Shower on | | | Day | | | Dressing is | | | Removed | | | (No Bath) | | | Lifting | | | Restriction | | | s Order | | | Comments: | | | Weight | | | restriction | | | of 10 lbs | | | lifting for | | | 4 weeks | | | Remove | | | Dressing in | | | 48 Hours | | | Call MD | | | for: | | | Temperature | | | > 100.4 F | | | (38 C) | | | Call MD | | | for: | | | Severe | | | Uncontrolle | | | d Pain Call | | | MD for: | | | Difficulty | | | Breathing, | | | Headache or | | | Visual | | | Disturbance | | | s Call MD | | | for: | | | Persistant | | | Dizziness | | | or | | | Light-Heade | | | dness | | | Follow | | | up:Terrence R | | | [place], | | | MD[address] | | [address] | | | [place] [address] | | [place] | | | [phone] | | | [phone] | | | In 3 | | | daysfollow | | | up after | | | surgery, | | | review | | | medications | | | , vitals | | | signs, | | | [facility] | | | [facility] | | | [facility] | | | [id number] | | | [place] | | | Dr Behzad | | | [place] | | | [place] | | | [phone] | | | [phone] | | | In 2 | | | weekspost | | | op | | | appointment | | | and review | | | CTA | | | Medication | | | List START | | | taking | | | these | | | medications | | | | | | HYDROcodone | | | -acetaminop | | | hen 5-325 | | | MG per | | | tabletQTY: | | | 30 | | | tabletRefil | | | ls: | | | 0Commonly | | | known as: | | | NORCOTake | | | 1-2 tablets | | | by mouth | | | every 4 | | | (four) | | | hours as | | | needed for | | | up to 10 | | | days. | | | CONTINUE | | | taking | | | these | | | medications | | | | | | acetaminoph | | | en 325 MG | | | tabletRefil | | | ls: | | | 0Commonly | | | known as: | | | TYLENOL | | | ADVAIR | | | DISKUS | | | 250-50 | | | MCG/DOSERef | | | ills: | | | 0Generic | | | drug: | | | fluticasone | | | -salmeterol | | | albuterol | | | (2.5 | | | MG/3ML) | | | 0.083% | | | nebulizer | | | solutionRef | | | ills: | | | 0Commonly | | | known as: | | | PROVENTIL | | | aspirin 81 | | | MG | | | tabletRefil | | | ls: 0 | | | chlorhexidi | | | ne 0.12 % | | | solutionRef | | | ills: | | | 0Commonly | | | known as: | | | PERIDEX | | | ciprofloxac | | | in 250 MG | | | tabletRefil | | | ls: | | | 0Commonly | | | known as: | | | CIPRO | | | diphenhydrA | | | MINE 50 MG | | | capsuleRefi | | | lls: | | | 0Commonly | | | known as: | | | BENADRYL | | | docusate | | | sodium 100 | | | MG | | | capsuleRefi | | | lls: | | | 0Commonly | | | known as: | | | COLACE | | | ferrous | | | sulfate (65 | | | FE) 325 | | | (65 FE) MG | | | tabletRefil | | | ls: 0 | | | finasteride | | | 5 MG | | | tabletRefil | | | ls: | | | 0Commonly | | | known as: | | | PROSCAR | | | FLOMAX 0.4 | | | MG | | | capsuleRefi | | | lls: | | | 0Generic | | | drug: | | | tamsulosin | | | fluticasone | | | 220 | | | MCG/ACT | | | inhalerRefi | | | lls: | | | 0Commonly | | | known as: | | | FLOVENT HFA | | | INCRUSE | | | ELLIPTA | | | 62.5 | | | MCG/INH | | | inhalerRefi | | | lls: | | | 0Generic | | | drug: | | | umeclidiniu | | | m bromide | | | ipratropium | | | -albuterol | | | 0.5-2.5 | | | mg/3mLRefil | | | ls: | | | 0Commonly | | | known as: | | | DUO-NEB * | | | LEVOTHROID | | | 150 MCG | | | tabletRefil | | | ls: | | | 0Generic | | | drug: | | | levothyroxi | | | ne * | | | LEVOTHYROXI | | | NE SODIUM | | | PORefills: | | | 0 | | | magnesium | | | oxide 400 | | | MG | | | tabletRefil | | | ls: | | | 0Commonly | | | known as: | | | MAG-OX MILK | | | OF | | | MAGNESIA | | | PORefills: | | | 0 | | | MULTIVITAL | | | tabletRefil | | | ls: 0 | | | NIACIN ER | | | PORefills: | | | 0 | | | omeprazole | | | 20 MG | | | capsuleRefi | | | lls: | | | 0Commonly | | | known as: | | | PRILOSEC | | | polyethylen | | | e glycol | | | packetRefil | | | ls: | | | 0Commonly | | | known as: | | | GLYCOLAX | | | prednisoLON | | | E acetate 1 | | | % | | | ophthalmic | | | suspensionR | | | efills: | | | 0Commonly | | | known as: | | | PRED FORTE | | | quetiapine | | | 200 MG | | | tabletRefil | | | ls: | | | 0Commonly | | | known as: | | | SEROquel | | | risperidone | | | 4 MG | | | tabletRefil | | | ls: | | | 0Commonly | | | known as: | | | RisperDAL | | | sertraline | | | 100 MG | | | tabletRefil | | | ls: | | | 0Commonly | | | known as: | | | ZOLOFT | | | sodium | | | chloride 1 | | | g | | | tabletRefil | | | ls: 0 | | | tiotropium | | | 18 MCG | | | inhalation | | | capsuleRefi | | | lls: | | | 0Commonly | | | known as: | | | SPIRIVA | | | traMADol 50 | | | MG | | | tabletRefil | | | ls: | | | 0Commonly | | | known as: | | | ULTRAM * | | | This list | | | has 2 | | | medication( | | | s) that are | | | the same | | | as other | | | medications | | | prescribed | | | for you. | | | Read the | | | directions | | | carefully, | | | and ask | | | your doctor | | | or other | | | care | | | provider to | | | review | | | them with | | | you. You | | | might also | | | be taking | | | other | | | medications | | | not listed | | | above. If | | | you have | | | questions | | | about any | | | of your | | | other | | | medications | | | , talk to | | | the person | | | who | | | prescribed | | | them or | | | your | | | Primary | | | Care | | | Provider. | | | Where to | | | Get Your | | | Medications | | | You can | | | get these | | | medications | | | from any | | | pharmacy | | | Bring a | | | paper | | | prescriptio | | | n for each | | | of these | | | medications | | | | | | HYDROcodone | | | -acetaminop | | | hen 5-325 | | | MG per | | | tablet | | | Discharge | | | took | | | minutes, to | | | include | | | final | | | examination | | | , | | | discussion | | | of | | | admission, | | | and | | | preparation | | | of | | | prescriptio | | | ns, | | | instruction | | | s for | | | on-going | | | care, | | | follow-up | | | and | | | documentati | | | on of | | | discharge | | | summary.Adonis | | | aleida Sloot, | | | ARNP3/29/20 | | | 18 | +---+ + +--------+ +---+ + + | 07/24/ | Hospital | | Huy Child MD | Thoracic aortic | | 2017 | Encounter | | | aneurysm without | | | | | | rupture (HCC) | +--------+ +---+ + + | 07/24/ | Hospital | | Huy Child MD | Thoracic aortic | | 2017 | Encounter | | Reji Anglin MD 3, | aneurysm without | | | | | [facility] | rupture (HCC) | +--------+ +---+ + + | 07/24/ | Procedure | | | | | 2017 | Pass | | | | +--------+ +---+ + + | 07/24/ | Ancillary | | Huy Child MD | Thoracic aortic | | 2018 | Orders | | | aneurysm without | | | | | | rupture (HCC) | +--------+ +---+ + + | 07/24/ | Procedure | | | | | 2017 | Pass | | | | +--------+ +---+ + + | 07/24/ | Surgery | | Reji Anglin MD | AORTIC - ENDOGRAFT | | 2017 | | | | | +--------+ +---+ + + | 07/23/ | Anesthesia | | Damon Arroyo, | | | 2017 | Event | | MD | | +--------+ +---+ + + | 07/23/ | Telephone | | Teresita Wright RN | | | 2017 | | | | | +--------+ +---+ + + | 07/19/ | Hospital | | Huy Child MD | Thoracic aortic | | 2018 | Encounter | | | aneurysm without | | | | | | rupture (HCC) | +--------+ +---+ + + | 07/18/ | Orders Only | | Cyril Ruelas, | Thoracic aortic | | 2018 | | | RN | aneurysm without | | | | | | rupture (HCC) | | | | | | (Primary Dx) | +--------+ +---+ + + | 07/11/ | Initial | | Huy Child MD | Penetrating ulcer of | | 2017 | consult | | | aorta (HCC) | | | | | | (Primary Dx) | +--------+ +---+ + + | 07/11/ | Procedure | | | | | 2017 | Pass | | | | +--------+ +---+ + + | 07/11/ | Orders Only | | Cyril Ruelas, | Thoracic aortic | | 2018 | | | RN | aneurysm without | | | | | | rupture (HCC) | | | | | | (Primary Dx) | +--------+ +---+ + + | 07/04/ | Orders Only | | Daniela Da Silva RN | H/O tracheostomy | | 2017 | | | | (Primary Dx) | +--------+ +---+ + + | 06/25/ | Initial | | Del Tejada MD | Thoracic aortic | | 2018 | consult | | | aneurysm without | | | | | | rupture (HCC) | | | | | | (Primary Dx) | +--------+ +---+ + + | 06/20/ | Hospital | | Del Tejada MD | Thoracic aortic | | 2018 | Encounter | | | aneurysm without | | | | | | rupture (HCC) | +--------+ +---+ + + | 06/12/ | Telephone | | Olimpia Miranda CMA | | | 2018 | | | | | +--------+ +---+ + + from Last 3 Months Immunizations + + + + | Name | Dates Previously Given | Next Due | + + + + | Pneumococcal | 03/09/2012 | | | Polysaccharide | | | | 23-valent | | | + + + + Family History + + +------+ + | Medical History | Relation | Name | Comments | + + +------+ + | Cancer | Father | | colon | + + +------+ + | Heart defect | Neg Hx | | | + + +------+ + | Heart disease | Neg Hx | | | + + +------+ + + +------+ + + | Relation | Name | Status | Comments | + +------+ + + | Father | | | | + +------+ + + Social History + +-------+ +--------+------+ [...] on file | | + + + Last Filed Vital Signs + + + [...] PM PDT | + + + + Plan of Treatment +--------+ + + + + | Date | Type | Specialty | Care Team | Description | +--------+ + + + + | 08/22/ | Clinical | | Cyril Ruelas, | | | 2017 | Support | | RN | | +--------+ + + + + | 02/07/ | Appointment | | Jose Land DNP | | | 2018 | | | [address] | | | | | | [place] | | | | | | [id number] | | | | | | | | +--------+ + + + + + + + + + | Health Maintenance | Due Date | Last Done | Comments | + + + + + | Vaccine: | | | | | Dtap/Tdap/Td (1 - | 4 | | | | Tdap) | | | | + + + + + | Colon Cancer | | | | | Screening | 5 | | | | (Colonoscopy) | | | | + + + + + | Vaccine: Zoster (#1) | | | | | | 5 | | | + + + + + | Vaccine: | Completed | 08/27/2014, 04/24/2013, | | | Pneumococcal 65+ | | 03/09/2012 | | | Low/Medium Risk | | | | + + + + + | Vaccine: Influenza | Completed | 12/17/2016, 02/28/2015, | | | | | 04/24/2013, Additional history | | | | | exists | | + + + + + Implants + +------+-------+ +--------+--------+--------+ | Implanted | Type | Area | Manufacture | Device | Expira | Model | | | | | r | | tion | / | | | | | | Identi | Date | Serial | | | | | | fier | | / Lot | + +------+-------+ +--------+--------+--------+ | Valiant Thoracic Stent | | Aorta | [employer] | | 06/04/ | [id number] | | Graft-07/24/2017Implanted: | | | | | 2020 | [id number] | | Qty: 1 on 07/24/2017 by Mateusz, | | | | | | [facility]U | | Huy Colorado MD | | | | | | /[id number] | | | | | | | | [id number] / | + +------+-------+ +--------+--------+--------+ Procedures + +--------+ + + + | Procedure Name | Priori | Date/Time | Associated Diagnosis | Comments | | | ty | | | | + +--------+ + + + | AORTIC - ENDOGRAFT | | 07/24/2017 | Thoracic aortic | | | | | 10:15 AM | stent graft | | | | | PDT | placement | | + +--------+ + + + +---+--------+ | | | | | Specia | | | l | | | Needs | | | SNF | +---+--------+ + +--------+ +---+---+ | CASE REQUEST | Routin | 07/11/2017 | | | | OPERATING ROOM | e | 1:19 PM | | | | | | PDT | | | + +--------+ +---+---+ from Last 3 Months Results CTA chest abdomen pelvis with IV contrast (08/06/2017 3:54 PM)Only the most recent of 2 re sults within the time period is included. + + + | Specimen | Performing Laboratory | + + + | | [facility] [id number] [place] [address] | + + + + + | Impressions | + + | 1. Interval placement of a noncovered proximal descending thoracic aortic stent, | | with near resolution of the penetrating posterior wall descending thoracic aortic | | ulceration. 2. Ascending aortic fusiform aneurysm measuring up to 5.5 cm, compared | | with 5.4 cm on 03/08/12, essentially unchanged. 3. 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 4. Diffuse | | atheromatous change of the arterial tree in the chest abdomen and pelvis, without | | evidence of significant stenosis. 5. Probable right lower lobe atelectasis, with | | small right and minimal left pleural effusions. 6. Probable pulmonary arterial | | hypertension. 7. Cardiac enlargement without pericardial effusion. 8. Small | | amount of ascites, with heterogeneous enhancement of the liver and spleen, nonspecific, | | perhaps due to timing of the injection. Correlate for hypoperfusion. 9. Thickening | | of the rectum with infiltration of the perirectal fat, consistent with proctitis, new. | | 10. Persistent bladder wall thickening, probably due to chronic cystitis. Correlate | | clinically. 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 COMPARISON: | | 07/19/17, 06/20/17 CTA chest abdomen and pelvis. TECHNIQUE: 5-mm axial CT images | | using automated exposure control of the chest, abdomen and pelvis were acquired without | | contrast. Subsequently axial 0.[address] images were acquired through | | the chest abdomen pelvis according to a CT angiography protocol. Then 5-mm axial | | venous phase CT images of the abdomen and pelvis were acquired. Multiplanar CT | | angiographic MIP reconstructions were performed from the arterial phase data set. 3-D | | reconstructions were performed using the [email or web address] 3-D software and sent to PACS. | | Oral Contrast: None IV contrast: 100 mL IsoVue 370 FINDINGS: CT Chest, Abdomen, | | Pelvis: There are increasing small right and persistent minimal left pleural effusions. | | Bilateral right lower lobe atelectasis or less likely infiltrate. Nodule in the right | | middle lobe sequence 2 image 35 measuring 6 mm. Previous right upper lobe nodular | | density is not seen presently. Subtle thickening of the soft tissues in the | | bilateral hilar regions probably due to reactive changes, without gross lymphadenopathy. | | No present pericardial effusion. Mild left atrial and left ventricular enlargement. No | | right heart enlargement. Mild heterogeneity of enhancement of the liver and spleen. | | Correlate for an element of CHF. Small amount of ascites in the abdomen and pelvis. | | Bilateral renal cysts. Increased gas in nondilated small bowel loops and colon, with a | | few air-fluid levels, suggesting an element of ileus. Mild thickening of the rectum, | | with perirectal infiltration of the fat, new, suggesting proctitis. Mild diffuse | | bladder wall thickening, probably unchanged. Correlate for cystitis. No adenopathy. Bone | | windows show advanced L5-S1 degenerative disc disease, with mild spondylotic changes | | throughout the balance of the spine. Old healed right posterior sixth through ninth rib | | fractures again noted. CTA Chest Abdomen and Pelvis: Mid ascending AP aortic | | diameter 5.5 cm sequence 3 image 116, compared with 5.4 cm on 03/08/12. Interval | | placement of a stent beginning a few centimeters distal to the left subclavian, bridging | | the penetrating posterior descending thoracic aortic ulcer, now with only mild | | posterior bulging in this region sequence 601 image 44. Descending thoracic aortic | | diameter 3.2 cm just below the arch, 2.6 cm distal thoracic aorta. Mild prominence of | | the main pulmonary arteries, perhaps representing an element of pulmonary arterial | | hypertension again noted. Slight fusiform dilatation of the abdominal aorta without | | aneurysm, with moderate atherosclerotic changes of the abdominal aorta and origins of | | the celiac, SMA, single left and duplicated right renal arteries, all without stenosis. | | Widely patent inferior mesenteric artery. Moderate atherosclerotic change of the | | bilateral common, internal, and extranodal iliac arteries. Saccular aneurysm along the | | posterior right common iliac artery sequence 3 image 390 measuring 10 mm superoinferior | | by 14 mm AP dimension. This is unchanged 07/19/17. No earlier comparisons. Saccular | | aneurysm of the medial wall of the left common iliac artery sequence 3 image 398 | | measuring 10 mm AP by 16 mm transverse, also stable. Infiltration in the left groin | | related to recent catheter placement, without hemorrhage. Shotty lymph nodes in the left | | groin, new, reactive. | + + + + | Procedure Note | + + | Jayson, Rad Results In - 08/06/2017 5:29 PM PDT HISTORY:Penetrating descending thoracic | | aortic ulcer post stenting.COMPARISON:07/19/17, 06/20/17 CTA chest abdomen and | | pelvis.TECHNIQUE:5-mm axial CT images using automated exposure control of the chest, | | abdomen and pelvis were acquired without contrast. Subsequently axial 0.625 mm arterial | | phase CT images were acquired through the chest abdomen pelvis according to a CT | | angiography protocol. Then 5-mm axial venous phase CT images of the abdomen and pelvis | | were acquired. Multiplanar CT angiographic MIP reconstructions were performed from the | | arterial phase data set. 3-D reconstructions were performed using the [email or web address] 3-D | | software and sent to PACS.Oral Contrast: NoneIV contrast: 100 mL IsoVue 370FINDINGS:CT | | Chest, Abdomen, Pelvis:There are increasing small right and persistent minimal left | | pleural effusions. Bilateral right lower lobe atelectasis or less likely infiltrate. | | Nodule in the right middle lobe sequence 2 image 35 measuring 6 mm. Previous right upper | | lobe nodular density is not seen presently.Subtle thickening of the soft tissues in the | | bilateral hilar regions probably due to reactive changes, without gross | | lymphadenopathy. No present pericardial effusion. Mild left atrial and left ventricular | | enlargement. No right heart enlargement.Mild heterogeneity of enhancement of the liver | | and spleen. Correlate for an element of CHF. Small amount of ascites in the abdomen and | | pelvis. Bilateral renal cysts. Increased gas in nondilated small bowel loops and colon, | | with a few air-fluid levels, suggesting an element of ileus.Mild thickening of the | | rectum, with perirectal infiltration of the fat, new, suggesting proctitis. Mild diffuse | | bladder wall thickening, probably unchanged. Correlate for cystitis. No adenopathy. | | Bone windows show advanced L5-S1 degenerative disc disease, with mild spondylotic | | changes throughout the balance of the spine. Old healed right posterior sixth through | | ninth rib fractures again noted.CTA Chest Abdomen and Pelvis:Mid ascending AP aortic | | diameter 5.5 cm sequence 3 image 116, compared with 5.4 cm on 03/08/12.Interval | | placement of a stent beginning a few centimeters distal to the left subclavian, bridging | | the penetrating posterior descending thoracic aortic ulcer, now with only mild | | posterior bulging in this region sequence 601 image 44.Descending thoracic aortic | | diameter 3.2 cm just below the arch, 2.6 cm distal thoracic aorta. Mild prominence of | | the main pulmonary arteries, perhaps representing an element of pulmonary arterial | | hypertension again noted.Slight fusiform dilatation of the abdominal aorta without | | aneurysm, with moderate atherosclerotic changes of the abdominal aorta and origins of | | the celiac, SMA, single left and duplicated right renal arteries, all without stenosis. | | Widely patent inferior mesenteric artery.Moderate atherosclerotic change of the | | bilateral common, internal, and extranodal iliac arteries. Saccular aneurysm along the | | posterior right common iliac artery sequence 3 image 390 measuring 10 mm superoinferior | | by 14 mm AP dimension. This is unchanged 07/19/17. 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 Shotty lymph nodes in the left | | groin, new, reactive.IMPRESSION:1. Interval placement of a noncovered proximal | | descending thoracic aortic stent, with near resolution of the penetrating posterior wall | | descending thoracic aortic ulceration.2. Ascending aortic fusiform aneurysm measuring | | up to 5.5 cm, compared with 5.4 cm on 03/08/12, essentially unchanged.3. Small saccular | | aneurysms of the medial wall of the left common iliac artery measuring 10 mm, and of | | the posterior wall of the right common iliac artery measuring 10 mm, stable from | | 07/19/17.4. Diffuse atheromatous change of the arterial tree in the chest abdomen and | | pelvis, without evidence of significant stenosis.5. Probable right lower lobe | | atelectasis, with small right and minimal left pleural effusions.6. Probable pulmonary | | arterial hypertension.7. Cardiac enlargement without pericardial effusion.8. Small | | amount of ascites, with heterogeneous enhancement of the liver and spleen, nonspecific, | | perhaps due to timing of the injection. Correlate for hypoperfusion.9. Thickening of | | the rectum with infiltration of the perirectal fat, consistent with proctitis, new.10. | | Persistent bladder wall thickening, probably due to chronic cystitis. Correlate | | clinically. | | | | | + + CBC w/no Diff (07/25/2017 5:20 AM) + + + + | Component | Value | Ref Range | + + + + | WBC | 7.10 | 3.80 - 11.00 K/uL | + + + + | RBC | 4.19 (L) | 4.20 - 5.70 M/uL | + + + + | HGB | 11.3 (L) | 13.2 - 17.0 g/dL | + + + + | HCT | 33.3 (L) | 39.0 - 50.0 % | + + + + | MCV | 79.5 (L) | 80.0 - 100.0 fl | + + + + | MCH | 26.9 (L) | 27.0 - 34.0 pg | + + + + | MCHC | 33.8 | 32.0 - 35.5 g/dL | + + + + | RDW SD | 51.2 | 37 - 53 fl | + + + + | PLT | 158 | 150 - 400 K/uL | + + + + | MPV | 7.4Comment: Testing performed at [facility], [address] | | | [place] [address] | | + + + + + + + | Specimen | Performing Laboratory | + + + | | [facility] On DigitalT[facility] [address] [place] [address] [address], | | | [place] [address] | + + + Basic metabolic panel (07/25/2017 5:20 AM)Only the most recent of 2 results within the period is included. + + + + | Component | Value | Ref Range | + + + + | SODIUM | 140 | 135 - 145 mmol/L | + + + + | POTASSIUM | 4.3 | 3.5 - 4.9 mmol/L | + + + + | CHLORIDE | 108 | 99 - 109 mmol/L | + + + + | CO2 | 25 | 23 - 32 mmol/L | + + + + | ANION GAP AGAP | 11 | 5 - 20 mmol/L | + + + + | GLUCOSE | 90 | 65 - 99 mg/dL | + + + + | BUN | 14 | 8 - 25 mg/dL | + + + + | CREATININE | 0.8 | 0.70 - 1.30 mg/dL | + + + + | BUN/CREAT | 18 | | + + + + | CALCIUM | 6.8 (L) | 8.5 - 10.5 mg/dL | + + + + | EGFR | >60Comment: GFR <60: CHRONIC KIDNEY | >60 mL/min/1.73m2 | | | DISEASE, IF FOUND OVER A 3 MONTH PERIOD.GFR | | | | <15: KIDNEY FAILURE.FOR AMERICANS, | | | | MULTIPLY THE CALCULATED GFR BY | | | | 1.210.Testing performed at [facility], [address] | | | | [place] [address] | | | | | | + + + + + + + | Specimen | Performing Laboratory | + + + | Blood | [facility] [address] [place], [place] [address]jac[place]. [place], | | | [place] [address] | + + + IR endo repair thoracic aorta not including subclavian (07/24/2017 1:34 PM) + + + | Specimen | Performing Laboratory | + + + | | [address] [address] | + + + + + | Impressions | + + | 1. Rapidly enlarging penetrating aortic ulcer repaired using valiant thoracic | | aortic stent graft. 2. No further filling of penetrating aortic ulcer after repair. 3. | | Perclose closure of bilateral common femoral arteries. 4. Strong pedal signals at end | | of case. | + + + + | Narrative | + + | Abdominal Arteriogram and Endovascular Aneurysm Repair PREOPERATIVE | | DIAGNOSIS: Rapidly enlarging penetrating aortic ulcer of the descending thoracic | | aorta POSTOPERATIVE DIAGNOSIS: Same PROCEDURE: 1. Ultrasound-guided access | | of bilateral common femoral artery 2. Arch aortogram 3. Endovascular repair of | | penetrating aortic ulcer using valiant thoracic aortic stent graft 4. Perclose closure | | of bilateral common femoral arteries CO-SURGEONS: Huy Child MD and Reji Anglin MD | | AMBULANCE DISPATCHER: None ANESTHESIA: General endotracheal anesthesia ESTIMATED BLOOD | | LOSS: Minimal FLUIDS: 1100 ml crystalloids CONTRAST: 60 mL of Isovue 250 | | INDICATIONS: See preoperative history and physical FINDINGS: Aneurysmal | | ascending aorta. Descending thoracic aorta with enlarging penetrating aortic ulcer. | | After graft deployment, no further filling of penetrating aortic ulcer. Closure of | | femoral arteries using Perclose device strong pedal signals at end of case. | | DESCRIPTION OF PROCEDURE: The patient was properly identified and brought to the Cath | | Lab. The patient was placed supine on the Lead Designer table and the patient underwent | | general endotracheal anesthesia. The patient's abdomen and bilateral groins were then | | prepped and draped in the usual sterile fashion. Dr. Anglin was standing on the patient's | | right and Dr. Child was standing on patient's left in this procedure was done in | | conjunction. First, a micropuncture needle was used to access the right common femoral | | artery. A micropuncture sheath was then inserted over wire and this was upsized to a 5 | | Argentine sheath. A pigtail catheter was then placed through the right sheath into the | | aortic arch. Next, a micropuncture needle was used to access the left common femoral | | artery. A micropuncture sheath was then inserted over wire and this was upsized to a 7 | | Argentine sheath. Again, a perclose device was deployed at the 10:00 and 2:00 position in | | the left common femoral artery. A Lunderquist wire was then placed to the left 7 Argentine | | sheath with the tip of the wire in the aortic arch. Once the wire was in place, the | | 7-Argentine sheath was removed from the left common femoral artery and a 36 x 36 x 100 mm | | valiant thoracic aortic stent graft was positioned in the proximal descending thoracic | | aorta. Next, an arch aortogram was then performed through the pigtail catheter. Once the | | aortogram was performed, the location of the penetrating aortic ulcer was identified | | and marked. The aortic graft was then deployed covering the penetrating aortic ulcer | | with the mid graft. The pigtail catheter through the right groin sheath was then | | repositioned through the graft and an arteriogram was then repeated which revealed good | | coverage of the descending thoracic aorta with no further filling of the penetrating | | aortic ulcer. Therefore, the right sheath was removed and a Perclose device was used to | | obtain hemostasis. The left sheath was then removed and the Perclose device was also | | used to obtain hemostasis. A hand-held Doppler was used to verify good flow in both | | pedal arteries. Sterile dressings were then applied to the skin. At the end of the case, | | sponge, needle and instrument counts were correct x2. There were no apparent | | complications. | + + + -------+ | Procedure Note | + -------+ | Jayson, Rad Results In - 07/26/2017 2:32 PM PDT Abdominal Arteriogram and Endovascular | | Aneurysm RepairPREOPERATIVE DIAGNOSIS: Rapidly enlarging penetrating aortic ulcer of | | the descending thoracic aortaPOSTOPERATIVE DIAGNOSIS: SamePROCEDURE:1. | | Ultrasound-guided access of bilateral common femoral artery2. Arch aortogram3. | | Endovascular repair of penetrating aortic ulcer using valiant thoracic aortic stent | | graft4. Perclose closure of bilateral common femoral arteriesCO-SURGEONS: Huy Child MD | | and Reji Anglin MDASSISTANT: NoneANESTHESIA: General endotracheal anesthesiaESTIMATED | | BLOOD LOSS: MinimalFLUIDS: 1100 ml crystalloidsCONTRAST: 60 mL of Isovue | | 250INDICATIONS: See preoperative history and physicalFINDINGS: Aneurysmal ascending | | aorta. Descending thoracic aorta with enlarging penetrating aortic ulcer. After graft | | deployment, no further filling of penetrating aortic ulcer. Closure of femoral arteries | | using Perclose device strong pedal signals at end of case.DESCRIPTION OF PROCEDURE:The | | patient was properly identified and brought to the Lead Designer. The patient was placed | | supine on the Lead Designer table and the patient underwent general endotracheal anesthesia. | | The patient's abdomen and bilateral groins were then prepped and draped in the usual | | sterile fashion. Dr. Anglin was standing on the patient's right and Dr. Child was standing on | | patient's left in this procedure was done in conjunction. First, a micropuncture needle | | was used to access the right common femoral artery. A micropuncture sheath was then | | inserted over wire and this was upsized to a 5 Argentine sheath. A pigtail catheter was | | then placed through the right sheath into the aortic arch. Next, a micropuncture needle | | was used to access the left common femoral artery. A micropuncture sheath was then | | inserted over wire and this was upsized to a 7 Argentine sheath. Again, a perclose device | | was deployed at the 10:00 and 2:00 position in the left common femoral artery. A | | Lunderquist wire was then placed to the left 7 Argentine sheath with the tip of the wire in | | the aortic arch.Once the wire was in place, the 7-Argentine sheath was removed from the | | left common femoral artery and a 36 x 36 x 100 mm valiant thoracic aortic stent graft | | was positioned in the proximal descending thoracic aorta. Next, an arch aortogram was | | then performed through the pigtail catheter. Once the aortogram was performed, the | | location of the penetrating aortic ulcer was identified and marked. The aortic graft was | | then deployed covering the penetrating aortic ulcer with the mid graft. The pigtail | | catheter through the right groin sheath was then repositioned through the graft and an | | arteriogram was then repeated which revealed good coverage of the descending thoracic | | aorta with no further filling of the penetrating aortic ulcer. Therefore, the right | | sheath was removed and a Perclose device was used to obtain hemostasis. The left sheath | | was then removed and the Perclose device was also used to obtain hemostasis. A | | hand-held Doppler was used to verify good flow in both pedal arteries. Sterile dressings | | were then applied to the skin. At the end of the case, sponge, needle and instrument | | counts were correct x2. There were no apparent complications.IMPRESSION:1. Rapidly | | enlarging penetrating aortic ulcer repaired using valiant thoracic aortic stent graft.2. | | No further filling of penetrating aortic ulcer after repair.3. Perclose closure of | | bilateral common femoral arteries.4. Strong pedal signals at end of case.Electronically | | signed by Huy Child MD on 07/26/2017 2:27 PM | | | |IMPRESSION: | | | |1. Rapidly enlarging penetrating aortic ulcer repaired using valiant thoracic aortic stent graft. | |2. No further filling of penetrating aortic ulcer after repair. | |3. Perclose closure of bilateral common femoral arteries. | |4. Strong pedal signals at end of case. | | | | | + -------+ IR guidance vascular access US (07/24/2017 12:35 PM) + + + | Specimen | Performing Laboratory | + + + | | [facility] [address] [place] [address] | + + + + + | Narrative | + + | This Point of Care (POC) ultrasound image has been reviewed and interpreted by the | | physician identified as the performing physician in the associated interpretation and | | report. | + + POC ACT, arterial (07/24/2017 12:34 PM) + + + + | Component | Value | Ref Range | + + + + | POC ACT | 213 (H)Comment: Testing performed at | 74 - 137 seconds | | | [facility] [place] [place] [address];[place] [address] | | + + + + + + + | Specimen | Performing Laboratory | + + + | | [facility] [address] [place] [address] | + + + CBC W/Auto Diff (Reflex to Manual) (07/24/2017 9:31 AM) + + + + | Component | Value | Ref Range | + + + + | WBC | 7.15 | 3.80 - 11.00 K/uL | + + + + | RBC | 5.11 | 4.20 - 5.70 M/uL | + + + + | HGB | 13.2 | 13.2 - 17.0 g/dL | + + + + | HCT | 40.1 | 39.0 - 50.0 % | + + + + | MCV | 78.4 (L) | 80.0 - 100.0 fl | + + + + | MCH | 25.8 (L) | 27.0 - 34.0 pg | + + + + | MCHC | 32.9 | 32.0 - 35.5 g/dL | + + + + | RDW SD | 49.0 | 37 - 53 fl | + + + + | PLT | 184 | 150 - 400 K/uL | + + + + | MPV | 7.4 | fl | + + + + | DIFF TYPE | AUTOMATED | | + + + + | NEUTROPHILS | 70.68 | % | + + + + | LYMPHOCYTES | 13.42 | % | + + + + | MONOCYTES | 10.91 | % | + + + + | EOSINOPHILS | 3.86 | % | + + + + | BASOPHILS | 1.13 | % | + + + + | NEUTROPHILS ABS | 5.05 | 1.90 - 7.40 K/uL | + + + + | LYMPHOCYTES ABS | 0.96 (L) | 1.00 - 3.90 K/uL | + + + + | MONOCYTES ABS | 0.78 | 0.00 - 0.80 K/uL | + + + + | EOSINOPHILS ABS | 0.28 | 0.00 - 0.50 K/uL | + + + + | BASOPHILS ABS | 0.08Comment: Testing performed at [facility] [place] | 0.00 - 0.10 K/uL | | | [facility];[place] [address] | | + + + + + + + | Specimen | Performing Laboratory | + + + | Blood | [facility] [address] [place] [address] | + + + Type and Crossmatch (Blood Bank) (07/24/2017 9:31 AM) + + + + | Component | Value | Ref Range | + + + + | ARM BAND NUMBER | [id number] | | + + + + | ABO/RH(D) | O POSITIVE | | + + + + | ANTIBODY SCREEN | NEGATIVE | | + + + + | UNIT NUMBER | [id number] | | + + + + | BLOOD COMPONENT TYPE | LEUKODEPLETED PC,A | | + + + + | UNIT DIVISION | 00 | | + + + + | STATUS OF UNIT | REL FROM ALLOC | | + + + + | TRANSFUSION STATUS | OK TO TRANSFUSE | | + + + + | CROSSMATCH RESULT | COMPATIBLETesting performed at [facility] [place] | | | | [address];[place] [address] | | | | | | + + + + | UNIT NUMBER | [id number] | | + + + + | BLOOD COMPONENT TYPE | LEUKODEPLETED PC | | + + + + | UNIT DIVISION | 00 | | + + + + | STATUS OF UNIT | REL FROM ALLOC | | + + + + | TRANSFUSION STATUS | OK TO TRANSFUSE | | + + + + | CROSSMATCH RESULT | COMPATIBLE | | + + + + | UNIT NUMBER | [id number] | | + + + + | BLOOD COMPONENT TYPE | LEUKODEPLETED PC | | + + + + | UNIT DIVISION | 00 | | + + + + | STATUS OF UNIT | REL FROM ALLOC | | + + + + | TRANSFUSION STATUS | OK TO TRANSFUSE | | + + + + | CROSSMATCH RESULT | COMPATIBLE | | + + + + | UNIT NUMBER | [id number] | | + + + + | BLOOD COMPONENT TYPE | LEUKODEPLETED PC | | + + + + | UNIT DIVISION | 00 | | + + + + | STATUS OF UNIT | REL FROM ALLOC | | + + + + | TRANSFUSION STATUS | OK TO TRANSFUSE | | + + + + | CROSSMATCH RESULT | COMPATIBLE | | + + + + + + + | Specimen | Performing Laboratory | + + + | Blood | [facility] [address] [facility] [place] [address] | + + + MRSA by PCR (07/24/2017 8:55 AM) + + + + | Component | Value | Ref Range | + + + + | SOURCE | NARES(NOSE) | | + + + + | MRSA PCR | NEGATIVEComment: Testing performed at | NEGATIVE | | | [facility];[address];[place] [address] | | + + + + + + + | Specimen | Performing Laboratory | + + + | Nasopharyngeal - | [facility] [address] [place] [address] | | Nares(Nose) | | + + + CTA chest aorta W IV contrast (06/20/2017 9:11 AM) + + + | Specimen | Performing Laboratory | + + + | | [facility] [address] [place] [address] | + + + + + | Impressions | + + | 1. Fusiform ascending thoracic aortic aneurysm with maximum diameter measuring | | approximately 5.4 cm, similar to CT dated 03/26/2016. 2. Penetrating ulcer in | | proximal descending thoracic aorta measuring 2.5 x 1.2 cm, increased in size as compared | | to CT dated 03/10/2015, previously measured 1.6 x 1.2 cm. 3. Cardiomegaly. | | 4. Enlarged pulmonary trunk indicating pulmonary artery hypertension. 5. Small | | pericardial effusion. 6. Moderate coronary artery atherosclerosis. | | 7. Ill-defined nodular opacities in right upper lobe and right lower lobe, | | nonspecific, probably inflammatory/infective. These are new as compared to CT dated | | 03/26/2016. Recommend attention on follow-up chest CT in 3 months. 8. Diffuse | | bronchial wall thickening indicating bronchitis. 9. Enlarged right hilar lymph | | nodes, nonspecific, likely reactive. 10. Small bilateral pleural effusions. | | 11. Additional incidental findings as detailed above. | + + + + | Narrative | + + | SAI BASILIO CTA CHEST 06/20/2017 9:11 AM HISTORY: 72 | | years. Male. Follow-up thoracic aortic aneurysm. TECHNIQUE: 5-mm axial images | | were acquired without intravenous contrast. Subsequently axial 0.625 mm arterial | | phase images were acquired through the chest according to a CT angiography | | protocol. Multiplanar CT angiographic MIP reconstructions were performed from the | | arterial phase data set. 3-D reconstructions were performed using the [employer] 3-D | | software and sent to PACS. Dose reduction techniques were used including automated | | exposure control (AEC), iterative reconstruction technique, and/or mA and/or kV dose | | adjustments based on patient size. Oral Contrast: None IV contrast: 100 mL | | IsoVue 370 COMPARISON: 03/18/2016. FINDINGS: Relatively small thyroid. | | Left-sided aortic arch. Aortic atherosclerosis including atherosclerosis of major branch | | vessels. Moderate coronary artery atherosclerosis. Cardiomegaly. Small pericardial | | effusion. Fusiform ascending thoracic aortic aneurysm with maximum diameter | | measuring approximately 5.4 cm, image 119/series 4. There is a penetrating aortic ulcer | | in proximal descending thoracic aorta measuring approximately 2.5 x 1.2 cm, image | | 164/series 601B, previously measured approximately 1.6 x 1.2 cm on CTA dated 03/10/2015. | | Extensive atherosclerotic plaques in the descending thoracic aorta. No enlarged | | mediastinal lymph nodes. Normal thoracic esophagus. Enlarged right hilar lymph | | nodes. The index right hilar lymph node measuring approximately 1.9 x 1.4 cm, image | | 104/series 4. The index right hilar lymph node measuring 1.6 x 1.1 cm, image 1:30/series | | 4. Small bilateral pleural effusions. The pulmonary trunk measures approximately | | 3.3 cm, image 121/series 4. No evidence of pulmonary embolism in central, lobar and | | proximal segmental size pulmonary arteries. Limited assessment of distal segmental and | | subsegmental pulmonary arteries secondary to respiratory motion artifacts. | | Ill-defined nodular opacities in right upper lobe, the index nodular opacity measuring | | approximately 7 x 8 mm, image 81/series 4, new as compared to prior CT. Ill-defined | | nodular opacities in right lower lobe, the index nodular opacity in right lower lobe | | measuring 7 x 6 mm, image 178/series 4, new as compared to prior CT. Peripheral | | subpleural opacities in both lower lobes, image 186/series 4 Diffuse bronchial wall | | thickening. Osteopenia. Multiple remote healed right rib fractures. Thoracic | | spondylosis. Colonic diverticulosis without acute diverticulitis. Hypodense | | lesions in upper pole of the left kidney, the index exophytic lesion arising from the | | upper pole of the left kidney measuring approximately 2.4 x 1.9 cm, image 259/series 4, | | probable cyst. | + + + + | Procedure Note | + + | Storm Tyler In - 06/20/2017 10:59 AM PST SAI HOLM CHEST06/20/2017 9:11 | | AMHISTORY:72 years. Male. Follow-up thoracic aortic aneurysm.TECHNIQUE:5-mm axial | | images were acquired without intravenous contrast. Subsequently axial 0.625 mm arterial | | phase images were acquired through the chest according to a CT angiography protocol. | | Multiplanar CT angiographic MIP reconstructions were performed from the arterial phase | | data set. 3-D reconstructions were performed using the [employer] 3-D software and sent to | | PACS. Dose reduction techniques were used including automated exposure control (AEC), | | iterative reconstruction technique, and/or mA and/or kV dose adjustments based on | | patient size.Oral Contrast: NoneIV contrast: 100 mL IsoVue | | 370COMPARISON:03/18/2016.FINDINGS:Relatively small thyroid.Left-sided aortic arch. | | Aortic atherosclerosis including atherosclerosis of major branch vessels. Moderate | | coronary artery atherosclerosis.Cardiomegaly. Small pericardial effusion.Fusiform | | ascending thoracic aortic aneurysm with maximum diameter measuring approximately 5.4 cm, | | image 119/series 4. There is a penetrating aortic ulcer in proximal descending thoracic | | aorta measuring approximately 2.5 x 1.2 cm, image 164/series 601B, previously measured | | approximately 1.6 x 1.2 cm on CTA dated 03/10/2015. Extensive atherosclerotic plaques in | | the descending thoracic aorta.No enlarged mediastinal lymph nodes. Normal thoracic | | esophagus.Enlarged right hilar lymph nodes. The index right hilar lymph node measuring | | approximately 1.9 x 1.4 cm, image 104/series 4. The index right hilar lymph node | | measuring 1.6 x 1.1 cm, image 1:30/series 4. Small bilateral pleural effusions.The | | pulmonary trunk measures approximately 3.3 cm, image 121/series 4. No evidence of | | pulmonary embolism in central, lobar and proximal segmental size pulmonary arteries. | | Limited assessment of distal segmental and subsegmental pulmonary arteries secondary to | | respiratory motion artifacts.Ill-defined nodular opacities in right upper lobe, the | | index nodular opacity measuring approximately 7 x 8 mm, image 81/series 4, new as | | compared to prior CT. Ill-defined nodular opacities in right lower lobe, the index | | nodular opacity in right lower lobe measuring 7 x 6 mm, image 178/series 4, new as | | compared to prior CT. Peripheral subpleural opacities in both lower lobes, image | | 186/series 4Diffuse bronchial wall thickening.Osteopenia. Multiple remote healed right | | rib fractures. Thoracic spondylosis.Colonic diverticulosis without acute diverticulitis. | | Hypodense lesions in upper pole of the left kidney, the index exophytic lesion arising | | from the upper pole of the left kidney measuring approximately 2.4 x 1.9 cm, image | | 259/series 4, probable cyst.IMPRESSION:1. Fusiform ascending thoracic aortic aneurysm | | with maximum diameter measuring approximately 5.4 cm, similar to CT dated 03/26/2016.2. | | Penetrating ulcer in proximal descending thoracic aorta measuring 2.5 x 1.2 cm, | | increased in size as compared to CT dated 03/10/2015, previously measured 1.6 x 1.2 | | cm.3. Cardiomegaly.4. Enlarged pulmonary trunk indicating pulmonary artery | | hypertension.5. Small pericardial effusion.6. Moderate coronary artery | | atherosclerosis.7. Ill-defined nodular opacities in right upper lobe and right lower | | lobe, nonspecific, probably inflammatory/infective. These are new as compared to CT | | dated 03/26/2016. Recommend attention on follow-up chest CT in 3 months.8. Diffuse | | bronchial wall thickening indicating bronchitis.9. Enlarged right hilar lymph nodes, | | nonspecific, likely reactive.10. Small bilateral pleural effusions.11. Additional | | incidental findings as detailed above.Electronically signed by Adair Wang on | | 06/20/2017 10:54 AM | | | | | |IMPRESSION: | |1. Fusiform ascending thoracic aortic aneurysm with maximum diameter measuring approximate ly 5.4 cm, similar to CT dated 03/26/2016. | |2. Penetrating ulcer in proximal descending thoracic aorta measuring 2.5 x 1.2 cm, increas ed in size as compared to CT dated 03/10/2015, previously measured 1.6 x 1.2 cm. | |3. Cardiomegaly. | |4. Enlarged pulmonary trunk indicating pulmonary artery hypertension. | |5. Small pericardial effusion. | |6. Moderate coronary artery atherosclerosis. | |7. Ill-defined nodular opacities in right upper lobe and right lower lobe, nonspecific, pr obably inflammatory/infective. These are new as compared to CT dated 03/26/2016. Recommend a ttention on follow-up chest CT in 3 months. | |8. Diffuse bronchial wall thickening indicating bronchitis. | |9. Enlarged right hilar lymph nodes, nonspecific, likely reactive. | |10. Small bilateral pleural effusions. | |11. Additional incidental findings as detailed above. | | | | | + + POC creatinine (06/20/2017 8:56 AM) + + + + | Component | Value | Ref Range | + + + + | POC CREATININE | 0.9Comment: [place] performed at [facility] [place] | 0.7 - 1.5 mg/dL | | | [facility];[place] [address] | | + + + + + + + | Specimen | Performing Laboratory | + + + | | [place] [id number] [place] [address] | + + + from Last 3 Months Insurance + +--------+ +--------+-------+ + | Payer | Benefi | Subscriber | Type | Phone | Address | | | t Plan | ID | | | | | | / | | | | | | | Group | | | | | + +--------+ +--------+-------+ + | [place] - PREMIERCARE | [place]-PRE | [phone] | Medica | | | | FAMILY | [place] | | re | | | | | RE | | | | | | | FAMILY | | | | | + +--------+ +--------+-------+ + | [place] - PREMIERCARE | [place]-PRE | [phone] | Medica | | | | FAMILY | [place] | | re | | | | | RE | | | | | | | FAMILY | | | | | + +--------+ +--------+-------+ + | MEDICARE | MEDICA | xxxxxxxxxx | | | [address] | | | RE | | | | [place] [phone] | | | IP-OP | | | | | + +--------+ +--------+-------+ + | MEDICAID | MEDICA | xxxxxxxx | | | [address] | | | ID | | | | [place], [place] | | | [place] | | | | [phone] | + +--------+ +--------+-------+ + + +--------+ +--------+ + + | Guarantor Name | Accoun | Relation to | Date | Phone | Billing Address | | | t Type | Patient | of | | | | | | | | | | + +--------+ +--------+ + + | SAI BASILIO | Person | Self [birth year] | Home: | [address] | | | al/Fam | | 1946 | [phone] [place] | | | [place] | | | [phone] | [phone] | + +--------+ +--------+ + +
--- OUTSIDE RECORDS SUMMARY | 2017-08-16 01:20 | XMS | Encounter Summary ---
Demographics + + + | Address | [address] | | | [place] [address] | + + + | Home Phone | | + + + | Preferred Language | Unknown | + + + | Marital Status | Single | + + + | Quaker Affiliation | Unknown | + + + | Race | Unknown | + + + | Ethnic Group | Unknown | + + + Author + + + | Author | [facility] | + + + | Organization | [facility] | + + + | Address | Unknown | + + + | Phone | Unavailable | + + + Support + + +---------+ + | Name | Relationship | Address | Phone | + + +---------+ + | Latricia Nicolas | ECON | Unknown | | + + +---------+ + Care Team Providers + +------+ + | Care Computer Terminal Operator Name | Role | Phone | + +------+ + | Terrence Browning MD | PCP | Unavailable | + +------+ + Reason for Referral MRI/CAT Scan (Routine) +--------+--------+ + + + + | Status | Reason | Specialty | Diagnoses / | Referred By | Referred To | | | | | Procedures | Contact | Contact | +--------+--------+ + + + + | Closed | | Radiology | Diagnoses | Huy Child | [address] | | | | | Thoracic | Y[address] | [address] | | | | | ascending | [address] | | | | | aortic | Drive | [place], [place] | | | | | aneurysm | [place], [place] | [address] Phone: | | | | | ([facility]LY [facility]) | [address] | [phone] | | | | | Procedures | Phone: | | | | | | CTA chest | [phone] | | | | | | abdomen | Fax: | | | | | | pelvis with | [phone] | | | | | | IV contrast | | | +--------+--------+ + + + + MRI/CAT Scan (Routine) +--------+--------+ + + + + | Status | Reason | Specialty | Diagnoses / | Referred By | Referred To | | | | | Procedures | Contact | Contact | +--------+--------+ + + + + | Closed | | Radiology | Diagnoses | Huy Child | [address] | | | | | Thoracic | YMD [address] | [address] | | | | | ascending | [address] | | | | | aortic | Drive | [place], [place] | | | | | aneurysm | [place], [place] | [address] Phone: | | | | | ([facility]LY [facility]) | [address] | [phone] | | | | | Procedures | Phone: | | | | | | CTA chest | [phone] | | | | | | abdomen | Fax: | | | | | | pelvis with | [phone] | | | | | | IV contrast | | | +--------+--------+ + + + + Reason for Visit MRI/CAT Scan (Routine) +--------+--------+ + + + + | Status | Reason | Specialty | Diagnoses / | Referred By | Referred To | | | | | Procedures | Contact | Contact | +--------+--------+ + + + + | Closed | | Radiology | Diagnoses | Huy Child | [address] | | | | | Thoracic | MD [address] | [address] | | | | | ascending | [address] | | | | | aortic | Drive | [place], [place] | | | | | aneurysm | [place], [place] | [address] Phone: | | | | | ([facility]) | [address] | [phone] | | | | | Procedures | Phone: | | | | | | CTA chest | [phone] | | | | | | abdomen | Fax: | | | | | | pelvis with | [phone] | | | | | | IV contrast | | | +--------+--------+ + + + + Encounter Details +--------+ + + + + | Date | Type | Department | Care Team | Description | +--------+ + + + + | 08/06/ | Hospital | [facility] | Huy Child MD | Thoracic ascending | | 2018 | Encounter | [facility] | [address] | aortic aneurysm | | | | CT [address] | [place] [address] | ([facility]) | | | | [address] | [phone] | | | | | [place] [address] | | | | | | [phone] | | | +--------+ + + + + Social History + +-------+ [...] + +---+---+---+ + + | Comments: quit 2010 | + + + + +---------+ + [...] + + + as of this encounter Medications at Time of Discharge + + +-------+---------+--------+ + | Medication | Sig. | Disp. | Refills | Start | End Date | | | | | | Date | | + + +-------+---------+--------+ + | acetaminophen | Take 650 mg by mouth | | | | | | (TYLENOL) 325 MG | every 6 (six) hours | | | | | | tablet | as needed. | | | | | + + +-------+---------+--------+ + | albuterol | Take 2.5 mg by | | | | | | (PROVENTIL) (2.5 | nebulization as | | | | | | MG/3ML) 0.083% | needed. | | | | | | nebulizer solution | | | | | | + + +-------+---------+--------+ + | aspirin 81 MG | Take 81 mg by mouth | | | | | | tablet | daily. | | | | | + + +-------+---------+--------+ + | chlorhexidine | Use as directed 15 | | | | | | (PERIDEX) 0.12 % | mLs in the mouth or | | | | | | solution | throat 2 (two) times | | | | | | | daily. | | | | | + + +-------+---------+--------+ + | ciprofloxacin | Take 250 mg by mouth | | | | | | (CIPRO) 250 MG | 2 (two) times | | | | | | tablet | daily. | | | | | + + +-------+---------+--------+ + | diphenhydrAMINE | Take 50 mg by mouth | | | | | | (BENADRYL) 50 MG | nightly. | | | | | | capsule | | | | | | + + +-------+---------+--------+ + | docusate sodium | Take 100 mg by mouth | | | | | | (COLACE) 100 MG | 2 (two) times | | | | | | capsule | daily. | | | | | + + +-------+---------+--------+ + | ferrous sulfate | Take 325 mg by mouth | | | | | | 325 (65 FE) MG | 2 (two) times | | | | | | tablet | daily. | | | | | + + +-------+---------+--------+ + | finasteride | Take 5 mg by mouth | | | | | | (PROSCAR) 5 MG | daily. | | | | | | tablet | | | | | | + + +-------+---------+--------+ + | fluticasone | Inhale 2 puffs into | | | | | | (FLOVENT HFA) 220 | the lungs 2 (two) | | | | | | MCG/ACT inhaler | times daily. | | | | | + + +-------+---------+--------+ + | | Inhale 1 puff into | | | | | | fluticasone-salmeter | the lungs 2 (two) | | | | | | ol (ADVAIR DISKUS) | times daily. | | | | | | 250-50 MCG/DOSE AEPB | | | | | | + + +-------+---------+--------+ + | | Take 3 mLs by | | | | | | ipratropium-albutero | nebulization. | | | | | | l (DUO-NEB) 0.5-2.5 | | | | | | | mg/3mL | | | | | | + + +-------+---------+--------+ + | levothyroxine | Take 300 mcg by | | | | | | (LEVOTHROID) 150 MCG | mouth. 1po M, W, F | | | | | | tablet | | | | | | + + +-------+---------+--------+ + | LEVOTHYROXINE | Take 200 mcg by | | | | | | SODIUM PO | mouth. 1po q | | | | | | | S,T,TH,SA | | | | | + + +-------+---------+--------+ + | Magnesium | Take 400 mg by mouth | | | | | | Hydroxide (MILK OF | as needed. | | | | | | MAGNESIA PO) | | | | | | + + +-------+---------+--------+ + | magnesium oxide | Take 400 mg by mouth | | | | | | (MAG-OX) 400 MG | 2 (two) times | | | | | | tablet | daily. | | | | | + + +-------+---------+--------+ + | Multiple | Take 1 tablet by | | | | | | Vitamins-Minerals | mouth daily. | | | | | | (MULTIVITAL) tablet | | | | | | + + +-------+---------+--------+ + | NIACIN ER PO | Take 500 mg by mouth | | | | | | | daily. | | | | | + + +-------+---------+--------+ + | omeprazole | Take 20 mg by mouth | | | | | | (PRILOSEC) 20 MG | every morning before | | | | | | capsule | breakfast. | | | | | + + +-------+---------+--------+ + | polyethylene | Take 17 g by mouth | | | | | | glycol (GLYCOLAX) | daily. | | | | | | packet | | | | | | + + +-------+---------+--------+ + | prednisoLONE | 1 drop 4 (four) | | | | | | acetate (PRED FORTE) | times daily. | | | | | | 1 % ophthalmic | | | | | | | suspension | | | | | | + + +-------+---------+--------+ + | quetiapine | Take 400 mg by mouth | | | | | | (SEROQUEL) 200 MG | nightly. | | | | | | tablet | | | | | | + + +-------+---------+--------+ + | risperidone | Take by mouth | | | | | | (RISPERDAL) 4 MG | nightly. 2po q hs | | | | | | tablet | | | | | | + + +-------+---------+--------+ + | sertraline | Take 100 mg by mouth | | | | | | (ZOLOFT) 100 MG | daily. | | | | | | tablet | | | | | | + + +-------+---------+--------+ + | sodium chloride 1 | Take 1 g by mouth 2 | | | | | | G tablet | (two) times daily. | | | | | + + +-------+---------+--------+ + | tamsulosin | Take 0.4 mg by mouth | | | | | | (FLOMAX) 0.4 MG CAPS | After dinner After | | | | | | | dinner. | | | | | + + +-------+---------+--------+ + | tiotropium | Inhale 18 mcg into | | | | | | (SPIRIVA) 18 MCG | the lungs daily. | | | | | | inhalation capsule | | | | | | + + +-------+---------+--------+ + | traMADol (ULTRAM) | Take 50 mg by mouth | | | | | | 50 MG tablet | every 6 (six) hours | | | | | | | as needed for Pain. | | | | | + + +-------+---------+--------+ + | umeclidinium | Inhale 1 puff into | | | | | | bromide (INCRUSE | the lungs daily. | | | | | | ELLIPTA) 62.5 | | | | | | | MCG/INH inhaler | | | | | | + + +-------+---------+--------+ + as of this encounter Plan of Treatment +--------+ + + + + | Date | Type | Specialty | Care Team | Description | +--------+ + + + + | 08/22/ | Clinical | Vascular Surgery | Suraj MarcelaOndina, | | | 2017 | Support | | RN | | +--------+ + + + + | 02/07/ | Appointment | Radiology | Jose Land DNP | | | 2017 | | | [address] | | | | | | [place] | | | | | | [id number] | | | | | | | | +--------+ + + + + as of this encounter Results CTA chest abdomen pelvis with IV contrast (08/06/2017 3:54 PM) + + + | Specimen | Performing Laboratory | + + + | | [facility] [address] [place] [address] | + + + + + | [...] | | reconstructions were performed using the [employer] 3-D software and sent to PACS. | [...] set. 3-D reconstructions were performed using the [employer] 3-D | | software and sent to [...] | | | | | + + in this encounter Visit Diagnoses + + | Diagnosis | + + | Thoracic ascending aortic aneurysm (HCC) | + + | Thoracic aneurysm without mention of rupture | + + Administered Medications + +--------+ +---------+------+------+ | Medication Order | MAR | Action | Dose | Rate | Site | | | Action | Date | | | | + +--------+ +---------+------+------+ | iopamidol (ISOVUE-370) 76 % | Given | | 100 mLs | | | | injection 100 mL 100 mL, | | 8 15:54 | | | | | Intravenous, Img Once PRN, Other, | | PDT | | | | | Starting 08/06/17 at 1519, | | | | | | | For 1 dose | | | | | | + +--------+ +---------+------+------+ +---+---+ | | | +---+---+ in this encounter"
--- OUTSIDE RECORDS SUMMARY | 2017-08-16 01:20 | XMS | Encounter Summary ---
Demographics + + + | Address | [address] | | | [place] [address] | + + + | Home Phone | | + + + | Preferred Language | Unknown | + + + | Marital Status | Single | + + + | Restorationism Affiliation | Unknown | + + + | Race | Unknown | + + + | Ethnic Group | Unknown | + + + Author + + + | Author | [facility] | + + + | Organization | [facility] | + + + | Address | Unknown | + + + | Phone | Unavailable | + + + Support + + +---------+ + | Name | Relationship | Address | Phone | + + +---------+ + | Latricia Nicolas | ECON | Unknown | | + + +---------+ + Care Team Providers + +------+ + | Care Crystallography Teacher Name | Role | Phone | + +------+ + | Terrence Browning MD | PCP | Unavailable | + +------+ + Encounter Details +--------+ + + + + | Date | Type | Department | Care Team | Description | +--------+ + + + + | 07/24/ | Ancillary | [facility] | Huy Child MD | Thoracic aortic | | 2018 | Orders | Vascular Surgery | [address] | aneurysm without | | | | [address] | [place] [address] | rupture (HCC) | | | | [place], [place] | [phone] | | | | | [address] | | | | | | [phone] | | | +--------+ + + + [...] + + + as of this encounter Plan of Treatment +--------+ + + + + | Date | Type | Specialty | Care Team | Description | +--------+ + + + + | 08/22/ | Clinical | Vascular Surgery | Cyril Ruelas, | | | 2018 | Support | | RN | | +--------+ + + + + | 02/07/ | Appointment | Radiology | Jose Land DNP | | | 2018 | | | [address] | | | | | | [place] | | | | | | [address] | | | | | | | | +--------+ + + + + as of this encounter Results IR guidance vascular access US (07/24/2017 12:35 PM) + + + | Specimen | Performing Laboratory | + + + | | [place] [address] [facility] [address] | + + + + + | Narrative | + + | This Point of Care (POC) ultrasound image has been reviewed and interpreted by the | | physician identified as the performing physician in the associated interpretation and | | report. | + + in this encounter Visit Diagnoses + + | Diagnosis | + + | Thoracic aortic aneurysm without rupture (HCC) | + + | Thoracic aneurysm without mention of rupture | + +"
--- OUTSIDE RECORDS SUMMARY | 2017-08-16 01:20 | XMS | Encounter Summary ---
Demographics + + + | Address | [address] | | | [place] [address] | + + + | Home Phone | | + + + | Preferred Language | Unknown | + + + | Marital Status | Single | + + + | Muslim Affiliation | Unknown | + + + | Race | Unknown | + + + | Ethnic Group | Unknown | + + + Author + + + | Author | [facility] | + + + | Organization | [facility] [facility] | + + + | Address | Unknown | + + + | Phone | Unavailable | + + + Support + + +---------+ + | Name | Relationship | Address | Phone | + + +---------+ + | Latricia Nicolas | ECON | Unknown | | + + +---------+ + Care Team Providers + +------+ + | Care Biometrics Specialist Name | Role | Phone | + +------+ + | Terrence Browning MD | PCP | Unavailable | + +------+ + Reason for Visit Auth/Cert +--------+--------+ + + + + | Status | Reason | Specialty | Diagnoses / | Referred By | Referred To | | | | | Procedures | Contact | Contact | +--------+--------+ + + + + | | | | Diagnoses | | | | | | | Thoracic | | | | | | | aortic stent | | | | | | | graft | | | | | | | placement | | | | | | | Procedures | | | | | | | AORTIC - | | | | | | | ENDOGRAFT | | | +--------+--------+ + + + + Encounter Details +--------+ + + + + | Date | Type | Department | Care Team | Description | +--------+ + + + + | 07/24/ | Hospital | [facility] | Huy Child MD | Thoracic aortic | | 2018 | [facility] | [facility] | [address] | aneurysm without | | | | Interventional | [place] [address] | rupture (HCC) | | | | Radiology [address] | [phone] | | | | | Bl[address] [place], [place] | | | | | | [id number] | | | +--------+ + + + [...] Medications at Time of Discharge + + +--------+---------+ + + | Medication | Sig. | Disp. | Refills | Start | End Date | | | | | | Date | | + + +--------+---------+ + + | acetaminophen | Take 650 mg by mouth | | | | | | (TYLENOL) 325 MG | every 6 (six) hours | | | | | | tablet | as needed. | | | | | + + +--------+---------+ + + | albuterol | Take 2.5 mg by | | | | | | (PROVENTIL) (2.5 | nebulization as | | | | | | MG/3ML) 0.083% | needed. | | | | | | nebulizer solution | | | | | | + + +--------+---------+ + + | aspirin 81 MG | Take 81 mg by mouth | | | | | | tablet | daily. | | | | | + + +--------+---------+ + + | chlorhexidine | Use as directed 15 | | | | | | (PERIDEX) 0.12 % | mLs in the mouth or | | | | | | solution | throat 2 (two) times | | | | | | | daily. | | | | | + + +--------+---------+ + + | ciprofloxacin | Take 250 mg by mouth | | | | | | (CIPRO) 250 MG | 2 (two) times | | | | | | tablet | daily. | | | | | + + +--------+---------+ + + | diphenhydrAMINE | Take 50 mg by mouth | | | | | | (BENADRYL) 50 MG | nightly. | | | | | | capsule | | | | | | + + +--------+---------+ + + | docusate sodium | Take 100 mg by mouth | | | | | | (COLACE) 100 MG | 2 (two) times | | | | | | capsule | daily. | | | | | + + +--------+---------+ + + | ferrous sulfate | Take 325 mg by mouth | | | | | | 325 (65 FE) MG | 2 (two) times | | | | | | tablet | daily. | | | | | + + +--------+---------+ + + | finasteride | Take 5 mg by mouth | | | | | | (PROSCAR) 5 MG | daily. | | | | | | tablet | | | | | | + + +--------+---------+ + + | fluticasone | Inhale 2 puffs into | | | | | | (FLOVENT HFA) 220 | the lungs 2 (two) | | | | | | MCG/ACT inhaler | times daily. | | | | | + + +--------+---------+ + + | | Inhale 1 puff into | | | | | | fluticasone-salmeter | the lungs 2 (two) | | | | | | ol (ADVAIR DISKUS) | times daily. | | | | | | 250-50 MCG/DOSE AEPB | | | | | | + + +--------+---------+ + + | | Take 3 mLs by | | | | | | ipratropium-albutero | nebulization. | | | | | | l (DUO-NEB) 0.5-2.5 | | | | | | | mg/3mL | | | | | | + + +--------+---------+ + + | levothyroxine | Take 300 mcg by | | | | | | (LEVOTHROID) 150 MCG | mouth. 1po M, W, F | | | | | | tablet | | | | | | + + +--------+---------+ + + | LEVOTHYROXINE | Take 200 mcg by | | | | | | SODIUM PO | mouth. 1po q | | | | | | | S,T,TH,SA | | | | | + + +--------+---------+ + + | Magnesium | Take 400 mg by mouth | | | | | | Hydroxide (MILK OF | as needed. | | | | | | MAGNESIA PO) | | | | | | + + +--------+---------+ + + | magnesium oxide | Take 400 mg by mouth | | | | | | (MAG-OX) 400 MG | 2 (two) times | | | | | | tablet | daily. | | | | | + + +--------+---------+ + + | Multiple | Take 1 tablet by | | | | | | Vitamins-Minerals | mouth daily. | | | | | | (MULTIVITAL) tablet | | | | | | + + +--------+---------+ + + | NIACIN ER PO | Take 500 mg by mouth | | | | | | | daily. | | | | | + + +--------+---------+ + + | omeprazole | Take 20 mg by mouth | | | | | | (PRILOSEC) 20 MG | every morning before | | | | | | capsule | breakfast. | | | | | + + +--------+---------+ + + | polyethylene | Take 17 g by mouth | | | | | | glycol (GLYCOLAX) | daily. | | | | | | packet | | | | | | + + +--------+---------+ + + | prednisoLONE | 1 drop 4 (four) | | | | | | acetate (PRED FORTE) | times daily. | | | | | | 1 % ophthalmic | | | | | | | suspension | | | | | | + + +--------+---------+ + + | quetiapine | Take 400 mg by mouth | | | | | | (SEROQUEL) 200 MG | nightly. | | | | | | tablet | | | | | | + + +--------+---------+ + + | risperidone | Take by mouth | | | | | | (RISPERDAL) 4 MG | nightly. 2po q hs | | | | | | tablet | | | | | | + + +--------+---------+ + + | sertraline | Take 100 mg by mouth | | | | | | (ZOLOFT) 100 MG | daily. | | | | | | tablet | | | | | | + + +--------+---------+ + + | sodium chloride 1 | Take 1 g by mouth 2 | | | | | | G tablet | (two) times daily. | | | | | + + +--------+---------+ + + | tamsulosin | Take 0.4 mg by mouth | | | | | | (FLOMAX) 0.4 MG CAPS | After dinner After | | | | | | | dinner. | | | | | + + +--------+---------+ + + | tiotropium | Inhale 18 mcg into | | | | | | (SPIRIVA) 18 MCG | the lungs daily. | | | | | | inhalation capsule | | | | | | + + +--------+---------+ + + | traMADol (ULTRAM) | Take 50 mg by mouth | | | | | | 50 MG tablet | every 6 (six) hours | | | | | | | as needed for Pain. | | | | | + + +--------+---------+ + + | umeclidinium | Inhale 1 puff into | | | | | | bromide (INCRUSE | the lungs daily. | | | | | | ELLIPTA) 62.5 | | | | | | | MCG/INH inhaler | | | | | | + + +--------+---------+ + + | | Take 1-2 tablets by | 30 | 0 | 07/26/19 | | | HYDROcodone-acetamin | mouth every 4 (four) | tablet | | 18 | 8 | | ophen (NORCO) 5-325 | hours as needed for | | | | | | MG per tablet | up to 10 days. | | | | | + + +--------+---------+ + + as of this encounter Plan [...] [address] | | | | | | [place] | | | | | | [address] | | | | | | | | +--------+ + + + + as of this encounter Results IR guidance vascular access US (07/24/2017 12:35 PM) + + + | Specimen | Performing Laboratory | + + + | | [facility] [address] [place] [address] | + + + + + | [...] without mention of rupture | + + Admitting Diagnoses + + | Diagnosis | + + | Thoracic aortic stent graft placement | + +"
--- OUTSIDE RECORDS SUMMARY | 2017-08-16 01:20 | XMS | Encounter Summary ---
Demographics + + + | Address | [address] | | | [place] [address] | + + + | Home Phone | | + + + | Preferred Language | Unknown | + + + | Marital Status | Single | + + + | Mandaeism Affiliation | Unknown | + + + | Race | Unknown | + + + | Ethnic Group | Unknown | + + + Author + + + | Author | [facility] [employer] | + + + | Organization | [facility] | + + + | Address | Unknown | + + + | Phone | Unavailable | + + + Support + + +---------+ + | Name | Relationship | Address | Phone | + + +---------+ + | Latricia Nicolas | ECON | Unknown | | + + +---------+ + Care Team Providers + +------+ + | Care Shipping Support Name | Role | Phone | + +------+ + | Terrence Browning MD | PCP | Unavailable | + +------+ + Encounter Details +--------+ + + + + | Date | Type | Department | Care Team | Description | +--------+ + + + + | 07/24/ | Procedure | [facility] | | | | 2018 | Pass | [facility] | | | | | | Lab [address] [place] [address] | | | | | | [place] [address] | | | | | | [phone] | | | +--------+ + + + [...] | | | | | | [place] | | | | | | [address] | | | | | | | | +--------+ + + + + as of this encounter Visit Diagnoses Not on filein this encounter"
--- OUTSIDE RECORDS SUMMARY | 2017-08-16 01:20 | XMS | Encounter Summary ---
Demographics + + + | Address | [address] | | | [place] [address] | + + + | Home Phone | | + + + | Preferred Language | Unknown | + + + | Marital Status | Single | + + + | Yazidism Affiliation | Unknown | + + + | Race | Unknown | + + + | Ethnic Group | Unknown | + + + Author + + + | Author | [facility] [employer] | + + + | Organization | [facility] [employer] [facility] | + + + | Address | Unknown | + + + | Phone | Unavailable | + + + Support + + +---------+ + | Name | Relationship | Address | Phone | + + +---------+ + | Latricia Nicolas | ECON | Unknown | | + + +---------+ + Care Team Providers + +------+ + | Care Suction Plate Carrier Cleaner Name | Role | Phone | + [...] Radiology | Diagnoses | Huy Child | [facility] [address] | | | | | Thoracic | [address] | [address] | | | | | ascending | [address] | | | | | aortic | Drive | [place], [place] | | | | | aneurysm | [place], [place] | [address] Phone: | | | | | ([facility]) | [address] | [phone] | | | | | Procedures | Phone: | | | | | | CTA chest | [phone] | | | | | | abdomen | Fax: | | | | | | pelvis with | [phone] | | | | | | IV contrast | | | +--------+--------+ + + + + Encounter Details +--------+ + + + + | Date | Type | Department | Care Team | Description | +--------+ + + + + | 07/29/ | Orders Only | [facility] | Cyril Ruelas, | Thoracic ascending | | 2017 | | Vascular Surgery | RN | aortic aneurysm | | | | [address] | | ([facility]) (Primary Dx) | | | | [place] | | | | | | [address] | | | | | | [phone] | | | +--------+ + + + [...] [place] | | | | | | [address] | | | | | | | | +--------+ + + + + as of this encounter Results CTA chest abdomen pelvis with IV contrast (08/06/2017 3:54 PM) + + + | Specimen | Performing Laboratory | + + + | | [address] [address] | + + + + + | [...] | | reconstructions were performed using the [employer] 3-D software and sent to PACS. | [...] set. 3-D reconstructions were performed using the [employer] 3-D | | software and sent to [...] + | Thoracic ascending aortic aneurysm (HCC) - Primary | + + | Thoracic aneurysm without mention of rupture | + +"
--- OUTSIDE RECORDS SUMMARY | 2017-08-16 01:20 | XMS | Encounter Summary ---
Demographics + + + | Address | [address] | | | [place] [address] | + + + | Home Phone | | + + + | Preferred Language | Unknown | + + + | Marital Status | Single | + + + | Evangelical Affiliation | Unknown | + + + | Race | Unknown | + + + | Ethnic Group | Unknown | + + + Author + + + | Author | [facility] | + + + | Organization | [facility] | + + + | Address | Unknown | + + + | Phone | Unavailable | + + + Support + + +---------+ + | Name | Relationship | Address | Phone | + + +---------+ + | Latricia Nicolas | ECON | Unknown | | + + +---------+ + Care Team Providers + +------+ + | Care Element Winding Machine Tender Name | Role | Phone | + +------+ + | Terrence Browning MD | PCP | Unavailable | + +------+ + Encounter Details +--------+ + + + + | Date | Type | Department | Care Team | Description | +--------+ + + + + | 07/24/ | Procedure | [facility] | | | | 2018 | [facility] | | | | | | Interventional | | | | | | Radiology [address] | | | | | | [place], [place] | | | | | | [address] | | | +--------+ + + + [...] [place] | | | | | | [id number] | | | | | | | | +--------+ + + + + as of this encounter Visit Diagnoses Not on filein this encounter"
--- OUTSIDE RECORDS SUMMARY | 2017-08-16 01:20 | XMS | Encounter Summary ---
Demographics + + + | Address | [address] | | | [place] [address] | + + + | Home Phone | | + + + | Preferred Language | Unknown | + + + | Marital Status | Single | + + + | Buddhism Affiliation | Unknown | + + + | Race | Unknown | + + + | Ethnic Group | Unknown | + + + Author + + + | Author | [facility] [employer] | + + + | Organization | [facility] [employer] | + + + | Address | Unknown | + + + | Phone | Unavailable | + + + Support + + +---------+ + | Name | Relationship | Address | Phone | + + +---------+ + | Latricia Nicolas | ECON | Unknown | | + + +---------+ + Care Team Providers + +------+ + | Care Rope Tow Operator Name | Role | Phone | [...] + + | 07/24/ | Hospital | [facility] | Huy Child MD | Thoracic ascending | | 2018 - | Encounter | [address] | [address] | aortic aneurysm | | | | Floor [facility] | [place] [address] | ([facility]) (Primary Dx) | | 07/26/ | | [address] | [phone] | | | 2017 | | [place] [address] | | | | | | [phone] | | | +--------+ + + + [...] + + + | Blood Pressure | 100/55 | 07/26/2017 7:53 AM PDT | + + + + | Pulse | 79 | 07/26/2017 7:53 AM PDT | + + + + | Temperature | 36.5 C (97.7 F) | 07/26/2017 7:53 AM PDT | + + + + | Respiratory Rate | 18 | 07/26/2017 7:53 AM PDT | + + + + | Oxygen Saturation | 94% | 07/26/2017 7:53 AM PDT | + + + + | Inhaled Oxygen | - | - | | Concentration | | | + + + + | Weight | - | - | + + + + | Height | - | - | + + + + | Body Mass Index | - | - | + + + + in this encounter Discharge Summaries Kerry Griffith ARNP - 07/25/2017 11:44 AM PDTFormatting of this note may be different from the original. [facility] Service: Vascular Surgery Discharge Summary Date of Admission: 07/24/2017 Date of Discharge: 07/26/2017 Discharge Provider: DORA Zhang Treatment Team: Admitting Provider: Huy Child MD Discharge Diagnoses: Principal Problem: Thoracic ascending aortic aneurysm (HCC) Active Problems: COPD (chronic obstructive pulmonary disease) CKD (chronic kidney disease), stage III Schizophrenia (HCC) S/P thoracic aortic aneurysm repair Resolved Problems: * No resolved hospital problems. 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 Freeman is a pleasant 72 y.o. male with PMH significant for CHF, COPD, dementia, hyperli pidemia, hyperthyroidism, MRSA and schizophrenia, who is referred to me for ascending thorac ic aneurysm with penetrating ulceration. Patient had CTA chest/aorta on 06/20/17 that showed enlarging penetrating ulcer in proximal descending thoracic aorta measuring 2.5 x 1.2 cm. José Miguel drummond was being followed by Dr. Tejada who referred him to my office for concern that this ulceration caused increased weakness in the aneurysm, further increasing risk of rupture. José Miguel drummond is asymptomatic. Procedures: Ultrasound guided access of bilateral common femoral arteries Arch aortogram Endovascular repair of penetrating aortic ulcer using Valiant tho racic aortic stent graft Perclose closure of bilateral common femoral arteries HOSPITAL COURS/E: POD 1 VSS, Sp02 at baseline RA 92 percent on assessment. Ambulated, voided, toleratin g PO. Discussed discharge plan of care with patient and family and they are agreeable to pl an and follow up. Past Medical History Diagnosis Date Cardiac failure (HCC) due to trauma CHF (congestive heart failure) (HCC) 2010 secondary to trauma fall at home COPD (chronic obstructive pulmonary disease) (HCC) Dementia Dementia Hyperlipidemia Hypothyroidism Mental retardation MRSA (methicillin resistant Staphylococcus aureus) 03/08/2012 abdomen, states healed up MRSA (methicillin resistant Staphylococcus aureus) respiratory MRSA infection Other and unspecified coagulation defects "bleeding stitch on my neck" Personality disorder Respiratory failure (HCC) due to trauma Schizophrenia (HCC) Past Surgical History Procedure Laterality Date ABDOMINAL SURGERY 2010 diaphragmatic rupture repair FISTULA REPAIR 3 surgeries TONSILLECTOMY as a teenager TRACHEOSTOMY 2011 fistula repair October 2011, second fistula rapair October two weeks later Allergies Allergen Reactions Lipitor [Atorvastatin] Other (See Comments) UNABLE to remember reaction Prescriptions Prior to Admission Medication Sig Dispense Refill Last Dose acetaminophen (TYLENOL) 325 MG tablet Take 650 mg by mouth every 6 (six) hours as neede d. Taking at Unknown time aspirin 81 MG tablet Take 81 mg by mouth daily. 07/23/2017 at Unknown time chlorhexidine (PERIDEX) 0.12 % solution Use as directed 15 mLs in the mouth or throat 2 (two) times daily. 07/23/2017 at Unknown time diphenhydrAMINE (BENADRYL) 50 MG capsule Take 50 mg by mouth nightly. 07/23/2017 at Unknown time ferrous sulfate 325 (65 FE) MG tablet Take 325 mg by mouth 2 (two) times daily. 06/28 at Unknown time finasteride (PROSCAR) 5 MG tablet Take 5 mg by mouth daily. 07/23/2017 at Unknown time fluticasone-salmeterol (ADVAIR DISKUS) 250-50 MCG/DOSE AEPB Inhale 1 puff into the lung s 2 (two) times daily. 07/23/2017 at Unknown time ipratropium-albuterol (DUO-NEB) 0.5-2.5 mg/3mL Take 3 mLs by nebulization. Taking at Unknown time levothyroxine (LEVOTHROID) 150 MCG tablet Take 300 mcg by mouth. 1po M, W, F 8 at Unknown time LEVOTHYROXINE SODIUM PO Take 200 mcg by mouth. 1po q S,T,TH,SA 07/23/2017 at Unknown t amarilis magnesium oxide (MAG-OX) 400 MG tablet Take 400 mg by mouth 2 (two) times daily. at Unknown time Multiple Vitamins-Minerals (MULTIVITAL) tablet Take 1 tablet by mouth daily. 018 at Unknown time NIACIN ER PO Take 500 mg by mouth daily. 07/23/2017 at Unknown time omeprazole (PRILOSEC) 20 MG capsule Take 20 mg by mouth every morning before breakfast. 07/23/2017 at Unknown time polyethylene glycol (GLYCOLAX) packet Take 17 g by mouth daily. 07/23/2017 at Unknow n time prednisoLONE acetate (PRED FORTE) 1 % ophthalmic suspension 1 drop 4 (four) times daily . quetiapine (SEROQUEL) 200 MG tablet Take 400 mg by mouth nightly. 07/23/2017 at Unknow n time risperidone (RISPERDAL) 4 MG tablet Take by mouth nightly. 2po q hs 07/23/2017 at Unk nown time sodium chloride 1 G tablet Take 1 g by mouth 2 (two) times daily. 07/23/2017 at Unkn own time tamsulosin (FLOMAX) 0.4 MG CAPS Take 0.4 mg by mouth After dinner After dinner. 06/28 at Unknown time umeclidinium bromide (INCRUSE ELLIPTA) 62.5 MCG/INH inhaler Inhale 1 puff into the lung s daily. 07/23/2017 at Unknown time albuterol (PROVENTIL) (2.5 MG/3ML) 0.083% nebulizer solution Take 2.5 mg by nebulizatio n as needed. Taking at Unknown time ciprofloxacin (CIPRO) 250 MG tablet Take 250 mg by mouth 2 (two) times daily. Taking at Unknown time docusate sodium (COLACE) 100 MG capsule Take 100 mg by mouth 2 (two) times daily. 06/28 at Unknown time fluticasone (FLOVENT HFA) 220 MCG/ACT inhaler Inhale 2 puffs into the lungs 2 (two) lyndsey es daily. 07/23/2017 at Unknown time Magnesium Hydroxide (MILK OF MAGNESIA PO) Take 400 mg by mouth as needed. Taking at U nknown time sertraline (ZOLOFT) 100 MG tablet Take 100 mg by mouth daily. 07/23/2017 at Unknown ti me tiotropium (SPIRIVA) 18 MCG inhalation capsule Inhale 18 mcg into the lungs daily. at Unknown time traMADol (ULTRAM) 50 MG tablet Take 50 mg by mouth every 6 (six) hours as needed for Pa in. Taking at Unknown time DISCHARGE EXAM Vital Signs: BP 110/62 (BP Location: Right upper arm) | Pulse 84 | Temp 99 F (37.2 C) (Oral) | Re sp 16 | SpO2 90% Temp: [97.2 F (36.2 C)-99 F (37.2 C)] 99 F (37.2 C) (07/25 1106) BP: (97-131)/(54-79) 110/62 (07/25 1106) Heart Rate: [73-102] 84 (07/25 110) Resp: [16-30] 16 (07/25 1106) SpO2: [87 %-100 %] 90 % (03/29 1107) Physical Exam Vitals:reviewed CONSTITUTIONAL: Conversant, well developed, NAD EYES: Anicteric sclerae, no lid drag, no proptosis RESP: Normal effort, regular, even, unlabored rate CV: No peripheral edema, rate regular SKIN: [place], warm, dry without rash/lesion MS: ROM not limited, no digital cyanosis NEURO: Cranial nerves II-XII grossly intact, A&O times 3 PSYCH: appropriate affect, speech and tone, judgement and insight intact Vascular: palp femoral pulses. Groin sites soft without erythema, swelling, or drainage DATA CBC: Lab Results Component Value Date WBC 7.10 07/25/2017 RBC 4.19 (L) 07/25/2017 HGB 11.3 (L) 07/25/2017 HCT 33.3 (L) 07/25/2017 MCV 79.5 (L) 07/25/2017 MCH 26.9 (L) 07/25/2017 MCHC 33.8 07/25/2017 RDW 51.2 07/25/2017 PLT 158 07/25/2017 MPV 7.4 07/25/2017 DIFFTYPE AUTOMATED 07/24/2017 BMP: Lab Results Component Value Date NA 140 07/25/2017 K 4.3 07/25/2017 CL 108 07/25/2017 CO2 25 07/25/2017 ANIONGAP 11 07/25/2017 GLUF 90 07/25/2017 BUN 14 07/25/2017 CREATININE 0.8 07/25/2017 CREATININE 0.9 06/20/2017 BCR 18 07/25/2017 CA 6.8 (L) 07/25/2017 CA 8.8 01/28/2014 EGFR >60 07/25/2017 PLAN S/P thoracic stent graft placement -Continue home meds -Hydrocodone PRN pain -Follow up with Dr Child or DORA Zhang in 2 weeks -Please call clinic to schedule appointment if we have not contacted you within 3 days -Please complete any follow up imaging prior to post operative appointment. Our office arben l arrange this for you. -OK to remove dressing in 2 days and shower. -No lifting over 10 lbs for 4 weeks -Please call with any questions or concerns -Please follow up with your PCP in 2-3 days for medication management, BP check and lab rev iew Disposition: Home with family Condition: Stable Code Status: Full Code Discharge Instructions Diet Cardiac Activity as Tolerated Up with Assistance Shower on Day Dressing is Removed (No Bath) Lifting Restrictions Order Comments: Weight restriction of 10 lbs lifting for 4 weeks Remove Dressing in 48 Hours Call MD for: Temperature > 100.4F (38C) Call MD for: Severe Uncontrolled Pain Call MD for: Difficulty Breathing, Headache or Visual Disturbances Call MD for: Persistant Dizziness or Light-Headedness Follow up: Terrence Browning MD [address] [facility] [id number] In 3 days follow up after surgery, review medications, vitals signs, labs [facility] VASCULAR SURGERY [address] [place] [id number] In 2 weeks post op appointment and review CTA Medication List START taking these medications HYDROcodone-acetaminophen 5-325 MG per tablet QTY: 30 tablet Refills: 0 Commonly known as: NORCO Take 1-2 tablets by mouth every 4 (four) hours as needed for up to 10 days. CONTINUE taking these medications acetaminophen 325 MG tablet Refills: 0 Commonly known as: TYLENOL ADVAIR DISKUS 250-50 MCG/DOSE Refills: 0 Generic drug: fluticasone-salmeterol albuterol (2.5 MG/3ML) 0.083% nebulizer solution Refills: 0 Commonly known as: PROVENTIL aspirin 81 MG tablet Refills: 0 chlorhexidine 0.12 % solution Refills: 0 Commonly known as: PERIDEX ciprofloxacin 250 MG tablet Refills: 0 Commonly known as: CIPRO diphenhydrAMINE 50 MG capsule Refills: 0 Commonly known as: BENADRYL docusate sodium 100 MG capsule Refills: 0 Commonly known as: COLACE ferrous sulfate (65 FE) 325 (65 FE) MG tablet Refills: 0 finasteride 5 MG tablet Refills: 0 Commonly known as: PROSCAR FLOMAX 0.4 MG capsule Refills: 0 Generic drug: tamsulosin fluticasone 220 MCG/ACT inhaler Refills: 0 Commonly known as: FLOVENT HFA INCRUSE ELLIPTA 62.5 MCG/INH inhaler Refills: 0 Generic drug: umeclidinium bromide ipratropium-albuterol 0.5-2.5 mg/3mL Refills: 0 Commonly known as: DUO-NEB * LEVOTHROID 150 MCG tablet Refills: 0 Generic drug: levothyroxine * LEVOTHYROXINE SODIUM PO Refills: 0 magnesium oxide 400 MG tablet Refills: 0 Commonly known as: MAG-OX MILK OF MAGNESIA PO Refills: 0 MULTIVITAL tablet Refills: 0 NIACIN ER PO Refills: 0 omeprazole 20 MG capsule Refills: 0 Commonly known as: PRILOSEC polyethylene glycol packet Refills: 0 Commonly known as: GLYCOLAX prednisoLONE acetate 1 % ophthalmic suspension Refills: 0 Commonly known as: PRED FORTE quetiapine 200 MG tablet Refills: 0 Commonly known as: SEROquel risperidone 4 MG tablet Refills: 0 Commonly known as: RisperDAL sertraline 100 MG tablet Refills: 0 Commonly known as: ZOLOFT sodium chloride 1 g tablet Refills: 0 tiotropium 18 MCG inhalation capsule Refills: 0 Commonly known as: SPIRIVA traMADol 50 MG tablet Refills: 0 Commonly known as: ULTRAM * This list has 2 medication(s) that are the same as other medications prescribed for you. Read the directions carefully, and ask your doctor or other care provider to review them wit h you. You might also be taking other medications not listed above. If you have questions about an y of your other medications, talk to the person who prescribed them or your Primary Care Pro vider. Where to Get Your Medications You can get these medications from any pharmacy Bring a paper prescription for each of these medications HYDROcodone-acetaminophen 5-325 MG per tablet Discharge took minutes, to include final examination, discussion of admission, and prepara tion of prescriptions, instructions for on-going care, follow-up and documentation of discha rge summary. DORA Zhang 07/25/2017in this encounter Discharge Instructions César Vargas RN - 07/25/2017Formatting of this note may be different from the original. -Follow up with Vascular surgery in 2 weeks -Please call clinic to schedule appointment if we have not contacted you within 3 days -Please complete any follow up imaging prior to post operative appointment. Our office arben l arrange this for you. You will need a CTA of the chest -OK to remove dressing in 2 days and shower. -No lifting over 10 lbs for 4 weeks -Please call with any questions or concerns -Please follow up with your PCP in 2-3 days for medication management, BP check and lab rev iew Medication Instructions Prior to Procedure: Outpatient Prescriptions Marked as Taking for the 07/24/17 encounter (Hospital Encounter) Medication Sig INSTRUCTIONS acetaminophen (TYLENOL) 325 MG tablet Take 650 mg by mouth every 6 (six) hours as neede d. TAKE day of procedure, if needed aspirin 81 MG tablet Take 81 mg by mouth daily. DO NOT TAKE day of procedure chlorhexidine (PERIDEX) 0.12 % solution Use as directed 15 mLs in the mouth or throat 2 (two) times daily. TAKE day of procedure, if needed. Do not swallow diphenhydrAMINE (BENADRYL) 50 MG capsule Take 50 mg by mouth nightly. TAKE night befo re procedure, if needed ferrous sulfate 325 (65 FE) MG tablet Take 325 mg by mouth 2 (two) times daily. DO NO T TAKE day of procedure finasteride (PROSCAR) 5 MG tablet Take 5 mg by mouth daily. DO NOT TAKE day of procedur e fluticasone-salmeterol (ADVAIR DISKUS) 250-50 MCG/DOSE AEPB Inhale 1 puff into the lung s 2 (two) times daily. TAKE day of procedure ipratropium-albuterol (DUO-NEB) 0.5-2.5 mg/3mL Take 3 mLs by nebulization. TAKE day of procedure levothyroxine (LEVOTHROID) 150 MCG tablet Take 300 mcg by mouth. 1po M, W, F TAKE day o f procedure LEVOTHYROXINE SODIUM PO Take 200 mcg by mouth. 1po q S,T,TH,SA DO NOT TAKE day of proce dure magnesium oxide (MAG-OX) 400 MG tablet Take 400 mg by mouth 2 (two) times daily. DO N OT TAKE day of procedure Multiple Vitamins-Minerals (MULTIVITAL) tablet Take 1 tablet by mouth daily. DO NOT T ALESSANDRO day of procedure NIACIN ER PO Take 500 mg by mouth daily. DO NOT TAKE day of procedure omeprazole (PRILOSEC) 20 MG capsule Take 20 mg by mouth every morning before breakfast. TAKE day of procedure polyethylene glycol (GLYCOLAX) packet Take 17 g by mouth daily. Take as instructed by physician prednisoLONE acetate (PRED FORTE) 1 % ophthalmic suspension 1 drop 4 (four) times daily . TAKE day of procedure, if needed quetiapine (SEROQUEL) 200 MG tablet Take 400 mg by mouth nightly. TAKE night before pro cedure risperidone (RISPERDAL) 4 MG tablet Take by mouth nightly. 2po q hs TAKE night before procedure sodium chloride 1 G tablet Take 1 g by mouth 2 (two) times daily. DO NOT TAKE day of procedure tamsulosin (FLOMAX) 0.4 MG CAPS Take 0.4 mg by mouth After dinner After dinner. TAKE night before procedure umeclidinium bromide (INCRUSE ELLIPTA) 62.5 MCG/INH inhaler Inhale 1 puff into the lung s daily. TAKE day of procedure Acetaminophen; Hydrocodone tablets or capsules Brand Names: Anexsia, Lorcet, Lorcet HD, Lorcet Plus, Lortab, [place], Verdrocet, Vicodin, Vi codin ES, Vicodin HP, Xodol What is this medicine? ACETAMINOPHEN; HYDROCODONE (a set a FABI faby fen; namrata droe KOE done) is a pain reliever. It is used to treat moderate to severe pain. How should I use this medicine? Take this medicine by mouth with a glass of water. Follow the directions on the prescriptio n label. You can take it with or without food. If it upsets your stomach, take it with food. Do not take your medicine more often than directed. A special MedGuide will be given to you by the pharmacist with each prescription and refill . Be sure to read this information carefully each time. Talk to your frame straightener regarding the use of this medicine in children. Special care may be needed. What side effects may I notice from receiving this medicine? Side effects that you should report to your doctor or health medical care administrator as soon as p ossible: allergic reactions like skin rash, itching or hives, swelling of the face, lips, or tong ue breathing problems confusion redness, blistering, peeling or loosening of the skin, including inside the mouth signs and symptoms of low blood pressure like dizziness; feeling faint or lightheaded, f alls; unusually weak or tired trouble passing urine or change in the amount of urine yellowing of the eyes or skin Side effects that usually do not require medical attention (report to your doctor or health medical care administrator if they continue or are bothersome): constipation dry mouth nausea, vomiting tiredness What may interact with this medicine? This medicine may interact with the following medications: alcohol antiviral medicines for HIV or AIDS atropine antihistamines for allergy, cough and cold certain antibiotics like erythromycin, clarithromycin certain medicines for anxiety or sleep certain medicines for bladder problems like oxybutynin, tolterodine certain medicines for depression like amitriptyline, fluoxetine, sertraline certain medicines for fungal infections like ketoconazole and itraconazole certain medicines for Parkinson's disease like benztropine, trihexyphenidyl certain medicines for seizures like carbamazepine, phenobarbital, phenytoin, primidone certain medicines for stomach problems like dicyclomine, hyoscyamine certain medicines for travel sickness like scopolamine general anesthetics like halothane, isoflurane, methoxyflurane, propofol ipratropium local anesthetics like lidocaine, pramoxine, tetracaine MAOIs like Carbex, Eldepryl, Marplan, Nardil, and Parnate medicines that relax muscles for surgery other medicines with acetaminophen other narcotic medicines for pain or cough phenothiazines like chlorpromazine, mesoridazine, prochlorperazine, thioridazine rifampin What if I miss a dose? If you miss a dose, take it as soon as you can. If it is almost time for your next dose, ta ke only that dose. Do not take double or extra doses. Where should I keep my medicine? Keep out of the reach of children. This medicine can be abused. Keep your medicine in a saf e place to protect it from theft. Do not share this medicine with anyone. Selling or giving away this medicine is dangerous and against the law. This medicine may cause accidental overdose and if it taken by other adults, children , or pets. Mix any unused medicine with a substance like cat litter or coffee grounds. Then throw the medicine away in a sealed container like a sealed bag or a coffee can with a lid. Do not use the medicine after the expiration date. Store at room temperature between 15 and 30 degrees C (59 and 86 degrees F). What should I tell my health care provider before I take this medicine? They need to know if you have any of these conditions: brain tumor Crohn's disease, inflammatory bowel disease, or ulcerative colitis drug abuse or addiction head injury heart or circulation problems if you often drink alcohol kidney disease or problems going to the bathroom liver disease lung disease, asthma, or breathing problems an unusual or allergic reaction to acetaminophen, hydrocodone, other opioid analgesics, other medicines, foods, dyes, or preservatives or trying to get breast-feeding What should I watch for while using this medicine? Tell your doctor or health medical care administrator if your pain does not go away, if it gets wors e, or if you have new or a different type of pain. You may develop tolerance to the medicine . Tolerance means that you will need a higher dose of the medicine for pain relief. Toleranc e is normal and is expected if you take the medicine for a long time. Do not suddenly stop taking your medicine because you may develop a severe reaction. Your b yenifer becomes used to the medicine. This does NOT mean you are addicted. Addiction is a behavi or related to getting and using a drug for a non-medical reason. If you have pain, you have a medical reason to take pain medicine. Your doctor will tell you how much medicine to take. If your doctor wants you to stop the medicine, the dose will be slowly lowered over time to avoid any side effects. There are different types of narcotic medicines (opiates). If you take more than one type a t the same time or if you are taking another medicine that also causes drowsiness, you may h ave more side effects. Give your health care provider a list of all medicines you use. Your doctor will tell you how much medicine to take. Do not take more medicine than directed. Dajuan l emergency for help if you have problems breathing or unusual sleepiness. Do not take other medicines that contain acetaminophen with this medicine. Always read labsavita roger carefully. If you have questions, ask your doctor or pharmacist. If you take too much acetaminophen get medical help right away. Too much acetaminophen can be very dangerous and cause liver damage. Even if you do not have symptoms, it is important to get help right away. You may get drowsy or dizzy. Do not drive, use machinery, or do anything that needs mental alertness until you know how this medicine affects you. Do not stand or sit up quickly, shoshana cially if you are an older patient. This reduces the risk of dizzy or fainting spells. Alcoh ol may interfere with the effect of this medicine. Avoid alcoholic drinks. The medicine will cause constipation. Try to have a bowel movement at least every 2 to 3 da ys. If you do not have a bowel movement for 3 days, call your doctor or health care gabo baldwin. Your mouth may get dry. Chewing sugarless gum or sucking hard candy, and drinking plenty of water may help. Contact your doctor if the problem does not go away or is severe. NOTE:This sheet is a summary. It may not cover all possible information. If you have questi ons about this medicine, talk to your doctor, pharmacist, or health care provider. Copyright 2017 [employer] in this encounter Medications at Time of Discharge [...] +--------+---------+ + + as of this encounter Progress Notes Matthew Donnelly MD - 07/25/2017 2:31 PM PDTFormatting of this note may be different from the original. [facility] Service: Hospitalist Progress Note Pt: Jerry Freeman AGE/SEX: 72 y.o. male ROOM: 4457/4457-1 : 1945 PCP: TERRENCE BROWNING ADMIT DATE: 07/24/2017 TODAY'S DATE: 07/25/2017 Hospital Day/Hospital Course: LOS: [address] Pacheco "The patient is 72 y.o. male with significant past medical history of MrYumi Freeman is a 72-year-old male with a past medical history of COPD, borderline demen tia, schizophrenia on Seroquel, chronic kidney disease stage 3, chronic congestive heart korey lure, and had been followed by Dr. Tejada and Dr. Child regarding an ascending thoracic aneur ysm with penetrating ulceration in the proximal descending thoracic aorta. He underwent elec tive intervention today with a stent graft placement, and the procedure was well tolerated. Hospitalist service is being asked to assist with medical management." SUBJECTIVE: Patient seen and examined. He is with family. He states he is feeling well overall. States his pain is controlled. He is able to answer questions appropriately. Denies any chest pain or sob at this time. No Abdominal pain, N/V or fever. No dizziness or lightheadedness. Scheduled Medications: aspirin 81 mg Oral Daily with breakfast budesonide-formoterol 2 puff Inhalation 2 times daily chlorhexidine 15 mL Mouth/Throat BID [START ON 07/26/2017] finasteride 5 mg Oral Daily levothyroxine 200 mcg Oral QAM AC magnesium oxide 400 mg Oral BID multivitamin with minerals 1 tablet Oral Daily niacin 500 mg Oral Daily pantoprazole 40 mg Oral QAM AC prednisoLONE acetate 1 drop Both Eyes 4x Daily quetiapine 400 mg Oral Nightly risperidone 2 mg Oral Nightly sodium chloride 1 g Oral BID tamsulosin 0.4 mg Oral after dinner tiotropium 18 mcg Inhalation Daily Continuous Infusions PRN Medications albuterol, fentaNYL OR fentaNYL, Vascular OR Medication Mixture builder (IV base soln), HYDROcodone-acetaminophen OR HYDROcodone-acetaminophen, ondansetron OR ondansetron, polyethylene glycol, traMADol Allergy: Allergies Allergen Reactions Lipitor [Atorvastatin] Other (See Comments) UNABLE to remember reaction OBJECTIVE: Vitals: Patient Vitals for the past 24 hrs: BP Temp Temp src Pulse Resp SpO2 07/25/17 1145 - - - - - 90 % 07/25/17 1107 110/62 99 F (37.2 C) Oral 84 16 90 % 07/25/17 0749 102/69 98.7 F (37.1 C) Oral 81 18 90 % 07/25/17 0310 97/54 97.8 F (36.6 C) Axillary 73 19 94 % 07/24/17 2326 112/69 98.3 F (36.8 C) Oral 81 16 93 % 07/24/17 1950 112/66 98.3 F (36.8 C) Oral 81 16 97 % 07/24/17 1915 - - - 84 - - 07/24/17 1900 111/65 - - 83 - - 07/24/17 1845 114/65 - - 87 - - 07/24/17 1830 114/75 - - 90 - - 07/24/17 1815 124/73 - - 85 - - 07/24/17 1645 114/76 - - 82 - - 07/24/17 1630 104/58 - - 82 - - 07/24/17 1615 105/58 - - 80 - 92 % 07/24/17 1600 107/61 - - 83 - (!) 89 % 07/24/17 1547 105/65 97.6 F (36.4 C) Oral 81 20 92 % 07/24/17 1500 109/61 - - 81 20 100 % 07/24/17 1445 104/60 - - 85 19 99 % 07/24/17 1440 102/59 - - 87 20 100 % 07/24/17 1435 99/58 - - 89 23 100 % I&O Detailed Table: Intake/Output Summary (Last 24 hours) at 07/25/17 1431 Last data filed at 07/25/17 0847 Gross per 24 hour Intake 0 ml Output 975 ml Net -975 ml No data found. Physical Examination: Constitutional: Awake, interactive. HEENT: Neck supple, no JVD, non icteric sclera. Cardiovascular: Normal rate, regular rhythm. Exam reveals no appreciated gallop or frictio n rub. No murmur heard. Pulmonary/Chest: Effort normal and breath sounds normal. No stridor. No respiratory distres s. There are some mild rales b/l Abdominal: Soft. Bowel sounds are normal. exhibits no distension and no mass. There is no t enderness. There is no rebound and no guarding. Extremeties/Musculoskeletal: Normal range of motion for patient. exhibits no tenderness. e xhibits trace edema. Neurological: Alert and oriented to person, place. No cranial nerve deficit appreciated. Exhibits normal muscle tone. Coordination normal. Skin: Skin is warm and dry. No rash noted. No erythema. No pallor. Psychiatric: Has a normal mood and affect given situation. LABS: Recent Labs Lab 07/25/17 0520 07/24/17 0931 WBC 7.10 7.15 HGB 11.3* 13.2 HCT 33.3* 40.1 PLT 158 184 NEUTOPHILPCT -- 70.68 MONOPCT -- 10.91 Recent Labs Lab 07/25/17 0520 07/24/17 0931 NA 140 133* K 4.3 4.7 CL 108 98* CO2 25 29 BUN 14 18 CREATININE 0.8 1.1 Phosphorus: No results found for: PHOS Invalid input(s): LABALBU No results for input(s): MG in the last 168 hours. No results for input(s): AMYLASE in the last 168 hours. No results for input(s): PHART, PO2ART, CLH9ZPS, Y3TZVAUH, BEART in the last 168 hours. No results for input(s): APTT, INR, PTT in the last 168 hours. No results for input(s): TSH, T3FREE, FREET4 in the last 168 hours. No results for input(s): CKTOTAL, TROPONINI, TROPONINT, CKMBINDEX in the last 168 hours. Results No results found for the last 72 hours. RADIOLOGY: Cta Chest Abdomen Pelvis With Iv Contrast Result Date: 07/19/2017 1. Unchanged fusiform ascending thoracic aortic aneurysm measuring 5.3 cm in diameter. 2. Unchanged penetrating atheromatous ulcer involving the proximal descending thoracic aorta. 3. Moderate cardiomegaly. Mild enlargement of the pulmonary arteries, suggesting pulmonary arterial hypertension. 4. The lungs demonstrate nodular opacities, some of which appear to be decreased, while opacities in the right lower lobe appear to be new. The morphology and d ecreased vision favors infectious/inflammatory etiology. Follow-up chest CT in 3 months is r ecommended. 5. Please refer to the findings section for additional incidental details. Elec tronically signed by Erik Crocker MD on 07/19/2017 11:17 AM PROBLEM LIST Principal Problem: Thoracic ascending aortic aneurysm (HCC) Active Problems: COPD (chronic obstructive pulmonary disease) CKD (chronic kidney disease), stage III Schizophrenia (HCC) S/P thoracic aortic aneurysm repair ASSESSMENT & PLAN 1. Ascending thoracic aneurysm with penetrating ulceration proximal descending thoracic aor ta - Status post repair with stent graft, Dr. Child 07/24/17. Is recovering well. Pain is control led. 2. History of chronic COPD - Currently stable, keep oxygen saturations between 88 and 92 percent - Continue Advair discus, albuterol prn, Spiriva 3. Chronic combined congestive heart failure - not in over exacerbation. Would recommend holding further IVF for now. - recommend close outpatient monitoring. 4. History of schizophrenia - Resume Seroquel 200 mg qhs. Will continue this. 5. Deep vein thrombosis prophylaxis - As per surgery 6. History of hypothyroidism - Continue Synthroid at 200mcg a day for now and continue with home dosing upon discharge. Matthew Donnelly MD 07/25/2017 2:31 PM Greater than 35 minutes spent today overall in coordination of care, seeing and managing pa hoda, review of data, coordination with staff, coordination with involved consultants, and including any scheduled multidisciplinary rounding focused on the patient with 50 percent or more spent seeing and managing patient and counseling/coordination. Dictation software, [employer], used which may contain error for similar sounding words even af ter review. Personal communication requested for any clarification. Portions of this chart may have been copied from previous notes for continuity of care purp ose in this encounter Plan of Treatment +--------+ [...] [place] | | | | | | [address] | | | | | | | | +--------+ + + + + as of this encounter Procedures + +--------+ + + + | [...] Needs | | | SNF | +---+--------+ in this encounter Results CBC w/no Diff (07/25/2017 5:20 AM) + [...] | MPV | 7.4Comment: Testing performed at [facility], [address] | | | [place] [address] | | + + + + + + + | Specimen | Performing Laboratory | + + + | | [facility] [address] [place], | | | [place] [address] | + + + Basic metabolic panel (07/25/2017 5:20 AM) + + + + [...] | | | | 1.210.Testing performed at [facility], [address] | | | | [place] [address] | | | | | | + + + + + + + | Specimen | Performing Laboratory | + + + | Blood | [facility] [address] [place], | | | [place] [address] | + + + in this encounter Visit Diagnoses + + | Diagnosis | + + | Thoracic ascending aortic aneurysm (HCC) - Primary | + + | Thoracic aneurysm without mention of rupture | + + | CKD (chronic kidney disease), stage III | + + | Schizophrenia (HCC) | + + | Unspecified schizophrenia, unspecified condition | + + | COPD (chronic obstructive pulmonary disease) | + + | Chronic airway obstruction, not elsewhere classified | + + | S/P thoracic aortic aneurysm repair | + + | Other postprocedural status | + + Admitting Diagnoses + + | Diagnosis | + + | Thoracic ascending aortic aneurysm (HCC) | + + | Thoracic aneurysm without mention of rupture | + + Administered Medications + +--------+---------+------+------+------+ | Medication Order | MAR | Action | Dose | Rate | Site | | | Action | Date | | | | + +--------+---------+------+------+------+ + +---+ | albuterol (PROVENTIL) nebulizer | | | solution 2.5 mg 2.5 mg, | | | Nebulization, Every 4 Hours PRN, | | | Wheezing, Starting 07/24/17 at | | | 1509 | | + +---+ | | | + +---+ + +-------+ +-------+---+---+ | aspirin chewable tablet 81 mg | Given | | 81 mg | | | | 81 mg, Oral, Daily With | | 8 18:49 | | | | | Breakfast, First dose on Sat | | PDT | | | | | 07/24/17 at 1530 | | | | | | + +-------+ +-------+---+---+ +-------+ +-------+---+---+ | Given | | 81 mg | | | | | 8 08:39 | | | | | | PDT | | | | +-------+ +-------+---+---+ | Given | | 81 mg | | | | | 8 08:47 | | | | | | PDT | | | | +-------+ +-------+---+---+ +---+---+ | | | +---+---+ + +-------+ +---------+---+---+ | budesonide-formoterol | Given | | 2 puffs | | | | (SYMBICORT) 160-4.5 MCG/ACT | | 8 08:39 | | | | | inhaler 2 puff 2 puff, | | PDT | | | | | Inhalation, 2 Times Daily, First | | | | | | | dose on Sat07/24/17 at 2100 | | | | | | + +-------+ +---------+---+---+ +-------+ +---------+---+---+ | Given | | 2 puffs | | | | | 8 20:43 | | | | | | PDT | | | | +-------+ +---------+---+---+ | Given | | 2 puffs | | | | | 8 08:49 | | | | | | PDT | | | | +-------+ +---------+---+---+ +---+---+ | | | +---+---+ + +-------+ +-----+-------+---+ | ceFAZolin (ANCEF) IVPB 1 g 1 | Given | | 1 g | 100 | | | g, Intravenous, Administer over | | 8 22:32 | | mL/hr | | | 30 Minutes, Every 8 Hours, First | | PDT | | | | | dose on Sat07/24/17 at 2130, For | | | | | | | 2 doses | | | | | | + +-------+ +-----+-------+---+ +-------+ +-----+-------+---+ | Given | | 1 g | 100 | | | | 8 05:24 | | mL/hr | | | | PDT | | | | +-------+ +-----+-------+---+ +---+---+ | | | +---+---+ + +-------+ +--------+---+---+ | chlorhexidine (PERIDEX) 0.12 % | Given | | 15 mLs | | | | solution 15 mL 15 mL, | | 8 08:44 | | | | | Mouth/Throat, 2 Times Daily, | | PDT | | | | | First dose on Sat07/24/17 at 2100 | | | | | | + +-------+ +--------+---+---+ +-------+ +--------+---+---+ | Given | | 15 mLs | | | | | 8 20:54 | | | | | | PDT | | | | +-------+ +--------+---+---+ | Given | | 15 mLs | | | | | 8 08:49 | | | | | | PDT | | | | +-------+ +--------+---+---+ + +---+ | | | + +---+ | fentaNYL (SUBLIMAZE) injection | | | 12.5 mcg 12.5 mcg, Intravenous, | | | Every 1 Hour PRN, Moderate Pain | | | (4-6), Starting Sat07/24/17 at | | | 1720 | | + +---+ | | | + +---+ | fentaNYL (SUBLIMAZE) injection | | | 25 mcg 25 mcg, Intravenous, | | | Every 1 Hour PRN, Severe Pain | | | (7-10), Starting Sat07/24/17 at | | | 1720 | | + +---+ | | | + +---+ + +-------+ +------+---+---+ | finasteride (PROSCAR) tablet 5 | Given | | 5 mg | | | | mg 5 mg, Oral, Daily, First dose | | 8 08:39 | | | | | on Sat07/24/17 at 1530 | | PDT | | | | + +-------+ +------+---+---+ +---+---+ | | | +---+---+ + +-------+ +------+---+---+ | finasteride (PROSCAR) tablet 5 | Given | | 5 mg | | | | mg 5 mg, Oral, Daily, First dose | | 8 08:46 | | | | | on Sat07/26/17 at 0900 | | PDT | | | | + +-------+ +------+---+---+ +---+---+ | | | +---+---+ + +-------+ + +---+---+ | HYDROcodone-acetaminophen | Given | | 1 tablet | | | | (NORCO) 10-325 MG per tablet 1 | | 8 18:48 | | | | | tablet 1 tablet, Oral, Every 4 | | PDT | | | | | Hours PRN, Severe Pain (7-10), | | | | | | | Starting 07/24/17 at 1720 | | | | | | + +-------+ + +---+---+ + +---+ | | | + +---+ | HYDROcodone-acetaminophen | | | (NORCO) 5-325 MG per tablet 1 | | | tablet 1 tablet, Oral, Every 4 | | | Hours PRN, Moderate Pain (4-6), | | | Starting 07/24/17 at 1720 | | + +---+ | | | + +---+ + +---------+ +---+-------+---+ | lactated ringers infusion at | New Bag | | | 110 | | | 110 mL/hr, Intravenous, | | 8 17:00 | | mL/hr | | | Continuous, Starting 07/24/17 | | PDT | | | | | at 1530 | | | | | | + +---------+ +---+-------+---+ +---------+ +---+-------+---+ | New Bag | | | 110 | | | | 8 05:29 | | mL/hr | | | | PDT | | | | +---------+ +---+-------+---+ +---+---+ | | | +---+---+ + +-------+ +---------+---+---+ | levothyroxine (SYNTHROID) | Given | | 200 mcg | | | | tablet 200 mcg 200 mcg, Oral, | | 8 05:38 | | | | | Every Morning Before Breakfast, | | PDT | | | | | First dose on [place] 07/25/17 at 0630 | | | | | | + +-------+ +---------+---+---+ +-------+ +---------+---+---+ | Given | | 200 mcg | | | | | 8 06:01 | | | | | | PDT | | | | +-------+ +---------+---+---+ +---+---+ | | | +---+---+ + +-------+ +--------+---+---+ | magnesium oxide (MAG-OX) tablet | Given | | 400 mg | | | | 400 mg 400 mg, Oral, 2 Times | | 8 08:40 | | | | | Daily, First dose on Sat07/24/17 | | PDT | | | | | at 2100 | | | | | | + +-------+ +--------+---+---+ +-------+ +--------+---+---+ | Given | | 400 mg | | | | | 8 20:45 | | | | | | PDT | | | | +-------+ +--------+---+---+ | Given | | 400 mg | | | | | 8 08:46 | | | | | | PDT | | | | +-------+ +--------+---+---+ +---+---+ | | | +---+---+ + +-------+ + +---+---+ | multivitamin with minerals | Given | | 1 tablet | | | | tablet 1 tablet 1 tablet, Oral, | | 8 18:49 | | | | | Daily, First dose on Sat07/24/17 | | PDT | | | | | at 1800 | | | | | | + +-------+ + +---+---+ +-------+ + +---+---+ | Given | | 1 tablet | | | | | 8 08:40 | | | | | | PDT | | | | +-------+ + +---+---+ | Given | | 1 tablet | | | | | 8 08:46 | | | | | | PDT | | | | +-------+ + +---+---+ +---+---+ | | | +---+---+ + +-------+ +--------+---+---+ | niacin CR capsule 500 mg 500 | Given | | 500 mg | | | | mg, Oral, Daily, First dose on | | 8 19:09 | | | | | Sat07/24/17 at 1800 | | PDT | | | | + +-------+ +--------+---+---+ +-------+ +--------+---+---+ | Given | | 500 mg | | | | | 8 08:40 | | | | | | PDT | | | | +-------+ +--------+---+---+ | Given | | 500 mg | | | | | 8 08:47 | | | | | | PDT | | | | +-------+ +--------+---+---+ + +---+ | | | + +---+ | ondansetron (ZOFRAN) injection | | | 4 mg 4 mg, Intravenous, Every 6 | | | Hours PRN, Nausea, Vomiting, | | | Starting 07/24/17 at 1720 | | + +---+ | | | + +---+ | ondansetron (ZOFRAN) tablet 4 | | | mg 4 mg, Oral, Every 6 Hours | | | PRN, Nausea, Vomiting, Starting | | | 07/24/17 at 1720 | | + +---+ | | | + +---+ + +-------+ +-------+---+---+ | pantoprazole (PROTONIX) EC | Given | | 40 mg | | | | tablet 40 mg 40 mg, Oral, Every | | 8 05:38 | | | | | Morning Before Breakfast, First | | PDT | | | | | dose on [facility] 07/25/17 at 0630 | | | | | | + +-------+ +-------+---+---+ +-------+ +-------+---+---+ | Given | | 40 mg | | | | | 8 06:01 | | | | | | PDT | | | | +-------+ +-------+---+---+ +---+---+ | | | +---+---+ + +-------+ +--------+---+---+ | prednisoLONE acetate (PRED | Given | | 1 drop | | | | FORTE) 1 % ophthalmic suspension | | 8 14:14 | | | | | 1 drop 1 drop, Both Eyes, 4 | | PDT | | | | | Times Daily, First dose on Sat | | | | | | | 07/24/17 at 1800 | | | | | | + +-------+ +--------+---+---+ +-------+ +--------+---+---+ | Given | | 1 drop | | | | | 8 20:45 | | | | | | PDT | | | | +-------+ +--------+---+---+ | Given | | 1 drop | | | | | 8 08:51 | | | | | | PDT | | | | +-------+ +--------+---+---+ +---+---+ | | | +---+---+ + +-------+ +--------+---+---+ | QUEtiapine (SEROquel) tablet | Given | | 400 mg | | | | 400 mg 400 mg, Oral, Nightly, | | 8 20:46 | | | | | First dose on [facility] 07/25/17 at 2200 | | PDT | | | | + +-------+ +--------+---+---+ +---+---+ | | | +---+---+ + +-------+ +------+---+---+ | risperiDONE (RisperDAL) tablet | Given | | 2 mg | | | | 2 mg 2 mg, Oral, Nightly, First | | 8 20:46 | | | | | dose on Sat07/25/17 at 2200 | | PDT | | | | + +-------+ +------+---+---+ +---+---+ | | | +---+---+ + +-------+ +--------+---+---+ | sertraline (ZOLOFT) tablet 100 | Given | | 100 mg | | | | mg 100 mg, Oral, Daily, First | | 8 18:48 | | | | | dose on Sat07/24/17 at 1800 | | PDT | | | | + +-------+ +--------+---+---+ +-------+ +--------+---+---+ | Given | | 100 mg | | | | | 8 08:40 | | | | | | PDT | | | | +-------+ +--------+---+---+ +---+---+ | | | +---+---+ + +-------+ +-----+---+---+ | sodium chloride tablet 1 g 1 | Given | | 1 g | | | | g, Oral, 2 Times Daily, First | | 8 08:40 | | | | | dose on 07/24/17 at 2100 | | PDT | | | | + +-------+ +-----+---+---+ +-------+ +-----+---+---+ | Given | | 1 g | | | | | 8 20:45 | | | | | | PDT | | | | +-------+ +-----+---+---+ | Given | | 1 g | | | | | 8 08:47 | | | | | | PDT | | | | +-------+ +-----+---+---+ +---+---+ | | | +---+---+ + +-------+ +--------+---+---+ | tamsulosin (FLOMAX) capsule 0.4 | Given | | 0.4 mg | | | | mg 0.4 mg, Oral, After Dinner, | | 8 18:47 | | | | | First dose on Sat07/24/17 at 1800 | | PDT | | | | + +-------+ +--------+---+---+ +-------+ +--------+---+---+ | Given | | 0.4 mg | | | | | 8 17:15 | | | | | | PDT | | | | +-------+ +--------+---+---+ +---+---+ | | | +---+---+ + +-------+ +--------+---+---+ | tiotropium (SPIRIVA) inhalation | Given | | 18 mcg | | | | capsule 18 mcg 18 mcg, | | 8 19:08 | | | | | Inhalation, Daily, First dose on | | PDT | | | | | Sat07/24/17 at 1700 | | | | | | + +-------+ +--------+---+---+ +-------+ +--------+---+---+ | Given | | 18 mcg | | | | | 8 08:38 | | | | | | PDT | | | | +-------+ +--------+---+---+ | Given | | 18 mcg | | | | | 8 08:44 | | | | | | PDT | | | | +-------+ +--------+---+---+ + +---+ | | | + +---+ | traMADol (ULTRAM) tablet 50 mg | | | 50 mg, Oral, Every 6 Hours PRN, | | | Moderate Pain (4-6), Starting Wed | | | 07/24/17 at 1508 | | + +---+ | | | + +---+ in this encounter
--- OUTSIDE RECORDS SUMMARY | 2017-08-16 01:20 | XMS | Encounter Summary ---
Demographics + + + | Address | [address] | | | [place] [address] | + + + | Home Phone | | + + + | Preferred Language | Unknown | + + + | Marital Status | Single | + + + | Advent Affiliation | Unknown | + + + | Race | Unknown | + + + | Ethnic Group | Unknown | + + + Author + + + | Author | [facility] | + + + | Organization | [facility] | + + + | Address | Unknown | + + + | Phone | Unavailable | + + + Support + + +---------+ + | Name | Relationship | Address | Phone | + + +---------+ + | Latricia Nicolas | ECON | Unknown | | + + +---------+ + Care Team Providers + +------+ + | Care Healthcare Science Specialist Name | Role | Phone | + +------+ + | Terrence Browning MD | PCP | Unavailable | + +------+ + Reason for Referral MRI/CAT Scan (Routine) + +--------+ + + + + | Status | Reason | Specialty | Diagnoses / | Referred By | Referred To | | | | | Procedures | Contact | Contact | + +--------+ + + + + | Authorized | | Radiology | Diagnoses | Jose Land, | [facility] [address] | | | | | Ruptured | DNP [address] | [address] | | | | | aneurysm of | [address] | [address]vd | | | | | thoracic | [address] | [place], [place] | | | | | aorta (HCC) | [place], [place] | [address] Phone: | | | | | Procedures | [phone] | [phone] | | | | | CTA abd | Phone: | | | | | | aorta & | [phone] | | | | | | bilat ilio | Fax: | | | | | | runoff w IV | [phone] | | | | | | con | | | + +--------+ + + + + Encounter Details +--------+ + + + + | Date | Type | Department | Care Team | Description | +--------+ + + + + | 08/08/ | Orders Only | [facility] | Chela Clements, | Ruptured aneurysm of | | 2017 | | Vascular Surgery | [employer] | thoracic aorta | | | | [address] | | (HCC) (Primary Dx) | | | | [place] | | | | | | [address] | | | | | | [phone] | | | +--------+ + + + [...] [place] | | | | | | [address] | | | | | | | | +--------+ + + + + + +--------+ + + | Name | Priori | Associated Diagnoses | Order Schedule | | | ty | | | + +--------+ + + | CTA abd aorta & bilat ilio runoff | Routin | Ruptured aneurysm | Expected: | | w IV con | e | of thoracic aorta | 02/07/2018, Expires: | | | | (HCC) | 08/08/2018 | + +--------+ + + as of this encounter Visit Diagnoses + + | Diagnosis | + + | Ruptured aneurysm of thoracic aorta (HCC) - Primary | + + | Thoracic aneurysm, ruptured | + +"
--- OUTSIDE RECORDS SUMMARY | 2017-08-16 01:20 | XMS | Encounter Summary ---
Demographics + + + | Address | [address] | | | [place] [address] | + + + | Home Phone | | + + + | Preferred Language | Unknown | + + + | Marital Status | Single | + + + | Sabianism Affiliation | Unknown | + + + | Race | Unknown | + + + | Ethnic Group | Unknown | + + + Author + + + | Author | [facility] | + + + | Organization | [facility] | + + + | Address | Unknown | + + + | Phone | Unavailable | + + + Support + + +---------+ + | Name | Relationship | Address | Phone | + + +---------+ + | Latricia Nicolas | ECON | Unknown | | + + +---------+ + Care Team Providers + +------+ + | Care Supervisor Pressing Department Name | Role | Phone | + [...] + + | 07/24/ | Hospital | [facility] | Huy Child MD | 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) | | | | Radiology [address] | [address] [place], [place] | | | | | Blvd [place], [place] | [address] | | | | | [address] | | | | | | | 3, [facility] 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 | | +--------+ + + + + [...] + + + | Blood Pressure | 109/65 | 07/24/2017 9:11 AM PDT | + + + + | Pulse | 74 | 07/24/2017 9:11 AM PDT | + + + + | Temperature | 36.4 C (97.6 F) | 07/24/2017 3:00 PM PDT | + + + + | Respiratory Rate | 16 | 07/24/2017 9:11 AM PDT | + + + + | Oxygen Saturation | 98% | 07/24/2017 9:11 AM PDT | + + + + | Inhaled Oxygen | - | - | | Concentration | | | + + + + | Weight | 87.8 kg (193 lb 9 | 07/24/2017 9:11 AM PDT | | | oz) | | + + + + | Height | 185.4 cm (6' 1") | 07/24/2017 9:11 AM PDT | + + + + | Body Mass Index | 25.54 | 07/24/2017 9:11 AM PDT | + + + + in this encounter Medications at Time of [...] | | | | | [place] | | | | | | [address] | | | | | | | | +--------+ + + + + as of this encounter Results IR endo repair 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 A pigtail catheter was then placed through the right sheath into the | | aortic arch. Next, a micropuncture needle was used to access the left common femoral | | artery. A micropuncture sheath was then inserted over wire and this was upsized to a 7 | | Czech sheath. Again, a perclose device was deployed at the 10:00 and 2:00 position in | | the left common femoral artery. A Lunderquist wire was then placed to the left 7 Czech | | sheath with the tip of the wire in the aortic arch. Once the wire was in place, the | | 7-Czech sheath was removed from the left common [...] + -------+ | Jayson, Rad Results In 07/26/2017 2:32 PM PDT Abdominal Arteriogram and [...] was properly identified and brought to the Environmental Journalist. The patient was placed | | supine on the Environmental Journalist table and the patient underwent general endotracheal [...] and this was upsized to a 5 Czech sheath. A pigtail catheter was | | then placed through the right sheath into the aortic arch. Next, a micropuncture needle | | was used to access the left common femoral artery. A micropuncture sheath was then | | inserted over wire and this was upsized to a 7 Czech sheath. Again, a perclose device | | was deployed at the 10:00 and 2:00 position in the left common femoral artery. A | | Lunderquist wire was then placed to the left 7 Czech sheath with the tip of the wire in | | the aortic arch.Once the wire was in place, the 7-Czech sheath was removed from the | | [...] | | | | | + -------+ POC ACT, arterial (07/24/2017 12:34 PM) + + + + | Component | Value | Ref Range | + + + + | POC ACT | 213 (H)Comment: Testing performed at | 74 - 137 seconds | | | [facility];[address] [facility];[place] [address] | | + + + + + + + | Specimen | Performing Laboratory | + + + | | [address] [place] [address] [place] [address] | + + + Basic metabolic panel (07/24/2017 9:31 AM) + + + + | Component | Value | Ref Range | + + + + | SODIUM | 133 (L) | 135 - 145 mmol/L | + + + + | POTASSIUM | 4.7Comment: SPECIMEN SLIGHTLY HEMOLYZED | 3.5 - 4.9 mmol/L | + + + + | CHLORIDE | 98 (L) | 99 - 109 mmol/L | + + + + | CO2 | 29 | 23 - 32 mmol/L | + + + + | ANION GAP AGAP | 11 | 5 - 20 mmol/L | + + + + | GLUCOSE | 97Comment: SPECIMEN SLIGHTLY HEMOLYZED | 65 - 99 mg/dL | + + + + | BUN | 18 | 8 - 25 mg/dL | + + + + | CREATININE | 1.1Comment: SPECIMEN SLIGHTLY HEMOLYZED | 0.70 - 1.30 mg/dL | + + + + | BUN/CREAT | 16 | | + + + + | CALCIUM | 9.0 | 8.5 - 10.5 mg/dL | + + + + | EGFR | >60Comment: GFR <60: CHRONIC KIDNEY | >60 mL/min/1.73m2 | | | DISEASE, IF FOUND OVER A 3 MONTH PERIOD.GFR | | | | <15: KIDNEY FAILURE.FOR AMERICANS, | | | | MULTIPLY THE CALCULATED GFR BY | | | | 1.210.Testing performed at [facility], [address] | | | [place] [address] | | | | | | + + + + + + + | Specimen | Performing Laboratory | + + + | Blood | [facility] [address] [facility] [address], | | | [place] [address] | + + + Type and Crossmatch (Blood Bank) (07/24/2017 9:31 AM) + + + + | Component | Value | Ref Range | + + + + | ARM BAND NUMBER | [id number] | | + + + + | ABO/RH(D) | O POSITIVE | | + + + + | ANTIBODY SCREEN | NEGATIVE | | + + + + | UNIT NUMBER | [id number] | | + + + + | [...] | CROSSMATCH RESULT | COMPATIBLETesting performed at [facility];[address] | | | [address];[place] [address] | | | | | | + + + + | UNIT NUMBER | [id number] | | + + + + | [...] + + + | UNIT NUMBER | [id number] | | + + + + | [...] + + + | UNIT NUMBER | [id number] | | + + + + | [...] | + + + | Blood | [address] [facility] [address] | + + + CBC W/Auto Diff [...] BASOPHILS ABS | 0.08Comment: Testing performed at [facility] | 0.00 - 0.10 K/uL | | | [facility];[place] [address] | | + + + + + + + | Specimen | Performing Laboratory | + + + | Blood | [facility] [address] [facility] [place] [address] | + + + MRSA by PCR (07/24/2017 8:55 AM) + + + + | Component | Value | Ref Range | + + + + | SOURCE | NARES(NOSE) | | + + + + | MRSA PCR | NEGATIVEComment: Testing performed at | NEGATIVE | | | [facility];[address] [place] [address];[place] [address] | | + + + + + + + | Specimen | Performing Laboratory | + + + | Nasopharyngeal - | [facility] [address] [place] [address] | | Nares(Nose) | | + + + in this encounter [...] | + + Administered Medications + +--------+ +-------+------+------+ | Medication Order | MAR | Action | Dose | Rate | Site | | | Action | Date | | | | + +--------+ +-------+------+------+ | aspirin chewable tablet 81 mg | Given | | 81 mg | | | | 81 mg, Oral, Daily With | | 8 18:49 | | | | | Breakfast, First dose on Wed | | PDT | | | | | 07/24/17 at 1530 | | | | | | + +--------+ +-------+------+------+ +-------+ +-------+---+---+ | Given | | 81 [...] | (SYMBICORT) 160-4.5 MCG/ACT | | 8 20:39 | | | | | inhaler 2 puff 2 puff, | | PDT | | | | | Inhalation, 2 Times Daily, First | | | | | | | dose on Sat07/24/17 at 2100 | | | | | | + +-------+ +---------+---+---+ +---+---+ | | | +---+---+ [...] 08:46 | | | | | on 07/26/17 at 0900 | | PDT | | [...] | | | + +-------+ + +---+---+ +---+---+ | | | +---+---+ + +-------+ +--------+---+---+ | iopamidol (ISOVUE-250) 51 % | Given | | 60 mLs | | | | injection 60 mL 60 mL, | | 8 12:30 | | | | | Intra-arterial, Img Once PRN, | | PDT | | | | | Other, Starting 07/24/17 at | | | | | | | 1335, For 1 dose, Intra-procedure | | | | | | | (CATH/IR) | | | | | | + +-------+ +--------+---+---+ +---+---+ | | | +---+---+ + +---------+ +---+-------+---+ | lactated ringers infusion [...] | | | | First dose on [facility] 07/25/17 at 0630 | | | [...] +---+---+ | | | +---+---+ + +-------+ +---+---+---+ | mupirocin (BACTROBAN) 2 % nasal | Given | | | | | | ointment Nasal, Once, Sat | | 8 09:20 | | | | | 07/24/17 at 1000, For 1 dose, Use | | PDT | | | | | one-half of tube in each nostril. | | | | | | | After application, press sides | | | | | | | of nose together and gently | | | | | | | massage | | | | | | + +-------+ +---+---+---+ +---+---+ | | | +---+---+ + +-------+ +--------+---+---+ | niacin CR capsule 500 mg 500 | Given | | 500 mg | | | | mg, Oral, Daily, First dose on | | 8 19:09 | | | | | 07/24/17 at 1800 | | PDT | | [...] +---+---+ | | | +---+---+ + +-------+ +-------+---+---+ | pantoprazole (PROTONIX) EC | Given | | 40 mg | | | | tablet 40 mg 40 mg, Oral, Every | | 8 05:38 | | | | | Morning Before Breakfast, First | | PDT | | | | | dose on [place] 07/25/17 at 0630 | [...] QUEtiapine (SEROquel) tablet | Given | | 200 mg | | | | 200 mg 200 mg, Oral, Nightly, | | 8 22:33 | | | | | First dose on Sat07/24/17 at 2200 | | PDT | | | | + +-------+ +--------+---+---+ +---+---+ | | | +---+---+ + +-------+ +--------+---+---+ | QUEtiapine (SEROquel) tablet | Given | | 400 mg | | | | 400 mg 400 mg, Oral, Nightly, | | 8 20:46 | | | | | First dose on [facility] 07/25/17 at 2200 | | PDT | | | | + +-------+ +--------+---+---+ +---+---+ | | | +---+---+ + +-------+ +------+---+---+ | risperiDONE (RisperDAL) tablet | Given | | 2 mg | | | | 2 mg 2 mg, Oral, Nightly, First | | 8 20:46 | | | | | dose on [facility] 07/25/17 at 2200 | | PDT [...] +--------+---+---+ +---+---+ | | | +---+---+ + +---------+ +---+-------+---+ | sodium chloride 0.9 % infusion | New Bag | | | 110 | | | at 110 mL/hr, Intravenous, | | 8 09:15 | | mL/hr | | | Continuous, Starting Sat07/24/17 | | PDT | | | | | at 0900, Pre-op | | | | | | + +---------+ +---+-------+---+ +---------+ +---+-------+---+ | New Bag | | | 110 | | | | 8 14:30 | | mL/hr | | | | PDT | | | | +---------+ +---+-------+---+ +---+---+ | | | +---+---+ + +-------+ +-----+---+---+ | sodium chloride tablet 1 g 1 | Given | | 1 g | | | | g, Oral, 2 Times Daily, First | | 8 08:40 | | | | | dose on Sat07/24/17 at 2100 | | PDT | | [...] | | | | | 07/24/17 at 1700 | | | | | [...] +-------+ +--------+---+---+ +---+---+ | | | +---+---+ in this encounter
--- OUTSIDE RECORDS SUMMARY | 2017-08-16 01:21 | XMS | Encounter Summary ---
Demographics + + + | Address | [address] | | | [place] [address] | + + + | Home Phone | | + + + | Preferred Language | Unknown | + + + | Marital Status | Single | + + + | Cheondoism Affiliation | Unknown | + + + | Race | Unknown | + + + | Ethnic Group | Unknown | + + + Author + + + | Author | [facility] [employer] | + + + | Organization | [facility] [employer] | + + + | Address | Unknown | + + + | Phone | Unavailable | + + + Support + + +---------+ + | Name | Relationship | Address | Phone | + + +---------+ + | Latricia Nicolas | ECON | Unknown | | + + +---------+ + Care Team Providers + +------+ + | 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 | Phone | + [...] Radiology | Diagnoses | Huy Child | [facility] | | | | | Thoracic | [address] | | | | | aortic | [address] | [address] | | | | | aneurysm | Drive | [address] | | | | | without | [place], [place] | [place], [place] | | | | | rupture | [address] | [address] Phone: | | | | | ([facility]) | Phone: | [phone] | | | | | Procedures | [phone] | Fax: | | | | | CTA chest | Fax: | [phone] | | | | | abdomen | [phone] | | | | | | pelvis with | | | | | | | IV [...] Radiology | Diagnoses | Huy Child | [facility] | | | | | Thoracic | [address] | [address] | | | | | aortic | [address] | [address] | | | | | aneurysm | Drive | [address] | | | | | without | [place], [place] | [place], [place] | | | | | rupture | [address] | [address] Phone: | | | | | ([facility]) | Phone: | [phone] | | | | | Procedures | [phone] | Fax: | | | | | CTA chest | Fax: | [phone] | | | | | abdomen | [phone] | | | | | | pelvis with | | | | | | | IV [...] Radiology | Diagnoses | Huy Child | [facility] | | | | | Thoracic | [address] | [address] | | | | | aortic | [address] | [address] | | | | | aneurysm | Drive | [address] | | | | | without | [place], [place] | [place], [place] | | | | | rupture | [address] | [address] Phone: | | | | | ([facility]) | Phone: | [phone] | | | | | Procedures | [phone] | Fax: | | | | | CTA chest | Fax: | [phone] | | | | | abdomen | [phone] | | | | | | pelvis with | | | | | | | IV contrast | | | +--------+--------+ + + + + Encounter Details +--------+ + + + + | Date | Type | Department | Care Team | Description | +--------+ + + + + | 07/19/ | Hospital | [facility] | Huy Child MD | Thoracic aortic | | 2018 | Encounter | [facility] CT | [address] | aneurysm without | | | | [address] | [place] [address] | rupture (HCC) | | | | [place] [address] | [phone] | | | | | [phone] | | | +--------+ + + + [...] [place] | | | | | | [address] | | | | | | | | +--------+ + + + + as of this encounter Results CTA chest abdomen pelvis with IV contrast (07/19/2017 9:38 AM) + + + | Specimen | Performing Laboratory | + + + | | [facility] [address] [address] | + + + + + | Impressions | + + | 1. Unchanged fusiform ascending thoracic aortic aneurysm measuring 5.3 cm in | | diameter. 2. 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 3. Moderate cardiomegaly. Mild enlargement of the | | pulmonary arteries, suggesting pulmonary arterial hypertension. 4. The lungs | | demonstrate nodular opacities, some of which appear to be decreased, while opacities in | | the right lower lobe appear to be new. The morphology and decreased vision favors | | infectious/inflammatory etiology. Follow-up chest CT in 3 months is recommended. | | 5. Please refer to the findings section for additional incidental details. | | | + + + + | Narrative | + + | SAI FREEMAN 1945 72 years Male CTA CHEST ABDOMEN PELVIS W CONTRAST | | 07/19/2017 9:38 AM HISTORY: Thoracic aortic aneurysm without rupture. | | TECHNIQUE: 5-mm axial images of the chest, abdomen and pelvis were acquired without | | contrast. Subsequently axial 0.625 mm arterial phase images were acquired through the | | chest, abdomen and pelvis according to a CT angiography protocol. Then 5-mm axial | | venous phase images of the abdomen and pelvis were acquired. Multiplanar CT | | angiographic MIP reconstructions were performed from the arterial phase data set. 3-D | | reconstructions were performed using the [employer] 3-D software and sent to | | PACS. Radiation dose reduction performed with automated exposure control. Oral | | Contrast: None IV contrast: 100 mL IsoVue 370 COMPARISON: CT angiogram chest | | 06/20/2017. FINDINGS: CT angiogram findings: Within the chest, * Fusiform | | ascending thoracic aortic aneurysm seen measuring 5.3 cm in diameter, unchanged upon | | direct comparison utilizing similar measurement technique on the previous study. Series | | 5, image 103. * Penetrating atheromatous ulcer involving the lateral aspect of the | | proximal descending thoracic aorta on series 502B, image 108 measuring approximately 2.5 | | cm x 1.2 cm in size appears unchanged. * Extensive atherosclerotic plaques | | identified throughout the descending thoracic aorta. Utilizing software, the | | ascending aorta measurements are as follows: Aortic Annulus: 40 x 33 mm (AP x | | transverse), image 5, series 507. Aortic Sinuses of Valsalva: 44 x 38 mm (AP x | | transverse), image 4, series 507. Sinotubular Junction: 47 x 46 mm (AP x transverse), | | image 3, series 507. Mid Ascending Aorta: 54 x 50 mm (AP x transverse), image 2, series | | 507. High Ascending Aorta: 45 x 41 mm (AP x transverse), image 1, series 507. | | Mild narrowing of the proximal brachiocephalic artery on series 5, image 47. Mild | | narrowing of the proximal subclavian artery on series 5, image 31. Mild narrowing of the | | left proximal subclavian artery on series 5, image 35. Overall these findings appear | | unchanged in the previous examination. Within the abdomen and pelvis, there appears | | to be ectasia of the abdominal aorta without aneurysmal dilatation. Moderate to severe | | atherosclerosis identified throughout. Minimal narrowing of the origin of the celiac | | trunk, SMA. Mild narrowing of the origin of the CONNOR. Minimal to mild segmental narrowing | | of the common iliac, external iliac, internal iliac and common femoral arteries | | bilaterally. Minimal segmental narrowing of the visualized proximal superficial femoral | | and profunda arteries. CT chest findings: Lungs: -Decreasing nodular opacities | | in the right upper lobe, with small amount of residual groundglass opacity noted on | | series 5, image 65 measuring 7 mm in size. -Cluster of nodular opacities in the right | | lower lobe on series 5, image 63 measuring approximately 1.6 cm x 1.4 cm in size appears | | to be increased, previously 1.6 cm x 0.9 cm. -Cluster of nodular opacities at the | | right lung base on series 5, image 189 appear to be decreased in size and number since | | the previous examination. -Nodular opacity in the right lower lobe medially abutting | | the right heart border on series 5, image 158 measuring 7 mm in size previously measured | | 16 mm. Pleura: Small bilateral pleural effusions, new since the previous examination. | | Aorta: See above Pulmonary arteries: Mild enlargement, suggesting pulmonary arterial | | hypertension. Lymph nodes: -Unchanged enlarged right hilar lymph nodes seen on series | | 4, image 89 measuring 1.9 cm x 1.5 cm and on series 5, image 14 measuring 1.6 cm x 1.1 | | cm. -Enlarged right paratracheal lymph node on series 2, image 11 measuring 1.8 cm x | | 1.3 cm appears unchanged. Heart: Moderate cardiomegaly. Trace pericardial effusion. | | Esophagus: Does not appear dilated. Visualized thyroid: Appears unremarkable. | | Visualized abdominal organs:See below Osseous structures: No acute or destructive | | osseous process seen. CT abdomen pelvis findings: Liver: appears unremarkable | | Gall bladder: appears unremarkable Pancreas: appears unremarkable Spleen: appears | | unremarkable Adrenal glands: appear unremarkable Kidneys: Bilateral renal | | hypodensities, the larger likely representing cysts, while few small subcentimeter | | hypodensities are too small to accurate characterize. The largest on the right measures | | 4.4 cm and largest on the left measures 2.7 cm. Bowel and peritoneum: No free air, | | bowel obstruction, ileus or fluid collection seen. Trace ascites. Lymph nodes: No | | enlarged lymph nodes by CT size criteria seen, Visualized lungs: See above Osseous | | structures: No acute or destructive osseous process seen. Appendix: Not definitively | | seen. Other pelvic structures: Small amount of ascites in the pelvis. Circumferential | | mild thickening of the urinary bladder wall, suggesting outlet obstruction or cystitis. | | Suspected small left fat-containing inguinal hernia. No enlarged pelvic lymph nodes | | seen. | + + + + | Procedure Note | + + | Jayson, Rad Results In - 07/19/2017 11:22 AM PDT SAI FREEMAN//[id number] years MaleCTA | | CHEST ABDOMEN PELVIS W CONTRAST07/19/2017 9:38 AMHISTORY: Thoracic aortic aneurysm | | without rupture.TECHNIQUE:5-mm axial images of the chest, abdomen and pelvis were | | acquired without contrast. Subsequently axial 0.625 mm arterial phase images were | | acquired through the chest, abdomen and pelvis according to a CT angiography protocol. | | Then 5-mm axial venous phase images of the abdomen and pelvis were acquired. | | Multiplanar CT angiographic MIP reconstructions were performed from the arterial phase | | data set. 3-D reconstructions were performed using the [employer] 3-D software and sent to | | PACS. Radiation dose reduction performed with automated exposure control.Oral Contrast: | | NoneIV contrast: 100 mL IsoVue 370COMPARISON: CT angiogram chest 06/20/2017.FINDINGS:CT | | angiogram findings:Within the chest,* Fusiform ascending thoracic aortic aneurysm seen | | measuring 5.3 cm in diameter, unchanged upon direct comparison utilizing similar | | measurement technique on the previous study. Series 5, image 103.* Penetrating | | atheromatous ulcer involving the lateral aspect of the proximal descending thoracic | | aorta on series 502B, image 108 measuring approximately 2.5 cm x 1.2 cm in size appears | | unchanged.* Extensive atherosclerotic plaques identified throughout the descending | | thoracic aorta.Utilizing software, the ascending aorta measurements are as | | follows:Aortic Annulus: 40 x 33 mm (AP x transverse), image 5, series 507.Aortic | | Sinuses of Valsalva: 44 x 38 mm (AP x transverse), image 4, series 507.Sinotubular | | Junction: 47 x 46 mm (AP x transverse), image 3, series 507.Mid Ascending Aorta: 54 x 50 | | mm (AP x transverse), image 2, series 507.High Ascending Aorta: 45 x 41 mm (AP x | | transverse), image 1, series 507.Mild narrowing of the proximal brachiocephalic artery | | on series 5, image 47. Mild narrowing of the proximal subclavian artery on series 5, | | image 31. Mild narrowing of the left proximal subclavian artery on series 5, image | | 35.Overall these findings appear unchanged in the previous examination.Within the | | abdomen and pelvis, there appears to be ectasia of the abdominal aorta without | | aneurysmal dilatation. Moderate to severe atherosclerosis identified throughout. Minimal | | narrowing of the origin of the celiac trunk, SMA. Mild narrowing of the origin of the | | CONNOR. Minimal to mild segmental narrowing of the common iliac, external iliac, internal | | iliac and common femoral arteries bilaterally. Minimal segmental narrowing of the | | visualized proximal superficial femoral and profunda arteries.CT chest | | findings:Lungs:-Decreasing nodular opacities in the right upper lobe, with small amount | | of residual groundglass opacity noted on series 5, image 65 measuring 7 mm in | | size.-Cluster of nodular opacities in the right lower lobe on series 5, image 63 | | measuring approximately 1.6 cm x 1.4 cm in size appears to be increased, previously 1.6 | | cm x 0.9 cm.-Cluster of nodular opacities at the right lung base on series 5, image 189 | | appear to be decreased in size and number since the previous examination.-Nodular | | opacity in the right lower lobe medially abutting the right heart border on series 5, | | image 158 measuring 7 mm in size previously measured 16 mm.Pleura: Small bilateral | | pleural effusions, new since the previous examination.Aorta: See abovePulmonary | | arteries: Mild enlargement, suggesting pulmonary arterial hypertension.Lymph | | nodes:-Unchanged enlarged right hilar lymph nodes seen on series 4, image 89 measuring | | 1.9 cm x 1.5 cm and on series 5, image 14 measuring 1.6 cm x 1.1 cm.-Enlarged right | | paratracheal lymph node on series 2, image 11 measuring 1.8 cm x 1.3 cm appears | | unchanged.Heart: Moderate cardiomegaly. Trace pericardial effusion.Esophagus: Does not | | appear dilated.Visualized thyroid: Appears unremarkable.Visualized abdominal organs:See | | belowOsseous structures: No acute or destructive osseous process seen.CT abdomen pelvis | | findings:Liver: appears unremarkableGall bladder: appears unremarkablePancreas: appears | | unremarkableSpleen: appears unremarkableAdrenal glands: appear unremarkableKidneys: | | Bilateral renal hypodensities, the larger likely representing cysts, while few small | | subcentimeter hypodensities are too small to accurate characterize. The largest on the | | right measures 4.4 cm and largest on the left measures 2.7 cm.Bowel and peritoneum: No | | free air, bowel obstruction, ileus or fluid collection seen. Trace ascites.Lymph nodes: | | No enlarged lymph nodes by CT size criteria seen,Visualized lungs: See aboveOsseous | | structures: No acute or destructive osseous process seen.Appendix: Not definitively | | seen.Other pelvic structures: Small amount of ascites in the pelvis. Circumferential | | mild thickening of the urinary bladder wall, suggesting outlet obstruction or cystitis. | | Suspected small left fat-containing inguinal hernia. No enlarged pelvic lymph nodes | | seen.IMPRESSION:1. Unchanged fusiform ascending thoracic aortic aneurysm measuring 5.3 | | cm in diameter.2. 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 Moderate cardiomegaly. Mild enlargement of the pulmonary | | arteries, suggesting pulmonary arterial hypertension.4. The lungs demonstrate nodular | | opacities, some of which appear to be decreased, while opacities in the right lower lobe | | appear to be new. The morphology and decreased vision favors infectious/inflammatory | | etiology. Follow-up chest CT in 3 months is recommended.5. Please refer to the findings | | section for additional incidental details. | |Kidneys: Bilateral renal hypodensities, the larger likely representing cysts, while few sma ll subcentimeter hypodensities are too small to accurate characterize. The largest on the ri ght measures 4.4 cm and largest on the left measures 2.7 cm. | |Bowel and peritoneum: No free air, bowel obstruction, ileus or fluid collection seen. Trace ascites. | |Lymph nodes: No enlarged lymph nodes by CT size criteria seen, | |Visualized lungs: See above | |Osseous structures: No acute or destructive osseous process seen. | |Appendix: Not definitively seen. | |Other pelvic structures: Small amount of ascites in the pelvis. Circumferential mild thicke tk of the urinary bladder wall, suggesting outlet obstruction or cystitis. Suspected small left fat-containing | |inguinal hernia. No enlarged pelvic lymph nodes seen. | | | | | |IMPRESSION: | |1. Unchanged fusiform ascending thoracic aortic aneurysm measuring 5.3 cm in diameter. | |2. Unchanged penetrating atheromatous ulcer involving the proximal descending thoracic aor ta. | |3. Moderate cardiomegaly. Mild enlargement of the pulmonary arteries, suggesting pulmonary arterial hypertension. | |4. The lungs demonstrate nodular opacities, some of which appear to be decreased, while op acities in the right lower lobe appear to be new. The morphology and decreased vision favors infectious/inflammatory etiology. | |Follow-up chest CT in 3 months is recommended. | |5. Please refer to the findings section for additional incidental details. | | | | | + + [...] 100 mL 100 mL, | | 8 09:38 | | | | | Intravenous, Img Once PRN, Other, | | PDT | | | | | Starting 07/19/17 at 0905, | | | | | | | For 1 dose | | | | | | + +--------+ +---------+------+------+ +---+---+ | | | +---+---+ in this encounter"
--- OUTSIDE RECORDS SUMMARY | 2017-08-16 01:21 | XMS | Encounter Summary ---
Demographics + + + | Address | [address] | | | [place] [address] | + + + | Home Phone | | + + + | Preferred Language | Unknown | + + + | Marital Status | Single | + + + | Mandaeism Affiliation | Unknown | + + + | Race | Unknown | + + + | Ethnic Group | Unknown | + + + Author + + + | Author | [facility] | + + + | Organization | [facility] [employer] | + + + | Address | Unknown | + + + | Phone | Unavailable | + + + Support + + +---------+ + | Name | Relationship | Address | Phone | + + +---------+ + | Latricia Nicolas | ECON | Unknown | | + + +---------+ + Care Team Providers + +------+ + | Care [place]okee Name | Role | Phone | + +------+ + | Terrence Browning MD | PCP | Unavailable | + +------+ + Reason for Visit + + + | Reason | Comments | + + + | Poor Circulation | Thoracic penatrating ulcer | + + + Surgical (Urgent) +--------+ + + + + + | Status | Reason | Specialty | Diagnoses / | Referred By | Referred To | | | | | Procedures | Contact | Contact | +--------+ + + + + + | Closed | Specialty | Vascular | Diagnoses | Terrell, | Huy Child, | | | Services | Surgery | History of | MD Del | [address] | | | Required | | tracheostomy | [address] | | | [address] | [address] | [address] | | | | | AORITIC | Drive | [place], [place] | | | | | PENETRATING | [place], [place] | [address] Phone: | | | | | [place] | [address] | [phone] | | | | | | Phone: | Fax: | | | | | | [phone] | [phone] | | | | | | Fax: | | | | | | | [phone] | | +--------+ + + + + + Encounter Details +--------+ + + + + | Date | Type | Department | Care Team | Description | +--------+ + + + + | 07/11/ | Initial | [facility] | Huy Child MD | Penetrating ulcer of | | 2018 | consult | Vascular Surgery | [address] | aorta (HCC) | | | | [address] | [place] [address] | (Primary Dx) | | | | [place] | [phone] | | | | | [address] | | | | | | [phone] | | | +--------+ + + + [...] this encounter Last Filed Vital Signs + +---------+ + | Vital Sign | Reading | Time Taken | + +---------+ + | Blood Pressure | 125/78 | 07/11/2017 1:03 PM PDT | + +---------+ + | Pulse | 88 | 07/11/2017 1:03 PM PDT | + +---------+ + | Temperature | - | - | + +---------+ + | Respiratory Rate | - | - | + +---------+ + | Oxygen Saturation | 96% | 07/11/2017 1:03 PM PDT | + +---------+ + | Inhaled Oxygen | - | - | | Concentration | | | + +---------+ + | Weight | - | - | + +---------+ + | Height | - | - | + +---------+ + | Body Mass Index | - | - | + +---------+ + in this encounter Progress Notes Huy Child MD - 07/11/2017 1:15 PM PDTFormatting of this note may be different from the o riginal. Subjective: Patient ID: Jerry Freeman is a 72 y.o. male. HPI Mr. Freeman is a pleasant 72 y.o. [...] of rupture. José Miguel drummond is asymptomatic. CTA chest aorta W IV contrast Impression 1. Fusiform ascending thoracic aortic aneurysm with maximum diameter measuring approximat siria 5.4 cm, similar to CT dated 03/26/2016. 2. 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 3. Cardiomegaly. 4. Enlarged pulmonary trunk indicating pulmonary artery hypertension. 5. Small pericardial effusion. 6. Moderate coronary artery atherosclerosis. 7. Ill-defined nodular opacities in right upper lobe and right lower lobe, nonspecific, p robably inflammatory/infective. These are new as compared to CT dated 03/26/2016. Recommend attention on follow-up chest CT in 3 months. 8. Diffuse bronchial wall thickening indicating bronchitis. 9. Enlarged right hilar lymph nodes, nonspecific, likely reactive. 10. Small bilateral pleural effusions. 11. Additional incidental findings as detailed above. Past Medical History Diagnosis Date Cardiac failure [...] second fistula rapair October two weeks later Social History Substance Use Topics Smoking status: Former Smoker Packs/day: 3.00 Years: 45.00 Smokeless tobacco: Never Used Comment: quit 2010 Alcohol use No Family History Problem Relation Age of Onset Cancer Father colon Heart defect Neg Hx Heart disease Neg Hx Current Outpatient Prescriptions on File Prior to Visit Medication Sig Dispense Refill acetaminophen (TYLENOL) 325 MG tablet Take 650 mg by mouth every 6 (six) hours as neede d. albuterol (PROVENTIL) (2.5 MG/3ML) 0.083% nebulizer solution Take 2.5 mg by nebulizatio n as needed. aspirin 81 MG tablet Take 81 mg by mouth daily. chlorhexidine (PERIDEX) 0.12 % solution Use as directed 15 mLs in the mouth or throat 2 (two) times daily. ciprofloxacin (CIPRO) 250 MG tablet Take 250 mg by mouth 2 (two) times daily. diphenhydrAMINE (BENADRYL) 50 MG capsule Take 50 mg by mouth nightly. docusate sodium (COLACE) 100 MG capsule Take 100 mg by mouth 2 (two) times daily. ferrous sulfate 325 (65 FE) MG tablet Take 325 mg by mouth 2 (two) times daily. fluticasone (FLOVENT HFA) 220 MCG/ACT inhaler Inhale 2 puffs into the lungs 2 (two) lyndsey es daily. fluticasone-salmeterol (ADVAIR DISKUS) 250-50 MCG/DOSE AEPB Inhale 1 puff into the lung s 2 (two) times daily. levothyroxine (LEVOTHROID) 150 MCG tablet Take 300 mcg by mouth. 1po M, W, F LEVOTHYROXINE SODIUM PO Take 200 mcg by mouth. 1po q S,T,TH,SA Magnesium Hydroxide (MILK OF MAGNESIA PO) Take 400 mg by mouth as needed. magnesium oxide (MAG-OX) 400 MG tablet Take 400 mg by mouth 2 (two) times daily. Multiple Vitamins-Minerals (MULTIVITAL) tablet Take 1 tablet by mouth daily. NIACIN ER PO Take 500 mg by mouth daily. polyethylene glycol (GLYCOLAX) packet Take 17 g by mouth daily. quetiapine (SEROQUEL) 200 MG tablet Take 400 mg by mouth nightly. risperidone (RISPERDAL) 4 MG tablet Take by mouth nightly. 2po q hs sertraline (ZOLOFT) 100 MG tablet Take 100 mg by mouth daily. sodium chloride 1 G tablet Take 1 g by mouth 2 (two) times daily. tamsulosin (FLOMAX) 0.4 MG CAPS Take 0.4 mg by mouth After dinner After dinner. tiotropium (SPIRIVA) 18 MCG inhalation capsule Inhale 18 mcg into the lungs daily. traMADol (ULTRAM) 50 MG tablet Take 50 mg by mouth every 6 (six) hours as needed for Pa in. umeclidinium bromide (INCRUSE ELLIPTA) 62.5 MCG/INH inhaler Inhale 1 puff into the lung s daily. No current facility-administered medications on file prior to visit. Allergies Allergen Reactions Lipitor [Atorvastatin] Other (See Comments) UNABLE to remember reaction Review of Systems Comprehensive ROS performed and pertinent items described in the HPI. Objective: Physical Exam Vitals:reviewed CONSTITUTIONAL: Conversant, well developed, NAD EYES: Anicteric sclerae, no lid drag, no proptosis RESP: Normal effort, regular, even, unlabored rate CV: No peripheral edema, rate regular SKIN: [place], warm, dry without rash/lesion MS: ROM not limited, no digital cyanosis, normal gait NEURO: Cranial nerves II-XII grossly intact, A&O times 3 PSYCH: appropriate affect, speech and tone, judgement and insight intact Vascular: Palpable femoral pulses. Assessment and Plan: Discussed CTA chest/oarta results from 06/20/17 with the patient, which shows the penetratin g ulceration in his ascending thoracic aneurysm is enlarging. I have discussed with the janeth ent that I can either perform an endovascular repair by covering the ulceration with a stent to seal it, or he can forego surgical intervention and proceed with regular CT scans to fol low his condition. I have informed with the patient that if this ulceration continues to jennifer w, it will increase his risk of rupture. Discussed surgical option and mechanism of aortic e ndograft with the patient. We have discussed benefits and risks of this procedure, including bleeding or infection. Patient is understanding and agreeable to aortic endograft, and has signed consent for surgery on 07/24/17. Patient was instructed not to eat or drink fluids aft er 11:59 PM on 07/23/17. All questions and concerns addressed. Patient will follow up 07/24/17 for the consented procedure. Patient understands and is agreeable. Attending Note: Documentation assistance provided by Esther Apodaca ([email or web address]). Information recor ded by the scribe has been reviewed and validated by me. I agree with its contents. Signed by: Tong Yanes 07/11/17, 1:21 PM Huy Child MD in this encounter Plan of Treatment +--------+ [...] [place] | | | | | | [id number] | | | | | | | | +--------+ + + + + as of this encounter Procedures + +--------+ + + + | Procedure Name | Priori | Date/Time | Associated Diagnosis | Comments | | | ty | | | | + +--------+ + + + | CASE REQUEST | Routin | 07/11/2017 | | | | OPERATING ROOM | e | 1:19 PM | | | | | | PDT | | | + +--------+ + + + in this encounter Visit Diagnoses + + | Diagnosis | + + | Penetrating ulcer of aorta (HCC) - Primary | + +
--- OUTSIDE RECORDS SUMMARY | 2017-08-16 01:21 | XMS | Encounter Summary ---
Demographics + + + | Address | [address] | | | [place] [address] | + + + | Home Phone | | + + + | Preferred Language | Unknown | + + + | Marital Status | Single | + + + | Oriental Orthodox Affiliation | Unknown | + + + | Race | Unknown | + + + | Ethnic Group | Unknown | + + + Author + + + | Author | [facility] | + + + | Organization | [facility] [employer] | + + + | Address | Unknown | + + + | Phone | Unavailable | + + + Support + + +---------+ + | Name | Relationship | Address | Phone | + + +---------+ + | Latricia Nicolas | ECON | Unknown | | + + +---------+ + Care Team Providers + +------+ + | Care Boat Repairer Name | Role | Phone | + [...] +--------+--------+ + + + + Encounter Details +--------+---------+ + + + | Date | Type | Department | Care Team | Description | +--------+---------+ + + + | 07/24/ | Surgery | [facility] | PoiReji MD | AORTIC - ENDOGRAFT | | 2018 | | [facility] | [address] | | | | | Lab [address] | [place], [place] | | | | | [place] [address] | [address] | | | | | [phone] | | | +--------+---------+ + + + Social History [...] note may be different from the original. [facility] Service: Vascular Surgery Discharge Summary Date [...] due to trauma CHF (congestive heart failure) ([facility]) 2010 secondary to trauma fall at home COPD (chronic obstructive pulmonary disease) ([facility]) Dementia Dementia Hyperlipidemia Hypothyroidism Mental retardation MRSA (methicillin resistant Staphylococcus aureus) 03/08/2012 abdomen, states healed up MRSA (methicillin resistant Staphylococcus aureus) respiratory MRSA infection Other and unspecified coagulation defects "bleeding stitch on my neck" Personality disorder Respiratory failure (HCC) due to trauma Schizophrenia ([facility]) Past Surgical History Procedure Laterality Date ABDOMINAL [...] (07/25 1106) Heart Rate: [73-102] 84 (07/25 1106) Resp: [16-30] 16 (07/25 1106) SpO2: [87 %-100 %] 90 % (07/25 1106) Physical Exam Vitals:reviewed CONSTITUTIONAL: Conversant, well developed, NAD EYES: Anicteric sclerae, no lid drag, no proptosis RESP: Normal effort, regular, even, unlabored rate CV: No peripheral edema, rate regular SKIN: [place], warm, dry without rash/lesion MS: ROM not [...] Follow up: Terrence Browning MD [address] [facility] [facility] [id number] In 3 days follow up after surgery, review medications, vitals signs, labs [facility] [address] [place] [phone] In 2 weeks post op appointment and [...] Anexsia, Lorcet, Lorcet HD, Lorcet Plus, Lortab, [place], Verdrocet, Vicodin, Vi codin ES, Vicodin HP, [...] information carefully each time. Talk to your test carrier regarding the use of this medicine in children. Special care may be needed. What side effects may I notice from receiving this medicine? Side effects that you should report to your doctor or health day care provider as soon as p ossible: allergic reactions [...] attention (report to your doctor or health day care provider if they continue or are bothersome): constipation [...] this medicine? Tell your doctor or health day care provider if your pain does not go away, [...] contain acetaminophen with this medicine. Always read alli roger carefully. If you have questions, ask [...] days, call your doctor or health care professi onal. Your mouth may get dry. Chewing sugarless gum or sucking hard candy, and drinking plenty of water may help. Contact your doctor if the problem does not go away or is severe. NOTE:This sheet is a summary. It may not cover all possible information. If you have questi ons about this medicine, talk to your doctor, pharmacist, or health care provider. Copyright 2017 [employer] in this encounter Medications at Time of [...] note may be different from the original. [facility] Service: Hospitalist Progress Note Pt: Jerry Freeman AGE/SEX: 72 y.o. male ROOM: 4457/4457-1 : 1945 PCP: TERRENCE BROWNING ADMIT DATE: 07/24/2017 TODAY'S DATE: 07/25/2017 Hospital Day/Hospital Course: LOS: [address] Pacheco "The patient is 72 y.o. male with significant past medical history of Mr. Jerry Freeman is a 72-year-old male with a [...] hours. No results for input(s): PHART, PO2ART, MXS8VNS, Q3STLNHR, BEART in the last 168 hours. No [...] and managing patient and counseling/coordination. Dictation software, [employer], used which may contain error for similar [...] [place] | | | | | | [id number] | | | | | | | [...] | MPV | 7.4Comment: Testing performed at [facility], [facility] | fl | | | [place] [address] | | + + + + + + + | Specimen | Performing Laboratory | + + + | | [address] [place], | | | [place] [address] | + + + Basic metabolic panel [...] | | | | 1.210.Testing performed at [facility], [address] | | | | [place] [address] | | | | | | + + + + + + + | Specimen | Performing Laboratory | + + + | Blood | [facility] [address] [place], | | | [place] [address] | + + + in this encounter Visit Diagnoses Not on filein this encounter Admitting Diagnoses + + | Diagnosis | [...] | | +---+---+ + +-------+ +---------+---+---+ | heparin (porcine) 5000 unit/mL | Given | | 501 mLs | | | | 5,000 Units in sodium chloride | | 8 11:45 | | | | | (IV) 0.9 % 500 mL OR medication | | PDT | | | | | mixture PRN, Starting Wed | | | | | | | 07/24/17 at 1408, Intra-op | | | | | | + [...] | | | + +---+ + +-------+ +---------+---+---+ | levothyroxine (SYNTHROID) | Given | | 200 mcg | | | | tablet 200 mcg 200 mcg, Oral, | | 8 05:38 | | | | | Every Morning Before Breakfast, | | PDT | | | | | First dose on [facility] 07/25/17 at 0630 | | | | [...] | | | | | dose on [facility] 07/25/17 at 0630 | | | | [...] | | | | First dose on [facility] 07/25/17 at 2200 | | PDT | | | | + +-------+ +--------+---+---+ +---+---+ | | | +---+---+ + +-------+ +------+---+---+ | risperiDONE (RisperDAL) tablet | Given | | 2 mg | | | | 2 mg 2 mg, Oral, Nightly, First | | 8 20:46 | | | | | dose on [facility] 07/25/17 at 2200 | | PDT | | | | + +-------+ +------+---+---+ +---+---+ | | | +---+---+ + +-------+ +-----+---+---+ | sodium chloride tablet 1 g 1 | Given | | 1 g | | | | g, Oral, 2 Times Daily, First | | 8 08:40 | | | | | dose on [facility] 07/24/17 at 2100 | | PDT | [...]
--- OUTSIDE RECORDS SUMMARY | 2017-08-16 01:21 | XMS | Encounter Summary ---
Demographics + + + | Address | [address] | | | [place] [address] | + + + | Home Phone | | + + + | Preferred Language | Unknown | + + + | Marital Status | Single | + + + | Tenriism Affiliation | Unknown | + + + | Race | Unknown | + + + | Ethnic Group | Unknown | + + + Author + + + | Author | [facility] | + + + | Organization | [facility] [employer] | + + + | Address | Unknown | + + + | Phone | Unavailable | + + + Support + + +---------+ + | Name | Relationship | Address | Phone | + + +---------+ + | Latricia Nicolas | ECON | Unknown | | + + +---------+ + Care Team Providers + +------+ + | Care Regional Service Manager Name | Role | Phone | + +------+ + | Terrence Browning MD | PCP | Unavailable | + +------+ + Encounter Details +--------+ + + + + | Date | Type | Department | Care Team | Description | +--------+ + + + + | 06/25/ | Initial | [facility] | Del Tejada MD | Thoracic aortic | | 2018 | consult | Cardiothoracic | [address] | aneurysm without | | | | Surgery [address] | [place] [address] | rupture (HCC) | | | | [place] | [phone] | (Primary Dx) | | | | [place], [place] | | | | | | [address] | | | | | | [phone] | | | +--------+ + + + [...] + + + | Blood Pressure | 111/72 | 06/25/2017 11:50 AM PST | + + + + | Pulse | 81 | 06/25/2017 11:50 AM PST | + + + + | Temperature | 36.6 C (97.8 F) | 06/25/2017 11:50 AM PST | + + + + | Respiratory Rate | - | - | + + + + | Oxygen Saturation | 98% | 06/25/2017 11:50 AM PST | + + + + | Inhaled Oxygen | - | - | | Concentration | | | + + + + | Weight | 84.7 kg (186 lb 12.8 | 06/25/2017 11:50 AM PST | | | oz) | | + + + + | Height | 185.4 cm (6' 1") | 06/25/2017 11:50 AM PST | + + + + | Body Mass Index | 24.65 | 06/25/2017 11:50 AM PST | + + + + in this encounter Progress Notes Del Tejada MD - 06/25/2017 11:45 AM PSTFormatting of this note may be different from th e original. Subjective: HPI 68 Y/O with multiple medical problems including schizophrenia, COPD and history of tracheos lucille followed for an ascending aortic aneurysm.The patient returns for follow-up of an ascen ding aortic aneurysm of 5.4 CM diameter. He continues to reside at [facility]. CTA wa s performed on 06/20/17. The ascending aorta remains stable at 5.4 CM. There is a penetrating ulcer in the descending aorta which has increased in size. The patient has no complaints. Review of Systems Constitutional: Negative for activity change, chills, fatigue and fever. HENT: Negative for hearing loss, nosebleeds, sore throat, tinnitus and voice change. Eyes: Negative for pain, discharge, redness and visual disturbance. Respiratory: Positive for shortness of breath. Negative for cough, chest tightness and whee zing. Cardiovascular: Negative for chest pain, palpitations and leg swelling. Gastrointestinal: Negative for abdominal distention, abdominal pain, anal bleeding, blood i n stool, constipation, diarrhea and nausea. Genitourinary: Negative for dysuria, frequency, hematuria and urgency. Musculoskeletal: Negative for arthralgias, back pain and neck stiffness. Skin: Negative for color change, pallor and wound. Neurological: Negative for dizziness, tremors, seizures, syncope, facial asymmetry, speech difficulty, weakness and light-headedness. Hematological: Negative for adenopathy. Does not bruise/bleed easily. Psychiatric/Behavioral: Negative for agitation, behavioral problems, confusion, sleep distu rbance and suicidal ideas. Objective: Physical Exam Constitutional: He is oriented to person, place, and time. Vital signs are normal. He appea rs well-developed and well-nourished. HENT: Head: Normocephalic and atraumatic. Eyes: Conjunctivae and lids are normal. Neck: Trachea normal and normal range of motion. Neck supple. No JVD present. Cardiovascular: Normal rate and regular rhythm. Pulmonary/Chest: Effort normal and breath sounds normal. Abdomina/Gl: Soft. Musculoskeletal: He exhibits no edema. Neurological: He is alert and oriented to person, place, and time. No cranial nerve deficit . Skin: Skin is warm. No cyanosis. CTA 07/28/13 shows a stable ascending aortic diameter of 5.1-5.2 CTA 01/28/14 shows a stable aneurysm is 5.0 CM CTA 03/10/15:Ascending aortic diameter of 5.4 CM CTA 03/26/16: Ascending aortic diameter 5.6 CM CTA 06/20/17: Ascending aortic diameter of 5.4 CM Assessment and Plan: Ascending aortic aneurysm now at 5.4 CM which is stable. I have recommended follow-up i n 1 year with a CTA. I will review the descending aortic ulcer with vascular surgery. in this encounter Plan of Treatment +--------+ [...] [place] | | | | | | [address] | | | | | | | | +--------+ + + + + as of this encounter Visit Diagnoses + + | Diagnosis | + + | Thoracic aortic aneurysm without rupture (HCC) - Primary | + + | Thoracic aneurysm without mention of rupture | + +
--- OUTSIDE RECORDS SUMMARY | 2017-08-16 01:21 | XMS | Encounter Summary ---
Demographics + + + | Address | [address] | | | [place] [address] | + + + | Home Phone | | + + + | Preferred Language | Unknown | + + + | Marital Status | Single | + + + | Jainism Affiliation | Unknown | + + + | Race | Unknown | + + + | Ethnic Group | Unknown | + + + Author + + + | Author | [facility] | + + + | Organization | [facility] | + + + | Address | Unknown | + + + | Phone | Unavailable | + + + Support + + +---------+ + | Name | Relationship | Address | Phone | + + +---------+ + | Ltaricia Nicolas | ECON | Unknown | | + + +---------+ + Care Team Providers + +------+ + | Care Network Control Operators Supervisor Name | Role | Phone | + +------+ + | Terrence Browning MD | PCP | Unavailable | + +------+ + Encounter Details +--------+ + + + + | Date | Type | Department | Care Team | Description | +--------+ + + + + | 07/24/ | Anesthesia | [facility] | Damon Arroyo, | | | 2018 | Event | [facility] | MD Darrick LAW | | | | | Neyda Law | [place] [address] | | | | | [place] [address] | [phone] | | | | | [phone] | | | +--------+ + + + + Anesthesia Record + + + + + | Procedure Name | Responsible | Anesthesia Start | Anesthesia Stop Time | | | Anesthesiologist | Time | | + + + + + | AORTIC - ENDOGRAFT | Damon Arroyo MD | 07/24/17 1126 | 07/24/17 1337 | | (N/A Aric) | | | | + + + + + +----+---+ + + | Da | T | Event | Comment | | te | i | | | | | m | | | | | e | | | +----+---+ + + | 03 | 1 | An Start | Pre-anesthetic vital signs reassessed. | | /2 | 1 | | | | 8/ | 2 | | | | 20 | 6 | | | | 18 | | | | +----+---+ + + | | 1 | An | | | | 1 | Induction | | | | 3 | | | | | 8 | | | +----+---+ + + | | 1 | An | | | | 1 | Intubation | | | | 3 | | | | | 9 | | | +----+---+ + + | | 1 | An | | | | 2 | Emergence | | | | 5 | | | | | 8 | | | +----+---+ + + | | 1 | Extubation | | | | 3 | | | | | 0 | | | | | 1 | | | +----+---+ + + | | 1 | Quick Note | Pacu delay | | | 3 | | | | | 1 | | | | | 3 | | | +----+---+ + + | | 1 | An Stop | | | | 3 | | | | | 3 | | | | | 7 | | | +----+---+ + + +------+ | Meds | +------+ + + + | Name | Total | + + + | ceFAZolin (ANCEF) 1 g | 2 g | + + + | fentanyl 50 mcg/mL | 100 mcg | + + + | lidocaine 2% | 50 mg | + + + | propofol bolus | 50 mg | + + + | ROCuronium 10 mg/mL | 50 mg | + + + | dexamethasone 4 mg/mL | 4 mg | + + + | ondansetron 2 mg/mL | 4 mg | + + + | ePHEDrine 5 mg/mL | 20 mg | + + + | phenylephrine 100 mcg/mL | 400 mcg | + + + | glycopyrrolate 0.2 mg/ml | 0.4 mg | + + + | neostigmine | 3 mg | + + + | etomidate 2 mg/mL | 10 mg | + + + | remifentanil infusion | 0.3 mg | + + + | heparin 1,000 units/mL | 8,000 Units | + + + | protamine 10 mg/mL | 30 mg | + + + | NS | 900 mL | + + + | NS | 200 mL | + + + + + | Name | + + | Sevoflurane-EX | + + | N2O | + + + + | No blood administrations on file. | + + +--------+ + + + | Type | Details | Placement | Removal | +--------+ + + + | Incisi | Neck; Anterior | 03/09/12 0339 by | | | on | | | | +--------+ + + + | ETT | Placement Date: 07/24/17; | 07/24/171138 by | | | | Placement Time: 1138; Mask | Damon Arroyo MD | | | | Airway: Moderate; Blade Type: | | | | | MAC; Blade Size: 4; ETT Type: | | | | | Standard ETT; ETT Size (Fr): 6.0; | | | | | Technique: Direct Laryngoscope; | | | | | Grade: III; Insertion attempts: | | | | | 2; Confirmation: EtCO2, BBS; | | | | | Intubation Details: Hard | | | +--------+ + + + | Wound | 07/24/17; 1244; Incision; | 07/24/17 1244 by | | | | Abdomen; Bilateral | Luz Lala RN | | +--------+ + + + | Wound | 07/24/17; 1244; Incision; Groin; | 07/24/17 1244 by | | | | Bilateral | Luz Lala RN | | +--------+ + + + | Periph | Placement Date: 07/24/17; | 07/24/17 09 by | 07/26/17 1048 by | | eral | Placement Time: 901; Removal | Rosy Lala RN | César Vargas RN | | IV | Date: 07/26/17; Removal Time: | | | | | 1048; Size (Gauge): 18 G; | | | | | Orientation: Left; Location: | | | | | Hand; Site Prep: | | | | | Chlorhexidine-Isopropyl Alcohol; | | | | | Insertion Attempts: 1 | | | +--------+ + + + | Periph | Placement Date: 07/24/17; | 07/24/17 09 by | 07/26/17 1048 by | | eral | Placement Time: 911; Removal | Rosy Lala RN | César Vargas RN | | IV | Date: 07/26/17; Removal Time: | | | | | 1048; Size (Gauge): 18 G; | | | | | Orientation: Right; Location: | | | | | Hand; Site Prep: | | | | | Chlorhexidine-Isopropyl Alcohol; | | | | | Insertion Attempts: 1 | | | +--------+ + + + | Arteri | Placement Date: 07/24/17; | 07/24/17 1132 by | 07/25/17 1126 by | | al | Placement Time: 113; Removal | Damon Arroyo MD | César Vargas RN | | Line | Date: 07/25/17; Removal Time: | | | | | 112; Arterial Line Cath Gauge: | | | | | 20; Laterality: Right; Location: | | | | | Radial; Site Prep: Alcohol; | | | | | Insertion Attempts: 1; Securement | | | | | Method: Taped; Patient | | | | | Tolerance: Tolerated well | | | +--------+ + + + | Urethr | 07/24/17; 1204; [address]; | 07/24/17 1204 by | 07/25/17 0854 by | | al | Yes; Double-lumen, Latex; 16 Fr.; | Luz Lala RN | César Vargas RN | | Cathet | Per order | | | | er | | | | +--------+ + + + in this encounter Social History + +-------+ +--------+------+ | Tobacco [...] [place] | | | | | | [address] | | | | | | | | +--------+ + + + + as of this encounter Visit Diagnoses Not on filein this encounter Administered Medications + +--------+ +------+------+------+ | Medication Order | MAR | Action | Dose | Rate | Site | | | Action | Date | | | | + +--------+ +------+------+------+ | ceFAZolin (ANCEF) injection | Given | | 2 g | | | | Intravenous, PRN, Starting Wed | | 8 11:26 | | | | | 07/24/17 at 1126, Anesthesia | | PDT | | | | | Intra-op | | | | | | + +--------+ +------+------+------+ +---+---+ | | | +---+---+ + +-------+ +------+---+---+ | dexamethasone (DECADRON) 4 | Given | | 4 mg | | | | MG/ML injection PRN, Starting | | 8 12:46 | | | | | 07/24/17 at 1246, Anesthesia | | PDT | | | | | Intra-op | | | | | | + +-------+ +------+---+---+ +---+---+ | | | +---+---+ + +-------+ +------+---+---+ | ephedrine injection | Given | | 5 mg | | | | ALVINA Diamond Starting Wed | | 8 12:12 | | | | | 07/24/17 at 1234, Anesthesia | | PDT | | | | | Intra-op | | | | | | + +-------+ +------+---+---+ +-------+ +------+---+---+ | Given | | 5 mg | | | | | 8 12:21 | | | | | | PDT | | | | +-------+ +------+---+---+ | Given | | 5 mg | | | | | 8 12:34 | | | | | | PDT | | | | +-------+ +------+---+---+ +---+---+ | | | +---+---+ + +-------+ +-------+---+---+ | etomidate (AMIDATE) injection | Given | | 10 mg | | | | PRN, Starting Sat07/24/17 at | | 8 11:43 | | | | | 1143, Anesthesia Intra-op | | PDT | | | | + +-------+ +-------+---+---+ +---+---+ | | | +---+---+ + +-------+ +--------+---+---+ | fentaNYL (SUBLIMAZE) injection | Given | | 50 mcg | | | | Intravenous, PRN, Starting Sat | | 8 11:42 | | | | | 07/24/17 at 1142, Anesthesia | | PDT | | | | | Intra-op | | | | | | + +-------+ +--------+---+---+ +-------+ +--------+---+---+ | Given | | 50 mcg | | | | | 8 12:08 | | | | | | PDT | | | | +-------+ +--------+---+---+ +---+---+ | | | +---+---+ + +-------+ +--------+---+---+ | glycopyrrolate (ROBINUL) | Given | | 0.4 mg | | | | injection PRN, Starting Wed | | 8 12:48 | | | | | 07/24/17 at 1248, Anesthesia | | PDT | | | | | Intra-op | | | | | | + +-------+ +--------+---+---+ +---+---+ | | | +---+---+ + +-------+ +--------+---+---+ | heparin (porcine) 1000 UNIT/ML | Given | | 8,000 | | | | injection PRN, Starting Wed | | 8 12:27 | Units | | | | 07/24/17 at 1227, Anesthesia | | PDT | | | | | Intra-op | | | | | | + +-------+ +--------+---+---+ +---+---+ | | | +---+---+ + +-------+ +-------+---+---+ | lidocaine 2 % (MDV) 2 % | Given | | 50 mg | | | | injection Intravenous, PRN, | | 8 11:34 | | | | | Starting 07/24/17 at 1134, | | PDT | | | | | Anesthesia Intra-op | | | | | | + +-------+ +-------+---+---+ +---+---+ | | | +---+---+ + +-------+ +------+---+---+ | neostigmine (PROSTIGMINE) | Given | | 3 mg | | | | injection PRN, Starting Wed | | 8 12:48 | | | | | 07/24/17 at 1248, Anesthesia | | PDT | | | | | Intra-op | | | | | | + +-------+ +------+---+---+ +---+---+ | | | +---+---+ + +-------+ +------+---+---+ | ondansetron (ZOFRAN) injection | Given | | 4 mg | | | | PRN, Nausea, Vomiting, Starting | | 8 12:46 | | | | | 07/24/17 at 1246, Anesthesia | | PDT | | | | | Intra-op | | | | | | + +-------+ +------+---+---+ +---+---+ | | | +---+---+ + +-------+ +---------+---+---+ | phenylephrine (LATANYA-SYNEPHRINE) | Given | | 100 mcg | | | | 100 MCG/ML injection | | 8 12:28 | | | | | Intravenous, PRN, Starting Wed | | PDT | | | | | 07/24/17 at 1158, Anesthesia | | | | | | | Intra-op | | | | | | + +-------+ +---------+---+---+ +-------+ +---------+---+---+ | Given | | 100 mcg | | | | | 8 12:39 | | | | | | PDT | | | | +-------+ +---------+---+---+ | Given | | 100 mcg | | | | | 8 12:48 | | | | | | PDT | | | | +-------+ +---------+---+---+ +---+---+ | | | +---+---+ + +-------+ +-------+---+---+ | propofol (DIPRIVAN) injection | Given | | 50 mg | | | | Intravenous, PRN, Starting Wed | | 8 11:43 | | | | | 07/24/17 at 1143, Anesthesia | | PDT | | | | | Intra-op | | | | | | + +-------+ +-------+---+---+ +---+---+ | | | +---+---+ + +-------+ +-------+---+---+ | protamine injection PRN, | Given | | 30 mg | | | | Starting 07/24/17 at 1244, | | 8 12:44 | | | | | Anesthesia Intra-op | | PDT | | | | + +-------+ +-------+---+---+ +---+---+ | | | +---+---+ + +---------+ + +-------+---+ | remifentanil infusion | New Bag | | 0.03 | 7.9 | | | Continuous PRN, Starting Wed | | 8 11:50 | mcg/kg/m | mL/hr | | | 07/24/17 at 1150, Anesthesia | | PDT | in | | | | Intra-op | | | | | | + +---------+ + +-------+---+ + + + +-------+---+ | Rate/Dose Change | | 0.2 | 52.7 | | | | 8 12:42 | mcg/kg/m | mL/hr | | | | PDT | in | | | + + + +-------+---+ +---+---+ | | | +---+---+ + +-------+ +-------+---+---+ | rocuronium (ZEMURON) injection | Given | | 50 mg | | | | PRN, Starting Sat07/24/17 at | | 8 11:43 | | | | | 1143, Anesthesia Intra-op | | PDT | | | | + +-------+ +-------+---+---+ +---+---+ | | | +---+---+ + +---------+ +---+---+---+ | sodium chloride 0.9 % infusion | New Bag | | | | | | Continuous PRN, Starting Sat | | 8 11:26 | | | | | 07/24/17 at 1126, Anesthesia | | PDT | | | | | Intra-op | | | | | | + +---------+ +---+---+---+ +---+---+ | | | +---+---+ + +---------+ +---+---+---+ | sodium chloride 0.9 % infusion | New Bag | | | | | | Continuous PRN, Starting Wed | | 8 11:26 | | | | | 07/24/17 at 1126, Anesthesia | | PDT | | | | | Intra-op | | | | | | + +---------+ +---+---+---+ +---+---+ | | | +---+---+ in this encounter"
--- OUTSIDE RECORDS SUMMARY | 2017-08-16 01:21 | XMS | Encounter Summary ---
Demographics + + + | Address | [address] | | | [place] [address] | + + + | Home Phone | | + + + | Preferred Language | Unknown | + + + | Marital Status | Single | + + + | Orthodox Affiliation | Unknown | + + + | Race | Unknown | + + + | Ethnic Group | Unknown | + + + Author + + + | Author | [facility] | + + + | Organization | [facility] [facility] | + + + | Address | Unknown | + + + | Phone | Unavailable | + + + Support + + +---------+ + | Name | Relationship | Address | Phone | + + +---------+ + | Latricia Nicolas | ECON | Unknown | | + + +---------+ + Care Team Providers + +------+ + | Care Head Start Teacher Name | Role | Phone | [...] Radiology | Diagnoses | Huy Child | [facility] | | | | | Thoracic | MD [address] | | | | | aortic | [address] | [address] | | | | | aneurysm | Drive | [address] | | | | | without | [place], [place] | [place], [place] | | | | | rupture | [address] | [address] Phone: | | | | | ([facility]) | Phone: | [phone] | | | | | Procedures | [phone] | Fax: | | | | | CTA chest | Fax: | [phone] | | | | | abdomen | [phone] | | | | | | pelvis with | | | | | | | IV contrast | | | +--------+--------+ + + + + Encounter Details +--------+ + + + + | Date | Type | Department | Care Team | Description | +--------+ + + + + | 07/18/ | Orders Only | [facility] | Cyril Ruelas, | Thoracic aortic | | 2018 | | Vascular Surgery | RN | aneurysm without | | | | [address] | | rupture (HCC) | | | | [place] | | (Primary Dx) | | | | [address] | | | | | | [phone] | | | +--------+ + + + [...] [place] | | | | | | [address] | | | | | | | | +--------+ + + + + + +--------+ + + | Name | Priori | Associated Diagnoses | Order Schedule | | | ty | | | + +--------+ + + | Creatinine, serum | Routin | Thoracic aortic | Expected: | | | e | aneurysm without | 07/18/2017, Expires: | | | | rupture (HCC) | 07/18/2018 | + +--------+ + + as of this encounter Results CTA chest abdomen pelvis with IV contrast (07/19/2017 9:38 AM) + + + | Specimen | Performing Laboratory | + + + | | [facility] [address] [place] [address] | + + + + + | [...] | | reconstructions were performed using the [employer] 3-D software and sent to | | [...] In - 07/19/2017 11:22 AM PDT SAI [id number] years MaleCTA | | CHEST ABDOMEN PELVIS [...]
--- OUTSIDE RECORDS SUMMARY | 2017-08-16 01:21 | XMS | Encounter Summary ---
Demographics + + + | Address | [address] | | | [place] [address] | + + + | Home Phone | | + + + | Preferred Language | Unknown | + + + | Marital Status | Single | + + + | Orthodoxy Affiliation | Unknown | + + + | Race | Unknown | + + + | Ethnic Group | Unknown | + + + Author + + + | Author | [facility] | + + + | Organization | [facility] [employer] [facility] | + + + | Address | Unknown | + + + | Phone | Unavailable | + + + Support + + +---------+ + | Name | Relationship | Address | Phone | + + +---------+ + | Latricia Nicolas | ECON | Unknown | | + + +---------+ + Care Team Providers + +------+ + | Care Automotive Starter Repairer Name | Role | Phone | + +------+ + | Terrence Browning MD | PCP | Unavailable | + +------+ + Encounter Details +--------+ + + + + | Date | Type | Department | Care Team | Description | +--------+ + + + + | 07/23/ | Telephone | [facility] | Teresita Wright RN | | | 2017 | | [facility] | | | | | | [place] [address] | | | | | | [place] [address] | | | | | | [phone] | | | +--------+ + + + [...] [place] | | | | | | [address] | | | | | | | | +--------+ + + + + as of this encounter Visit Diagnoses Not on filein this encounter"
--- OUTSIDE RECORDS SUMMARY | 2017-08-16 01:21 | XMS | Encounter Summary ---
Demographics + + + | Address | [address] | | | [place] [address] | + + + | Home Phone | | + + + | Preferred Language | Unknown | + + + | Marital Status | Single | + + + | Mu-Ism Affiliation | Unknown | + + + | Race | Unknown | + + + | Ethnic Group | Unknown | + + + Author + + + | Author | [facility] | + + + | Organization | [facility] [employer] [facility] | + + + | Address | Unknown | + + + | Phone | Unavailable | + + + Support + + +---------+ + | Name | Relationship | Address | Phone | + + +---------+ + | Latricia Nicolas | ECON | Unknown | | + + +---------+ + Care Team Providers + +------+ + | Care Wellness Assistant Name | Role | Phone | + +------+ + | Terrence Browning MD | PCP | Unavailable | + +------+ + Encounter Details +--------+ + + + + | Date | Type | Department | Care Team | Description | +--------+ + + + + | 07/11/ | Procedure | [facility] | | | | 2018 | [facility] | | | | | | Interventional | | | | | | Radiology [address] | | | | | | [place], [place] | | | | | | [address] | | | +--------+ + + + [...] [place] | | | | | | [address] | | | | | | | | +--------+ + + + + as of this encounter Visit Diagnoses Not on filein this encounter"
--- OUTSIDE RECORDS SUMMARY | 2017-08-16 01:21 | XMS | Encounter Summary ---
Demographics + + + | Address | [address] | | | [place] [address] | + + + | Home Phone | | + + + | Preferred Language | Unknown | + + + | Marital Status | Single | + + + | Advent Affiliation | Unknown | + + + | Race | Unknown | + + + | Ethnic Group | Unknown | + + + Author + + + | Author | [facility] | + + + | Organization | [facility] [employer] [facility] | + + + | Address | Unknown | + + + | Phone | Unavailable | + + + Support + + +---------+ + | Name | Relationship | Address | Phone | + + +---------+ + | Latricia Nicolas | ECON | Unknown | | + + +---------+ + Care Team Providers + +------+ + | Care Anode Adjuster Name | Role | Phone | + +------+ + | Terrence Browning MD | PCP | Unavailable | + +------+ + Encounter Details +--------+ + + + + | Date | Type | Department | Care Team | Description | +--------+ + + + + | 07/11/ | Orders Only | [facility] | Cyril Ruelas, | Thoracic aortic | | 2018 | | Vascular Surgery | RN | aneurysm without | | | | [address] | | rupture (HCC) | | | | [address] [place] | | (Primary Dx) | | | | [address] | | | | | | [phone] | | | +--------+ + + + [...] [place] | | | | | | [address] | | | | | | | | +--------+ + + + + as of this encounter Results IR endo repair thoracic aorta not including subclavian (07/24/2017 1:34 PM) + + + | Specimen | Performing Laboratory | + + + | | [facility] [address] [facility] [address] | + + + + + | [...] MD and Reji Anglin MD | | STAVE BOLT EQUALIZER: None ANESTHESIA: General endotracheal anesthesia ESTIMATED BLOOD [...] The patient was placed supine on the Line Pilot table and the patient underwent | | [...] was upsized to a 5 | | Mosotho sheath. A pigtail catheter was then placed through the right sheath into the | | aortic arch. Next, a micropuncture needle was used to access the left common femoral | | artery. A micropuncture sheath was then inserted over wire and this was upsized to a 7 | | Mosotho sheath. Again, a perclose device was deployed at the 10:00 and 2:00 position in | | the left common femoral artery. A Lunderquist wire was then placed to the left 7 Mosotho | | sheath with the tip of the wire in the aortic arch. Once the wire was in place, the | | 7-Mosotho sheath was removed from the left common [...] Huy Child MD | | and Reji Jye Poi, MDASSISTANT: NoneANESTHESIA: General endotracheal anesthesiaESTIMATED | | [...] was properly identified and brought to the Line Pilot. The patient was placed | | supine on the Line Pilot table and the patient underwent general endotracheal [...] and this was upsized to a 5 Mosotho sheath. A pigtail catheter was | | then placed through the right sheath into the aortic arch. Next, a micropuncture needle | | was used to access the left common femoral artery. A micropuncture sheath was then | | inserted over wire and this was upsized to a 7 Mosotho sheath. Again, a perclose device | | was deployed at the 10:00 and 2:00 position in the left common femoral artery. A | | Lunderquist wire was then placed to the left 7 Mosotho sheath with the tip of the wire in | | the aortic arch.Once the wire was in place, the 7-Mosotho sheath was removed from the | | [...] | | | | | + -------+ in this encounter Visit Diagnoses + + | Diagnosis | + + | Thoracic aortic aneurysm without rupture (HCC) - Primary | + + | Thoracic aneurysm without mention of rupture | + +"
--- OUTSIDE RECORDS SUMMARY | 2017-08-16 01:21 | XMS | Encounter Summary ---
Demographics + + + | Address | [address] | | | [place] [address] | + + + | Home Phone | | + + + | Preferred Language | Unknown | + + + | Marital Status | Single | + + + | Gnosticism Affiliation | Unknown | + + + | Race | Unknown | + + + | Ethnic Group | Unknown | + + + Author + + + | Author | [facility] | + + + | Organization | [facility] [facility] | + + + | Address | Unknown | + + + | Phone | Unavailable | + + + Support + + +---------+ + | Name | Relationship | Address | Phone | + + +---------+ + | Latricia Nicolas | ECON | Unknown | | + + +---------+ + Care Team Providers + +------+ + | Care Cloth Desizing Range Operator Chief Name | Role | Phone | + +------+ + | Terrence Browning MD | PCP | Unavailable | + +------+ + Reason for Referral Surgical (Urgent) +--------+ + + + + + | Status | Reason | Specialty | Diagnoses / | Referred By | Referred To | | | | | Procedures | Contact | Contact | +--------+ + + + + + | Closed | Specialty | Vascular | Diagnoses | [place], | Huy Child Y, | | | Services | Surgery | History of | MD Del | [address] | | | Required | | tracheostomy | [address] | | | | | TH[address]ACIC | [address] | [address] | | | | | AORITIC | Drive | [place], [place] | | | | | PENETRATING | [place], [place] | [address] Phone: | | | | | [place] | [address] | [phone] | | | | | | Phone: | Fax: | | | | | | [phone] | [phone] | | | | | | Fax: | | | | | | | [phone] | | +--------+ + + + + + Encounter Details +--------+ + + + + | Date | Type | Department | Care Team | Description | +--------+ + + + + | 07/04/ | Orders Only | [facility] | Daniela Da Silva RN | H/O tracheostomy | | 2017 | | Cardiothoracic | | (Primary Dx) | | | | Surgery [address] | | | | | [address] | | | | | | [place] | | | | | | [address] | | | | | | [phone] | | | +--------+ + + + [...] [place] | | | | | | [id number] | | | | | | | | +--------+ + + + + + +--------+ + + | Name | Priori | Associated Diagnoses | Order Schedule | | | ty | | | + +--------+ + + | Ambulatory referral to Vascular | Routin | H/O tracheostomy | Ordered: 07/04/2017 | | Surgery | e | | | + +--------+ + + as of this encounter Visit Diagnoses + + | Diagnosis | + + | H/O tracheostomy - Primary | + + | Tracheostomy status | + +"
--- NOTE | 2017-08-16 03:30 | NUR ---
PT ARRIVES TO ROOM 129 VIA STRETCHER, IS TRANSFERRED TO BED VIA DRAW SHEET. HE IS RESTING WITH EYES CLOSED, BUT ANSWERS QUESTIONS APPOPRIATELY. DENIES PAIN. 3L O2 IN PLACE, EXPIRATORY WHEEZES NOTED THROUGHOUT ALL LUNG MORTON, HOB ELEVATED TO 30 DEGREES. HR REGULAR. BOWEL TONES ACTIVE, DENIES NAUSEA. SKIN APPEARS GROSSLY INTACT, REDNESS TO COCCYX, BLANCHABLE. 3+EDEMA PRESENT IN BILATERAL FEET AND ANKLES. IV SL, PATENT. BRUSH PATENT, DRAINING LARGE AMOUNTS OF DILUTE URINE. PT INSTRUCTED ON USE OF CALL LIGHT. FRESH WATER PROVIDED. PT DENIES REQUESTS AT THIS TIME, WILL CONTINUE TO MONITOR.
--- NOTE | 2017-08-16 06:00 | NUR ---
PT SLEEPING AT THIS TIME, RRESPIRATIONS EVEN AND UNLABORED, RR:10 SPO2: 98% ON 3L. 1775ML DILUTE URINE EMPTIED FROM BRUSH. WILL ALLOW FOR REST AND CONTINUE TO MONITOR.
--- NOTE | 2017-08-16 07:30 | NUR ---
BEDSIDE REPORT RECIEVED. PATIENT IS ASLEEP.
--- NOTE | 2017-08-16 08:30 | NUR ---
DR. BEST HERE TO SEE PATIENT. ORDES RECIEVED. PATIENT IS SITTING UP AT BEDSIDE. HAS AUDIBLE WHEEZES. NEB TX GIVEN PER RT. PATIENT DIENIES SHORTNESS OF BREATH.
--- NOTE | 2017-08-16 09:10 | NUR ---
BREAKFAST TRAY ORDERED
--- NOTE | 2017-08-16 10:45 | NUR ---
ECHO COMPLETE. PATIENT IS W/O C/O.
--- NOTE | 2017-08-16 11:00 | NUR ---
SHORT RUN OF ABERRANT CONDUCTION WIDE COMPLEX. DR. BEST AWARE. NO ORDERS.
--- NOTE | 2017-08-16 12:10 | NUR ---
AMBULATED TO BR TO EXPELL LIQ NANCY STOOL. HEMATEST NEG. IS UNSTEADY ON FEET. TALKED WITH PATIENT ABOUT IMPORTANCE OF CALLING FOR ASSIST WHEN TRANSFERS. IS FALL RISK.
--- NOTE | 2017-08-16 13:29 | NUR ---
TRANSFER ORDERS RECIEVED. MONITOR DC'D. LASIX 40 MG IV GIVEN.
--- NOTE | 2017-08-16 14:45 | NUR ---
REPORT TO Rosy SCHAEFFER RN ON MEDICAL FLOOR.
--- NOTE | 2017-08-16 14:55 | NUR ---
TO MEDICAL FLOOR VIA CHAIR.
--- NOTE | 2017-08-16 15:03 | NUR ---
TO ROOM 110 VIA CHAIR WITH SHAWNA MERCER FROM [facility]. REPORT RECIEVED. PATIENT STATES FEELS LIKE NEEDS TO GET UP AND MOVE AROUND. BRUSH CATHETER STILL PRESENT. EMPTIED FOR 1150ML. EXPLAINED TO PATIENT ABOUT FLUID RESTRICTION.
--- NOTE | 2017-08-16 15:54 | NUR ---
PATIENT STOOD UP AND HAD A LIQUID BM, WALKED INTO BATHROOM, SAT ON TOILET AND HAD SOME MORE BM. CLEANED FLOOR AND CHANGED LINENS. SHOWERED PATIENT, BACK TO CHAIR. RT INTO ROOM TO HAVE BREATHING TREATMENT.
[2017-08-16] MEDS ORDERED: BENEFIBER152 GM PO (17:34)
[2017-08-16] MEDS ORDERED: POLYETHYLENE G255 GM PO (18:06)
[2017-08-16] MEDS ORDERED: DENTAGEL56 GM MT (18:17)
[2017-08-16] MEDS ORDERED: IMODIUM A-D2 M2 PO (18:18)
--- NOTE | 2017-08-16 18:19 | NUR ---
MED REC COMPLETE
--- NOTE | 2017-08-16 18:39 | NUR ---
Transferred from CCU this afternoon, stood up from chair and had large BM incontenence. Took shower to clean. Irineo WING'ed, has urinated since. Sporadically jumps out of chair to stretch. 1 person assist, chair alarm on.
--- NOTE | 2017-08-16 19:02 | NUR ---
ROUNDED CHARGE. PATIENT IS RESTING IN RECLINER. NO NEEDS NOTED. CHAIR ALARM IN PLACE. CALL LIGHT IN REACH.
--- NOTE | 2017-08-16 20:00 | NUR ---
RECEIVED REPORT AT 1900. FOUND PT IN CHAIR WATCHING TV. PT AT THAT TIME DENIED SOB AND PAIN. NO NEW CONCERNS AT THIS TIME.
--- NOTE | 2017-08-16 20:35 | EKG ---
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
--- NOTE | 2017-08-16 22:00 | NUR ---
PT IS STILL UP IN CHAIR. BILATERAL LUNG BASES HAVE FINE CRACKLES PRESENT. ALL RIGHT LOBES HAD EXPIRATORY WHEEZING WELL. ABD SOUNDS ARE PRESENT, PT HAS TRACE EDEMA IN BOTH LOWER LEGS. PEDIS PULSES +1. PT DENIES SOB AND PAIN. V/S ARE WDL.
--- NOTE | 2017-08-16 22:52 | NUR ---
HELPED PT TO THE BATHROOM AND BACK TO HIS CHAIR. HOOKED HIS CHAIR ALARM BACK TO HIS GOWN. BEDSIDE TABLE AND CALL LIGHT WITHIN REACH. PT NEEDED NOTHING ELSE AT THAT TIME.
--- NOTE | 2017-08-17 | NUR ---
PT AT THIS TIME IS SLEEPING.
--- NOTE | 2017-08-17 02:00 | NUR ---
ALL LOBES HAVE EXPIRATORY WHEEZING, BILATERAL BASES HAVE FINE CRACKLES. PT DENIES SOB. SLIGHT EDEMA PRESENT IN BILATERAL LOWER LEGS, SLIGHT EDEMA PRESENT IN BOTH HANDS. PT OVERALL HAS BEEN SLEEPING MOST OF THIS SHIFT. BED ALARM IS ON. NO NEW CONCERNS AT THIS TIME.
--- NOTE | 2017-08-17 02:20 | NUR ---
VITALS AND I&OS DONE AND CHARTED. BEDSIDE TABLE AND CALL LIGHT WITHIN REACH. BED ALARM ON. PT NEEDS NOTHING ELSE AT THIS TIME.
--- NOTE | 2017-08-17 04:00 | NUR ---
PT IS SLEEPING AT THIS TIME.
--- NOTE | 2017-08-17 04:45 | NUR ---
OVERALL PT HAD AN UNEVENTFUL NIGHT. PT HAS BEEN SLEEPING MOST OF THIS SHIFT SO FAR. LUNG BASES HAVE CRACKLES PRESENT, ALL LOBES HAVE HAD SOME EXPIRATORY WHEEZING PRESENT OFF AND ON. PT HAS TRACE EDEMA IN BOTH LOWER LEGS AND HANDS. V/S ARE WDL, PT HAS DENIES SOB SO FAR WELL PAIN. NO NEW CONCERNS AT THIS TIME. URINE OUTPUT IS ADEQUATE BUT URINE IS TEA COLORED. PT NEEDS TO VOID AGAIN BEFORE 0700.
--- NOTE | 2017-08-17 07:20 | NUR ---
BEDSIDE REPORT RECEIVED FROM YUN. PATIENT AWAKE SITTING IN THE CHAIR. REPORTS NO PAIN AND SOB. OXYGEN ON 2L VIA NC. CALL LIGHT IN REACH. CHAIR ALARM ON.
--- NOTE | 2017-08-17 08:20 | NUR ---
IN TO ROOM TO ASSESS PATIENT. PATIENT DENIED PAIN. LUNGS COARSE AND FINE CRACKLE AUSCULTATED IN EZE BASES OF THE LUNGS. 2+ EDEMA NOTED ON EZE LEGS. OCCASSIONAL COUGH. IV FLUSHED WELL. PATIENT A&O. CALL APPROPRIATELY. CHAIR ALARM ON.
--- NOTE | 2017-08-17 08:35 | NUR ---
IN TO ROOM TO ASSESS PATIENT. PATIENT IS AWAKE, ALERT BUT NOT ORIENTED. PATIENT STILL CANNOT REMENBERED WHAT HAD HAPPENED TO HER. PATIENT WAS REORIENTED. SHIFT ASSESSMENT DONE. LUNGS ARE CLEAR IN THE LEFT LOBES AND DIM IN THE RIGHT LOBES. CHEST TUBE IN PLACE, NO CREPITUS NOTED. BLOODY DRAINAGE NOTED IN THE TUBE. ALL PO MEDICATIONS WERE CRUSHED AND ADMINISTERED WITH APPLE SAUCE AND YOGURT. PATIENT REFUSED TO TAKE TYLENOL. PATIENT WAS MEDICATED FOR PAIN WITH TORADOL.BOWEL TONE ACTIVE. PERIPHERAL PULSES PALPABLE. IV SITE PATENT AND FLUID INFUSING WELL.MORNING CARE DONE. PATIENT WAS ABLE TO EAT SOME MORE YOGURT AND DRINK SOME ENSURE.O2 SAT WNL (95-97%) ON 1L OF O2. CALL LIGHT IN REACH. WILL CONTINUE TO MONITOR.
--- NOTE | 2017-08-17 08:55 | NUR ---
PATIENT SITTING UP IN CHAIR EATING BREAKFAST. NO OTHER NEEDS AT THIS TIME.
--- NOTE | 2017-08-17 10:01 | NUR ---
THIS ORTHOPEDIC MECHANIC ASSISTED PATIENT TO THE RESTROOM. 1 PERSON SBA. PATIENT NOW SITTING UP IN CHAIR. CALL LIGHT WITHIN REACH. NO OTHER NEEDS AT THIS TIME.
--- NOTE | 2017-08-17 10:40 | NUR ---
DR BEST WAS IN ROOM TO SEE AND EVALUATE PATIENT. PATIENT DENIES PAIN AND SOB AT THIS TIME. CALL LIGHT IN REACH. WILL CONTINUE TO MONITOR PATIENT.
--- NOTE | 2017-08-17 13:09 | NUR ---
PATIENT SITTING UP IN CHAIR WATCHING TV. FRESH WATER. FRESH GOWN. CALL LIGHT WITHIN REACH. NO OTHER NEEDS AT THIS TIME.
--- NOTE | 2017-08-17 14:20 | NUR ---
PATIENT RESTING IN THE CHAIR, DENIES PAIN. NO DISTRESS NOTED. PATIENT HAS BEEN UP TO BATHROOM MULTIPLE TIMES. CALL LIGHT IN REACH.
--- NOTE | 2017-08-17 16:33 | NUR ---
DR BEST NOTIFIED ABOUT PATIENT URINE OUTPUT.
--- NOTE | 2017-08-17 17:16 | NUR ---
PT IS SITTING UP IN CHAIR WITH CALL LIGHT IN REACH AND ALARM ON. PT ASKED FOR A WARM BLANKET.
--- NOTE | 2017-08-17 18:49 | NUR ---
PATIENT HAD DONE WELL TODAY. CALL APPROPRIATELY. HAD LASIX TWICE TODAY. HAD BEEN UP TO BATHROOM MULTIPLE TIME. IV SITE PATIENT. 2+ PERIPHERAL EDEMA ( MORE SO IN THE LEGS) LUNGS FINE CRACKLES IN THE BASES. DAILY WGHT. 15OOML FLUID RESTRICTION. MAY DC TOMORROW.
--- NOTE | 2017-08-17 19:00 | NUR ---
SHIFT REPORT RECEIVED. PATIENT SITTING IN RECLINER. STATES HE HAD A PRETTY GOOD DAY. HE DENIES ANY NEEDS AT THIS TIME. FAMILY ARRIVED TO VISIT.
--- NOTE | 2017-08-17 19:59 | NUR ---
Charge nurse note:. Pt up in chair, continues to have word salad, cooperative, still in fluid restrictiond, bed and chair alarm. No c/o pain or requests
--- NOTE | 2017-08-17 20:48 | NUR ---
EVENING MEDS GIVEN PER ORDER. PATIENT IS SITTING IN HIS RECLINER. HE IS ALERT AND ORIENTED TO SELF AND SURROUNDINGS. HE DENIES ANY PAIN OR ABD DISCOMFORT. HE IS TOLERATING ROOM AIR. LUNGS ARE COARSE THROUGHOUT AND SLIGHT EXPIRTORY WHEEZE IN RIGHT LOWER LOBE. ABD IS ROUND AND FIRM, BOWEL SOUNDS ARE ACTIVE. TOLERATING CARDIAC DIET. 2+ EDEMA NOTED IN EZE LOWER EXTREMITIES. CMS INTACT. PATIENT IS WITHIN HIS FLUID RESTRICTION FOR THE NIGHT. HE DENIES ANY OTHER NEEDS AT THIS TIME. CALL LIGHT IN REACH.
--- NOTE | 2017-08-17 21:45 | NUR ---
PATIENT NOW IN BED. PO POTASSIUM PROVIDED. PATIENT DENIES ANY NEEDS. HE IS READY FOR BED. REQUEST THAT THE TV BE LEFT ON. CALL LIGHT IN HAND.
--- NOTE | 2017-08-17 23:17 | NUR ---
PATIENT APPEARS TO BE SLEEPING SOUNDLY. RR 17. CALL LIGHT IN HAND. BED ALARM ON.
--- NOTE | 2017-08-18 02:30 | NUR ---
PATIENT APPEARS TO BE SLEEPING COMFORTABLY. RR 19. CALL LIGHT IN REACH. BED ALARM ON.
--- NOTE | 2017-08-18 06:28 | NUR ---
PATIENT SLEPT THROUGHOUT SHIFT. CALLED APPROPRIATELY. TOLERATED ROOM AIR. LUNGS ARE COARSE THROUGHOUT WITH EXPIRTORY WHEEZES IN THE LOWER LOBES. 2+ EDEMA IN LOWER EXTREMITIES. CARDIAC DIET W/FLUID RESTRICTION. LABS AND CHEST X-RAY THIS AM. OUTPUT QS.
--- NOTE | 2017-08-18 06:40 | NUR ---
PATIENT UP TO THE BATHROOM. LARGE FORMED BM. PATIENT HEADED DOWN TO GET CHEST X-RAY DONE.
--- NOTE | 2017-08-18 07:10 | NUR ---
THIS ROUGH RICE TENDER ASSISTED PATIENT FROM BED TO CHAIR. 1 PERSON SBA. PATIENT NOW SITTING UP IN CHAIR WATCHING TV. CALL LIGHT WITHIN REACH. FRESH LINEN. NO OTHER NEEDS AT THIS TIME.
--- NOTE | 2017-08-18 08:15 | NUR ---
PT SITTING UP IN RECLINER EATING BREAKFAST. NO COMPLAINTS OR REQUESTS.
--- NOTE | 2017-08-18 09:11 | NUR ---
THIS MAGNETIC TAPE TYPEWRITER OPERATOR ASSISTED PATIENT TO THE RESTROOM. 1 PERSON SBA. PATIENT NOW SITTING UP IN CHAIR WATCHING TV. CALL LIGHT WITHIN REACH. NO OTHER NEEDS AT THIS TIME.
--- NOTE | 2017-08-18 12:10 | NUR ---
PATIENT WAS STANDING IN THE DOORWAY. MATT JOYA REMINDED PATIENT TO USE CALL LIGHT BEFORE GETTING UP. PATIENT AGREED. PATIENT IS NOW SITTING UP IN CHAIR WATCHING TV. CALL LIGHT WITHIN REACH. NO OTHER NEEDS AT THIS TIME.
--- NOTE | 2017-08-18 12:54 | NUR ---
CALLED TO UPDATE ON PATIENT, PT HAS HAD 4100 ML OF URINE OUT SINCE 0600 THIS AM AND ONLY 800ML FLUID IN. PT HAS ANOTHER DOSE 40MG I.V. LASIX AT 1400. SAID OK TO GIVE PT KIDNEY FUNCTION IS TOLERATING AND NEED TO CONITNUE TO DIURESE DUE TO FLUID IN LUNGS AND BLE EDEMA.
--- NOTE | 2017-08-18 13:52 | NUR ---
PATIENT RELAXING IN BED WATCHING TV. CALL LIGHT WITHIN REACH. NO OTHER NEEDS AT THIS TIME.
--- NOTE | 2017-08-18 14:57 | NUR ---
PT RESTING IN BED, EYES CLOSED RR EVEN 17 BPM NO DISTRESS NOTED. PT APPEARS TO BE SLEEPING,
--- NOTE | 2017-08-18 15:13 | NUR ---
MATT JOYA ASSISTED PATIENT TO THE RESTROOM. 1 PERSON SBA. PATIENT IS NOW SITTING UP IN CHAIR. MATT STATES THAT SHE HELPED PATIENT INTO CLEAN ATTENDS. NO OTHER NEEDS AT THIS TIME.
--- NOTE | 2017-08-18 15:44 | NUR ---
THIS ENGINEERING DRAWINGS CHECKER ASSISTED PATIENT TO THE RESTROOM. 1 PERSON SBA. PATIENT IS NOW SITTING UP IN CHAIR WATCHING TV. WARM BLANKET. CALL LIGHT WITHIN REACH. NO OTHER NEEDS AT THIS TIME.
--- NOTE | 2017-08-18 17:17 | NUR ---
PT HAS BEEN UP SBA TO BATHROOM, HE HAS BEEN UP IN RECLINER MOST OF SHIFT. HE REPORTS NO PAIN OR NAUSEA. GOOD APPETITE CONSUMED 100% OF THREE MEALS TODAY. HE IS VOIDING LARGE QUANTITIES AFTER LASIX 40MG I.V. TWICE TODAY. HE IS ON ROOM AIR NO INCREASED WORK OF BREATHING WITH ACTIVITY. PT HAS HAD THREE BM TODAY. HE IS COOPERATIVE WITH CARE PLAN.
--- NOTE | 2017-08-18 18:10 | NUR ---
THIS SILK SCREEN PROCESSOR ASSISTED PATIENT TO THE RESTROOM FROM THE BED. 1 PERSON SBA. PATIENT IS NOW SITTING UP IN CHAIR. FRESH ICE WATER. CALL LIGHT WITHIN REACH. NO OTHER NEEDS AT THIS TIME.
--- NOTE | 2017-08-18 19:25 | NUR ---
RECIEVE BEDSIDE REPORT FROM AMADOR MERCER. PT APPEARS TO BE SLEEPING. FLUID RESTRICTION IN PLACE. BED ALARM ON. PT IS SL IN LEFT WRIST. RESPITORY RATE EQUAL AND UNLABORED. CALL LIGHT WITHIN REACH. PT VISIBLE FROM NURSING STATION.
--- NOTE | 2017-08-18 20:20 | NUR ---
PT VITALS AND I&OS DONE AND CHARTED. BEDSIDE TABLE AND CALL LIGHT WITHIN REACH. PT NEEDS NOTHING ELSE AT THIS TIME.
--- NOTE | 2017-08-18 21:42 | NUR ---
PT TO BATHROOM AND TO BED FOR THE NIGHT. ASSESSMENT COMPLETED. PT TAKES SHALLOW BREATHS. LUNG SOUND CLEAR IN UL AND DIMINISHED AND COARSE IN BASE BUT CLEARING. HEART SOUNDS REGULAR WITH NO ABNORMAL SOUNDS. 2+ PITTING EDEMA RIGHT FOOT. +1 PITTING EDEMA IN LEFT FOOT AND BILAT ANKLES. THE PT REPORTS NO FEELINGS OF SOB. ABDOMEN APPEARS DISTENDED BUT SOFT. THERE IS AN AMBILICAL PROTRUSION. PT IS PLEASENT AND COOPERATIVE WITH CARE. CAP REFILL IS <3 ALL 4 EXTREMITIES. CALL LIGHT WITHIN REACH. BED ALARM IN PLACE. PT IS VISIBLE FROM NURSING STATION.
--- NOTE | 2017-08-19 00:11 | NUR ---
PT OOB TO BR WITH SBA. UP TO CHAIR PER PT REQUEST. CHAIR ALARM IN PLACE. CALL LIGHT WITHIN REACH. VISIBLE FROM NURSING STATION.
--- NOTE | 2017-08-19 01:01 | NUR ---
HELPED PT BACK TO BED. BED ALARM IN PLACE. CALL LGIHT WITHIN REACH. VISIBLE FROM NURSES STATION. SIDE RAILS UP X2.
--- NOTE | 2017-08-19 05:40 | NUR ---
SLEPT THROUGHOUT THE NIGHT. PLAN TO DC TO [facility] TODAY. BASES OF LUNGS ARE COARSE BUT SOUNDING BETTER. BED/CHAIR ALARM. SL IN LW. DIARRHEA. 1800 FLUID RESTRICTION. DAILY WEIGHT.
--- NOTE | 2017-08-19 06:03 | NUR ---
VITALS AND I&OS DONE AND CHARTED. GARBAGES EMPTIED AND ROOM CLEANED UP. BEDSIDE TABLE AND CALL LIGHT WITHIN REACH.
--- NOTE | 2017-08-19 06:05 | NUR ---
DAILY WEIGHT DONE AND CHARTED.
--- NOTE | 2017-08-19 07:49 | NUR ---
BEDSIDE REPORT. PT RESTING IN BED EYES CLOSED RR EVEN AT 17 BPM NO DISTRESS NOTED. PT APPEARS TO BE SLEEPING COMFORTABLE.
--- NOTE | 2017-08-19 08:40 | NUR ---
PATIENT SITTING UP IN BED. RN IN ROOM TO PASS MEDS. PATIENT WASHED HANDS AND FACE. TALKED TO PATIENT ABOUT TAKING A SHOWER TODAY AND SHAVE. CALL BUTTON IN REACH. NO OTHER NEEDS AT THIS TIME.
--- NOTE | 2017-08-19 09:43 | NUR ---
This FISH PROTECTOR assisted patient up to bathroom with standby assist, and into shower. Patient showered with some assistance from this FISH PROTECTOR. This FISH PROTECTOR assisted patient to shave at sink. Linens changed. Patient sitting up in bedside recliner. Call light in reach. Doctor in room. No other needs at this time.
--- NOTE | 2017-08-19 11:15 | NUR ---
EDUCATION GIVEN TO PT AND CAREGIVER IN ROOM ON DIET AND FLUID INTAKE. PT ALSO INSTRUCTED ON SIGNS AND SYMPTOMS TO SEEK MEDICAL ATTENTION. CHF EDUCATION GIVEN AND DISCUSSED WITH PT AND CAREGIVER, CAREGIVER VERBALIZED EDUCATION BACK. PT VERBALIZED UNDERSTANDING. PACKET MADE FOR JAJA GALEANO WITH NEXT DOSE LAST DOSE LISTED ON DISCHARGE PAPERS. V/S STABLE.
--- NOTE | 2017-08-19 11:32 | NUR ---
PT SITTING IN CHAIR, ALERT FRIENDLY. HE IS TO BE DC'D TODAY, AND MENTIONED THAT HE IS FEELING MUCH BETTER. HE ALWAYS IS EAGER TO SHAKE YOUR HAND, AND WAS WITH ME WELL. CAUTIONED PT TO NOT GET UP WITH OUR STAFF WITH HIM. HE ADMITTED THAT HE IS A LITTLE "WOBBLY" IN HIS WORDS. GOD BLESS HIM, WILL FOLLOW NEEDED
== END 2017-08-19 11:40 | disposition home or self-care (01) | DRG 292 ==
LOC: ED 23:51 → CCU 08-16 02:51 → MS 08-16 14:55
PROVIDERS: ADMIT Internal Medicine
DX: I50.23 Acute on chronic systolic (congestive) heart failure (principal); E87.1 Hypo-osmolality and hyponatremia; J96.11 Chronic respiratory failure with hypoxia; I42.9 Cardiomyopathy, unspecified; K56.609 Unspecified intestinal obstruction, unspecified as to partial versus complete obstruction; R74.0 Nonspecific elevation of levels of transaminase and lactic acid dehydrogenase [LDH]; D64.9 Anemia, unspecified; I25.10 Atherosclerotic heart disease of native coronary artery without angina pectoris; J44.9 Chronic obstructive pulmonary disease, unspecified; N40.0 Benign prostatic hyperplasia without lower urinary tract symptoms; E03.9 Hypothyroidism, unspecified; E78.5 Hyperlipidemia, unspecified; K59.09 Other constipation; F20.9 Schizophrenia, unspecified; F03.90 Unspecified dementia, unspecified severity, without behavioral disturbance, psychotic disturbance, mood disturbance, and anxiety; Z66 Do not resuscitate; Z88.8 Allergy status to other drugs, medicaments and biological substances; Z87.11 Personal history of peptic ulcer disease; Z79.82 Long term (current) use of aspirin; Z79.51 Long term (current) use of inhaled steroids; Z79.899 Other long term (current) drug therapy
CPT/HCPCS: 36415; 71046; 80048; 80053; 81001; 82607; 82728; 82746; 83540; 83735; 83880; 84466; 84484; 85025; 93005; 93010; 93306; 94640; 94644; 94667; 94668; J1650; J2930; J7040

== ENCOUNTER 2017-09-23 21:21 | Inpatient (IN) | payer MEDICARE, OTHER ==
[~2017-09-23] VITALS: Ht 185.4 cm; Wt 84.5 kg
[~2017-09-23 21:21] MED LIST changes: +BENEFIBER152 GM PO; +DENTAGEL56 GM MT; +IMODIUM A-D2 M2 PO; +POLYETHYLENE G255 GM PO; +[UNRECOGNIZED DRUG - OTHER]
[2017-09-23] MEDS ORDERED: CARVEDILOL3.125 MG PO (21:42)
[2017-09-23] MEDS ORDERED: MAGNESIUM400 MG PO (21:47)
--- NOTE | 2017-09-23 23:30 | NUR ---
PT ARRIVED TO FLOOR VIA STRETCHER. PT DENIES PAIN, NAUSEA, SOB. PT HAS EXPIRATORY WHEEZES TO ALL LUNG MORTON. 3+ PITTING EDEMA PRESENT TO BLE'S. PT IS INCONTINENT, HAS ATTENDS IN PLACE. PT FALLING ASLEEP DURING ASSESSMENT, ANSWERS QUESTIONS APPROPRIATELY. PT ORIENTED TO SELF AND PLACE, UNABLE TO ACCURATELY STATE TIME. PT DENIES OTHER NEEDS AT THIS TIME. CALL LIGHT WITHIN PT REACH. ROOM IN VIEW OF NURSES STATION.
--- NOTE | 2017-09-24 00:45 | NUR ---
PT CALLS OUT FOR HELP. STATES THAT HE NEEDS TO PEE. PT ASSISTED TO USE THE URINAL, TOLERATED WELL. DENIES OTHER NEEDS. QUICKLY FALLS BACK TO SLEEP. CALL LIGHT WITHIN PT REACH. ROOM IN VIEW OF NURSES STATION.
--- NOTE | 2017-09-24 03:50 | NUR ---
RUSLAN LIU AND I CLEANED THE PATIENT HAD BOWEL MOVEMENT, CHANGED BED LINEN AND GOWN. CALL LIGHT WITHIN REACH.
--- NOTE | 2017-09-24 03:57 | NUR ---
PT CALLS OUT FOR HELP, FOUND WITH LEGS OVER SIDE OF BED. ASSISTED PT TO PUT LEGS BACK IN BED. PT STATE THAT HE NEEDS TO VOID. ASSISTED PT TO USE THE URINAL. PT INCONTINENT OF BM IN ATTENDS. THICK FERNIE LIKE STOOL PRESENT. PT CLEANED, NEW ATTENDS PLACED. PT TOLERATED WELL. PT BOOSTED IN BED. BED ALARM ACTIVATED. PT DENIES OTHER NEEDS.
--- NOTE | 2017-09-24 06:00 | NUR ---
PT ASSESSMENT COMPLETE. PT WAKES EASILY TO NAME. PT DENIES PAIN, SOB, OR SOB. LUNG SOUNDS CONTINUE TO HAVE EXPIRATORY WHEEZES AND CRACKLES THROUGHOUT ALL LUNG MORTON. PT REPORTS CONTINUED PRODUCTIVE COUGH. EDEMA IN LEGS DECREASED FROM PREVIOUS ASSESSMENT, 2+ AT THIS ASSESSMENT. PT DENIES FURTHER NEEDS. BED ALARM REMAINS ACTIVATED. CALL LIGHT WITHIN PT'S REACH.
--- NOTE | 2017-09-24 06:04 | NUR ---
PT SLEPT MOST OF SHIFT. EXPIRATORY WHEEZES AND OCCASIONAL RHONCI THROUGHOUT ALL LUNG MORTON. PT WITH OCCASIONAL PRODUCTIVE COUGH, CANNOT FOLLOW COMMANDS TO SPIT OUT SPUTUM. PT DENIES SOB. BM TODAY. ATTENDS FOR INCONTINCE, PT ABLE TO STATE WHEN HE NEEDS TO VOID. PITTING EDEMA TO BILATERAL LOWER EXTREMITIES. PT WAS VERY DIFFICULT TRANSFER IN ED, HAD TROUBLE BEARING WEIGHT. PT NOT OOB THIS SHIFT. DAILY WEIGHT. FLUID RESTRICTION. IV SL. BED ALARM ACTIVATED FOR IMPULSIVITY.
--- NOTE | 2017-09-24 06:55 | NUR ---
pt getting out of bed unassisted. bed alarm sounding. pt requests to use the toilet. states that he needs to have a bowel movement. pt assisted to bsc with 2 pa and fww. pt tolerated very well. needed approximately 1 pa. no unsteadiness noted. pt assisted back to bed. pt states that he thinks he would like to take a walk today. pt denies other needs at this time. call light within reach. bed alarm reactivated. room in view of nurses station.
--- NOTE | 2017-09-24 07:20 | NUR ---
REPORT RECEIVED FROM RUSLAN LIU. PT SLEEPING AFTER TRYING TO GET OUT OF BED ON ARRIVAL. BED ALARM ON.
--- NOTE | 2017-09-24 08:49 | NUR ---
PT AWAKE AND FINISHING BREAKFAST. TOOK PILLS. CURRENTLY DRINKING METAMUCIL AND MIRALAX. HAD A LARGE LOOSE BM THIS MORNING. PT DENIES CONCNERNS. AND STATES HE FEELS MUCH BETTER THAN YESTERDAY.
--- NOTE | 2017-09-24 09:47 | NUR ---
ASSISTED PT TO RESTROOM WITH RUSLAN ENGLISH. PT WALKED WELL WITH FWW AND HAD LIQ BM WITH SIGNIFICANT URINE OUTPUT OF 1000+. PT SITTING UP IN CHAIR AND STAFF FROM [facility] IN ROOM, HAD BROUGHT GLASSES.
[2017-09-24] MEDS ORDERED: ZOFRAN4 MG PO (12:05)
--- NOTE | 2017-09-24 12:06 | NUR ---
MED REC COMPLETE
--- NOTE | 2017-09-24 12:59 | NUR ---
ADMINISTERED LASIX. PT SITTING UP IN CHAIR HAVING FINISHED LUNCH. PT HAS NON PRODUCTIVE OCCASIONAL COUGH. LEGS DOWN, HOWEVER SWELLING IS DOWN FROM THIS MORNING.
--- NOTE | 2017-09-24 13:29 | NUR ---
PT UP TO RESTROOM WITH WASHER ASSEMBLER.
--- NOTE | 2017-09-24 16:07 | EKG ---
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
--- NOTE | 2017-09-24 17:06 | NUR ---
PT SITTING IN CHAIR EATING DINNER. DENIES CONCERNS.
--- NOTE | 2017-09-24 18:09 | NUR ---
PATIENT RESTING IN BEDSIDE RECLINER, CALL LIGHT IN REACH. NO OTHER NEEDS AT THIS TIME.
--- NOTE | 2017-09-24 18:35 | NUR ---
PT SAT UP IN CHAIR MOST OF DAY. CHAIR ALARM ON BUT CALLS MOST OF THE TIME. LARGE QTY URINE OUT. DAILY WEIGHT. TOLERATING FLUID RESTRICTION.
--- NOTE | 2017-09-24 20:25 | NUR ---
ROUNDED CHARGE. PATIENT IS RESTING IN BED. PATIENT HAS BED ALARM IN PLACE. PATIENT DENIES ANY COMMENTS, QUESTIONS, OR CONCERNS. CALL LIGHT IN REACH.
--- NOTE | 2017-09-24 21:21 | NUR ---
PT ASSESSMENT COMPLETE AT THIS TIME, PT ORIENTED TO PERSON, EVENT, NOT TO PLACE OR DATE, REORIENTATION PROVIDED. 1+ EDEMA NOTED BLE, CHRONIC NUMBNESS PER PT BILATERALLY LOWER EXTREMITIES. LUNGS CLEAR THROUGHOUT W AUSCULTATION. BOWEL TONES ACTIVE, ABD SOFT, NON-TENDER. PT HAS NO REQUESTS AT THIS TIME, VITALS WNL. CALL LIGHT IN REACH. BED ALARM ON.
--- NOTE | 2017-09-24 23:18 | NUR ---
CHECKED ON PT, APPEARS TO BE SLEEPING, EYES CLOSED, BREATHING NON-LABORED. BED ALARM ON.
--- NOTE | 2017-09-25 00:58 | NUR ---
PT ATTEMPTING TO GET OUT OF BED AT THIS TIME, WEAK, DROWSY, OPENING AND CLOSING EYES. UNSTEADY ON FEET W FWW. PT ATTEMPTS TO USE URINAL AT SIDE OF BED, FALLS ASLEEP. BACK IN BED WITH MATT LUCIANO AND GLENN ASSIST, REPOSITIONED, ATTENDS AND CHUX IN PLACE. BED ALARM ON.
--- NOTE | 2017-09-25 03:36 | NUR ---
CHECKED ON PT, APPEARS TO BE SLEEPING, EYES CLOSED, BREATHING VISIBLE. LIGHTS OFF, BED ALARM ON.
--- NOTE | 2017-09-25 04:34 | NUR ---
PT APPEARS TO BE SLEEPING, LYING ON RIGHT SIDE, EYES CLOSED, BREATHING NON-LABORED. BED ALARM ON.
--- NOTE | 2017-09-25 06:10 | NUR ---
PT ATTEMPTING TO GET OUT OF BED, SCHEDULED MEDICATIONS ADMINISTERED, ASSESSMENT COMPLETE AT THIS TIME. PT ORIENTED TO PERSON, AND PLACE. REORIENTED TO DATE, EXACT LOCATION. LUNGS CLEAR WITH FINE CRACKLES NOTED IN RLL. EDEMA TRACE BILATERALLY LOWER EXTREMITIES. 2PA TO STAND FOR DAILY WEIGHT, PT WEAK. WEIGHT 187.2 LBS STANDING WEIGHT. 1PA WITH FWW TO CHAIR, ALARM IN PLACE. CALL LIGHT AND PERSONAL SUPPLIES IN REACH.
--- NOTE | 2017-09-25 06:43 | NUR ---
PT ORIENTED TO PERSON, LOCATION, NOT DATE AND EXACT FACILITY. BED AND CHAIR ALARM IN PLACE. PT SLEPT WELL THROUGHOUT SHIFT. LUNGS CLEAR W FINE CRACKLES RLL. LEGS ELEVATED WHILE IN BED, EDEMA TRACE AT END OF SHIFT. IV SALINE LOCKED.
--- NOTE | 2017-09-25 07:29 | NUR ---
PATIENT SITTING UP IN BEDSIDE RECLINER, RESTING WITH EYES CLOSED. PATIENT CALL LIGHT IN REACH. NO OTHER NEEDS AT THIS TIME.
--- NOTE | 2017-09-25 08:41 | NUR ---
PATIENT RESTING WITH EYES CLOSED. PATIENT WAS DIFFICULT TO WAKE, AND APPEARED CONFUSED AFTERWARDS. PATIENT ATTEMPTED TO PLACE DENTURES IN MOUTH, PLACED TOP DENTURES UPSIDE DOWN ON BOTTOM TEETH, DESPITE ALREADY HAVING BOTTOM TEETH. THIS MANAGER GRANT REORIENTED PATIENT AND ATTEMPTED TO HELP PATIENT PUT TOP DENTURES IN. PATIENT SITTING UP IN BEDSIDE RECLINER. CHAIR ALARM ON. CALL LIGHT IN REACH. RN NOTIFIED.
--- NOTE | 2017-09-25 08:56 | NUR ---
THIS HEARING AID FITTER ASSISTED PATIENT UP TO BATHROOM, BACK TO BEDSIDE RECLINER. CHAIR ALARM ON, RN IN ROOM. PATIENT SITTING UP EATING BREAKFAST, NO OTHER NEEDS AT THIS TIME.
--- NOTE | 2017-09-25 09:00 | NUR ---
PATIENT SET UP FOR BREAKFAST. PATIENT ORIENTED TO SELF, LOCATION. UNABLE TO STATE YEAR. PATIENT TOLERATED MORNING MEDICATION. VITALS DONE. LASIX IV GIVEN. NO OTHER NEEDS AT THIS TIME. PATIENT HAS CHAIR ALARM IN PLACE.
--- NOTE | 2017-09-25 09:41 | NUR ---
PATIENT RESTING IN BEDSIDE RECLINER. CALL LIGHT IN REACH. PATIENT STILL APPEARS CONFUSED AND IS DIFFICULT TO UNDERSTAND. NO OTHER NEEDS AT THIS TIME.
--- NOTE | 2017-09-25 10:20 | NUR ---
PATEINT SITTING IN CHAIR. ASSISTED WITH VITALS. NO OTHER COMPLAINT AT THIS TIME.
--- NOTE | 2017-09-25 11:44 | NUR ---
PATIENT HAD LARGE INCONTINENCE EPISODE. RUSLAN RYAN AND RUSLAN VILLEDA ASSISTED WITH PATIENT. PATIENT UP TO BATHROOM, PATIENT GIVEN BED BATH AND DRESSED IN CLEAN GOWN. PATIENT CHANGED INTO CLEAN ATTENDS. PATIENT CALL LIGHT IN REACH. NO OTHER NEEDS AT THIS TIME.
--- NOTE | 2017-09-25 12:20 | NUR ---
PATIENTS VITALS RECHECKED. PATEINT SITTING IN CHAIR. SET UP FOR LUNCH. PATIENT WOKE WITH ME HAVING TO SHAKE PATIENT. PATIENT STATED LAUGHING AND SAID, " WHAT". LUNCH ORDERED.
--- NOTE | 2017-09-25 12:59 | NUR ---
PATIENT SAT UP FOR LUNCH IN CHAIR. PASTOR DIAS WHEN TO ROOM TO VISIT WITH PATIENT.
--- NOTE | 2017-09-25 13:40 | NUR ---
UPDATED DR. BEST IN REGARDS TO PATIENTS BLOOD PRESSURE. HOLDING LASIX UNTIL DR. BEST ROUNDS IN ROOM.
--- NOTE | 2017-09-25 13:48 | NUR ---
PATIENT FINISHED 100 PERCENT OF LUNCH. PATIENT ASSITED TO THE BR. PATIENT TOLERATED WELL WITH ONE ASSIST AND WALKER. ROUNDED WITH DR. BEST. PLAN TO GIVE LASIX.
--- NOTE | 2017-09-25 13:53 | NUR ---
PT SITTING IN CHAIR, TRYING TO STAY AWAKE LONG ENOUGH TO EAT LUNCH. HE RAISED HIS HEAD WHEN I KNOCKED, AND WELCOMED ME IN. HE IMMEDIATELY HELD OUT HIS HAND TO SHAKE MINE. PT STATED HE WAS DOING WELL, WHEN I ASKED HIM HOW LUNCH WAS HE HAD SOME TROUBLE FORMING A SENTENCE TO EXPRESS HOW HE FELT ABOUT LUNCH. HE IS DEFINATELY FRIENDLY, I EXTENDED A BLESSING, WILL FOLLOW NEEDED
--- NOTE | 2017-09-25 14:16 | NUR ---
THIS SWEATBAND SEPARATOR ASSISTED PATIENT UP TO BATHROOM, BACK TO BEDSIDE RECLINER. PATIENTS FEET ELEVATED IN RECLINER, CHAIR ALARM ON. RN IN ROOM. PATIENT CALL LIGHT IN REACH. PATIENT IN CLEAN GOWN AND LINENS CHANGED. RN STATES SHE TOOK AND DOCUMENTED PATIENTS VITALS. NO OTHER NEEDS AT THIS TIME.
--- NOTE | 2017-09-25 14:17 | NUR ---
GAVE LASIX PER DR. BEST ORDERS. VITALS TAKEN. PATIENT SITTING UP IN CHAIR LOWER LEGS ELEVATED ON PILLOW IN CHAIR. TRACE EDEMA NOTED IN LOWER LEGS. CONTINUE TO BE ON RA SATING WELL. ASSESSMENT COMPLETE.
--- NOTE | 2017-09-25 14:53 | NUR ---
CALLED SAM FOR UPDATE. NURSE TO NURSE REPORT GIVEN. STATING POSSIBLE D/C BACK TOMORROW DEPENDING ON LABS AND LOWER LEG SWELLING.
--- NOTE | 2017-09-25 15:08 | NUR ---
THIS CHART PICKER AWOKE PATIENT AND OFFERED TO ASSIST PATIENT TO THE RESTROOM. PATIENT STATES HE DOESNT HAVE TO GO. THIS CHART PICKER CHECKED PATIENTS BRIEFS, PATIENT HAS NO INCONTINENCE. THIS CHART PICKER WILL CHECK BACK WITH PATIENT AT A LATER TIME.
--- NOTE | 2017-09-25 15:36 | NUR ---
PATIENT SITTING IN CHAIR. LEGS ELEVATED. NO NEEDS AT THIS TIME. WILL CONTINUE TO MONIOR. CALL LIGHT WITH IN REACH. CHAIR ALARM IN PLACE.
--- NOTE | 2017-09-25 15:53 | NUR ---
THIS CHANNEL MARKETING MANAGER ASSISTED PATIENT UP TO BATHROOM, BACK TO BEDSIDE RECLINER. PATIENT STILL APPEARS CONFUSED. PATIENT CALL LIGHT IN REACH. NO OTHER NEEDS AT THIS TIME.
--- NOTE | 2017-09-25 16:07 | NUR ---
PATIENT DID WELL TODAY. LASIX BID. TRACE EDEMA IN LOWER LEGS. BP ON LOWER END. DR. BEST OKAYED LASIX AND CARDIAC MEDICATION TODAY. CONTINUE FLUID RESTRICTION 1500MLS. CARDIAC DIET. PATIENT VOIDING WELL. HAD BM THIS AM. FLAT AFFECT, BUT FOLLOWS COMMANDS WELL. ORIENTED TO SELF AND LOCATION. FORGETFUL AT TIMES. CHAIR ALARM TODAY. HAS BEEN USING CALL LIGHT APPROPRIATE. POSSIBLE DISCHARGE TOMORROW DEPENDING ON LABS AND ASSESSMENT
--- NOTE | 2017-09-25 17:52 | NUR ---
CHANGED PATIENTS GOWN AFTER DINNER. TOLERATED 100 PERCENT OF DINNER. VITALS AND I AND O COMPLETE.
--- NOTE | 2017-09-25 18:05 | NUR ---
THIS GEAR MACHINE OPERATOR GENERAL ASSISTED PATIENT UP FROM BEDSIDE RECLINER INTO BATHROOM. PATIENT NEEDS CUES AND REMINDERS TO WALK WELL DIRECTIONS ON STANDING WITH WALKER AND SITTING. PATIENT STILL APPEARS CONFUSED. PATIENT BACK IN BED, BED ALARM ON, CALL LIGHT IN REACH. NO OTHER NEEDS AT THIS TIME.
--- NOTE | 2017-09-25 19:00 | NUR ---
BEDSIDE REPORT RECEIVED FROM RUSLAN GASTON. PT AWAKE, SITTING UP IN BED, BED ALARM ON. IV SALINE LOCKED. CALL LIGHT NEXT TO PT.
--- NOTE | 2017-09-25 20:28 | NUR ---
SBA TO RESTROOM WITH FWW, FOR SMALL BM GREEN IN COLOR AND UNMEASURED VOID. ORAL CARE COMPLETE. EXW HEARD THROUGHOUT LUNGS. TRACE EDEMA NOTED BLE, CHRONIC NUMBNESS BLE. IV SALINE LOCKED WNL. BOWEL TONES ACTIVE X 4, ABD SOFT. PT DENIES PAIN. BED ALARM ON. CALL LIGHT IN REACH.
--- NOTE | 2017-09-25 20:32 | NUR ---
VITALS AND I&OS DONE AND CHARTED. RUSLAN MÁRQUEZ AND I HELPED PT TO THE BATHROOM AND BACK TO BED WITH HIS FWW. FRESH ICE WATER GIVEN. BEDSIDE TABLE AND CALL LIGHT WITHIN REACH.
--- NOTE | 2017-09-25 22:35 | NUR ---
PT APPEARS TO BE SLEEPING, EYES CLOSED, BREATHING NON-LABORED, VISIBLE CHEST RISE. BED ALARM ON.
--- NOTE | 2017-09-26 01:19 | NUR ---
PT APPEARS TO BE SLEEPING, EYES CLOSED, LYING IN RIGHT SIDE, VISIBLE CHEST RISE. BED ALARM ON.
--- NOTE | 2017-09-26 02:00 | NUR ---
PT RESTLESS, MOVING LEGS UP AND DOWN IN BED, IN ROOM TO ASSESS PT. PT DROWSY, REPOSITIONED IN BED, ATTEMPT TO VOID IN URINAL, UNABLE, PT CLOSING EYES AND APPEARS TO SLEEP. BED ALARM ON. ATTENDS IN PLACE. CALL LIGHT IN REACH, WILL CONTINUE TO CLOSELY MONITOR.
--- NOTE | 2017-09-26 04:09 | NUR ---
PT APPEARS TO BE SLEEPING, EYES CLOSED, VISIBLE CHEST RISE, RR 16. LIGHTS OFF IN ROOM. BED ALARM ON.
--- NOTE | 2017-09-26 06:29 | NUR ---
VITALS AND I&OS DONE AND CHARTED. HELPED RUSLAN MÁRQUEZ GET PT TO THE BATHROOM AND BACK TO BED WITH HIS FWW. BEDSIDE TABLE AND CALL LIGHT WITHIN REACH.
--- NOTE | 2017-09-26 06:32 | NUR ---
STANDING WEIGHT 186.4. PT DROWSY ABLE TO AMBULATE W FWW TO RESTROOM FOR VOID, AND LIQUID BM, 2PA AT THIS TIME. BACK TO BED, LUNGS DIMINISHED, CLEAR, COARSE IN RLL. TRACE EDEMA BLE. BED ALARM ON. CALL LIGHT IN REACH.
--- NOTE | 2017-09-26 06:37 | NUR ---
SBA W FWW TO RESTROOM FOR QUANTITY SUFFICIENT VOIDS. DROWSY AFTER PM MEDICATIONS. NO INCONTINENCE THIS SHIFT. BED ALARM IN PLACE. ON ROOM AIR. IV SALINE LOCKED. DAILY WEIGHT 186.4 STANDING. 1500 ML FLUID RESTRICTION.
--- NOTE | 2017-09-26 09:11 | NUR ---
V/S obtained prior to medication administration, patient tolerated well. Assisted patient to chair, he ambulated with a walker. Left patient alert and oriented eating breakfast.
[2017-09-26] MEDS ORDERED: TORSEMIDE20 MG PO (09:45)
[2017-09-26] MEDS ORDERED: POTASSIUM CHLO20 ME1 PO (09:45)
--- NOTE | 2017-09-26 10:33 | NUR ---
Patient ambulated with front wheel walker assist, and two student nurses walking next to him. Patient did two laps around small loop of med/surge without complaint of dizziness, shortness of breath, or muscle weekness. Noted some low back tightness on second lap and paused to rest. Total he stopped to rest 3-4 times. He does drift to left while he walks, but he is aware of this and is able to self correct. Walked with patient back to his room where he was able to sit on bed, and lay down without assistance. Left patient resting supine, without further requests or complaints.
--- NOTE | 2017-09-26 12:00 | NUR ---
PATIENT CURRENTLY TAKING A SHOWER BEFORE DC. REPORT CALLED TO SERA AT [facility]. SERA HAD NO QUESTIONS AFTER REPORT PATIENT WILL BE LEAVING PER TAXI BACK TO THIS FACILITY.
--- NOTE | 2017-09-26 14:44 | NUR ---
CONNECTED WITH PT HE WAS WALKING IN DAY WITH STAFF. PT TODAY HAD MORE DIFFICULTY FORMULATING HIS WORDS THAN BEFORE. MAYBE FOCUSED ON WALKING MADE IT MORE DIFFICULT TO TALK. HE DID SAY HE WAS WORKING HARD, EXTENDED A BLESSSING AND ENCOURAGEMENT TO PT. WILL FOLLOW NEEDED
== END 2017-09-26 12:15 | disposition home or self-care (01) | DRG 293 ==
LOC: ED 21:21 → MS 22:46
PROVIDERS: ADMIT Internal Medicine
DX: I50.23 Acute on chronic systolic (congestive) heart failure (principal); I25.10 Atherosclerotic heart disease of native coronary artery without angina pectoris; J44.9 Chronic obstructive pulmonary disease, unspecified; K21.9 Gastro-esophageal reflux disease without esophagitis; E03.9 Hypothyroidism, unspecified; N40.0 Benign prostatic hyperplasia without lower urinary tract symptoms; K59.09 Other constipation; F20.9 Schizophrenia, unspecified; Z88.8 Allergy status to other drugs, medicaments and biological substances; Z66 Do not resuscitate; Z91.14 Patient's other noncompliance with medication regimen; Z79.82 Long term (current) use of aspirin; Z79.51 Long term (current) use of inhaled steroids; Z79.899 Other long term (current) drug therapy
CPT/HCPCS: 36415; 71045; 80048; 80053; 83735; 83880; 84484; 85025; 93005; 93010; 94640; 94760; J1650; Q0163

== ENCOUNTER 2018-07-07 22:27 | Inpatient (IN) | payer MEDICARE, OTHER ==
[~2018-07-07] VITALS: Ht 185.4 cm; Wt 90.1 kg
[~2018-07-07 22:27] MED LIST changes: +EZETIMIBE10 MG PO; +MAGNESIUM400 MG PO; +POTASSIUM CHLO20 ME1 PO; +TORSEMIDE20 MG PO; +ZOFRAN4 MG PO
[2018-07-08] MEDS ORDERED: ONDANSETRON HCL4 MG PO (02:06)
[2018-07-08] MEDS ORDERED: INCRUSE ELLI62.5 MCG INH (02:07)
[2018-07-08] MEDS ORDERED: TOPROL XL25 MG PO (02:08)
[2018-07-08] MEDS ORDERED: RISPERIDONE3 MG PO (02:09)
[2018-07-08] MEDS ORDERED: QUETIAPINE FUM400 MG PO (02:09)
[2018-07-08] MEDS ORDERED: SERTRALINE HCL100 MG PO (02:10)
[2018-07-08] MEDS ORDERED: FLOMAX0.4 MG PO (02:10)
--- NOTE | 2018-07-08 03:30 | NUR ---
ADMIT TO CCU PER STRETCHER. DENIES SOB AT THIS TIME AND IS ABLE TO LAY FLAT, NO RESP DISTRESS NOTED. PT HAS VERY POOR MEMORY AND IS POOR HISTORIAN. ALSO OCC SPEECH IS DIFICULT TO UNDERSTAND. RESPONDS BEST TO SHORT, YES/NO QUESTIONS. STATES IS TIRED, AND WILL FALL BACK TO SLEEP QUICKLY. AFFIRMED NEEDED TO VOID BUT WAS UNABLE TO DO SO IN URINAL. BLADDER SCANNED FOR 718ML. DOES TAKE FLOMAX. WILL WATCH. PLACED ON DROPLET PRECAUTIONS FLU A IS POSITIVE.
--- NOTE | 2018-07-08 04:06 | NUR ---
DR SABILLON CALLED RE POS FLU RESULTS. ORDER RECIEVED. HAD PT ATTEMPT TO VOID WITHOUT RESULTS.
--- NOTE | 2018-07-08 04:59 | NUR ---
ON BIPAP PER RT. RADHA WELL.
--- NOTE | 2018-07-08 06:20 | NUR ---
PT VERY SLEEPY, AWAKENED WITH PAINFUL STIMULI, ONCE AWAKE WAS ABLE TO STAY AWAKE ENOUGH TO DRINK WATER AND TAKE PILL. STILL UNABLE TO VOID. ATTENDS FROM HOME IS DAMP, PT ALSO HAS BEEN DIAPHORETICE. ALSO HAD SMEAR OF STOOL ON ATTENDS. DR SABILLON CALLED AND ORDER FOR GONSALO CATH RECIEVED.
--- NOTE | 2018-07-08 06:51 | NUR ---
16F BRUSH INSERTED EASILY WITH RETURN OF 1250ML DARK YELLO URINE. PT SLEPT THROUGH PLACEMENT. REMAINS ON BIPAP AND TOLERATING IT WELL.
--- NOTE | 2018-07-08 07:45 | NUR ---
PT ASLEEP WITH BIPAP IN PLACE. HE APPEARS TO BE RESTING COMFORTABLY WITHOUT ANY S/S OF PAIN OR DISCOMFORT. VS REMAIN STABLE AND CLEAR, LIGHT YELLOW URINE PRESENT IN BRUSH CATH. PT IS VISIBLE FROM NURSES STATION WITH FALL AND ASPIRATION PRECAUTIONS IN PLACE. CALL LIGHT WITHIN REACH. WILL CONTINUE TO MONITOR.
--- NOTE | 2018-07-08 07:53 | EKG ---
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
--- NOTE | 2018-07-08 08:45 | NUR ---
PT ASSESSMENT COMPLETED AT THIS TIME. PT REMAINS DROWSY, ARROUSING TO LIGHT SHAKING/TO VOICE. WHEN AWAKE, HE'S ORIENTED, PLEASANT, CALM AND COOPERATIVE. HE REMAINS ON BIPAP AT THIS TIME WITH 30% FIO2 AND 10/5 SETTINGS. HIS LUNGS ARE CLEAR BUT DIMINISHED THROUGHOUT ALL LOBES. CONTINUOUS PULE OX IN PLACE. SB ON CONINUOUS TELE WITH BBB AND 1ST DEGREE HB. DROPLET PRECAUTIONS IN PLACE. ABDOMEN IS ROUNDED AT BASELINE- UMBILICAL HERNIA NOTED. BRUSH CATH IN PLACE DRANING LIGHT YELLOW, CLEAR URINE. BRUSH CATH CARES COMPLETED AT THIS TIME. RIGHT WRIST PIV WNL WITH CONTINUOS FLUIDS RUNNING. EDUCATION COMPLETED WITH PT BUT HE'S UNINTERESTED AND REQUIRES REINFORCEMENT. PT HAS NO SKIN ISSUES BUT I HAVE ELEVATED BILATERAL ELBOWS AND HEELS OFF BED WITH PILLOW SUPPORT. Q2HR TURNS INITIATED AND PT MOVED TO LAY ON RIGHT SIDE. PT HAS NO QUESTIONS OR CONCERNS AT THIS TIME. CALL [facility] WITHIN REACH. FALL AND ASPIRATION PRECAUTIONS REMAIN IN PLACE. WILL CONTINUE TO MONITOR.
--- NOTE | 2018-07-08 09:40 | NUR ---
PT CONTINUES TO REST IN BED AT THIS TIME. PT AWOKEN WITH LIGHT SHAKING AND STATING OF HIS NAME. PT UPRIGHT AND WIDE AWAKE FOR MEDICATION ADMIN. HE DENIES ANY PAIN, DENIES N/V, AND DENIES ANY DISCOMFORT WITH HIS BREATHING. BRUSH EMPTIED. HE DENIES ANY FURTHER NEEDS TO BE MET. CALL LIGHT WITHIN REACH. WILL CONTINUE TO MONITOR.
--- NOTE | 2018-07-08 10:41 | NUR ---
PT REPOSITIONED TO SUPINE POSITION AT THIS TIME. HE REMAINS COMFORTABLE ON BIPAP WITH NO REQUESTS OR NEEDS TO BE MET. CALL LIGHT WITHIN REACH. WILL CONTINUE TO MONITOR.
--- NOTE | 2018-07-08 11:29 | NUR ---
PT WIDE AWAKE AT THIS TIME AFTER HAVING RT TREATMENT. PT IS VERY PLEASANT AND COOPERATIVE. NOTED THAT HE'S MOVING AROUND IN BED A LITTLE; ASKED IF HE'S UNCOMFORTABLE AND HE SAID "YES." THIS RN AND A SECOND BOOSTED PT UP IN BED AND REPOSITIONED HIM TO HIS LEFT SIDE. REPOSITIONED ALL EXTREMITIES ON PILLOWS. PT NOW STATES THAT HE'S COMFORTABLE. HE DENIES ANY FUTHER NEEDS RIGHT NOW. CALL LIGHT WITHING REACH. WILL CONTINUE TO MONITOR.
--- NOTE | 2018-07-08 12:25 | NUR ---
PT CONTINUES TO REST COMFORTABLY IN BED. HE STATES AT THIS POINT THAT HE IS COMFORTABLE WITH NO PAIN. NO N/V. NO SOB. PT REMAINS PLEASANT, CALM AND COOPERATIVE BUT DROWSY AND SLEEPY. AWAKES TO SOUND COMPARED TO THIS MORNING WHERE IT WAS BOTH SOUND AND TOUCH NEEDED TO WAKE HIM. BIPAP SETTINGS REMAIN THE SAME AND VSS. CONTINUOUS PULSE OX REMAINS IN PLACE TO MONITOR O2 SATS. LAYING ON HIS LEFT SIDE DUE FOR REPOSITIONING NEXT HOUR. BRUSH DRAINING WITHOUT COMPLICATION. CALL LIGHT WITHIN REACH. WILL CONTINUE TO MONITOR.
--- NOTE | 2018-07-08 12:28 | NUR ---
PT RECEIVING BREATHING TREATMENT-PT RATHER RESTLESS AND STAFF IS WATCHING CLOSELY. WILL CHECK BACK AGAIN.
--- NOTE | 2018-07-08 13:10 | NUR ---
PT ASSISTED WITH SITTING UP FOR A FEW SIPS OF WATER PER HIS REQUEST. PT ALSO ASSISTED TO NEW REPOSITION: SUPINE. HE STATES HE'S COMFORTABLE. NO FUTHER REQUESTS. BIPAP IN PLACE. CALL LIGHT WITHIN REACH. WILL CONTINUE TO MONITOR.
--- NOTE | 2018-07-08 14:54 | NUR ---
PT REPOSITIONED TO HIS RIGHT SIDE AT THIS TIME. PT IS DROWSY BUT HE'S ALERT AND ORIENTED WHEN ADRESSED. BRUSH EMPTIED. PT SMILING, PLEASANT AND CALM. HE DENIES ANY NEEDS TO BE MET AT THIS TIME. SOLU-MED GIVEN AT THIS TIME. CALL LIGHT WITHIN REACH. BED ALARM AND FALL PRECAUTIONS IN PLACE. WILL CONTINUE TO MONITOR.
--- NOTE | 2018-07-08 15:35 | NUR ---
PT AWAKE AND ALERT WITH RT IN ROOM. WILL CONTINUE TO MONITOR.
[2018-07-08] MEDS ORDERED: DENTAGEL56 GM MM (16:00)
--- NOTE | 2018-07-08 16:14 | NUR ---
PT WIDE AWAKE AND ALERT SITTING UP IN BED, CHANGING POSITION INDEPENDENTLY- THIS RN NO LONGER GOING TO REPOSITION HIM Q2HR HE'S ABLE TO HIMSELF (UNTIL NECESSARY). PT IS A/O X4. HE DENIES PAIN, N/V OR SOB. HE'S SINCE BEEN WEANED DOWN TO 3 L/MIN O2 VIA NC. LUNGS ARE COURSE AND EXP. WHEEZING THROUGHOUT ALL LOBES HEARD. BRUSH IN PLACE DRAINING ADEQUATE AMOUNT OF UOP. PT VERY PLEASANT WITH ME, CALM AND COOPERATIVE. HE DENIES ANY NEEDS AT THIS TIME. ASSISTED PT IN CHOOSING A TV CHANNEL TO WATCH. CALL LIGHT WITHIN REACH. WILL CONTINUE TO MONITOR.
--- NOTE | 2018-07-08 16:19 | NUR ---
MED REC COMPLETE
--- NOTE | 2018-07-08 17:25 | NUR ---
PT RELAXING IN BED AWAKE, WATCHING TV. DINNER HAS BEEN ORDERED FOR HIM SINCE DIET WAS ADVANCED TO REGULAR. ADEQUATE O2 SATS WITH 3 L/MIN O2 VIA NC. PT DENIES ANY NEEDS AT THIS TIME. CALL LIGHT WITHIN REACH. WILL CONTINUE TO MONITOR.
--- NOTE | 2018-07-08 18:00 | NUR ---
ASSISTED PT UP TO RECLINING CHAIR AT THIS TIME WITH WALKER. PT WEAK AND UNSTEADY ON HIS FEET. LINENS CHANGED. PT WASHED HIS FACE AND HANDS AND IS SITTING UPRIGHT READY FOR DINNER. NO SOB OR BREATHING ISSUES WITH AMBULATION AND O2 REMAINED ABOVE 90%. PT DENIES ANY NEEDS. CALL LIGHT WITHIN REACH. WILL CONTINUE TO MONITOR.
--- NOTE | 2018-07-08 18:34 | NUR ---
100% OF DINNER EATEN- SALMON WITH A SIDE OF MASHED POTATOES. HE REMAINS UP IN RECLINER WATCHING TV COMFORTABLY. DENIES ANY NEEDS. CALL LIGHT IN HIS LAP. WILL CONTINUE TO MONITOR.
--- NOTE | 2018-07-08 20:30 | NUR ---
PT SITTING UP IN CHAIR WATCHING TV. ALERT, DENIES PAIN. LUNGS DIM, RIGHT UPPER LUNG SOUND COARSE WITH EXPIRATORY WHEEZE. 3L O2 VIA NC IN PLACE, DENIES SOB AND CHEST PAIN. HR REGULAR. BOWEL TONES ACTIVE, DENIES NAUSEA. IV PATENT, IVF INFUSING WNL. BRUSH PATENT, YELLOW URINE. EVENING MEDICATIONS TAKEN WITHOUT DIFFICULTY, FRESH ICE WATER PROVIDED. PT STATES HE IS COMFORTABLE IN THE CHAIR, DENIES REQUESTS AT THIS TIME.
--- NOTE | 2018-07-08 22:05 | NUR ---
PT SITTING UP WATCHING TV, HAS NO C/O. REPORT CALLED TO MICHAEL. PT TO MED SURG PER RECLINER.
--- NOTE | 2018-07-08 22:45 | NUR ---
PATIENT SITTING UP IN THE RECLINER. PATIENT ORIENTED TO SELF AND LOCATION, NOT THE NAME OF THE SPECIFIC HOSPITAL. PATIENT DENIES PAIN OR NAUSEA. WARM BLANKET PROVIDED. BRUSH DRIANING CLEAR YELLOW URINE. IV FLUIDS PER ORDER, IV SITE HAS SOME BLOOD UNDER THE WINDOW. FLUSHES WELL. 2L NC, CONTINUOUS PULSE OX. O2 SAT >95%. PATIENT DENIES ANY NEEDS. REMINDED TO USE CALL LIGHT. PATIENT AGREES.
--- NOTE | 2018-07-09 00:45 | NUR ---
PATIENT REPORTS BEING READY FOR BED. 2PA W/FWW TO BED. PATIENT TOLERATED WELL. RT IN ROOM TO PLACE BIPAP. PATIENT FALLS TO SLEEP QUICKLY. O2 SAT 98% ON 30% BIPAP. BED ALARM ON. CALL LIGHT IN HAND. TV TURNED OFF.
--- NOTE | 2018-07-09 03:15 | NUR ---
PATIENT SLEEPING SOUNDLY. WAKES DURING ASSESSMENT ONLY SLIGHTLY. PATIENT TOLERATING BIPAP, O2 SAT 98%. LUNGS ARE COARSE WITH EXP WHEEZES. PATIENT DENIES PAIN. IV FLUIDS PER ORDER, SITE WNL. PATIENT ALLOWED TO REST. CALL LIGHT IN REACH. BED ALARM ON.
--- NOTE | 2018-07-09 05:04 | NUR ---
PATIENT APPEARS TO BE SLEEPING SOUNDLY. RR 18. BIPAP IN USE, 02 SAT 98%. CALL LIGHT IN REACH. IV FLUIDS PER ORDER, SITE WNL. BRUSH DRAINING FREELY, QS YELLOW URINE.
--- NOTE | 2018-07-09 06:38 | NUR ---
PATIENT TRANSFERED FROM CCU. 2L NC WHILE AWAKE. BIPAP WHILE SLEEPING. PATIENT TOLERATES WELL. PATIENT SLIGHTLY DISORIENTED AND REQUIRES DIRECTION AT BASELINE. VS STABLE. CONTINUOUS PULSE OX. TELE 6, HR 50-60. 2PA STAND PIVOT TO CHAIR. BRUSH IN PLACE, OUTPUT QS.
--- NOTE | 2018-07-09 06:50 | NUR ---
PATIENT UP FOR STANDING WEIGHT. TOLERATED WELL. TRANSFERED TO RECLINER. CALL LIGHT IN REACH. TOLERATING ROOM AIR AT THIS TIME. CONTINUOUS PULSE OX.
--- NOTE | 2018-07-09 08:19 | NUR ---
PATIENT SITTING UP IN BEDSIDE RECLINER, CALL LIGHT IN REACH. PATIENT PERFORMED AM CARE WITH ASSISTANCE. NO OTHER NEEDS AT THIS TIME.
--- NOTE | 2018-07-09 08:45 | NUR ---
PT APPEARS TO BE RESTING IN CHAIR UPON ENTERING ROOM. RESPIRATIONS EVEN AND UNLABORED. BP 105/56, PULSE 81. PT DISORIENTED TO TIME, STATING THAT HE HAS BEEN IN THE HOSPITAL "FOR A COUPLE OF HOURS". PT ABLE TO CONFIRM DATE OF AND CURRENT LOCATION. NO OTHER REQUESTS, CALL LIGHT IN REACH.
--- NOTE | 2018-07-09 08:54 | NUR ---
PT IS UP IN RECLINER EARLY THIS MORNING, DOING WELL ON RA, ALERT, INTERACTIVE WITH STAFF, HUNGRY. DENIES ANY NEEDS.
--- NOTE | 2018-07-09 09:15 | NUR ---
PT SITTING IN CHAIR UPON ENTERING ROOM. MORNING MEDICATIONS ADMINISTERED. IV ROCEPHIN STARTED, IV PATENT. PT ABLE TO SWALLOW PO MEDICATIONS WITHOUT DIFFICULTY. NO OTHER PT REQUESTS AT THIS TIME. CALL LIGHT IN REACH
--- NOTE | 2018-07-09 10:00 | NUR ---
PT HAD JUST RETURNED FROM WALKING W/ PHYSICAL THERAPY. PT SOMEWHAT SOB AFTER AMBULATION. PT TO CHAIR PER PHYSICAL THERAPY. 300 ML OF CONCENTRATED, DARK YELLOW URINE DRAINED FROM BRUSH. NO ODOR OR SEDIMENT NOTED. NO OTHER REQUESTS, CALL LIGHT IN REACH.
--- NOTE | 2018-07-09 10:00 | NUR ---
STUDENT NURSE IN ROOM WITH PATIENT AT THIS TIME.
--- NOTE | 2018-07-09 10:30 | NUR ---
PT AMBULATED LOOP AROUND NURSES STATION WITH PT. TOLERATED WELL. WANTS TO CONT. SITTING UP IN RECLINER AT BEDSIDE, TAKING FLUIDS WELL, DENIES ANY NEEDS.
--- NOTE | 2018-07-09 10:30 | NUR ---
PT RESTING IN CHAIR. GONSALO DC'ED PER ORDERS, NO SIGNS OF REDNESS OR SWELLING NOTED WITH DC OF GONSALO. PT REQUESTED UNDERGARMENTS, PT ABLE TO STAND INDEPENDENTLY WITH WALKER WHILE I PULLED UP UNDERGARMENTS. NO OTHER REQUESTS, CALL LIGHT IN REACH.
--- NOTE | 2018-07-09 11:00 | NUR ---
PT RESTING IN CHAIR. MIRALAX AND COLACE ADMINISTERED. PT TOLERATED ADMINISTRATION WELL, ABLE TO SWALLOW MED INDEPENDENTLY. NO OTHER REQUESTS, CALL LIGHT IN REACH.
--- NOTE | 2018-07-09 13:57 | NUR ---
PT SITTING UP IN CHAIR, JUST STARTING TO EAT LUNCH. HE IS ALERT AND PLEASANT. EXTENDED A BLESSING, WILL FOLLOW AGAIN AFTER MEAL.
--- NOTE | 2018-07-09 14:07 | NUR ---
PATIENT SITTING UP IN BEDSIDE RECLINER, STUDENT NURSE HAS BEEN IN AND OUT OF ROOM THROUGHOUT THIS SHIFT PROVIDING CARE FOR PATIENT. CALL LIGHT IN REACH. NO OTHER NEEDS AT THIS TIME.
--- NOTE | 2018-07-09 14:58 | NUR ---
PT HAS HAD A GOOD DAY, STAYING UP IN RECLINER PER PT REQUEST. LIKES TO SCROLE THRU TV CHANNEL. TAKING PO FLUIDS WELL.
--- NOTE | 2018-07-09 16:37 | NUR ---
PATIENT SITTING UP IN BEDSIDE RECLINER DOING SWING BED ACTIVITIES, VISIBLE FROM THE NURSES STATION. CALL LIGHT IN REACH. NO OTHER NEEDS AT THIS TIME.
--- NOTE | 2018-07-09 16:39 | NUR ---
PATIENT SITTING UP IN BEDSIDE RECLINER, PLAYING WITH CARDS. VISIBLE FROM NURSES STATION. CALL LIGHT IN REACH. NO OTHER NEEDS AT THIS TIME.
--- NOTE | 2018-07-09 18:47 | NUR ---
PATIENT HAD LARGE CHARCOAL COLORED STOOL, HAD SMALL AMOUNT OF UNMEASUREABLE URINE.
--- NOTE | 2018-07-09 19:00 | NUR ---
PT IN GOOD SPIRITS, IMPULSIVE AND GETTING UP FROM CHAIR TO WALK ABOUT ROOM, CHAIR ALARM IS ACTIVE FOR PT SAFETY. PULLED IV OUT, REPLACED AND IS NOW SL. TOLERATING FLUIDS WELL AND HAS A GOOD APPETITE. DECK OF CARDS PROVIDED FOR ACTIVITY. AMBULATED INTO BATHROOM WITH LARGE GREEN BM AND VOIDED INTO TOILET. BLADDERSCANNED AT THIS TIME DUE TO UNMEASURED VOIDS, BLADDERSCANNED FOR 54ML AFTER VOID. PT DENIES ANY NEEDS. IN BED WITH ALARM AT THIS TIME TO WATCH TV.
--- NOTE | 2018-07-09 19:10 | NUR ---
SHIFT REPORT RECEIVED. PATIENT UP TO THE BATHROOM WITH SIVA RN. PATIENT HAD LARGE BM AND URINE MIXED. FRESH ATTENDS IN PLACE. PATIENT AMBULATED TO THE BED. BLADDER SCAN PERFORMED. DIFFICULT ASSESSMENT DUE TO PATIENT'S CONSTANT MOVEMENTS AND LARGE ABDOMEN. LARGEST AMOUNT RECORDED 54MLS. NO PHYSICAL SIGNS OF URINARY RETENSION AT THIS TIME. PATIENT UP TO THE RECLINED. CHAIR ALARM IN USE. PATIENT PROVIDED WITH SNACK AND FRESH JUICE. CALL LIGHT IN HAND. PATIENT REPORTS BEING COMFORTABLE. DENIES ANY NEEDS AT THIS TIME.
--- NOTE | 2018-07-09 21:00 | NUR ---
PATIENT ATTEMPTED TO EXIT THE RECLINER WITHOUT ASSIST. CHAIR ALARM ALERTED STAFF. PATIENT SAFETY ASSISTED TO THE BED HE REQUESTED. PATIENT APPEARS SOB AND DIAPHORETIC. PEST LOCATOR IN ROOM. O2 SAT FOUND TO BE IN THE 80'S. PATIENT DENIED FEELING SOB. 4L NC PLACED ON PATIENT, WHICH ONLY IMRPOVED HIS O2 SAT TO 86%. BIPAP PLACED ON PATIENT AT 30% FIO2, PATIENT STARTED TO APPEAR MORE RELAXED. BREATHING EVEN, NONLABORED. O2 SAT 94%. HR ELEVATED 150-120 IRREGULAR. MD NOTIFIED. NO NEW ORDERS. PATIENT RESTING IN BED WATCHING TV. CALL LIGHT IN HAND. BED ALARM ON.
--- NOTE | 2018-07-09 23:09 | NUR ---
PT IN BED, TAKING O2 OFF, THIS NURSE IN, ASSISTED HIM IN PUTTING O2 ON. ROOM WARM @75, PT WITH SWEAT ON FOREHEAD, TURNED ROOM TEMP TO 72. PT RESTLESS, WITH SATS 88-90;, PLACED ON BIPAP, STAYED WITH PT, HEARTRATE WAS INCREASING UPWARDS OF 130 PRIOR TO BIPAP; AFTER 2-3 MIN ON BIPAP, HEARRATE DECREASED TO BELOW 120, PT RESTLESSNESS DECREASED, O2 SATS RETURNED TO THE MID 90'S. ONCE PT AT REST, LEFT ROOM AND REPORTED TO PT PRIMARY NURSE.
--- NOTE | 2018-07-09 23:35 | NUR ---
PATIENT'S HR ELEVATED 100-130'S AT REST. APPEARS IRREGULAR. DISCUSSED WITH DR. SABILLON. NEW ORDERS RECEIVED FOR PHARMACOLOGIC RATE CONTROL AND TELE MONITOR. VERIFIED ORDERS VIA REPEAT BACK METHOD. PATIENT PLACED ON TELE #2, HR 100-110 AND IRREGULAR. MEDICATION ADMINISTERED PER ORDER, SEE EMAR. PATIENT RESTING CALMLY IN BED. BIPAP IN PLACE. VS STABLE. HR 75 5MINS AFTER DRUG ADMINISTRATION. WILL CONTINUE TO MONITOR.
--- NOTE | 2018-07-10 00:30 | NUR ---
PATIENT RESTLESS IN BED, REMOVING BIPAP AND ATTEMPTING TO EXIT THE BED. CYLINDER TESTER IN ROOM TO ASSIST. PATIENT ASSESSED FOR TOILETING NEEDS OR OTHER NEEDS. PATIENT DENIED, STATES "I'M JUST SITTING UP". ASSISTED PATIENT TO REST IN BED WITH HEAD ELEVATED. BIPAP IN PLACE. O2 SAT 95% ON 30 FIO2. HR 94. BED ALARM ON. CALL LIGHT IN REACH.
--- NOTE | 2018-07-10 01:02 | NUR ---
PATIENT CONTINUES TO BE RESTLESS. REMOVING BIPAP MASK. OUTSIDE PARTS SALES IN ROOM, SWITCHED PATIENT TO 4L NC AND PROVIDED WATER PER REQUEST. RT CONTACTED FOR PRN NEB TREATMENT FOR AUDIBLE WHEEZES AND LABORED BREATHING. O2 SAT 90% ON THE 4L.
--- NOTE | 2018-07-10 01:18 | NUR ---
PATIENT FINISHED NEB TREATMENT PER RT. BIPAP IN PLACE, FI02 30%. O2 SAT 94%. PATIENT APPEARS MORE RESTFUL. HR IN 90'S, IRREGULAR. BED ALARM IN USE, CALL LIGHT IN REACH.
--- NOTE | 2018-07-10 03:00 | NUR ---
PATIENT WOKE AND HAS BECOME RESTLESS, REMOVING TELE LEADS AND PULLING AT HIS GOWN. READJUSTED PATIENT'S GOWN AND REPLACED LEAD. PATIENT STATES "ARE YOU GOING TO LET ME HAVE A SMOKE?" INFORMED PATIENT THAT WAS NOT ALLOWED. PATIENT CLAIMED TO BE JOKING. REORIENTED PATIENT TO SURROUNDINGS. PATIENT ENCOURAGED TO REST. EYES ARE CLOSED. BREATHING NONLABORED. BIPAP IN PLACE, 02 SAT 95% ON 30% FIO2.
--- NOTE | 2018-07-10 05:26 | NUR ---
PT RESTLESS, ASKED IF HE NEEDED TO "PEE" HE SAID YES, WITH ASSIST OF CHEMICAL OPERATIONS SPECIALIST, HE STOOD WITH ASSISTANCE, TO WALKER AND WAS ABLE TO MOVE TO SIT ON THE COMMODE. CHEMICAL OPERATIONS SPECIALIST DID [facility], WITH MIMIMAL ASSISTANCE TO STAND WITH WALKER AND [place] [facility] [place]F [place]ED. ONCE IN BED, SATS ON 3 L NC. TUCKED PT IN BED, BED ALARM PLACED.
--- NOTE | 2018-07-10 05:38 | NUR ---
NEAR 0530 PT PLACED BACK ON BIPAP 30%, PT WAS TRYING TO GET OOB, SATS IN THE 85 ON THE 3 L NC; STAYED WTIH PT WHILE ON BIPAP, SATS BACK TO THE MID 90'S, PT WITH EYES CLOSED. BED ALARM IN PLACE
--- NOTE | 2018-07-10 06:19 | NUR ---
PATIENT RESTFUL AT THIS TIME. TOELRATING BIPAP WITH 30% FI02. PATIENT IS DIAPHORETIC BUT DENIES BEING COLD OR HOT. PATIENT INSISTING ON SMOKING, WHILE HISTORY FROM [facility]ARE FACILITY STATES PATIENT HAS NOT SMOKED IN MANY YEARS. PATIENT'S LUNG SOUND ARE COARSE. OCCATIONAL LOOSE COUGH, NONPRODUCTIVE. IV SITE WNL, FLUSHED WELL. PATIENT DENIES TOILETING NEEDS. CALL LIGHT IN REACH. BED ALARM ACTIVE.
--- NOTE | 2018-07-10 06:23 | NUR ---
PATIENT HAS BEEN RESTLESS THIS SHIFT. REQUIRING 4L NC OR BIPAP WITH 30% FI02 TO MAINTAIN O2 SATS GREATER THAN 90%. SCHEDULED AND PRN NEBS. LUNGS ARE COARSE THROUGHOUT. NONPRODUCTIVE COUGH. PATIENT REQUIRES OCCATIONAL REORIENTATION TO PLACE AND DATE. BED/CHAIR ALARM REQUIRED, PATIENT FORGETFUL AND IMPULSIVE. OUTPUT QS, MULTIPLE BM YESTERDAY. NO PAIN OR NAUSEA. TOLERATING DIET. 1PA W/FWW FOR TRANSFERS.TELE 2, HR 100-115 IRREGULAR. AWARE.
--- NOTE | 2018-07-10 07:33 | NUR ---
RECIEVED NOC REPORT, PT IS SITTING UP IN RECLINER AT THIS TIME. ALERT IN GOOD SPIRITS, NO RESP DISTESS, O2 4L/NC. CONT. PULSE OXIMETER IN PLACE 94%. PT ASKED FOR CUP OF COFFEE. FLIPPING CHANNELS ON TV. CALL LIGHT IN EASY REACH. CHAIR ALARM IS ACTIVE FOR PT SAFETY.
--- NOTE | 2018-07-10 08:52 | NUR ---
DR DOW IN TO SEE PT AT THIS TIME.
--- NOTE | 2018-07-10 08:59 | NUR ---
CHEST X-RAY ORDERED.
--- NOTE | 2018-07-10 10:25 | NUR ---
Pt sitting up in bed watching television. Pt rec'v 4 L o2 via NC. Occasional loose cough yet unproductiive. IV site WNL and flushing. Patient repositioning independently while sitting up in bed. Patient using incentive spirometer independently without prompting. Bed alarm active and audible. Call light within reach.
--- NOTE | 2018-07-10 11:15 | NUR ---
Patient accidentally pulled out IV while changing gown. Moved pt from bed to commode while changing linens. Pt began to desat to the low 70's. Increased O2 to 6%. O2 sat increased to low 90's. Pt continues to experience increased work of breathing. Pt was able to stand and pivot from commode back to bed. O2 was titrated back down to 4 L with Pt O2 level resting at 94%. Bed in low position, alarms on audible, call light within reach.
--- NOTE | 2018-07-10 11:44 | NUR ---
PT IS SITTING UP IN BED EATING LUNCH, LUNG SOUNDS CONT. TO BE COURSE, OXIMETER 94% ON 4L/NC, CODE STATUS HAS BEEN UPDATED. BED ALARM IS ACTIVE FOR PT SAFETY, HE CONT. TO BE IMPULSIVE. IV WAS RESTARTED BY SOD CUTTER.
--- NOTE | 2018-07-10 12:22 | NUR ---
PT DOESN'T SEEM ALERT AND ORIENTED TODAY. KEEPS TRYING TO GET OUT OF BED AND SETTING OFF ALARM. SAID ROSELINE TODAY TO PT SN WAS IN RM. HE WAS SLOWER TO RESPOND AND HAD FORGOTTEN HE HAD EATEN BREAKFAST. TODAY HE WOULD NOT LOOK AT ME HE RESPONDED. WILL CONTINUE TO FOLLOW NEEDED
--- NOTE | 2018-07-10 13:18 | NUR ---
PT APPEARS VERY TIRED, LOOSE COUGH UNABLE TO CLEAR VERY WELL, AGREED TO LAY DOWN FOR NAP AND CPAP PLACED. OXIMETER 95% ON WHILE ON CPAP. HOB UP 30 DEGREES. RT IN ROOM TO ASSESS. BED ALARM ACTIVE FOR SAFETY. CONT. TO BE VERY IMPULSIVE.
--- NOTE | 2018-07-10 14:29 | NUR ---
Patient is sleeping with BIPAP. O2 sats at 96% on 6L. Pt lung sounds are course with visible retractions. Breathing appears labored yet pt appears to be resting well. Will reasses vitals in one hour in order for patient to continue resting.
--- NOTE | 2018-07-10 16:15 | NUR ---
PT IS AWAKE, CPAP REMOVED, TWO PERSON ASSIST TO STAND AND AMBULATE TO BSC TO VOID. O2 PLACED 4L/NC. TO RECLINER. STATES HE FEELS BETTER AFTER RESTING. LOOKING FORWARD TO DINNER. CONT. TO HAVE LOOSE PROD COUGH, MILD RETRACTIONS. OXIMETER 93%. CHAIR ALARM IS ON.
--- NOTE | 2018-07-10 16:48 | NUR ---
Pt woke from nap and ambulated with 2 person assist from bed to chair using FWW. BIPAP replaced with nasal cannula. O2 sats at 94% at 4L. Retractions less severe. Patient reports no pain at this time. Requested orange juice. Infrequent cough/slightly productive. Bedside table in front of patient. Chair alarm on and call light within reach.
--- NOTE | 2018-07-10 18:24 | NUR ---
Pt up in chair eating dinner. Pt removed pulse oximeter and refuses to have it on. Nurse spot checkin O2 levels. O2 sats 97% on 4 L via NC. Patient slightly confused asking "am I in senior care/". Pt eats meal quickly, tends to pocket food in right side of mouth. Pt fidgety.
--- NOTE | 2018-07-10 18:37 | NUR ---
PT CONT. TO BE VERY SOB WITH ANY EXHERTION AND O2 SATS DROP WITH ANY ACTIVITY, CHEST XRAY THIS AM WITH LITTLE CHANGE, ENCOURAGED PT TO WEAR CPAP MUCH POSSIBLE TODAY, O2 AT 6L/NC WHEN CPAP IS OFF PER RT. TWO PERSON ASSIST TO TRANSFER TO BSC OR CHAIR. SMALL GREEN BM THIS AM, NOW PASSING A CLEAR MUCUS. AWARE.
--- NOTE | 2018-07-10 18:44 | NUR ---
PT EXPECTS TO RETURN TO [facility].
--- NOTE | 2018-07-10 20:00 | NUR ---
PATIENT SITING BED, AT THIS TIME, BUT KEEPS TRYING TO GET UP AND TANGLING HIMSELF IN HIS IV TUBING, BED AND CHAIR ALARMS HAVE BEEN ON DEPENDING WHERE HIS IS SETTING. POSITION CLOSE TO NURSE'S SADIE VIEW.
--- NOTE | 2018-07-10 21:40 | NUR ---
CHARGE NURSE ROUNDING NOTE: PT CONTINUES ON DROPLET ISOLATION. IMPULSIVE, NOT FOLLOWING INSTRUCTIONS, CHAIR AND BED ALARM ON. URINATED ALL OVER FLOOR AND GOT HIMSELF OFF CHAIR AND WAS WALKING IN ROOM. SKIN CARE DONE, CLEAN GOWN ON. BACK TO BED. TOOK O2 OFF AND CPOX IN PLACE, COOPERATIVED AFTER SEVERAL CUES.
--- NOTE | 2018-07-10 22:06 | NUR ---
VITALS AND I&OS DONE AND CHARTED. HELPED PT TO THE BED FROM THE BSC. HE URINATED ON THE FLOOR AROUND THE BSC. CLEANED THAT UP, CHANGED HIS SOCKS AND GOWN. ES CAME AND MOPPED THE FLOOR. BED ALARM ON.
--- NOTE | 2018-07-11 00:39 | NUR ---
HELPED PT TO THE BSC AND BACK TO BED. PT CONTINUES TO KEEP STANDING UP AND TRYING TO WALK AROUND .
--- NOTE | 2018-07-11 01:11 | NUR ---
CALLED DR. SABILLON AT CHARGE NURSE MAXWELL'S REQUEST. PATIENT IS WOBBLY ON HIS FEET AND HAS HAD MEDICATION THAT WILL MAKE HIM SLEEPY, BUT KEEPS TRYING TO WALK OUT OF HIS ROOM AND DOWN THE DAY WITH O2 CONNECTED TO THE WALL. MOUNT 50MG IV BENADRYL ORDERED X1.
--- NOTE | 2018-07-11 01:42 | NUR ---
PATIENT HAS NOW HAD HIS 50MG IV BENADRYL AND IS RESTING QUIETLY. SATS ARE 92% ON 3L/NC WITH RESPIRATIONS OF 18.
--- NOTE | 2018-07-11 03:34 | NUR ---
PATIENT CONTINUES TO REST QUIETLY SINCE HE GOT HIS IV BENADRYL, RESPIRATIONS ARE REGULAR AND EVEN.
--- NOTE | 2018-07-11 05:19 | NUR ---
PATIENT STILL RESTING AFTER HIS IV BENADRYL. REMAINS ON 3L/NC AND HAS DONE WELL SINCE HIS MEDICATION.
--- NOTE | 2018-07-11 07:26 | NUR ---
Bedside report recieved from Storm MERCER. Pt sleeping with a sat of 95% on 3L. Bed alarm on and call triana within reach.
--- NOTE | 2018-07-11 07:27 | NUR ---
Nurses receievd report at bedside, pt. was resting with oxygen and bed alarm on.
--- NOTE | 2018-07-11 08:43 | NUR ---
LEFT HAND IV WILL NOT FLUSH, PT NEEDS A NEW IV.
--- NOTE | 2018-07-11 09:15 | NUR ---
DR SABILLON NOTIFIED OF THE PT'S LABS, WEIGHT GAIN AND OF HIS SWOLLEN LEFT ARM AND THAT HIS IV WILL NOT FLUSH. STUDENT NURSE AND HER INSTUCTOR PLACING A NEW IV AT THIS TIME.
--- NOTE | 2018-07-11 09:59 | NUR ---
Pt's left arm was elevated and warm blankets placed to his arm as it is swollen.
--- NOTE | 2018-07-11 10:46 | NUR ---
Pt's iv was pulled in his left hand by the nursing administrator as it was not functioning. His arm was elevated and warm blankets were placed and the swelling now appears to be improving. A new iv start was attempted 7 times by several different nurses with no success. The pt has not yet received his iv Rocephin as he has no iv, Dr Moses was notified. No new orders at this time.
--- NOTE | 2018-07-11 11:33 | NUR ---
Pt sitting up in his bed watching tv. His bed alarm is on and call triana within reach. Sat on 2l is 97%, o2 decreased to 1l. Pt's left arm swelling continues to decrease in size, no redness noted.
--- NOTE | 2018-07-11 11:53 | NUR ---
PT SITTING IN CHAIR-LEANING TO THE R. SIDE. PT STATED HE IS BEING A PROBLEM- USING AN EXPLETIVE TO DESCRIBE HIMSELF. SN AND HER INSTRUCTOR IN AND THEY BOTH COMMENTED THAT HE HAS DONE WELL. APPEARS PT HAS HAD DIFFICULTY WITH AN IV. ENCOURAGED PT, WILL CONTINUE TO FOLLOW NEEDED
--- NOTE | 2018-07-11 12:46 | NUR ---
Focused assessment and O2 sats were taken, pt. remains on 1L of oxygen. Pt ate full serving of lunch and tolerated a chopped meal well. Pt was left watching TV with water and call light in reach, and bed set to the lowest setting.
--- NOTE | 2018-07-11 12:48 | NUR ---
Student nurse end of shift summary ([id number]): Pt. rested well into the morning and was awoken at 0900 for breakfast, an assessment, vitals, and daily hygiene. IV was found to not be patent, and new IV starts were attempted, but none were successful. Pt tolerated this well, although slightly drowsy. IV medications were swtiched to PO due to no IV access. Water provided throughout shift, and pt educated on safety precautions throughout shift. Diet was changed to regular/minced due to pt pocketing food in cheeks, and not apprporiate proportion sizes were eaten.
--- NOTE | 2018-07-11 14:31 | NUR ---
Pt requested to get up to the chair and his sat decreased into 70%. After sitting for about two minutes his sat increased to 95%. His lungs are coarse throughout. He was encouarged to use his accupella which he is at this time.
--- NOTE | 2018-07-11 14:37 | NUR ---
Rt called and is coming to give a prn breathing tx.
--- NOTE | 2018-07-11 14:40 | NUR ---
IV WAS NOT FLUSHING AND HIS LEFT ARM WAS SWOLLEN AND THE SITE WAS DC'D BY THE STUDENT HARIS THIS AM.
--- NOTE | 2018-07-11 16:50 | NUR ---
Pt remains in his chiar and is watching tv. His sat is 96% on 1l at this time.
--- NOTE | 2018-07-11 17:23 | NUR ---
PT HAD REMOVED HIS O2, SAT ON ROOM AIR IS 92% AT REST. PT LEFT OFF OF HIS O2. PULSE OX REMAINS IN PLACE.
--- NOTE | 2018-07-11 17:53 | NUR ---
PT GOT UP TO THE BSC AND WAS UNABLE TO VOID, HE WAS BLADDER SCANNED FOR 429 ML. PT'S SAT WAS 92 AND DECREASED TO 78 WITH ACTIVITY. O2 WAS REPLACED AT 1L AND SAT INCREASED TO 95% IN ABOUT 2 MINUTES. PT RESTING IN BED AT THIS TIME AND HIS O2 WAS REMOVED.
--- NOTE | 2018-07-11 18:07 | NUR ---
SAT WAS 85% ON ROOM AIR WHILE THE PT WAS SITTING UP IN HIS BED. O2 REPLACED AT 1L AND SAT INCREASED TO 95%, SAI STATES HE FEELS A BIT SOB WHEN ASKED. RT CALLED AND PRN NEB REQUESTED. RR IS 24 AT THIS TIME.
--- NOTE | 2018-07-11 18:14 | NUR ---
RT IN THE ROOM TO GIVE THE PT A BREATHING TX.
--- NOTE | 2018-07-11 18:35 | NUR ---
Pt states his breathing feels better and his rr is 20 at this time. Sat on 1l is 98%. Pt eating dinner at this time.
--- NOTE | 2018-07-11 18:37 | NUR ---
SAI'S IV IN HIS LEFT HAND WOULD NOT FLUSH AND HIS ARM WAS SWOLLEN. IV WAS DC'D AND ARM WAS ELEVATED AND HEATED BLANKETS WERE USED, ARM APPEARS NORMAL AT THIS TIME. A NEW IV WAS ATTEMEPTED WITHOUT ANY SUCCESS. NEW ORDER RECEIVED TO LEAVE IT OUT AND MEDICATIONS CHANGED TO REFLECT THIS. PT DID HAVE SOME SWALLOWING ISSUES AND HIS DIET WAS CHANGED TO MINCED. SAI HAS BEEN HAVING SOME TROUBLES VOIDING AND THIS SHOULD BE MONITORED.
--- NOTE | 2018-07-11 20:56 | NUR ---
PATIENT JUST FINISHED USING THE BATHROOM AND IS NOW BACK IN BED TAKING HIS EVENING MEDS AND WATCHING TV.
--- NOTE | 2018-07-11 21:03 | NUR ---
VITALS AND I&OS DONE AND CHARTED. HELPED PT TO THE BSC AND BACK TO BED WITH HIS FWW. FRESH WATER GIVEN. ROOM CLEANED. BEDSIDE TABLE AND CALL LIGHT IN REACH. BED ALARM SET.
--- NOTE | 2018-07-11 21:20 | NUR ---
CALLED ABOUT PATIENT'S DECREASED URINE OUTPUT, HE CHECKED PATIENT'S LABS AND INFORMED ME JUST TO MONITOR FOR NOW.
--- NOTE | 2018-07-11 23:12 | NUR ---
SALON COORDINATOR ROUNDING NOTE. PT SITTING AT EDGE OF BED, DECLINES TO LAY BACK. PT DENIES NEEDS AT THIS TIME. DENIES BEING TIRED. CALL LIGHT IN REACH. ROOM IN VIEW OF RN STATION.
--- NOTE | 2018-07-12 00:15 | NUR ---
PATIENT RESTING QUIETLY, AT THIS TIME, RESPIRATIONS EVEN AND REGULAR.
--- NOTE | 2018-07-12 02:15 | NUR ---
CALLED TO LET HIM KNOW PATIENT'S BLADDER SCAN WAS 614MLS. ORDERS GIVEN TO FOR STRAIT JIAN. TRICE HAD BENADRYL STERILE SWAB USED TO PREP X3. STERILE GLOVES USED FOR PROCEDURE AND 550MLS RETURNED.
--- NOTE | 2018-07-12 03:37 | NUR ---
PATIENT RESTING WELL AT THIS TIME STILL FROM THE TRAZADONE ORDER GIVEN EARLIER MOST LIKELY. RESPIRATIONS EVEN AND REGULAR.
--- NOTE | 2018-07-12 05:04 | NUR ---
PATIENT SLEPT PART OF THE NIGHT AFTER GETTING 50MG OF TRAZADONE PO.PATIENT HAD TO BE STRAIGHT CATHED FOR 550ML OF URINE AFTER A BLADDER SCAN OF 614MLS AND GETTING AN ORDER FROM DR. NAYLOR FOR BOTH. PATIENT JUST SITTING IN BED WATCHING TV AT THIS TIME.
--- NOTE | 2018-07-12 07:45 | NUR ---
Report recieved from Storm MERCER. Pt resting in bed and appears in no distress at this time. Call triana within reach.
--- NOTE | 2018-07-12 08:26 | NUR ---
PT HELPED TO THE RECLINED AND HIS CALL GUTIERREZ WAS PLACED IN HIS LAP AND HIS CHAIR ALARM WAS TURNED ON. PT DENIES ANY NEW PROBLMES AT THIS TIME.
--- NOTE | 2018-07-12 10:07 | NUR ---
Dr Fragoso notified of the pt's inability to void since his straight cath done eairly this am. Pt sleeping in his recliner at this time, call triana and chair alarm in place.
--- NOTE | 2018-07-12 12:21 | NUR ---
Pt sleeping in his bed with his call light in reach and bed alarm on. Sat on 1l is 99%.
--- NOTE | 2018-07-12 12:54 | NUR ---
PT'S URINE OUTPUT REMAINS LOW AND HE WAS SCANNED FOR 386. ELIZABETH RECEIVED TO PLACE A BRUSH. BRUSH PLACED AND THE PT TOLERATED WELL. BRUSH PUT OUT 475 ML.
--- NOTE | 2018-07-12 13:59 | NUR ---
[facility] TITRATED OXYGEN TO 3L WITH EXERTION, PATIENT AUSCULTATED WITH WHEEZES THROUGHOUT EZE. PATIENT ABLE TO RECOVER WELL AT REST. NOW RESTING BACK IN RECLINER WITH CHAIR ALARM ON. AND CALL LIGHT WITHIN REACH.
--- NOTE | 2018-07-12 15:56 | NUR ---
PT SLEEPING, SAT 98% ON 2L, O2 DECREASED TO 1L. PT AWOKE TO VOICE AND DENIES ANY PROBLMES. BRUSH CONTINUE TO DRAIN CLEAR YELLOW URINE.
--- NOTE | 2018-07-12 17:40 | NUR ---
Sat on room air is 92%.
--- NOTE | 2018-07-12 18:41 | NUR ---
Pt was taken for a walk the length of the [place] and back while on 3l via nc. His sat started at 96% and decreased to 93% with the walk. Pt tolerated the walk well. Pt now sitting in his chair with the alarm on.
--- NOTE | 2018-07-12 20:10 | NUR ---
SLD EDUCATIONAL AIDE ROUNDING NOTE. PT RESTING IN BED WITH EYES CLOSED. APPEARS TO BE SLEEPING. ROOM IN VIEW OF RN STATION. CALL LIGHT WITHIN REACH.
--- NOTE | 2018-07-12 20:13 | NUR ---
PATIENT SITTING BED WATCHING TV AND IN NO DISTRESS.
--- NOTE | 2018-07-12 23:26 | NUR ---
PATIENT TUCKED BACK INTO BED AFTER TRYING TO GET UP TO URINATE, BUT WAS REMINDED HE NEEDED A BRUSH CATH.
--- NOTE | 2018-07-12 23:57 | NUR ---
PATIENT RESTING QUIETLY AT THIS TIME SUPINE. VISIBLE FROM NURSE DESK, EYES CLOSED, RESPIRATIONS EVEN AND REGULAR AT 16.
--- NOTE | 2018-07-13 02:02 | NUR ---
PATIENT SITTING IN BED WATCHING TV, NO NEEDS AT THIS TIME.
--- NOTE | 2018-07-13 04:18 | NUR ---
PATIENT WAS VERY ADIMENT ABOUT GET OUT OF BED, BUT DID LOOK LIKE HE WAS EVEN GOING TO BE ABLE STAND. AFTER A LONG DISCUSSION HE DID WALK ONE LAP AOUND THE MED/SURG UNIT AND BACK TO THE RECLINER IN HIS ROOM WHERE HE IS NOW COVERED UP AND SLEEPING.
--- NOTE | 2018-07-13 05:41 | NUR ---
PATIENT SLEPT A FAIR PART OF THE SHIFT IN HIS BED. THEN WHEN HE AWKE WE HAD A LONG DISCUSSION ABOUT HIM GETTING OUT OF BED. WE FINALLY WENT FOR A WALK WITH 1PA AND FWW. PATIENT DID FAIRLY WELL BE CONSTANTLY LISTS TO THE LEFT. HE SAYS HE HAS DONE THAT FOR A LONG TIME, BUT I WILL PASS IT ON TO DAY SHIFT. PATIENT CURRENTLY RESTING QUIETLY EYES CLOSED SITTING IN HIS ARM PASCUAL RECLINER WITH HIS FEET RAISED.
--- NOTE | 2018-07-13 07:23 | NUR ---
RECIEVED BEDSIDE REPORT FROM RUSLAN MAJOR. PT AWAKE SITTING IN CHAIR. PT STOOD FROM CHAIR MULTIPLE TIMES DURING REPORT DESPITE REMINDERS TO REMAIN SITTING AND CHAIR ALARM IN PLACE. PT USUALLY RETURNS TO SITTING ONCE REMINDED. BRUSH IN PLACE. CHAIR/BED ALARM IN PLACE.
--- NOTE | 2018-07-13 08:27 | NUR ---
PT ATE BREAKFAST WITH REMINDERS TO SLOW DOWN AND CHEW HIS FOOD. HE TOOK HIS PILLS WHOLE ONE OR TWO AT A TIME. HE TOOK THEM WITH NO ISSUES.
--- NOTE | 2018-07-13 11:54 | NUR ---
DISC INSPECTOR TOOK PT FOR A ONE LOOP WALK. PT STATED THAT HIS FOOT WAS HURTING. PT IS NOW RESTING IN CHAIR WITH CHAIR ALARM ON.
--- NOTE | 2018-07-13 12:30 | NUR ---
BLADDER SCAN FOR 232ML. CHARGE NURSE AWARE.
--- NOTE | 2018-07-13 17:54 | NUR ---
PT BRUSH REMOVED EARLY THIS SHIFT. PT UNABLE TO VOID. BLADDER SCAN X2 AND MULTIPLE ATTEMPTS TO VOID. PT DID VOID 400ML IN LATE AFTERNOON. PT VERY RESTLESS, UP AND DOWN OUT OF CHAIR ALL DAY. CHAIR AND AND BED ALARM ON AND GOING OFF MULTIPLE TIMES. PT APPEARS AT BASELINE.
--- NOTE | 2018-07-13 20:51 | NUR ---
PT AMBULATED TO BATHROOM, SAID HE MIGHT "POTTY", SAT ON TOILET TRIED, PASSED GAS. BACK TO CHAIR WITH ALARM, EATING JELLO AND WILL DRINK A VANILLA ENSURE.
--- NOTE | 2018-07-13 22:19 | NUR ---
PT ASSESSMENT COMPLETE. PT SITTING UP IN CHAIR. PT DENIES PAIN, AND NAUSEA. WHEN ASKED IF SOB PT STATES, "YAH, HAVE YOU TRIED". NO S/SX OF RESPIRATORY DISTRESS PRESENT. SAO2 91%. LUNG SOUNDS COARSE AND WITH WHEEZE TO ALL LUNG MORTON. NO COUGH DURING THIS ASSESSMENT. ABD MODERATELY DISTENDED WITH LARGE BRUISE TO LLQ. PT DENIES ABD TENDERNESS. PT WOULD LIKE TO CONTINUE TO SIT UP IN CHAIR. CHAIR ALARM IN PLACE. PT DENIES FURTHER NEEDS. ROOM IN VIEW OF RN STATION. CALL LIGHT IN REACH.
--- NOTE | 2018-07-14 00:03 | NUR ---
PT ASSISTED TO GET UP AND USE THE BATHROOM. PT UNABLE TO VOID AT THIS TIME. BLADDER SCAN REMAINS <500 ML. PT ASSISTED BACK TO BED. BED ALARM ACTIVATED. CALL LIGHT IN REACH. ROOM IN VIEW OF RN STATION.
--- NOTE | 2018-07-14 02:24 | NUR ---
PT ASSESSMENT COMPLETE, UNCHANGED FROM PRIOR. BRUSH CATH, 16F PLACED. PT TOLERATED WELL. IMMEDIATE RETURN OF 600 ML OF CONCENTRATED URINE. BEDALARM ACTIVE. CALL LIGHT IN REACH. ROOM IN VIEW OF RN STATION.
--- NOTE | 2018-07-14 04:15 | NUR ---
PT ATTEMPTING TO GET OUT OF BED, STATES THAT HE WOULD LIKE TO SIT IN THE CHAIR. PT ASSISTED TO SIT IN CHAIR WITH FEET ELEVATED. PT NOTED TO BE AUDIBLY WHEEZING. RT NOTIFIED OF NEED FOR NEB. CHAIR ALARM ACTIVE. CALL LIGHT IN REACH.
--- NOTE | 2018-07-14 05:37 | NUR ---
PT RESTING IN CHAIR WITH EYES CLOSED. PT APPEARS TO BE SLEEPING. CALL LIGHT IN REACH. ROOM IN VIEW OF RN STATION. CHAIR ALARM ACTIVE.
--- NOTE | 2018-07-14 07:38 | NUR ---
RECIEVED BEDSIDE REPORT FROM RUSLAN LIU. PT AWAKE AND ALERT, IN CHAIR. BRUSH REPLACED OVERNIGHT. PT AWARE OF BRUSH AT TIMES.
--- NOTE | 2018-07-14 09:15 | NUR ---
RN SWITCHED PT TO A BRUSH LEG BAG FOR EASE OF MOVEMENT. EXTRA DRAIN BAG IN ROOM TO SEND HOME WITH PT TO CHANGE AT NIGHT.
--- NOTE | 2018-07-14 11:17 | NUR ---
TRIED TO TEACH PT TO EMPTY OWN BRUSH BAG. PT ATTEMPTED BUT WAS NOT SUCCESSFUL.
[2018-07-14] MEDS ORDERED: TAMSULOSIN HCL0.4 MG PO (11:46)
[2018-07-14] MEDS ORDERED: TOPROL XL50 MG PO (11:46)
[2018-07-14] MEDS ORDERED: FUROSEMIDE20 MG PO (11:47)
[2018-07-14] MEDS ORDERED: SODIUM CHLORIDE1 GM PO (11:47)
[2018-07-14] MEDS ORDERED: POTASSIUM CHLO20 ME1 PO (11:59)
--- NOTE | 2018-07-14 14:31 | NUR ---
PT SITTNG IN CHAIR, TRYING TO STAY AWAKE LONG ENOUGH TO EAT LUNCH. HE WASN'T QUITE SURE WHAT HE WAS HAVING, AND COULDN'T DECIDE IF HE LIKED IT OR NOT. HE ALSO DIDN'T SEEM TO WANT TO TALK TODAY.ENCOURAGED HIM,WILL FOLLOW NEEEDED
--- NOTE | 2018-07-14 14:40 | NUR ---
SPOKE WITH NICOLASA GALEANO REGARDING PATIENT RETURNING TO FACILITY WITH CATHETER AND HAVING HOME HEALTH. SHE STATES TO USE [facility] THEY ARE FAMILIAR WITH PATIENTS THERE. ASKED PATIENT IF THIS WAS ACCEPTABLE TO HIM, HE IS NOT COMPLETELY ORIENTED, BUT AGREES.
--- NOTE | 2018-07-15 14:37 | NUR ---
FAXED TO [facility] AND ORDER. FAX CONFIRMATION RECEIVED 07/15/18 227PM.
--- NOTE | 2018-07-15 16:09 | NUR ---
FAXED CLINICALS, ORDER TO [facility]. SPOKE WITH SOLOMON [phone] WHO STATES THEY RECEIVED AND ARE PROCESSING.
[2018-07-16] MEDS ORDERED: EZETIMIBE10 MG PO (00:13)
[2018-07-16] MEDS ORDERED: FINASTERIDE5 MG PO (00:15)
[2018-07-16] MEDS ORDERED: TORSEMIDE20 MG PO (00:16)
[2018-07-16] MEDS ORDERED: MULTI VITAMIN1 EACH PO (00:22)
== END 2018-07-14 13:30 | disposition home health service (06) | DRG 193 ==
LOC: ED 22:27 → MS 07-08 02:02 → CCU 07-08 02:02 → MS 07-08 22:10
PROVIDERS: ADMIT Internal Medicine
PROC: 5A09357 Assistance with Respiratory Ventilation, Less than 24 Consecutive Hours, Continuous Positive Airway Pressure (ICD-10-PCS; principal; 2018-07-08)
DX: J10.1 Influenza due to other identified influenza virus with other respiratory manifestations (principal); J96.91 Respiratory failure, unspecified with hypoxia; J44.1 Chronic obstructive pulmonary disease with (acute) exacerbation; E22.2 Syndrome of inappropriate secretion of antidiuretic hormone; G47.00 Insomnia, unspecified; R33.9 Retention of urine, unspecified; F79 Unspecified intellectual disabilities; E03.9 Hypothyroidism, unspecified; F20.9 Schizophrenia, unspecified; E78.5 Hyperlipidemia, unspecified; F03.90 Unspecified dementia, unspecified severity, without behavioral disturbance, psychotic disturbance, mood disturbance, and anxiety; I10 Essential (primary) hypertension; Z66 Do not resuscitate; Z87.891 Personal history of nicotine dependence; Z86.14 Personal history of Methicillin resistant Staphylococcus aureus infection; Z88.8 Allergy status to other drugs, medicaments and biological substances; Z79.82 Long term (current) use of aspirin; Z79.51 Long term (current) use of inhaled steroids; Z79.899 Other long term (current) drug therapy
CPT/HCPCS: 36415; 51702; 51798; 71045; 80048; 80053; 82803; 83605; 83735; 83880; 84300; 84484; 85025; 87502; 93005; 93010; 94640; 94660; 94667; 94668; 94762; 96365; 96367; 96375; 97162; 97165; 99285-25; C9113; J0456; J0696; J1100; J1200; J1650; J2920; J7030; J7512

== ENCOUNTER 2018-07-23 07:39 | Emergency (ER) | payer MEDICARE, OTHER ==
[~2018-07-23] VITALS: Ht 185.4 cm; Wt 90.0 kg
[~2018-07-23 07:39] MED LIST changes: +BANOPHEN50 MG PO; +DENTAGEL56 GM MM; +FLOMAX0.4 MG PO; +FUROSEMIDE20 MG PO; +IRON325 M1 PO; +MAPAP500 M1 PO; +MULTI VITAMIN1 EACH PO; +NATURAL FIBER PO; +ONDANSETRON HCL4 MG PO; +QUETIAPINE FUM400 MG PO; +RISPERIDONE3 MG PO; +SERTRALINE HCL100 MG PO; +TOPROL XL25 MG PO; +TOPROL XL50 MG PO
--- OUTSIDE RECORDS SUMMARY | 2018-07-23 07:42 | XMS ---
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 Care History Medical/Surgical 07/16/2018 [facility] - PATIENT HAS AN APT TO ESTABLISH CARE WITH DR NORTON- 08/12/18. - Patient is currently established with [facility]. If patient is seen in the ED during business hours. Please contact CHWs at [facility]. - Care Recommendation: This patient has had 5 or more Emergency Department visits in the last 12 months.\T\nbsp; Patient requires education on the scope and purpose of the ED as an acute care provider not a Primary Care Provider and should not be utilized for chronic conditions.\T\nbsp; These are guidelines and the provider should exercise clinical judgment when providing care. E.D. VISIT COUNT (12 MO.) 7 [facility] TOTAL 7 NOTE: Visits indicate total known visits. ED/UCC VISIT TRACKING (12 MO.) 07/23/2018 07:40 [facility] TYPE: Emergency COMPLAINT: - CATHETER PROBLEM 07/15/2018 23:43 [facility] TYPE: Emergency COMPLAINT: - SOB 07/07/2018 22:28 [facility] TYPE: Emergency COMPLAINT: - SHORTNESS OF BREATH 02/13/2018 21:37 [facility] TYPE: Emergency COMPLAINT: - FALL DIAGNOSES: - Hypothyroidism, unspecified - Encounter for examination and observation following other accident - Allergy status to other drugs, medicaments and biological substances status - Personal history of nicotine dependence - Unspecified fall, initial encounter - penitentiary (current) use of aspirin - Other senior care (current) drug therapy - Weakness 01/04/2018 12:00 [facility] TYPE: Emergency COMPLAINT: - GLF/RIB PAIN DIAGNOSES: - Personal history of nicotine dependence - Allergy status to other drugs, medicaments and biological substances status - Fall on same level from slipping, tripping and stumbling with subsequent striking against furniture, initial encounter - Unspecified injury of thorax, initial encounter - Unspecified dementia without behavioral disturbance - Contusion of left front wall of thorax, initial encounter - Other rat exterminator (current) drug therapy 09/23/2017 21:21 [facility] TYPE: Emergency COMPLAINT: - SOB 08/15/2017 23:51 [facility] TYPE: Emergency COMPLAINT: - TROUBLE BREATHING INPATIENT VISIT TRACKING (12 MO.) 07/15/2018 23:44 [facility] TYPE: Observation COMPLAINT: - COPD EXACERBATION DIAGNOSES: - Metabolic encephalopathy - Acute on chronic systolic (congestive) heart failure - Unspecified dementia without behavioral disturbance - Supraventricular tachycardia - Personal history of Methicillin resistant Staphylococcus aureus infection - Unspecified intellectual disabilities - Chronic obstructive pulmonary disease, unspecified - Hypo-osmolality and hyponatremia - Hyperlipidemia, unspecified - Personal history of nicotine dependence - Hypothyroidism, unspecified - Do not resuscitate - Chronic obstructive pulmonary disease with acute lower respiratory infection - penitentiary (current) use of aspirin - Other rat exterminator (current) drug therapy - Chronic obstructive pulmonary disease with (acute) exacerbation - penitentiary (current) use of inhaled steroids - Personal history of other mental and behavioral disorders - Other constipation - Hypertensive heart disease with heart failure - Schizophrenia, unspecified - Other retention of urine - Benign prostatic hyperplasia with lower urinary tract symptoms - Allergy status to other drugs, medicaments and biological substances status - Respiratory failure, unspecified with hypoxia - Esophageal obstruction 07/08/2018 02:02 [facility] TYPE: Medical Surgical COMPLAINT: - COPD EXACERBATION DIAGNOSES: - Hyperlipidemia, unspecified - Do not resuscitate - Schizophrenia, unspecified - termite exterminator (current) use of inhaled steroids - Respiratory failure, unspecified with hypoxia - Unspecified dementia without behavioral disturbance - Retention of urine, unspecified - Personal history of nicotine dependence - Insomnia, unspecified - Chronic obstructive pulmonary disease with (acute) exacerbation - Essential (primary) hypertension - Hypothyroidism, unspecified - Influenza due to other identified influenza virus with other respiratory manifestations - Allergy status to other drugs, medicaments and biological substances status - Other senior care (current) drug therapy - Syndrome of inappropriate secretion of antidiuretic hormone - penitentiary (current) use of aspirin - Personal history of Methicillin resistant Staphylococcus aureus infection - Unspecified intellectual disabilities 09/23/2017 22:46 [facility] TYPE: Medical Surgical COMPLAINT: - CHF DIAGNOSES: - Benign prostatic hyperplasia without lower urinary tract symptoms - Schizophrenia, unspecified - Gastro-esophageal reflux disease without esophagitis - Allergy status to other drugs, medicaments and biological substances status - Other constipation - Atherosclerotic heart disease of tangirnaq coronary artery without angina pectoris - Chronic obstructive pulmonary disease, unspecified - Hypothyroidism, unspecified - penitentiary (current) use of aspirin - Patient's other noncompliance with medication regimen - penitentiary (current) use of inhaled steroids - Other rat exterminator (current) drug therapy - Acute on chronic systolic (congestive) heart failure - Do not resuscitate 08/16/2017 02:51 [facility] TYPE: Medical Surgical COMPLAINT: - CHF DIAGNOSES: - Nonspecific elevation of levels of transaminase and lactic acid dehydrogenase [LDH] - Other constipation - termite exterminator (current) use of inhaled steroids - Hypo-osmolality and hyponatremia - Hyperlipidemia, unspecified - Chronic respiratory failure with hypoxia - Personal history of peptic ulcer disease - Hypothyroidism, unspecified - Unspecified intestinal obstruction, unspecified as to partial versus complete obstruction - Unspecified dementia without behavioral disturbance - Anemia, unspecified - Do not resuscitate - Allergy status to other drugs, medicaments and biological substances status - Benign prostatic hyperplasia without lower urinary tract symptoms - Cardiomyopathy, unspecified - Acute on chronic systolic (congestive) heart failure - Atherosclerotic heart disease of tangirnaq coronary artery without angina pectoris - termite exterminator (current) use of aspirin - Other senior care (current) drug therapy - Chronic obstructive pulmonary disease, unspecified - Schizophrenia, unspecified [facility] DIAGNOSES: - Thoracic aortic aneurysm, without rupture - Thoracic aortic stent graft placement 07/24/2017 10:30 [facility] DIAGNOSES: - Thoracic aortic aneurysm, without rupture - Thoracic aortic stent graft placement 07/24/2017 08:19 [facility] Yohana RATLIFF TYPE: Interventional DIAGNOSES: - Thoracic aortic aneurysm, without rupture [email or web address]
== END 2018-07-23 09:50 | disposition home or self-care (01) ==
LOC: ED 07:39
DX: Z46.6 Encounter for fitting and adjustment of urinary device (principal); J44.9 Chronic obstructive pulmonary disease, unspecified; E03.9 Hypothyroidism, unspecified; E78.5 Hyperlipidemia, unspecified; F03.90 Unspecified dementia, unspecified severity, without behavioral disturbance, psychotic disturbance, mood disturbance, and anxiety; I50.9 Heart failure, unspecified; Z87.891 Personal history of nicotine dependence; Z88.8 Allergy status to other drugs, medicaments and biological substances; Z79.899 Other long term (current) drug therapy
CPT/HCPCS: 51798; 99283-25

== ENCOUNTER 2018-10-14 11:36 | Inpatient (IN) | payer MEDICARE, OTHER ==
[~2018-10-14] VITALS: Ht 185.4 cm; Wt 91.8 kg
--- OUTSIDE RECORDS SUMMARY | 2018-10-14 11:40 | XMS ---
PreManage Notification: SAI BASILIO Security Medical Unit Secretary Events No recent Security Events currently on file CRITERIA MET - [facility] [place] CARE PROVIDERS Arron Norton Internal Medicine: Pulmonary Disease 07/16/2018-Current PHONE: Unknown Jaquelin Paredes Coach Operator/Critical Care Physician 06/27/2017-Current PHONE: [phone] Jaquelin Paredes Primary Care 06/27/2017-Current PHONE: [phone] JAQUELIN BASS Primary Care 11/27/2014-Current PHONE: Unknown Other Current PHONE: Unknown Michelle has no Care Guidelines for this patient. Care History Medical/Surgical 07/16/2018 [facility] - PATIENT HAS AN APT TO ESTABLISH CARE WITH DR BEST 07/28/18. - Patient is currently established with [facility]. If patient is seen in the ED during business hours. Please contact CHWs at [facility]. - Care Recommendation: This patient has had [...] providing care. E.D. VISIT COUNT (12 MO.) 6 [facility]. TOTAL 6 NOTE: Visits indicate total known visits. ED/UCC VISIT TRACKING (12 MO.) 10/14/2018 11:37 [facility] TYPE: Emergency COMPLAINT: - CONFUSION 07/23/2018 07:40 [facility] TYPE: Emergency COMPLAINT: - CATHETER PROBLEM DIAGNOSES: - Unspecified dementia without behavioral disturbance - Heart failure, unspecified - Allergy status to other drugs, medicaments and biological substances status - Hypothyroidism, unspecified - Chronic obstructive pulmonary disease, unspecified - Hyperlipidemia, unspecified - Personal history of nicotine dependence - Encounter for fitting and adjustment of urinary device - Encounter for fitting and adjustment of urinary device - Other snf (current) drug therapy 07/15/2018 23:43 [facility] TYPE: Emergency [...] dependence - Unspecified fall, initial encounter - group home (current) use of aspirin - Other snf (current) drug therapy - Weakness 01/04/2018 12:00 [...] wall of thorax, initial encounter - Other snf (current) drug therapy INPATIENT VISIT TRACKING (12 MO.) 07/15/2018 23:44 [...] disease with acute lower respiratory infection - group home (current) use of aspirin - Other terminal carman (current) drug therapy - Chronic obstructive pulmonary disease with (acute) exacerbation - bed bug exterminator (current) use of inhaled steroids - Personal [...] Do not resuscitate - Schizophrenia, unspecified - group home (current) use of inhaled steroids - Respiratory [...] medicaments and biological substances status - Other terminal carman (current) drug therapy - Syndrome of inappropriate secretion of antidiuretic hormone - bed bug exterminator (current) use of aspirin - Personal history of Methicillin resistant Staphylococcus aureus infection - Unspecified intellectual disabilities [email or web address]
[2018-10-14] MEDS ORDERED: PERIOGARD473 ML MM (13:14)
[2018-10-14] MEDS ORDERED: FIBER THERAPY454 GM PO (13:16)
[2018-10-14] MEDS ORDERED: K-TAB ER20 MEQ PO (13:19)
--- NOTE | 2018-10-14 16:16 | EKG ---
[facility] [address] [facility] [place] [address] Signed Sinus rhythm with premature supraventricular complexes Right bundle branch block Left anterior fascicular block Bifascicular block Anteroseptal infarct (cited on or before 04-MAR-2016) Abnormal ECG When compared with ECG of 16-JUL-2018 00:23, Previous ECG has undetermined rhythm, needs review T wave inversion now evident in Inferior leads Inverted T waves have replaced nonspecific T wave abnormality in Anterior leads Confirmed by BIAN NAYLOR DO ([id number]) on 10/14/2018 4:16:35 PM Electronically Signed By: BINA NAYLOR DO 10/14/18 1616 PATIENT NAME: SAI BASILIO Electrocardiogram DATE OF : 43 PHYSICIAN: BINA NAYLOR DO REPORT #: [id number] REPORT IS CONFIDENTIAL AND NOT TO BE RELEASED WITHOUT AUTHORIZATION
--- NOTE | 2018-10-14 17:45 | NUR ---
PT ARRIVED TO UNIT VIA STRETCHER. AWAKE AND VERBALLY COMMUNICATION APPOPRIATELY WITH THIS RN. ASSISTED WITH BED TO BED TRANSFER, FOLLOWS DIRECTIONS WELL. PT ORIENTED TO SELF AND PLACE. APPEARS TO THIS RN TO BE BASELINE ORIENTATION BASED ON PREVIOUS ADMISSIONS. PT DENIES PAIN, NAUSEA, OR SOB AT THIS TIME. SKIN GROSSLY INTACT. BRUSH IN PLACE PUTTING OUT DARK YELLOW URINE. PT SATTING 96% ON 2L NC. IV BOLUS RUNNING IN LEFT WRIST IV. BED ALARM ON AND CALL LIGHT WITHIN REACH. PT VISIBLE FROM NURSES STATION.
--- NOTE | 2018-10-14 18:53 | NUR ---
PT SITTING UP IN BED 90 DEGREES EATING CHOPPED DINNER INDEPENDENTLY. SWALLOWED PILLS EASILY WITH PUDDING. SATTING 94% ON 2LNC. BED ALARM ON. CALL LIGHT WITHIN REACH.
--- NOTE | 2018-10-14 19:05 | NUR ---
CHARGE NURSE REPORT. PT SITTING UP IN BED, EATING DINNER.
--- NOTE | 2018-10-14 19:30 | NUR ---
BEDSIDE REPORT RECEIVED FROM RUSLAN HERNANDEZ. PT IN BED, HOB ELEVATED EATING DINNER. SPO2 WNL ON 2L OXYGEN BY NC. BED ALARM ON. PT HAS NO REQUESTS AT THIS TIME.
--- NOTE | 2018-10-14 20:51 | NUR ---
PT ASSESSMENT COMPLETE. RT JAMEL IN ROOM. OXYGEN TITRATED DOWN TO 1L OXYGEN BY NC, SPO2 94%. LUNG SOUNDS CLEAR WITH SOME COURSENESS IN RUL. PT DENIES PAIN. BRUSH EMPTIED, CLEAR YELLOW URINE. PT ORIENTED TO SELF AND . CALL LIGHT IN REACH. PT ABLE TO DEMONSTRATE USE OF CALL LIGHT. BED ALARM ON.
--- NOTE | 2018-10-14 21:00 | NUR ---
IN PT ROOM. PT RESTING IN BED. BED ALARM ON.
--- NOTE | 2018-10-14 22:49 | NUR ---
CHECKED ON PT, RESTING IN BED WITH EYES CLOSED. BREATHING NON-LABORED. 1L OXYGEN BY NC ON. SPO2 95%. BED ALARM IN PLACE.
--- NOTE | 2018-10-15 02:00 | NUR ---
PT SLEEPING, AWAKENS TO TOUCH. VSS. LUNGS COARSE THROUGHOUT ALL LOBES. SPO2 94% ON 1L OXYGEN BY NC, ATTEMPT TO TITRATE TO RA SPO2 DECREASES TO 89%. PT DROWSY AND BACK TO SLEEP. BED ALARM ON. CALL LIGHT IN REACH. URINAL EMPTIED CLEAR YELLOW URINE.
--- NOTE | 2018-10-15 04:10 | NUR ---
CHECKED ON PT, RESTING IN BED WITH EYES CLOSED SNORING. 1L OXYGEN BY NC ON. BED ALARM IN PLACE.
--- NOTE | 2018-10-15 05:30 | NUR ---
PT RESTING IN BED THROUGHOUT SHIFT. ORIENTED TO PERSON, . APPROPRIATE. BED ALARM IN PLACE. TITRATED TO 1L OXYGEN BY NC TO MAINTAIN SATURATIONS >90%. BRUSH CATHETER DRAINING QS URINE OUTPUT. VSS. LUNGS COARSE THROUGHOUT ALL LOBES.
--- NOTE | 2018-10-15 05:46 | NUR ---
IN PT ROOM FOR VS. PT RESTING IN BED WITH EYES CLOSED, AROUSABLE. SPO2 93% ON 1L OXYGEN BY JESE. GONSALO EMPTIED 200 ML CLEAR YELLOW URINE. BED ALARM ON.
--- NOTE | 2018-10-15 07:17 | NUR ---
RECIEVED REPORT FROM RUSLAN MIRELES. PT RESTING QUIETLY WITH EYES CLOSED, EASILY AROUSABLE. PT ON 1L AT 93%. CALL LIGHT WITHIN REACH.
--- NOTE | 2018-10-15 09:23 | NUR ---
PT ALERT TO SELF, SITTING IN CHAIR. PT ATE 100% OF HIS BREAKFAST. PT HAS WET NON-PRODUCTIVE COUGH AND LUNGS SOUND COURSE. PT CURRENTLY HAS IV ANTIBIOTIC RUNNING AND MORNING MEDICATIONS HAVE BEEN ADMINISTERED. PT ASSESSMENT COMPLETE. PT ON 1L OF O2 BUT SLOWLY TOOK PT OFF SAT 98% ON RA. CALL LIGHT WITHIN REACH.
[2018-10-15] MEDS ORDERED: POTASSIUM CHLO10 ME1 PO (10:20)
--- NOTE | 2018-10-15 10:44 | NUR ---
PATIENT WALKING IN THE HALLS. BREAKFAST EATEN. WATER REFRESHED. CALL LIGHT IN REACH. NO FURTHER NEEDS AT THIS TIME.
--- NOTE | 2018-10-15 11:00 | NUR ---
GONSALO WING'D PER MD ORDER. PT REPORTED SOME STINGING WITH REMOVAL. MIMA CARE DONE D/T PENILE DISCHARGE. PT WITH LARGE DARK SOFT STOOL. FINISHED UP WORKING WITH PHYSICAL THERAPY. PT WITH VISITOR AT BEDSIDE. UP IN CHAIR. CHAIR ALARM IN PLACE. CALL LIGHT IN REACH.
--- NOTE | 2018-10-15 12:40 | NUR ---
Medications reconciled using MARS from facility and PCP chart notes
--- NOTE | 2018-10-15 13:11 | NUR ---
PATIENT IN CHAIR. WATER REFRESHED. HE IS WATCHING TV. CALL LIGHT IN REACH. NO FURTHER NEEDS AT THIS TIME.
--- NOTE | 2018-10-15 14:20 | NUR ---
PT URINE OUTPUT 900ML. POST VOID RESIDUAL 15ML.
--- NOTE | 2018-10-15 19:10 | NUR ---
CHARGE NURSE REPORT RECEIVED. PT RECOGNIZED THIS PROPOSAL REVIEW ANALYST; PT SITTING UP IN CHAIR WITH NO SIGNS OF DISTRESS.
--- NOTE | 2018-10-15 20:14 | NUR ---
UP IN CHAIR, ALARM ON, COOPERATIVE WITH ASSESSMENT, ALERT TO NAME AND PLACE ONLY. SL L W INTACT. NO C/O PAIN. CALL LIHGT AT HANDS REACH.ON ROOM AIR, GETTING NEBS AT THIS TIME
--- NOTE | 2018-10-15 22:48 | NUR ---
UP FROM CHAIR TO BED, REQUIRED 2PA AND FWW, UNSTEADY LE. BACK TO BED, TOLERATED VERY WELL, USING CALL LIGHT APPROPRIATELY, BED ALARM ON, LEG ELEVATED, ASPIRATION AND FALL P[RECAUIONS IN PLACE. TOLERATING FLUIDS WELL. CALL LIGHT AT BEDSIDE. ALL PROCEDURES EXPLAINED TO PT SLOW TO RESPOND BUR COOPERATIVE AND FOLLOWING INSTRUCTIONS
--- NOTE | 2018-10-16 02:13 | NUR ---
RSTING, EYES CLOSED,NO RESP DISTRESS, BED ALARM ON. CALL LIGHT AND FLUIDS AT BEDSIDE
--- NOTE | 2018-10-16 04:15 | NUR ---
RESTING, EYES CLOSED, NO RESP DISTRESS, ON ROOM AIR. BED ALARM ON. TURNS SELF IN BED.
--- NOTE | 2018-10-16 06:11 | NUR ---
HAS SLEPT THIS SHIFT. BED ALARM ON, USED CALL LIHGT APPROPRIATELY, CAN BE IMPULSIVE, EASILY REDIRECTABLE. WAS INCONTINENT OF URINE X2, USES THE URINAL. UP TO BR WITH 1PA AMND FWW. CONTINUES TO HAVE OCASSIONAL MOIST PRODUCTIVE COUGH. ON ROOM AIR. DENIES C/O PAIN
--- NOTE | 2018-10-16 07:20 | NUR ---
RECIEVED REPORT FROM RUSLAN ARREOLA. PT RESTING QUIETLY IN BED ON SIDE. RESPIRATIONS EVEN AND UNLABORED.
--- NOTE | 2018-10-16 08:07 | NUR ---
PATIENT SITTING UP AT EDGE OF BED. ATE 100% OF BREAKFAST. ADMINISTERED MORNING MEDICATIONS. PATIENT REPORTS NO PAIN AT THIS TIME. NOW RESTING BACK IN BED. IV ANTIBIOTIC INFUSING. FULL BODY ASSESMENT DONE. BED ALARM ON. CALL LIGHT WITHIN REACH. VS STABLE.
--- NOTE | 2018-10-16 10:06 | NUR ---
PT WATCHING TV IN CHAIR AT THIS TIME. ANTIBIOTIC COMPLETED WITH SALINE LOCK. PT AMBULATED TO RESTROOM STAND BY WITH FWW. PT HAD URINE OUTPUT OF 900ML. ASSESSMENT COMPLETED. PT LEFT LUNGS ARE CLEAR AND RIGHT LUNGS ARE COURSE. PT ON RA. CALL LIGHT WITHIN REACH. NO FURTHER NEEDS/CONCERNS AT THIS TIME.
[2018-10-16] MEDS ORDERED: AZITHROMYCIN250 MG PO (10:59)
[2018-10-16] MEDS ORDERED: CEFUROXIME500 MG PO (11:00)
--- NOTE | 2018-10-16 11:09 | NUR ---
FAXED ORDERS TO [facility] FOR DISCHARGE.
--- NOTE | 2018-10-16 12:28 | NUR ---
CONTACTED [facility] TO LET THEM KNOW PT WAS BEING DISCHARGED AND SPOKE WITH LINDA TO GIVE REPORT.
--- NOTE | 2018-10-16 13:01 | NUR ---
PT AMBULATING IN HALLWAY WITH RN. HE IS VERY PERSONABLE, VISITED WITH ME HE WAS WALKING BY. JOKED WITH ME. PT SAID HE IS BETTER, GAVE ENCOURAGEMENT. WILL CONTINUE TO FOLLOW NEEDED
--- NOTE | 2018-10-16 13:25 | NUR ---
PT BROUGHT BACK UP TO THE UNIT DUE TO CHEST PAIN. PT STATES PAIN COMES AND GOES ALL THE TIME AND PAIN IS CURRETLY NOT THERE. MD NOTIFIED. EKG ORDERED. RT NOTIFIED. PT CLEARED FOR DC BY . JOSÉ ANTONIO CONTACTED AND PT LEFT FACILITY AT 1325. CURRENT VITAL SIGNS BP 111/57, OXYGEN 95, TEMP 97.4, HR 87, AND RESP 18. DENIES CHEST PAIN. NO FURTHER CONCERNS/QUESTIONS.
--- NOTE | 2018-10-16 17:30 | EKG ---
[facility] [address] [facility] [place] [address] Signed Sinus rhythm with occasional premature ventricular complexes Right bundle branch block Left anterior fascicular block Bifascicular block Anteroseptal infarct (cited on or before 04-MAR-2016) Abnormal ECG When compared with ECG of 14-OCT-2018 12:21, premature ventricular complexes are now present premature supraventricular complexes are no longer present T wave inversion no longer evident in Inferior leads Confirmed by SUSAN BEST MD ([id number]) on 10/16/2018 5:29:44 PM Electronically Signed By: SUSAN BEST MD 10/16/18 1730 PATIENT NAME: SAI BASILIO Electrocardiogram DATE OF : 43 PHYSICIAN: SUSAN BEST MD REPORT #: [id number] REPORT IS CONFIDENTIAL AND NOT TO BE RELEASED WITHOUT AUTHORIZATION
== END 2018-10-16 12:50 | disposition home or self-care (01) | DRG 193 ==
LOC: ED 11:36 → MS 17:04
PROVIDERS: ADMIT Student in an Organized Health Care Education/Training Program
DX: J15.4 Pneumonia due to other streptococci (principal); J96.21 Acute and chronic respiratory failure with hypoxia; G93.41 Metabolic encephalopathy; J44.0 Chronic obstructive pulmonary disease with (acute) lower respiratory infection; I50.22 Chronic systolic (congestive) heart failure; N40.1 Benign prostatic hyperplasia with lower urinary tract symptoms; R33.8 Other retention of urine; I11.0 Hypertensive heart disease with heart failure; K22.2 Esophageal obstruction; K21.9 Gastro-esophageal reflux disease without esophagitis; E03.9 Hypothyroidism, unspecified; R07.89 Other chest pain; E78.5 Hyperlipidemia, unspecified; K59.09 Other constipation; Z66 Do not resuscitate; Z88.8 Allergy status to other drugs, medicaments and biological substances; Z86.59 Personal history of other mental and behavioral disorders; Z79.82 Long term (current) use of aspirin; Z79.51 Long term (current) use of inhaled steroids; Z79.899 Other long term (current) drug therapy
CPT/HCPCS: 36415; 36600; 51702; 51798; 70450; 71045; 80048; 80053; 81001; 82803; 83605; 83735; 83880; 85025; 93005; 93010; 94640; 94667; 94668; 94760; 94762; 97162; 97165; 99291; J0696; J1650; J7030

== ENCOUNTER 2020-09-12 06:45 | Day surgery (SDC) | payer MEDICARE, OTHER ==
[~2020-09-12] VITALS: Ht 182.9 cm; Wt 90.0 kg
[~2020-09-12 06:45] MED LIST changes: +AZITHROMYCIN250 MG PO; +CEFUROXIME500 MG PO; +FIBER THERAPY454 GM PO; +GLIPIZIDE5 MG PO; +INCRUSE ELLI62.5 MCG; +K-TAB ER20 MEQ PO; +LEVOTHYROXINE200 MC2 PO; +LISINOPRIL2.5 MG PO; +PEPTO-BISM525 MG/15 PO; +PERIOGARD473 ML MM; +POTASSIUM CHLO10 ME1 PO
--- NOTE | 2020-09-12 11:14 | NUR ---
09/12/20 1114 Sheets,Constanza 1100 PT ARRIVED TO PACU ON 6L VIA MASK, VSS. PT WAKES TO TACTILE STIMULI. PT REORIENTED TO PACU. RESP EVEN AND UNLABORED. 1109 CBG 145, PT DENIES PAIN AND NAUSEA. HOB INCREASED PER REQUEST. O2 REMOVED AND PT COUGHING, NO SPUTUM NOTED AND CORSE LUNG SOUNDS NOTED WITH COUGHING.
--- NOTE | 2020-09-12 12:11 | NUR ---
1200: PT ARRIVES TO DS RM 6 FROM PACU AWAKE AND ALERT. PT ON 2L VIA NC, SATS 100%. PT DENIES PAIN OR NAUSEA, STATES "I FEEL GOOD." PT ASKS WHEN BREAKFAST IS AND PROVIDED SF PUDDING AND ICED WATER. PT WATCHING TV, CALL LIGHT WITHIN REACH.
--- NOTE | 2020-09-12 13:15 | NUR ---
PT RESTING IN BED WATCHING TV. PT CONT TO DENY ANY PAIN OR NAUSEA AND TOLERATES PO WELL. MORE LEMONADE ORDERED PER PT REQUST. PT FRIEND/TRANSPORT AT BEDSIDE CONVERSING WITH PT. CALL LIGHT WITHIN REACH, LUNCH ORDERED AT THIS TIME.
--- NOTE | 2020-09-12 13:50 | NUR ---
LUNCH DELIVERED TO PT AND ICED WATER REFILLED. FRIEND/TRANSPORT EXITS ROOM, CALL LIGHT WITHIN REACH.
--- NOTE | 2020-09-12 15:23 | NUR ---
[id number]: DR. MCBRIDE NOTIFIED ABOUT SLIDING SCALE ORDERS, WOULD LIKE THIS RN TO DC ORDERS AND ADD NURSES NOTE INSTEAD. 1500: DRAW SHEET AND CHUX CHANGED WITH SECOND RN. PT ABLE TO ASSIST BY LIFTING BOTTOM.
--- NOTE | 2020-09-12 15:57 | NUR ---
1545: PT TRANSFERRED TO MED SURG RM 121 VIA STRETCHER, TOLERATES MOVEMENT WELL WITH NO NAUSEA. PT ABLE TO TRANSFER SELF FROM STRETCHER TO BED. VERBAL REPORT GIVEN TO RUSLAN RYAN.
--- NOTE | 2020-09-12 16:24 | NUR ---
PT LAYING IN BED. ASSESSMENT COMPLETED. EXPIRATORY WHEEZING PRESENT. PT BOWEL TONES NORMOACTIVE. NO NUMBNESS OR TINGLING STATED BY THE PATIENT IN HIS EXTREMITIES. PT STATED NO PAIN AT THIS TIME. PT IS ON ROOM AIR. SCD'S IN PLACE. PT ORDERED DINNER AND BREAKFAST FOR TOMORROW. PT HAS A BRUSH IN PLACE WITH IRRIGATION. URINE COLOR IS PINK AND CLEAR. NO FURTHER NEEDS AT THIS TIME.
--- NOTE | 2020-09-12 17:55 | NUR ---
BRUSH CATH EMPTIED, 1550 TOTAL OUT (500 IRRIGATED) FOR UO OF 1050. LIGHT PINK URINE, CBI CONTINUES ON SLOW DRIP.
--- NOTE | 2020-09-12 18:29 | NUR ---
PT CAME TO THE FLOOR AT 1555. ASSESSMENT COMPLETED. LUNG SOUNDS HAD A SNORING EXPIRATORY WHEEZE IN ALL LOBES. BOWEL TONES WERE ACTIVE. PT STATED NO PAIN. PT IS ON ROOM AIR. VITAL SIGNS WERE WNL. PT HAS A BRUSH CATHETER. HE IS GETTING NS FLUSHED IN AND PINK URINE OUT. THIS IS EXPECTED. PT HAD DINNER AND HAS BEEN RESTING IN BED. SCD'S IN PLACE.
--- NOTE | 2020-09-12 19:41 | NUR ---
REPORT RECEIVED FROM DAY SHIFT RN. PT LYING IN BED ALERT AND PLEASANT. CBI INFUSING. URINE LIGHT PINK. FRESH WATER PROVIDED. BED ALARM FOR SAFETY. CALL LIGHT IN REACH.
--- NOTE | 2020-09-12 20:03 | NUR ---
DR MCBRIDE CALLED FOR AN UPDATE. GIVEN. FRESH WATER GIVEN TO PT, CBI CONTINUES, WITH WATER MELON COLORED URINE. PT DENIES PAIN. DR MCBRIDE PLANS TO SEE PT IN AM, WILL CALL DR NEEDED.
--- NOTE | 2020-09-12 21:09 | NUR ---
VS WNL; BRUSH EMPTIED. NO OTHER NEEDS AT THIS TIME.
--- NOTE | 2020-09-12 22:17 | NUR ---
EVENING ASSESSMENT COMPLETE. SCHEDULED MEDS ADMINISTERED PER EMAR. PT DENIES PAIN OR NAUSEA. CBI TITRATED. URINE REMAINS LIGHT PINK. NO CLOTS NOTED. SOME RED DRAINAGE FROM TIP OF PENIS, ASSISTED WITH MIMA/BRUSH CARE. PROTEIN PACK PROVIDED. ASSISTED PT TO REPOSITION IN BED. PT DENIES FURTHER NEEDS. CALL LIGHT IN REACH. BED ALARM FOR SAFETY. PT IN VIEW OF NURSES STATION.
--- NOTE | 2020-09-12 23:57 | NUR ---
PT RESTING IN BED WITH EYES CLOSED, NAD. SpO2 90% ON RA. RESPIRATIONS EVEN. BED ALARM FOR SAFETY. CALL LIGHT IN REACH.
--- NOTE | 2020-09-13 01:13 | NUR ---
SPOT CHECK SpO2 87-88% ON RA. HR 60'S. APNEA NOTED. 2L/NC IN PLACE. SpO2 UP TO 93%.
--- NOTE | 2020-09-13 02:19 | NUR ---
VS AND I&O COMPLETE. URINE CONTINUES TO BE LIGHT PINK TINGED. NO CLOTS NOTED IN TUBING. CBI REMAINS CLAMPED. ASSISTED PT TO REPOSITION IN BED. BED ALARM FOR SAFETY.
--- NOTE | 2020-09-13 03:10 | EKG ---
[facility] [address] [place] [address] Signed Sinus rhythm with premature atrial complexes Left axis deviation Right bundle branch block Anteroseptal infarct (cited on or before 04-MAR-2016) Abnormal ECG When compared with ECG of 10-FEB-2020 10:59, premature ventricular complexes are no longer present premature atrial complexes are now present Inverted T waves have replaced nonspecific T wave abnormality in Anterior leads Confirmed by LUZ SABILLON MD ([id number]) on 09/13/2020 3:09:54 AM Electronically Signed By: LUZ SABILLON MD 09/13/20 0310 PATIENT NAME: SAI BASILIO Electrocardiogram DATE OF : 43 PHYSICIAN: LUZ SABILLON MD REPORT #: [id number] REPORT IS CONFIDENTIAL AND NOT TO BE RELEASED WITHOUT AUTHORIZATION
--- NOTE | 2020-09-13 06:12 | NUR ---
ASSISTED PT TO REPOSITION IN BED. RED DRAINAGE FROM TIP OF PENIS CLEANED. CBI REMAINS CLAMPED. URINE PINK TINGED. VS WNL. O2 1L/NC IN PLACE. SpO2 98%. PT DENIES PAIN. BED ALARM FOR SAFETY. CALL LIGHT IN REACH.
--- NOTE | 2020-09-13 07:58 | NUR ---
REPORT RECEIVED. PT IN BED SALINE LOCKED. SAT UP IN BED FOR BREAKFAST. CBI CLAMPED SINCE MIDNIGHT. URINE CLEAR AT THIS TIME. CALL LIGHT IN REACH. AND BED ALARM IN PLACE.
--- NOTE | 2020-09-13 08:30 | NUR ---
ASSESSMENT COMPLETED. MEDICATIONS ADMISNTERED. PT ATE 100% OF BREAKFAST. DENIES PAIN OR NAUSEA. URINE STILL CLEAR WITH CBI STILL CLAMPED. BOWEL TONES ACTIVE. PT REPORTS LAST BM YESTERDAY. ABX STARTED. PT ON RA. BED ALARM IN PLACE. CALL LIGHT IN REACH.
--- NOTE | 2020-09-13 09:12 | NUR ---
PATIENTS IV REMOVED FOR DISCHARGE. XIOMARA GUTIERREZ IN ROOM TO DRESS PATIENT. ALL QUESTIONS ANSWERED. VICE PRESIDENT CONSULTING SERVICES REMAINS IN THE ROOM.
[2020-09-13] MEDS ORDERED: FLOMAX0.4 MG PO (09:38)
[2020-09-13] MEDS ORDERED: INCRUSE ELLI62.5 MCG INH (09:52)
[2020-09-13] MEDS ORDERED: DULCOLAX10 MG PR (09:52)
[2020-09-13] MEDS ORDERED: SENNA-S TABLET1 EACH PO (09:55)
--- NOTE | 2020-09-14 09:46 | OR ---
[facility] [address], [place] [address] Signed DATE OF OPERATION: 09/12/2020 SURGEON: Helena Mcbride MD PREOPERATIVE DIAGNOSES: 1. Trilobar benign prostatic hyperplasia with lower urinary tract symptoms. 2. History of acute urinary retention. POSTOPERATIVE DIAGNOSES: 1. Trilobar benign prostatic hyperplasia with lower urinary tract symptoms. 2. History of acute urinary retention. NAMES OF PROCEDURES: 1. Urethral dilation using Orin sounds from 16-Samoan to 26-Samoan. 2. Transurethral resection of the prostate. ANESTHESIA: Spinal. ESTIMATED BLOOD LOSS: 25 mL. COMPLICATIONS: None. SPECIMENS: Prostate chips sent to the lab for evaluation. DRAINS: A 22-Samoan three-way Cabello catheter, connected to continuous bladder irrigation. INDICATIONS FOR PROCEDURE: Sai is a very pleasant 75-year-old gentleman with a history of schizophrenia and congestive heart failure, who presented to my clinic late last year with complaints of a significant weak force of stream along with urgency and frequency symptoms. He underwent a diagnostic cystoscopy in late 2019, which revealed significant trilobar prostatic hyperplasia, along with grade 3-4 bladder wall trabeculation indicative of long-standing bladder outlet obstruction. After discussing the risks and benefits of the procedure with his gold reclaimer, Akua Nicolas, both he and Akua agreed to proceed with elective transurethral resection of the prostate. Electronically Signed By: HELENA MCBRIDE MD 09/14/20 0946 PATIENT NAME: SAI BASILIO OPERATIVE REPORT DATE OF : 43 REPORT #: [id number] PHYSICIAN: HELENA MCBRIDE MD PCP: SUSAN BETS MD REPORT IS CONFIDENTIAL AND NOT TO BE RELEASED WITHOUT AUTHORIZATION [facility] [address], [place] [address] Signed OPERATIVE FINDINGS: 1. Digital rectal examination reveals a 45 g prostate that is soft, smooth and symmetric with no focal nodules. 2. Diagnostic cystoscopy reveals diffuse grade 4 bladder wall trabeculation. Bilateral ureteral orifices are in their normal anatomic location and are effluxing clear urine. 3. Ureteroscopy again reveals moderate to severe trilobar hyperplasia with approximately 3 cm from bladder neck to verumontanum. The patient's prostate was resected in a stepwise fashion using a 24-Samoan loop with bipolar cautery. The median lobe of the prostate was resected first, then followed by the left lateral lobe and then right lateral lobe of the prostate. 4. The prostate was resected down to the level of just proximal to the verumontanum. At the end of the procedure, the ureteral orifices were evaluated and there was no obvious iatrogenic injury to either of them. 5. At the end of the procedure, a 22-Samoan three-way Cabello catheter was inserted into the patient's bladder and connected to continuous bladder irrigation. DESCRIPTION OF PROCEDURE: After informed consent was obtained, the patient was taken back to the operating room. He was transferred [facility] to the operating room table, where spinal anesthesia was placed. He was then placed in the dorsal lithotomy position and his genitalia prepped and draped in a standard sterile fashion. A digital rectal examination was performed. Please see above findings. I then donned sterile gloves and dilated the patient's urethra from 16-Samoan to 26-Samoan using Orin sounds without difficulty. A 60 mL syringe was then used to inject Surgilube into the patient's urethra. Using a visual obturator. A 26-Samoan sheath was inserted through the patient's urethra into his bladder under direct visualization. Panendoscopic views of the bladder were then obtained. Please see above findings. The visual obturator was then removed and was replaced with a 24-Samoan loop. I then began resection of the median lobe of the prostate, all the while attempting to avoid the ureteral orifices. At the end of the resection of the median lobe, I was able to confirm that the ureteral orifices were in their normal state. I then turned my attention to the left lateral lobe and resected that using the 24-Samoan loop. As stated above, I resected down to the capsule on both sides and without difficulty. There was very minimal bleeding associated with the resection. All the while, hemostasis was achieved and maintained using bipolar electrocautery. The patient's bladder was copiously irrigated using a Otilia syringe around 3-4 times during the procedure to extract all the prostate chips from the patient's bladder. Once both lateral lobes of the prostate were resected and all the chips had been extracted, I did cauterize the TUR defect using a bipolar button. Once I was satisfied that a thorough resection had taken place and hemostasis had been achieved, the resectoscope was removed, leaving the 26-Samoan sheath behind. I inserted a Sensor wire through the sheath into the patient's bladder. The sheath was then Electronically Signed By: HELENA MCBRIDE MD 09/14/20 0946 PATIENT NAME: SAI BASILIO OPERATIVE REPORT DATE OF : 43 REPORT #: [id number] PHYSICIAN: HELENA MCBRIDE MD PCP: SUSAN BEST MD REPORT IS CONFIDENTIAL AND NOT TO BE RELEASED WITHOUT AUTHORIZATION [place] [id number] Signed removed, leaving the wire behind. Over the wire, I passed a 22-Samoan three-way Cabello catheter into the patient's bladder without difficulty. The Sensor wire was removed and the Caebllo catheter balloon was filled with 30 mL of water. The catheter was then manually flushed to confirm placement. The catheter was hooked to continuous bladder irrigation, and the procedure was terminated. The patient tolerated the procedure well without any complication. He will now be sent to the post anesthesia care unit in stable condition. DISPOSITION: I notified the patient's caregiver at [facility], Akua Nicolas of the results of today's surgery. I notified her that the patient's surgery went well today and without any complication. He will now be transferred to the floor for continued management of his Cabello catheter including a slow wean of his continuous bladder irrigation. He will also be given pain control and antiemetics as needed. His diabetic diet will be advanced as tolerated. Nursing staff will slowly wean off his CBI to keep his urine clear to light pink in color. By tomorrow morning, once his urine remains clear off CBI, I would anticipate that he will be discharged back to [facility] tomorrow with his Cabello catheter to gravity drainage. He will be scheduled return to clinic in 3 days for a voiding trial. He was sent home today with Cipro 250 mg p.o. b.i.d. for a total of 7 days, along with oxycodone 5 mg one tablet p.o. q.6 hours p.r.n. pain, dispense #20. MD KATIE Patel/CAREY /[id number] Copies: ~ Electronically Signed By: HELENA MCBRIDE MD 09/14/20 0946 PATIENT NAME: SAI BASILIO OPERATIVE REPORT DATE OF : 43 REPORT #: [id number] PHYSICIAN: HELENA MCBRIDE MD PCP: SUSAN BEST MD REPORT IS CONFIDENTIAL AND NOT TO BE RELEASED WITHOUT AUTHORIZATION
--- NOTE | 2020-09-14 10:24 | PATH ---
[facility] [address] [place], [place] [address] Signed SPECIMEN(S): A PROSTATE CHIPS SPECIMEN SOURCE: Asher. PROSTATE JUAN CLINICAL HISTORY: Cystoscopy, transurethral resection of the prostate. Pre: BPH. Post: TURP. FINAL PATHOLOGIC DIAGNOSIS: Prostate chips, transurethral resection: - Benign nodular prostatic hyperplasia. NAL:cml:C2NR MICROSCOPIC EXAMINATION: Histologic sections of all submitted blocks are examined by light microscopy. A TRICAP multiplex stain (with appropriately staining controls) on a printing sales representative section confirms the absence of adenocarcinoma with all glands demonstrating retained basal cells with p63 and HMWCK; there is no epithelial P504S positivity to suggest intraepithelial neoplasia either. These findings, together with the gross examination, support the pathologic diagnosis. GROSS DESCRIPTION: The specimen, labeled "CINDA, prostate chips," is received in formalin and consists of 11 grams of pink-suggs, rubbery tissue fragments that aggregate measure 6.5 x 5.2 x 1.2 cm. Specimen is entirely submitted in cassettes (A1-A8). JS (under the direct supervision of a pathologist) The Gross Description was prepared using a voice recognition system. The report was reviewed for accuracy; however, sound-alike word errors, addition and/or deletions may occur. If there is any question about this report, please contact Client Services. ADDITIONAL NOTES: Immunohistochemical and/or in situ hybridization studies were performed on this case with the appropriate positive controls that react as expected. This test was developed and its performance characteristics determined by [facility]. It has not been cleared or approved by the U.S. Food and Drug Administration. The FDA has determined that such clearance or approval is not necessary. This test is used for clinical purposes. It should not be regarded PATIENT NAME: SAI BASILIO PATHOLOGY DATE OF : 43 REPORT #: [id number] PHYSICIAN: CARMEN PATHOLOGY PCP: SUSAN BEST MD REPORT IS CONFIDENTIAL AND NOT TO BE RELEASED WITHOUT AUTHORIZATION [facility] [address], [place] [address] Signed as investigational or for research. [facility] is certified under the Clinical Laboratory Improvement Amendments of 1988 (CLIA) as qualified to perform high complexity clinical laboratory testing. This assay has not been validated for specimens that have been decalcified. PERFORMING LABORATORY: The technical component was performed by [facility] [address] (Multiple Wire Sawyer: Zari Choi MD; CLIA# [id number]). Professional interpretation was performed by [facility] [facility], [address] [address] (CLIA# [id number]). Diagnostician: Marialuisa Magaña MD Pathologist Electronically Signed 09/14/2020 Copies: ~ PATIENT NAME: SAI BASILIO PATHOLOGY DATE OF : 43 REPORT #: [id number] PHYSICIAN: CARMEN YUEN PCP: SUSAN BEST MD REPORT IS CONFIDENTIAL AND NOT TO BE RELEASED WITHOUT AUTHORIZATION
== END 2020-09-13 09:45 | disposition home or self-care (01) ==
LOC: DS 06:45 → MS 13:55 → DS 09-13 09:45
PROVIDERS: ATTEND Urology
PROC: 0VT08ZZ Resection of Prostate, Via Natural or Artificial Opening Endoscopic (ICD-10-PCS; principal; 2020-09-12 09:00)
DX: N40.1 Benign prostatic hyperplasia with lower urinary tract symptoms (principal); R33.8 Other retention of urine; F20.9 Schizophrenia, unspecified; N32.89 Other specified disorders of bladder; J44.9 Chronic obstructive pulmonary disease, unspecified; E11.22 Type 2 diabetes mellitus with diabetic chronic kidney disease; I13.0 Hypertensive heart and chronic kidney disease with heart failure and stage 1 through stage 4 chronic kidney disease, or unspecified chronic kidney disease; I50.22 Chronic systolic (congestive) heart failure; N18.30 Chronic kidney disease, stage 3 unspecified; E78.5 Hyperlipidemia, unspecified; E03.9 Hypothyroidism, unspecified; K21.9 Gastro-esophageal reflux disease without esophagitis; I08.0 Rheumatic disorders of both mitral and aortic valves; I45.10 Unspecified right bundle-branch block; Z79.82 Long term (current) use of aspirin; Z87.891 Personal history of nicotine dependence; Z88.8 Allergy status to other drugs, medicaments and biological substances; Z79.84 Long term (current) use of oral hypoglycemic drugs
CPT/HCPCS: 00914; 36415; 80048; 85025; 88305; 88344; 93005; 93010; A9270; C1769; J0690; J0696; J2001; J2250; J2405; J2704; J3010; J7121

== ENCOUNTER 2021-11-03 17:50 | Emergency (ER) | payer MEDICARE, OTHER ==
[~2021-11-03] VITALS: Ht 185.4 cm; Wt 89.8 kg
[~2021-11-03 17:50] MED LIST changes: +DULCOLAX10 MG PR; +SENNA-S TABLET1 EACH PO
== END 2021-11-03 22:14 | disposition home or self-care (01) ==
LOC: ED 17:50
DX: E86.0 Dehydration (principal); J44.9 Chronic obstructive pulmonary disease, unspecified; E03.9 Hypothyroidism, unspecified; E78.5 Hyperlipidemia, unspecified; I50.9 Heart failure, unspecified; Z87.891 Personal history of nicotine dependence; Z88.8 Allergy status to other drugs, medicaments and biological substances; Z79.899 Other long term (current) drug therapy; Z79.82 Long term (current) use of aspirin
CPT/HCPCS: 70450; 80053; 81001; 83735; 84484; 85025; 85610; 99285-25